=== PATIENT | female | born 1950 | race Caucasian/White ===

== ENCOUNTER 2016-06-08 16:13 | Emergency (ER) | payer MEDICARE, OTHER ==
[~2016-06-08] VITALS: Ht 157.5 cm; Wt 63.0 kg
[2016-06-08 16:39] VITALS: Ht 157.5 cm; Wt 63.0 kg
[2016-06-08] MEDS ORDERED: morphine 4 MG/ML VIAL IV STA (17:19)
[2016-06-08] MEDS ORDERED: ONDANSETRON 4 MG INJ IV STA (17:19)
[2016-06-08] MEDS ORDERED: SOD CHLORIDE 0.9% 1,000 ML IV STA (17:19)
[2016-06-08] MEDS ORDERED: FAMOTIDINE 20 MG INJ IV STA (17:19)
--- NOTE | 2016-06-08 17:58 | RADRPT ---
PROCEDURE: CT Abdomen and Pelvis without contrast. CLINICAL INDICATION: Abdominal and pelvic pain. Right flank pain. TECHNIQUE: CT scan of the abdomen and pelvis without contrast was performed. Coronal and sagittal reformatted images were obtained from the axial source images. Images were reviewed on a high-resolu [employer] PACS workstation. Total exam DLP is 571.88 mGy-cm. CTDIvol is 10.97 mGy. One or more of the f ollowing dose reduction techniques were used: Automated exposure control, adjustment of the mA and/o r kV according to patient size, use of iterative reconstruction technique. COMPARISON: None. FINDINGS: There is a benign calcified granuloma in the right middle lobe inferiorly. The lung bases are other lewis normal. There is no pleural effusion or pericardial effusion. The liver is enlarged and has a nodular surface consistent with cirrhosis. The gallbladder is contracted but otherwise unremarkable. The bile ducts are normal. The spleen is enlarged. Multiple dilated veins are present in the upper abdomen consistent with por rafita hypertension. Both adrenals are normal with no enlargement or mass. The pancreas is unremarkable with no mass or evidence of pancreatitis. There is no renal mass or hydronephrosis. There is no renal calculus or ureteral calculus. The abdominal aorta is not dilated. There is calcification in the aorta consistent with atheroscler osis. There is no retroperitoneal lymphadenopathy or mass. There is no pelvic lymphadenopathy or mass. The bladder and distal ureters are normal. There is a large region of marked thickening of the wall of the cecum and ascending colon consistent with neoplasm measuring approximately 7.5 x 7.8 x 12.4 cm in AP, transverse, and cranial caudal dim ensions. There is surrounding mesenteric infiltration or edema. There is no evidence of bowel obst ruction. There is diverticulosis of the sigmoid colon without evidence of diverticulitis. The kan l and mesentery are otherwise normal. There is no free fluid or free gas. The osseous structures are unremarkable with no fracture or lytic lesion. IMPRESSION: 1. Benign calcified granuloma in the right middle lobe inferiorly. 2. Enlarged liver with nodular surface consistent with cirrhosis. 3. Contracted gallbladder. 4. Splenomegaly and portal hypertension. 5. Atherosclerosis. 6. Large mass with marked thickening of the wall of the cecum and ascending colon consistent with n eoplasm measuring 7.5 x 7.8 x 12.4 cm. Surrounding mesenteric infiltration or edema. 7. Diverticulosis of the sigmoid colon without evidence of diverticulitis. 8. Otherwise unremarkable study. Call report: A call report of the findings was made to Dr. Em on 06/08/2016 at 1758 hours. RPTAT: QQ .Billy Young MD, MD Date Time Electronically viewed and signed by .Billy Young MD, MD on 06/08/2016 17:58 .R/
[2016-06-08 18:44] LABS: ADD SCAN DIFF NO
[2016-06-08 18:55] LABS: ADD UMIC YES; URINE BILIRUBIN (Dip) NEGATIVE (NEGATIVE); URINE BLOOD (Dip) 1+ (NEGATIVE); URINE COLOR YELLOW (YELLOW); URINE GLUCOSE (Dip) NEGATIVE (NEGATIVE); URINE KETONES (Dip) NEGATIVE (NEGATIVE); URINE LEUKOCYTE ESTERASE (Dip) NEGATIVE (NEGATIVE); URINE NITRITE (Dip) NEGATIVE (NEGATIVE); URINE TOTAL PROTEIN (Dip) TRACE (NEGATIVE); URINE UROBILINOGEN (Dip) 0.2 E.U./dL (0.1-1.0)
[2016-06-08 18:58] LABS: BASOPHILS % 0.1 % (0.0-2.0); EOSINOPHILS # 0.1 10^3/ul (0.0-0.5); EOSINOPHILS % 0.7 % (0.0-7.0); HEMATOCRIT 26.6 % (37.0-47.0); HEMOGLOBIN 8.2 g/dl (12.0-16.0); LYMPHOCYTES # 1.1 10^3/ul (0.8-2.9); LYMPHOCYTES % 15.6 % (15.0-51.0); MEAN CORPUSCULAR HEMOGLOBIN 24.3 pg (29.0-33.0); MEAN CORPUSCULAR HGB CONC 30.8 g/dl (32.0-37.0); MEAN CORPUSCULAR VOLUME 78.7 fl (82.0-101.0); MEAN PLATELET VOLUME 11.6 fl (7.4-10.4); MONOCYTE # 0.9 10^3/ul (0.3-0.9); MONOCYTES % 12.5 % (0.0-11.0); NEUTROPHIL # 4.9 10^3/ul (1.6-7.5); NEUTROPHILS % 70.8 % (39.0-77.0); PLATELET COUNT 135 10^3/UL (140-415); RED BLOOD COUNT 3.38 10^6/ul (4.20-5.40)
[2016-06-08 19:03] LABS: BACTERIA,URINE FEW; SQUAMOUS EPITHELIAL CELL,UR MODERATE
[2016-06-08 19:13] LABS: ALBUMIN 2.7 g/dl (3.3-4.9); POTASSIUM 3.6 mmol/L (3.5-5.1)
[2016-06-08 19:15] LABS: BILIRUBIN,INDIRECT 0.3 mg/dl (0-1.1); BILIRUBIN,TOTAL 0.3 mg/dl (0.2-1.3); CREATININE 0.63 mg/dl (0.44-1.00)
[2016-06-08 19:16] LABS: ALBUMIN/GLOBULIN RATIO 0.75; CALCIUM 7.8 mg/dl (8.4-10.2); TOTAL PROTEIN 6.3 g/dl (6.1-8.1)
[2016-06-08 19:55] VITALS: TEMP 99.5
--- NOTE | 2016-06-08 19:56 | ERA ---
ER Documentation Chief Complaint Date/Time DATE: 06/08/16 TIME: 19:51 Chief Complaint R flank pain x 8 days HPI This is a 65-year-old female presents to the emergency room for evaluation of right-sided flank pain for the past 10 days. The patient states that it is an achy pain worse with movement and somewhat relieved when she lays still. The patient denies any nausea, vomiting or diarrhea associated with this and came to the ER today for evaluation. She denies any bleeding from the rectum. ROS All systems reviewed and are negative except as per history of present illness. Medications Home Meds No Active Prescriptions or Reported Meds Allergies Allergies: Coded Allergies: tetracycline (Unverified Allergy, Unknown, 06/08/16) PMhx/Soc Medical and Surgical Hx: pt denies Medical Hx, pt denies Surgical Hx Hx Alcohol Use: No Hx Substance Use: No Hx Tobacco Use: No Smoking Status: Never smoker Physical Exam Vitals Vital Signs Date Time Temp Pulse Resp B/P Pulse Ox O2 Delivery O2 Flow Rate FiO2 06/08/16 18:26 99.5 88 22 135/69 100 Room Air 06/08/16 16:39 101.3 94 20 184/74 100 Physical Exam INITIAL VITAL SIGNS: Reviewed by me GENERAL: The patient is well developed and appropriate for usual state of health in no apparent distress HEENT: Pupils equal, round, and reactive to light. EOMI. There is no scleral icterus. NECK: C-spine is soft and supple, there is no meningismus. There is no cervical lymphadenopathy. LUNGS: Clear to auscultation bilaterally. There are no rales, wheezes or rhonchi. HEART: Regular rate and rhythm, no murmurs, clicks, rubs or gallops. ABDOMEN: Right-sided CVAT, soft, non-tender, non-distended. There are bowel sounds in all four quadrants. No rebound or guarding. EXTREMITIES: There is no peripheral cyanosis or edema. No focal swelling or erythema. NEUROLOGICAL: The patient moves all four extremities with 5/5 strength. Cranial nerves II - XII are intact. Normal gait. Alert and oriented SKIN: There is no apparent rash or petechiae. HEME/LYMPHATIC: There is no evidence of excessive bruising or lymphedema. PSYCHIATRIC: The patient does not appear anxious or depressed. Result Diagram: 06/08/16 1800 06/08/16 1800 Results 24 hrs Laboratory Tests Test 06/08/16 18:00 Alanine Aminotransferase (ALT/SGPT) 31IU/L Albumin 2.7g/dl Albumin/Globulin Ratio 0.75 Alkaline Phosphatase 103IU/L Anion Gap 15 Aspartate Amino Transf (AST/SGOT) 33IU/L Basophils # 0.010^3/ul Basophils % 0.1% Blood Urea Nitrogen 15mg/dl Calcium Level 7.8mg/dl Carbon Dioxide Level 21mmol/L Chloride Level 101mmol/L Creatinine 0.63mg/dl Direct Bilirubin 0.00mg/dl Eosinophils # 0.110^3/ul Eosinophils % 0.7% Globulin 3.60g/dl Glucose Level 103mg/dl Hematocrit 26.6% Hemoglobin 8.2g/dl Indirect Bilirubin 0.3mg/dl Lipase 193U/L Lymphocytes # 1.110^3/ul Lymphocytes % 15.6% Mean Corpuscular Hemoglobin 24.3pg Mean Corpuscular Hemoglobin Concent 30.8g/dl Mean Corpuscular Volume 78.7fl Mean Platelet Volume 11.6fl Monocytes # 0.910^3/ul Monocytes % 12.5% Neutrophils # 4.910^3/ul Neutrophils % 70.8% Nucleated Red Blood Cells # 0.010^3/ul Nucleated Red Blood Cells % 0.0/100WBC Platelet Count 83429^3/UL Potassium Level 3.6mmol/L Red Blood Count 3.3810^6/ul Red Cell Distribution Width 16.0% Sodium Level 133mmol/L Total Bilirubin 0.3mg/dl Total Protein 6.3g/dl Urine Bacteria FEW Urine Bilirubin NEGATIVE Urine Clarity CLEAR Urine Color YELLOW Urine Glucose NEGATIVE% Urine Hemoglobin 1+ Urine Ketones NEGATIVE Urine Leukocyte Esterase NEGATIVE Urine Microscopic RBC 2-5/HPF Urine Microscopic WBC 0-2/HPF Urine Nitrite NEGATIVE Urine Specific [place] 1.020 Urine Squamous Epithelial Cells MODERATE Urine Total Protein TRACE Urine Urobilinogen 0.2 E.U./dL Urine pH 6.0 White Blood Count 7.010^3/ul Current Medications Medications (Trade) Dose Ordered Sig/Angelika Route PRN Reason Start Time Stop Time Status Last Admin Dose Admin Sodium Chloride (NS) 1,000 ml @ 1,000 mls/hr Q1H STAT IV 06/08/16 17:19 3/9/17 18:18 DC 06/08/16 18:16 Morphine Sulfate (morphine) 4 mg ONCE STAT IV 06/08/16 17:19 06/08/16 17:20 DC 06/08/16 18:17 Ondansetron HCl (Zofran Inj) 4 mg ONCE STAT IV 06/08/16 17:19 06/08/16 17:20 DC 06/08/16 18:16 Famotidine (Pepcid Iv) 20 mg ONCE STAT IV 06/08/16 17:19 06/08/16 17:20 DC 06/08/16 18:16 Procedures/MDM CT abdomen pelvis without: 1. Benign calcified granuloma in the right middle lobe inferiorly. 2. Enlarged liver with nodular surface consistent with cirrhosis. 3. Contracted gallbladder. 4. Splenomegaly and portal hypertension. 5. Atherosclerosis. 6. Large mass with marked thickening of the wall of the cecum and ascending colon consistent with neoplasm measuring 7.5 x 7.8 x 12.4 cm. Surrounding mesenteric infiltration or edema. 7. Diverticulosis of the sigmoid colon without evidence of diverticulitis. 8. Otherwise unremarkable study. This 65-year-old female presents to the ER for evaluation of right-sided flank pain. When I evaluated this patient she did have right-sided CVAT. Lab work and a urinalysis was obtained. I also obtain a CAT scan which does show a large mass with thickened cecum and ascending colon consistent with neoplasm. This patient states that she has no history of cancer. I advised her that she does have a new mass and I recommended admission to the hospital for oncology workup. The patient adamantly refused to be admitted to the hospital. 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 The patient was made aware that she would have to be leaving AGAINST MEDICAL ADVICE. I advised her against risk of leaving including risk of . The patient verbalized understanding. The patient has capacity to make medical decisions. This patient will be discharged home with a prescription for [place], Zofran for any nausea, and referral for outpatient oncology. I advised her she can return to the ER anytime for further evaluation and she verbalized understanding. Against Medical Advice Note The patient verbalized understanding of risks of signing out against medical advice including and disability. The patient explained to me the reason for wanting to sign out against medical advice, [default value]. The patient is alert and oriented x 3 with decisional capacity and competence to sign out. They were welcomed to come back to ER and will be going home with discharge paperwork. Departure Diagnosis: Primary Impression: Cecum mass Additional Impressions: Colon malignancy Cancer Microcytic anemia Thrombocytopenia Hyponatremia Condition: AGUSTINA Monsivais DO Jun 08, 2016 19:55
[2016-06-08] MEDS ORDERED: HYDR-906 PO (19:57)
[2016-06-08] MEDS ORDERED: DOCU-144 PO (19:57)
[2016-06-08] MEDS ORDERED: ONDA4TAB8 PO (19:57)
[2016-06-08 20:58] VITALS: BP 108/61; PULSE 79; RESP 21
== END 2016-06-08 20:58 | disposition home or self-care (01) ==
LOC: E/R 16:13
DX: K63.89 Other specified diseases of intestine (principal); C18.0 Malignant neoplasm of cecum; D50.9 Iron deficiency anemia, unspecified; D69.6 Thrombocytopenia, unspecified; E87.1 Hypo-osmolality and hyponatremia
CPT/HCPCS: 74176; 80053; 81001; 83690; 85025; 96361; 96374; 96375; 99285; J2270; J2405; J7030; 81003

== ENCOUNTER 2016-06-26 07:37 | Inpatient (IN) | payer MEDICARE, OTHER ==
[2016-06-26] VITALS (27 sets, daily range): BP systolic 111–159; BP diastolic 50–76; PULSE 68–99; RESP 16–35; Ht 152.4 cm; Wt 62.5 kg
[~2016-06-26] VITALS: Ht 152.4 cm; Wt 62.5 kg
[~2016-06-26 07:37] MED LIST: AMPICILLIN/SULB 3 GM/NS (PMX) 100 ML IVPB ONE; DOCU-144 PO; HYDR-906 PO; ONDA4TAB8 PO; SOD CHLORIDE 0.9% 1,000 ML IV ONE
[2016-06-26] MEDS ORDERED: AMLO1CAP8 PO (08:06)
--- NOTE | 2016-06-26 09:01 | RADRPT ---
PROCEDURE: Chest Radiograph. CLINICAL INDICATION: Preop for hemicolectomy. TECHNIQUE: Single frontal chest radiograph. COMPARISON: CT abdomen pelvis 06/08/2016 FINDINGS: Heart size is within normal limits. Atherosclerotic calcifications are present. A calcified granul lindsay is seen in the right mid lung base. The lungs are otherwise clear. No infiltrate or effusion is seen. The bones are intact. IMPRESSION: 1. No evidence of acute cardiopulmonary disease. RPTAT: KK .Karel Silvestre MD, Date Time Electronically viewed and signed by .Karel Silvestre MD, MD on 06/26/2016 09:01 .B/
[2016-06-26] MEDS ORDERED: FENTAnyl 50 MCG/ML VIAL ONE (09:37)
[2016-06-26] MEDS ORDERED: ROCURONIUM 50 MG INJ ONE (09:37)
[2016-06-26] MEDS ORDERED: ONDANSETRON 4 MG INJ ONE (09:37)
[2016-06-26] MEDS ORDERED: SUCCINYLCHOLINE CHLORIDE 100 MG/5 ML SYG IV ONE (09:37)
[2016-06-26] MEDS ORDERED: PROPOFOL 20 ML ONE (09:37)
[2016-06-26] MEDS ORDERED: METOCLOPRAMIDE 10 MG INJ ONE (09:38)
[2016-06-26] MEDS ORDERED: HYDROmorphONE 0.2 MG/ML PCA IV SCH (10:30)
[2016-06-26] MEDS ORDERED: HYDROmorphONE (0.2 MG/ML) 10ML SYG IV PRN ×2 (10:30)
[2016-06-26] MEDS ORDERED: ONDANSETRON 4 MG INJ IV PRN ×2 (10:30)
[2016-06-26] MEDS ORDERED: FENTAnyl 50 MCG/ML VIAL IV PRN (10:30)
[2016-06-26] MEDS ORDERED: LABETALOL HCL 20MG INJ IV PRN (10:30)
[2016-06-26] MEDS ORDERED: NALOXONE (0.4 MG/ML) INJ IV PRN (10:30)
[2016-06-26] MEDS ORDERED: hydrALAzine 20 MG INJ IV PRN ×2 (10:30→13:00)
[2016-06-26] MEDS ORDERED: MEPERIDINE 25 MG INJ IV PRN (10:30)
[2016-06-26] MEDS ORDERED: ATROPINE 1 MG/10 ML SYRINGE ONE (11:20)
[2016-06-26] MEDS ORDERED: NEOSTIGMINE 3 MG/3 ML SYRINGE ONE (11:21)
[2016-06-26] MEDS: HYDROmorphONE (0.2 MG/ML) 10ML SYG IV PRN ×5 (11:55→12:19)
[2016-06-26] MEDS: D5W-0.45 NACL + KCL 20 MEQ 1,000 ML IV SCH ×2 (12:04→21:05)
[2016-06-26] MEDS: FENTAnyl 50 MCG/ML VIAL IV PRN ×4 (12:20→12:57)
[2016-06-26] MEDS ORDERED: ACETAMINOPHEN 1000MG/100ML IV 100 ML IVPB PRN (12:30)
[2016-06-26] MEDS ORDERED: morphine 1 MG/ML 30 ML (PCA) IV SCH (12:30)
--- NOTE | 2016-06-26 12:30 | OPR ---
DATE OF OPERATION: PREOPERATIVE DIAGNOSIS: Large cecal mass. POSTOPERATIVE DIAGNOSIS: Large cecal mass. Probable malignancy. OPERATION PERFORMED: Extended right hemicolectomy. ANESTHESIA: General. ANESTHESIOLOGIST: Stanton Beltre MD SURGEON: Xander Rios MD RESEARCH MECHANIC: Toribio Cox MD INDICATIONS FOR PROCEDURE: The patient is a 65-year-old female who was evaluated for abdominal pain and anemia. A CAT scan had been performed. She was found to have an extremely large cecal mass wi th evidence of obstruction and she was sent for surgical consultation. She was counseled as to the need for exploratory laparotomy and probable right hemicolectomy. She consented and was scheduled f or surgery. DESCRIPTION OF PROCEDURE: The patient on the night before surgery was given a bowel prep. On the m orning of surgery, she was placed under general endotracheal tube anesthesia. The abdomen was prepp ed and draped in usual sterile fashion. A generous midline incision was made from a point approxima tely 6 cm above the umbilicus to a point approximately 5 cm below the umbilicus. Subcutaneous tissu e was dissected with cautery down to the anterior rectus sheath. The linea alba was incised and the abdomen was entered without difficulty. Upon entering the abdomen, there was a moderate amount of ascites and a large fluctuant mass occupying the entire right lower quadrant of the abdomen. The Mitch okwalter retractor was placed and excellent exposure was obtained. It was also noted that patient h ad a cirrhotic liver. There is no evidence of peritoneal carcinomatosis; however, the process did a ppear to be secondary to a malignancy with the tumor invading into the right abdominal wall and the retroperitoneal region. With meticulous dissection, the cecum was mobilized. The white line of Toldt was somewhat obliterat ed by tumor. Therefore, portions of the abdominal wall were dissected in order to facilitate mobili zation of the cecum. Mobilization of the right colon continued up around the hepatic flexure. The tumor process did appear to also involve the superior portion of the ascending colon. Dissection co ntinued until a point beyond the mid transverse colon. At this point, the mid transverse colon was cleared of its mesentery and then subsequently transected with JESUS stapler. Subsequently, a suitabl e point on the terminal ileum was identified, cleared of its mesentery and transected with the JESUS s tapler. A very edematous mesentery was then sequentially transected using LigaSure device or suture ligation. In this fashion, the entire specimen was removed and sent for permanent pathologic alexander sis. The abdomen was irrigated with warm water. Minimal bleeding was controlled with cautery. Preparation for reanastomosis was then made. The terminal ileum was brought in close approximation with the transected region of the transverse colon and held in place with 3-0 silk pop off sutures, dual enterotomies were made and anastomosis was created with the JESUS stapler. The staple line was i nspected. There was no evidence of bleeding. The anastomosis was then completed with a TA stapler in the standard fashion. At this point, Dr. Rios inspected the defect in the mesentery. It was ex tremely large and it was thus not indicated to attempt to repair the defect. The portions of the om entum were laid over the anastomosis and sutured down with 3-0 silk pop off sutures and the final ir rigation and inspection took place. Lap, sponge, and instrument counts were correct. The Bookwalte r retractor was removed and the abdomen was closed with #1 looped PDS sutures in running fashion and the skin was reapproximated with skin debbie. Patient tolerated procedure well. ESTIMATED BLOOD LOSS: 400 mL. COMPLICATIONS: There were no complications. DISPOSITION: The patient was transported in stable condition to the recovery room. Dictated By: XANDER YATES/JAMIE Conf#: [id number] DID#: [id number]
[2016-06-26] MEDS: DIPHENHYDRAMINE 50 MG INJ IV PRN (12:57)
--- NOTE | 2016-06-26 14:37 | HP ---
DATE OF ADMISSION: 06/26/2016 HISTORY OF PRESENT ILLNESS: The patient is a 65-year-old female with history of hypertension, arthr itis, and depression. The patient presented to the emergency room at the beginning of this month wi th complaints of abdominal pain. The patient underwent a CT scan which revealed 7 x 12 mm cecal mas s consistent with probable malignancy. The patient also with evidence for obstruction, not suitable to be removed during colonoscopy. The patient was evaluated by Dr. Rios in surgical consultation and patient was brought to the hospital and underwent extended right hemicolectomy for a large cecal mass. Postoperatively, the patient experienced significant postoperative pain and patient will be admitted for further evaluation and management. PAST MEDICAL HISTORY: Positive for hypertension, depression, arthritis. PAST SURGICAL HISTORY: The patient is status post x1 many years ago. SOCIAL HISTORY: The patient lives with her family. The patient denies any tobacco use, denies any illicit drug use, denies any alcohol use. FAMILY HISTORY: Noncontributory. ALLERGIES: THE PATIENT IS ALLERGIC TO TETRACYCLINE. HOME MEDICATIONS: Includes: 1. Amlodipine. 2. Benazepril. 3. Colace. 4. Zofran. 5. [place]. REVIEW OF SYSTEMS: A 12-point review of systems is negative unless what is mentioned in the HPI. PHYSICAL ASSESSMENT: GENERAL: Well-developed, well-nourished female, currently is awake, alert, moaning. VITAL SIGNS: Temperature is 98.0, pulse is 70, blood pressure 131/67, respiratory rate 18, oxygen s aturation is 100% on 8 liters face mask. HEENT: Head is atraumatic, normocephalic. Pupils equal, round, reactive to light and accommodation . Oral mucosa is pink and moist. NECK: Supple, no cervical lymphadenopathy, no thyromegaly. LUNGS: Clear bilaterally. There is no rhonchi, wheezes, rales noted. CARDIOVASCULAR: Normal S1, S2. No murmurs, gallops, clicks, rubs noted. ABDOMEN: Round, soft, status post surgery with a dry, clean, and intact dressing. GENITOURINARY: The patient has a Santos catheter with yellow urine. EXTREMITIES: There is no edema, clubbing, cyanosis. Pulses equal bilaterally 2+. SKIN: There is no rash, petechiae noted. NEUROLOGIC: The patient is awake, alert, and oriented x3. No focal deficits noted. Motor strength is 5/5 in all extremities. LABORATORY DATA PRIOR TO ADMISSION: CBC: White blood cells 9.1, hemoglobin 9.0, hematocrit 29.8, p latelets 217. BMP: Sodium is 131, potassium 3.7, chloride 101, carbon dioxide 20, glucose 187, cre atinine 0.57. BUN is 12. PT is 14.7, INR 1.29, PTT is 28.9. IMAGING: Chest x-ray with no evidence of acute cardiopulmonary disease. ASSESSMENT AND PLAN: 1. Large cecal mass, status post extended right hemicolectomy. I will continue patient on Dilaudid FLIGHT DISPATCHER for pain and Tylenol. Continue Zofran p.r.n. for nausea. The patient currently has NG tube to low wall suctioning. Continue IV fluids. Monitor electrolytes. Incentive spirometer q.1 hour. T he patient is awake. Continue to follow up surgical recommendation. 2. Hypertension. I will continue patient on hydralazine p.r.n. for systolic blood pressure above 1 70. 3. We will continue sequential compression device for deep venous thrombosis prophylaxis. Further recommendations based on clinical course. Plan of care was discussed with Dr. Ferreira. Dictated By: YOON TAVERAS PEDIATRIC PHYSICAL THERAPY ASSISTANT for ADELAIDE FERREIRA MD SR/NTS Conf#: [id number] DID#: [id number]
[2016-06-27] MEDS: HYDROmorphONE 0.2 MG/ML PCA IV SCH ×2 (01:14→21:20)
[2016-06-27] MEDS: D5W-0.45 NACL + KCL 20 MEQ 1,000 ML IV SCH ×3 (04:04→18:28)
[2016-06-27 08:07] VITALS: BP 146/66; RESP 18
--- NOTE | 2016-06-27 12:26 | PN ---
Date/Time of Note Date/Time of Note DATE: 06/27/16 TIME: 12:24 Assessment/Plan VTE Prophylaxis VTE Prophylaxis Intervention: SCD's Lines/Catheters IV Catheter Type (from Nrsg): Peripheral IV Urinary Cath still in place: Yes Reason Cath still needed: urinary retention Assessment/Plan Chief Complaint/Hosp Course ASSESSMENT AND PLAN: 1. Large cecal mass, status post extended right hemicolectomy. Continue patient on Dilaudid DIGITAL SALES MANAGER for pain and Tylenol. Continue Zofran p.r.n. for nausea. The patient currently has NG tube to low wall suctioning. Continue IV fluids. Monitor electrolytes. Incentive spirometer q.1 hour. The patient is awake. Continue to follow up surgical recommendation. 2. Hypertension. Continue patient on hydralazine p.r.n. for systolic blood pressure above 170. Continue sequential compression device for deep venous thrombosis prophylaxis. Further recommendations based on clinical course. Plan of care was discussed with Dr. Figueroa. Problems: Subjective 24 Hr Interval Summary Free Text/Dictation Pain is well controlled with DIGITAL SALES MANAGER, BS are hypoactive, no flatus. Exam/Review of Systems Vital Signs Vitals Vital Signs Date Time Temp Pulse Resp B/P Pulse Ox O2 Delivery O2 Flow Rate FiO2 06/27/16 08:07 98.0 89 18 146/66 91 06/26/16 16:30 Room Air 06/26/16 12:16 8.0 Intake and Output 06/26/16 06/26/16 06/27/16 15:00 23:00 07:00 Intake Total 1800 ml 790 ml 30 ml Output Total 400 ml 400 ml 600 ml Balance 1400 ml 390 ml -570 ml Exam PHYSICAL ASSESSMENT: GENERAL: Well-developed, well-nourished female, currently is awake, alert, moaning. HEENT: Head is atraumatic, normocephalic. Pupils equal, round, reactive to light and accommodation. NGT to LWS. NECK: Supple, no cervical lymphadenopathy, no thyromegaly. LUNGS: Clear bilaterally. There is no rhonchi, wheezes, rales noted. CARDIOVASCULAR: Normal S1, S2. No murmurs, gallops, clicks, rubs noted. ABDOMEN: Round, soft, status post surgery with a dry and intact dressing. GENITOURINARY: The patient has a Santos catheter with yellow urine. EXTREMITIES: There is no edema, clubbing, cyanosis. Pulses equal bilaterally 2 +. SKIN: There is no rash, petechiae noted. NEUROLOGIC: The patient is awake, alert, and oriented x3. Medications Medications Current Medications Naloxone HCl (Narcan) 0.2 mg PRN PRN IV DECREASED REPIRATORY RATE; Start at 10:30 Acetaminophen/ Hydrocodone Bitart ([place] (5/325)) 1 tab Q4H PRN PO PAIN LEVEL 1 -5; Start 06/26/16 at 10:30; Status Future Hold Acetaminophen/ Hydrocodone Bitart ([place] (5/325)) 2 tab Q4H PRN PO PAIN LEVEL 6 -10; Start 06/26/16 at 10:30; Status Future Hold Diphenhydramine HCl (Benadryl) 25 mg Q6H PRN IV ITCHING Last administered on 12:57; Admin Dose 25 MG; Start 06/26/16 at 10:30 Miscellaneous Information 1. Discontinue DIGITAL SALES MANAGER... DIGITAL SALES MANAGER IV ; Start 06/26/16 at 10:30 Ondansetron HCl (Zofran Inj) 4 mg Q6H PRN IV NAUSEA AND/OR VOMITING; Start at 12:30 Morphine Sulfate 2 MG/HR CONTINUOUS RATE 2... Q4PCA IV ; Start 06/26/16 at 12: 30 Potassium Chloride/Dextrose/ Sod Cl 1,000 ml @ 125 mls/hr Q8H IV Last administered on 06/26/16 21:05; Admin Dose 125 MLS/HR; Start 06/26/16 at 12:04 Acetaminophen (Ofirmev 1000mg/ 100ml Iv) 100 ml @ 400 mls/hr Q6H PRN IVPB PAIN ; Start 06/26/16 at 12:30 Hydralazine HCl (Apresoline) 10 mg Q6H PRN IV SBP>170; Start 06/26/16 at 13:00 Hydromorphone HCl (Dilaudid DIGITAL SALES MANAGER) MG/HR CONTINUOUS RATE ... Q4PCA IV Last administered on 06/27/16 01:14; Admin Dose 6 MG; Start 06/27/16 at 00:59 Influenza Virus Vaccine (Fluzone) 0.5 ml ONCE ONCE IM* ; Start 3/29/17 at 10:00 ; Stop 06/28/16 at 10:01 YOON TAVERAS Jun 27, 2016 12:26
[2016-06-27 19:20] VITALS: BP 133/64; RESP 19
--- NOTE | 2016-06-27 21:19 | PN ---
DATE: 06/27/2016 Postop day #1 followup progress note. SUBJECTIVE: No complaint. Has been out of bed to some extent. No bowel movement, no passing gas. NG tube is in place. OBJECTIVE: VITAL SIGNS: Temperature 98, heart rate 89, respirations 18, blood pressure 146/66, saturation 91% on room air. LABORATORY DATA: No labs available today. GENERAL: Awake, alert and oriented x3. NG tube has drained 200 mL of clear liquids the past 24 yoshi rs. HEART: Regular. ABDOMEN: Dressing is intact. Bowel sounds hypoactive. EXTREMITIES: Legs no calf tenderness. ASSESSMENT: Status post right hemicolectomy for large cecal mass. The patient is doing fine and is stable, no temperature. No bowel movement, no passing flatus. Dressing is intact. PLAN: Continue current care. Continue NG tube to low intermittent suction. Dictated By: GLO OSBORN MD PS/NTS Conf#: [id number] DID#: [id number]
[2016-06-28] MEDS: D5W-0.45 NACL + KCL 20 MEQ 1,000 ML IV SCH ×4 (01:49→21:40)
[2016-06-28 08:26] VITALS: BP 138/71
[2016-06-28] MEDS ORDERED: INFLUENZA VIRUS VACCINE 0.5 ML SYG IM* ONE (10:00)
[2016-06-28 10:25] LABS: ADD SCAN DIFF NO
[2016-06-28 10:30] LABS: BASOPHILS % 0.2 % (0.0-2.0); EOSINOPHILS # 0.1 10^3/ul (0.0-0.5); EOSINOPHILS % 0.8 % (0.0-7.0); HEMATOCRIT 31.5 % (37.0-47.0); LYMPHOCYTES # 1.2 10^3/ul (0.8-2.9); LYMPHOCYTES % 7.4 % (15.0-51.0); MEAN CORPUSCULAR HEMOGLOBIN 25.1 pg (29.0-33.0); MEAN CORPUSCULAR HGB CONC 31.7 g/dl (32.0-37.0); MEAN CORPUSCULAR VOLUME 78.9 fl (82.0-101.0); MEAN PLATELET VOLUME 10.8 fl (7.4-10.4); MONOCYTE # 0.7 10^3/ul (0.3-0.9); MONOCYTES % 4.7 % (0.0-11.0); NEUTROPHIL # 13.7 10^3/ul (1.6-7.5); NEUTROPHILS % 86.3 % (39.0-77.0); PLATELET COUNT 212 10^3/UL (140-415); RED BLOOD COUNT 3.99 10^6/ul (4.20-5.40); RED CELL DISTRIBUTION WIDTH 17.9 % (11.5-14.5); WHITE BLOOD COUNT 15.9 10^3/ul (4.8-10.8)
[2016-06-28 10:38] LABS: POTASSIUM 4.1 mmol/L (3.5-5.1)
[2016-06-28 10:41] LABS: CREATININE 0.51 mg/dl (0.44-1.00)
[2016-06-28 10:42] LABS: CALCIUM 7.7 mg/dl (8.4-10.2); MAGNESIUM 1.7 mg/dl (1.7-2.5)
[2016-06-28 10:43] LABS: INR 1.48; PT RATIO 1.4
[2016-06-28 10:44] LABS: PARTIAL THROMBOPLASTIN TIME 32.8 Sec (25.0-35.0)
[2016-06-28] MEDS: ONDANSETRON 4 MG INJ IV PRN (11:08)
[2016-06-28] MEDS: DIPHENHYDRAMINE 50 MG INJ IV PRN (14:45)
--- NOTE | 2016-06-28 14:55 | PN ---
DATE: Postop day #2. SUBJECTIVE: She does not like the NG tube. She wants it out. Otherwise, no complaint. She has be en out of bed in the chair. OBJECTIVE: VITAL SIGNS: Temperature is 98.9, pule 89, 138/71, respirations 19, saturation 92% on room air. HEENT: WBC 15,900 with 86% segmented. Hemoglobin 10, hematocrit 31.5. Chemistry: Sodium 125, pot assium 4.1. BUN 7, creatinine 0.11. PT is 18. INR is 1.48. INTAKE AND OUTPUT: Intake 2740, output 2450. NG tube 200 mL. NG tube drainage clear liquid. The patient is on ice chips. EXTREMITIES: Legs have no calf tenderness. ABDOMEN: Soft, not distended, and relatively flat. Bowel sounds hypoactive. ASSESSMENT: Postop day #2. The patient is stable. Only PT is elevated abnormal. We will try to g magdalene vitamin K. The patient was encouraged to use incentive spirometry, but she is not using that. PLAN: Continue followup. Dictated By: GLO OSBORN MD PS/NTS Conf#: [id number] DID#: [id number]
[2016-06-28] MEDS ORDERED: PHYTONADIONE 10 MG in DEXTROSE 5% 50 ML IVPB ONE (15:00)
--- NOTE | 2016-06-28 18:31 | PN ---
Date/Time of Note Date/Time of Note DATE: 06/28/16 TIME: 18:29 Assessment/Plan VTE Prophylaxis VTE Prophylaxis Intervention: SCD's Lines/Catheters IV Catheter Type (from Nrsg): Peripheral IV Urinary Cath still in place: Yes Reason Cath still needed: urinary retention Assessment/Plan Chief Complaint/Hosp Course ASSESSMENT AND PLAN: 1. Large cecal mass, status post extended right hemicolectomy. Continue patient on Dilaudid SENIOR TECHNICAL PROJECT MANAGER for pain and Tylenol. Continue Zofran p.r.n. for nausea. The patient currently has NG tube to low wall suctioning. Continue IV fluids. Monitor electrolytes. Incentive spirometer q.1 hour. The patient is awake. Continue to follow up surgical recommendation. 2. Hypertension. Continue patient on hydralazine p.r.n. for systolic blood pressure above 170. Continue sequential compression device for deep venous thrombosis prophylaxis. Further recommendations based on clinical course. Plan of care was discussed with Dr. Figueroa. Problems: Subjective 24 Hr Interval Summary Free Text/Dictation Patient's complains of NG tube discomfort, reason for NG tube explained, pain is well controlled, bowel sounds are hypoactive, negative flatus. Exam/Review of Systems Vital Signs Vitals Vital Signs Date Time Temp Pulse Resp B/P Pulse Ox O2 Delivery O2 Flow Rate FiO2 06/28/16 08:26 98.9 89 138/71 92 06/27/16 19:20 19 06/26/16 16:30 Room Air 06/26/16 12:16 8.0 Intake and Output 06/27/16 06/27/16 06/28/16 15:00 23:00 07:00 Intake Total 1300 ml 1440 ml Output Total 1500 ml 950 ml Balance -200 ml 490 ml Exam PHYSICAL ASSESSMENT: GENERAL: Well-developed, well-nourished female, currently is awake, alert, moaning. HEENT: Head is atraumatic, normocephalic. PERRLA. NGT to LWS. NECK: Supple, no cervical lymphadenopathy, no thyromegaly. LUNGS: Clear bilaterally. There is no rhonchi, wheezes, rales noted. CARDIOVASCULAR: Normal S1, S2. No murmurs, gallops, clicks, rubs noted. ABDOMEN: Round, soft, status post surgery with a dry and intact dressing. GENITOURINARY: The patient has a Santos catheter with yellow urine. EXTREMITIES: There is no edema, clubbing, cyanosis. Pulses equal bilaterally 2 +. SKIN: There is no rash, petechiae noted. NEUROLOGIC: The patient is awake, alert, and oriented x3. Results Result Diagram: 06/28/16 1004 06/28/16 1004 Results 24 hrs Laboratory Tests Test 06/28/16 10:04 White Blood Count 15.9 #H Red Blood Count 3.99 L Hemoglobin 10.0 #L Hematocrit 31.5 L Mean Corpuscular Volume 78.9 L Mean Corpuscular Hemoglobin 25.1 L Mean Corpuscular Hemoglobin Concent 31.7 L Red Cell Distribution Width 17.9 H Platelet Count 212 # Mean Platelet Volume 10.8 H Neutrophils % 86.3 H Lymphocytes % 7.4 L Monocytes % 4.7 Eosinophils % 0.8 Basophils % 0.2 Nucleated Red Blood Cells % 0.0 Neutrophils # 13.7 H Lymphocytes # 1.2 Monocytes # 0.7 Eosinophils # 0.1 Basophils # 0.0 Nucleated Red Blood Cells # 0.0 Prothrombin Time 18.0 H Prothrombin Time Ratio 1.4 INR International Normalized Ratio 1.48 Activated Partial Thromboplast Time 32.8 Sodium Level 125 L Potassium Level 4.1 Chloride Level 99 Carbon Dioxide Level 21 Anion Gap 9 Blood Urea Nitrogen 7 Creatinine 0.51 Glucose Level 149 Calcium Level 7.7 L Phosphorus Level 3.0 Magnesium Level 1.7 Medications Medications Current Medications Naloxone HCl (Narcan) 0.2 mg PRN PRN IV DECREASED REPIRATORY RATE; Start at 10:30 Acetaminophen/ Hydrocodone Bitart ([place] (5/325)) 1 tab Q4H PRN PO PAIN LEVEL 1 -5; Start 06/26/16 at 10:30; Status Future Hold Acetaminophen/ Hydrocodone Bitart ([place] (5/325)) 2 tab Q4H PRN PO PAIN LEVEL 6 -10; Start 06/26/16 at 10:30; Status Future Hold Diphenhydramine HCl (Benadryl) 25 mg Q6H PRN IV ITCHING Last administered on t 14:45; Admin Dose 25 MG; Start 06/26/16 at 10:30 Miscellaneous Information 1. Discontinue SENIOR TECHNICAL PROJECT MANAGER... SENIOR TECHNICAL PROJECT MANAGER IV ; Start 06/26/16 at 10:30 Ondansetron HCl (Zofran Inj) 4 mg Q6H PRN IV NAUSEA AND/OR VOMITING Last administered on 06/28/16 11:08; Admin Dose 4 MG; Start 06/26/16 at 12:30 Morphine Sulfate 2 MG/HR CONTINUOUS RATE 2... Q4PCA IV ; Start 06/26/16 at 12: 30 Potassium Chloride/Dextrose/ Sod Cl 1,000 ml @ 125 mls/hr Q8H IV Last administered on 06/28/16 11:08; Admin Dose 125 MLS/HR; Start 06/26/16 at 12:04 Acetaminophen (Ofirmev 1000mg/ 100ml Iv) 100 ml @ 400 mls/hr Q6H PRN IVPB PAIN ; Start 06/26/16 at 12:30 Hydralazine HCl (Apresoline) 10 mg Q6H PRN IV SBP>170; Start 06/26/16 at 13:00 Hydromorphone HCl (Dilaudid SENIOR TECHNICAL PROJECT MANAGER) MG/HR CONTINUOUS RATE ... Q4PCA IV Last administered on 06/27/16 21:20; Admin Dose 6 MG; Start 06/27/16 at 00:59 YOON TAVERAS Jun 28, 2016 18:31
[2016-06-28 19:43] VITALS: BP_SYST 162; BP_SYST 171; BP_DIAS 81; BP_DIAS 94; RESP 20
[2016-06-29] MEDS: HYDROmorphONE 0.2 MG/ML PCA IV SCH ×2 (01:38→23:06)
[2016-06-29] MEDS: D5W-0.45 NACL + KCL 20 MEQ 1,000 ML IV SCH ×4 (06:18→22:47)
[2016-06-29 08:38] VITALS: BP 154/80; RESP 18
[2016-06-29 10:27] LABS: ADD SCAN DIFF NO
[2016-06-29 10:35] LABS: BASOPHILS % 0.1 % (0.0-2.0); EOSINOPHILS # 0.1 10^3/ul (0.0-0.5); EOSINOPHILS % 0.7 % (0.0-7.0); LYMPHOCYTES # 0.9 10^3/ul (0.8-2.9); LYMPHOCYTES % 6.5 % (15.0-51.0); MEAN CORPUSCULAR HEMOGLOBIN 25.1 pg (29.0-33.0); MEAN CORPUSCULAR HGB CONC 32.3 g/dl (32.0-37.0); MEAN CORPUSCULAR VOLUME 77.9 fl (82.0-101.0); MEAN PLATELET VOLUME 9.3 fl (7.4-10.4); MONOCYTE # 0.8 10^3/ul (0.3-0.9); MONOCYTES % 6.2 % (0.0-11.0); NEUTROPHIL # 11.5 10^3/ul (1.6-7.5); NEUTROPHILS % 85.7 % (39.0-77.0); PLATELET COUNT 204 10^3/UL (140-415); RED BLOOD COUNT 3.98 10^6/ul (4.20-5.40); RED CELL DISTRIBUTION WIDTH 18.1 % (11.5-14.5); WHITE BLOOD COUNT 13.5 10^3/ul (4.8-10.8)
[2016-06-29 10:45] LABS: INR 1.47; PROTIME 17.9 Sec (12.2-14.2); PT RATIO 1.4
[2016-06-29 10:47] LABS: POTASSIUM 4.3 mmol/L (3.5-5.1)
[2016-06-29 10:50] LABS: CREATININE 0.54 mg/dl (0.44-1.00)
[2016-06-29 10:51] LABS: CALCIUM 7.5 mg/dl (8.4-10.2); MAGNESIUM 1.6 mg/dl (1.7-2.5); PHOSPHORUS 3.6 mg/dl (2.5-4.9)
--- NOTE | 2016-06-29 13:24 | PN ---
DATE: Postop day #3, status post right extended hemicolectomy. SUBJECTIVE: Complains of NG tube. She states she has passed some gas. OBJECTIVE: VITAL SIGNS: Temperature 97.9, heart rate 85, respirations 18, blood pressure 154/80, saturations 9 5% on room air. LABORATORY: WBC slightly dropped to 15,500, with 85% segmented. Hemoglobin stable at 10, hematocri t 31. Chemistry: Sodium and potassium normal. BUN and creatinine normal. Coagulation 17.9. PT an d INR 1.47. Abdomen slightly distended. Bowel sounds 3+/4+ . Soft. Wound dressing intact. ASSESSMENT AND PLAN: Postop day #3. Patient has passed flatus. The NG tube drainage is clear colo red, from ice chips. Status post extended right hemicolectomy, postoperative day #3. The patient is stable. PLAN: Since the patient is too much upset about the NG and now just started passing gas, we are goi ng to remove the NG tube ( ). Will get the patient out of bed and walk around, get a urine cultu re and then discontinue the Santos ice chips, 1 cup every 8 hours. Dictated By: GLO OSBORN MD PS/NTS Conf#: [id number] DID#: [id number]
[2016-06-29] MEDS ORDERED: MAGNESIUM SULFATE 1 GM/D5W 100 ML IVPB ONE (17:00)
--- NOTE | 2016-06-29 17:27 | CONS ---
DATE OF ADMISSION: 06/26/2016 DATE OF CONSULTATION: 06/29/2016 REFERRING PHYSICIAN: Adelaide Figueroa MD TYPE OF CONSULTATION: Nephrology. REASON FOR CONSULTATION: Hyponatremia. HISTORY OF PRESENT ILLNESS: This is a 65-year-old female, who has a past medical history of hyperte nsion, who presented with a large cecal mass. The patient underwent an extended right hemicolectomy. Has been followed up by general surgery. The patient currently has an NG tube to low wall suction . She is currently on Dilaudid for pain control and the patient is noted to have a sodium of 125 ye sterday, which did not improve with IV fluid hydration to 126. Her magnesium has been low to 1.6. Nephrology was consulted because of hyponatremia and hypomagnesemia. At the time of my evaluation, the patient is in extreme pain for 6 to 8 out 10, noting chest pain, palpitation, headache, dizzines s, blurry vision, constipation, diarrhea, dysuria, increased urinary frequency. REVIEW OF SYSTEMS: Positive for abdominal pain. Other review of systems has been obtained and is n egative except what is mentioned in the history of present illness. PAST MEDICAL HISTORY: History of hypertension. PAST SURGICAL HISTORY: History of a . SOCIAL HISTORY: No smoking, alcohol or recreational drug use. FAMILY HISTORY: As per the patient, no history of chronic kidney disease or coronary artery disease in the family. ALLERGIES: TETRACYCLINE. HOME MEDICATIONS Include: 1. Amlodipine. 2. Benazepril. 3. Colace. 4. Zofran. 5. [place]. PHYSICAL EXAMINATION VITAL SIGNS: Temperature 97.9, heart rate 85, respiration 18, blood pressure 154/80, saturation is 95% room air. GENERAL: Awake, alert, in moderate distress due to the pain. HEENT: Normal. Oropharynx clear. NECK: Supple. No JVD, no lymphadenopathy. LUNGS: Clear to auscultation. No crackles, no wheezes. HEART: S1, S2, with regular rhythm. No murmur. ABDOMEN: Soft. Tender to palpation diffusely. No rebound, no guarding. Bowel sounds are present. EXTREMITIES: No clubbing, cyanosis, or edema. NEUROLOGICAL: Nonfocal, intact. PSYCHIATRIC: Appropriate affect and mood. LABORATORY DATA AND DIAGNOSTIC IMAGING 1. Sodium 125, potassium 4.1, chloride 99, bicarbonate 21, BUN 7, creatinine 0.5, glucose 149, calc ium 7.5, magnesium 1.6. 2. PT 17.9, PTT 31, INR 1.47. 3. WBC 13.5, hemoglobin 10, platelet count 204. 4. A chest x-ray that shows no evidence of acute cardiopulmonary disease. IMPRESSION This is a 65-year-old female with: 1. Acute hyponatremia with sodium 125. 2. Rule out syndrome of inappropriate antidiuretic hormone secretion due to the postoperative pain. 3. A history of hypertension. 4. A large cecal mass, is status post right extended hemicolectomy, currently NG tube on low, inter mittent suction. PLAN: 1. Thank you, Dr. Figueroa, for this consultation. The patient likely has a combination of hyponat remia secondary to hypovolemic hyponatremia, along with that the pain is causing a syndrome, SIADH. 2. I will order the urine studies, including a urine sodium, urine osmolality, a serum sodium, a se rum osmolality, TSH, free T4, cortisol and a uric acid with a.m. labs. 3. Continue the current IV fluids with D5 half NS with KCl at 125 mL/hr. I will decrease the IV fl uid rate to 100 mL/hr. 4. Pain control. As per general surgery. 5. The patient currently seen in the med/surg floor and she will be followed up along with her cour se in the hospital. 6. The patient has no history of chronic kidney disease, so we will not order any renal ultrasound at this point. We will continue to monitor this patient along with the primary care service and gen eral surgery service. Thank you for this consultation. I will continue to follow this patient. Total time spent in this patient's evaluation making assessment and plan and communicating with the patient's family at bedside and communicating with nursing staff took more than 90 minutes. Dictated By: KATIA JAUREGUI MD, KP/JAMIE Conf#: [id number] DID#: [id number] CC: ADELAIDE FIGUEROA MD;*EndCC*
[2016-06-29 20:09] VITALS: BP 163/84; RESP 18
[2016-06-29] MEDS: ONDANSETRON 4 MG INJ IV PRN (22:52)
[2016-06-30] VITALS: BP 157/72; RESP 18
[2016-06-30 05:38] LABS: ADD SCAN DIFF NO
[2016-06-30 05:44] LABS: BASOPHILS % 0.3 % (0.0-2.0); EOSINOPHILS # 0.2 10^3/ul (0.0-0.5); EOSINOPHILS % 1.4 % (0.0-7.0); HEMATOCRIT 30.3 % (37.0-47.0); HEMOGLOBIN 9.8 g/dl (12.0-16.0); LYMPHOCYTES % 8.7 % (15.0-51.0); MEAN CORPUSCULAR HGB CONC 32.3 g/dl (32.0-37.0); MEAN CORPUSCULAR VOLUME 77.3 fl (82.0-101.0); MONOCYTES % 9.1 % (0.0-11.0); NEUTROPHIL # 8.7 10^3/ul (1.6-7.5); PLATELET COUNT 196 10^3/UL (140-415); RED BLOOD COUNT 3.92 10^6/ul (4.20-5.40); RED CELL DISTRIBUTION WIDTH 18.5 % (11.5-14.5); WHITE BLOOD COUNT 10.9 10^3/ul (4.8-10.8)
[2016-06-30] MEDS: ONDANSETRON 4 MG INJ IV PRN ×2 (05:56→22:16)
[2016-06-30 05:58] LABS: URIC ACID 2.7 mg/dl (3.1-7.9)
[2016-06-30 05:59] LABS: POTASSIUM 4.4 mmol/L (3.5-5.1)
[2016-06-30 06:01] LABS: CREATININE 0.58 mg/dl (0.44-1.00)
[2016-06-30 06:04] LABS: CALCIUM 7.4 mg/dl (8.4-10.2)
[2016-06-30 06:27] LABS: THYROID STIMULATING HORMONE 2.25 MIU/L (0.465-4.680)
[2016-06-30] MEDS: D5W-0.45 NACL + KCL 20 MEQ 1,000 ML IV SCH ×2 (06:57→09:55)
[2016-06-30 08:00] VITALS: BP 160/77; RESP 20
--- NOTE | 2016-06-30 11:02 | PN ---
DATE: 06/30/2016 SUBJECTIVE: Complaining of sore throat and is upset that when she removed the NG tube herself it wa s hurting her. Patient according to the nurses has not been walking that much out of bed. No bowel movement. Santos has been removed. Patient has urinated, but the nurses state that she is incontin ent. We are not sure that she has been incontinent at home also before or not. OBJECTIVE VITAL SIGNS: Temperature 98, heart rate 87, respirations 20, blood pressure 160/77, saturation 95% on O2 nasal cannula. LABORATORY DATA: Today, uric acid is 2.7, which is low actually. T4 is normal. Sodium is low at 1 24, potassium is 4.4, carbon dioxide 20, low, BUN 14, creatinine 0.58. Glucose 136. WBC 10,900 wit h 80% segmented. Hemoglobin is 9.8, hematocrit 30.3, which is stable. No images. PHYSICAL EXAMINATION: ABDOMEN: Upper part of the epigastric area and the course of the transverse colon is very distended. It is somewhat painful on touch pressure. Bowel sounds are hypoactive 1+ to 2+/4+. ( The patient has claimed that she is passing gas). EXTREMITIES: Legs there is trace pitting edema bilaterally, a lot of varicose veins. It appe ars that patient is nauseous. Patient has been using a lot of ice chips. 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 An ileocolic anastomosis. Patient has been relativel y stable except that she is not walking and the NG tube was removed yesterday because the patient wa s too much complaining and now today she is more distended, especially in the epigastric area, I am not sure if this is the stomach or this is transverse colon, bowel sounds is hypoactive. PLAN: 1. Keep n.p.o. absolutely no ice chips. 2. Encourage the patient to get out of bed and walk as much as she can. I emphasized to the patien t that if she does not walk and she vomits we have to put back the NG tube, that she does not like i t at all. Continue current care on IV with potassium supplements. I am going to get a KUB right no w to see what is the status of the gas pattern in the belly. Note, this patient is very difficult t o handle, she does not cooperate. She does not want to get out of bed and walk, she does not liste n actually to instructions. Dictated By: GLO OSBORN MD PS/NTS Conf#: [id number] DID#: [id number]
--- NOTE | 2016-06-30 11:15 | RADRPT ---
PROCEDURE: XR Abdomen CLINICAL INDICATION: Postop abdominal pain TECHNIQUE: An AP supine radiograph of the abdomen was submitted. COMPARISON: Previous CT done 06/08/2016. The previous CT demonstrated an enlarged cirrhotic appearing liver with splenomegaly, a mass involvi ng the cecum and ascending colon and diverticulosis of the sigmoid colon. FINDINGS: Vertically oriented debbie are now seen across the central abdomen. The bowel gas pattern reflects a moderately severe ileus with elongated air distended segments of sm all bowel evident. No organomegaly or discrete mass is identified. No pathological calcification is identified. The osseous elements appear unremarkable. IMPRESSION: 1. Interval abdominal surgery. 2. The bowel gas pattern reflects a moderately severe ileus. Physician Fernando Date Time Electronically viewed and signed by Physician Fernando on 06/30/2016 11:15 /
--- NOTE | 2016-06-30 11:20 | CONS ---
Date/Time of Note Date/Time of Note DATE: 06/30/16 TIME: 11:15 Assessment/Plan Assessment/Plan Additional Assessment/Plan 1. Acute hyponatremia , Today Na went down from 125 to 124 2. possible syndrome of inappropriate antidiuretic hormone secretion due to the postoperative pain. 3. A history of hypertension. 4. A large cecal mass, is status post right extended hemicolectomy, currently NG tube on low, intermittent suction. PLAN: pt Na dorps down to 124, Serum osmolarity low, TSH, Free T4, cortisol normal pt is still NPO, Bowel sounds hypoactive, plan for KUB today will stop D51/2 NS change IVF To NS with 20mEQ KCL to run at 100cc/hr Increase hydralazine to 10mg IV Q 4hr prn SBP>160 mmHg will continue to follow up Urine studies are not sent yet, Nurse instructed to send urine studies as soon as possible Consultation Date/Type/Reason Admit Date/Time Jun 26, 2016 at 07:37 Initial Consult Date 06/29/2016 Type of Consultation: NEPHROLOGY Reason for Consultation Hyponatremia, worsening Referring Provider: ADELAIDE FERREIRA MD 24 HR Interval Summary Free Text/Dictation pt Na has been dropping down, BP runs lightly high, pt is NPO,pt claims that she has been passing gas, Exam/Review of Systems Vital Signs Vitals Vital Signs Date Time Temp Pulse Resp B/P Pulse Ox O2 Delivery O2 Flow Rate FiO2 06/30/16 09:00 20 06/30/16 08:00 98.0 87 160/77 95 06/26/16 16:30 Room Air 06/26/16 12:16 8.0 Intake and Output 06/29/16 06/29/16 06/30/16 15:00 23:00 07:00 Intake Total 850 ml 550 ml 1250 ml Output Total 100 ml 450 ml 650 ml Balance 750 ml 100 ml 600 ml Exam GENERAL: Awake, alert, in moderate distress due to the pain. HEENT: Normal. Oropharynx clear. NECK: Supple. No JVD, no lymphadenopathy. LUNGS: Clear to auscultation. No crackles, no wheezes. HEART: S1, S2, with regular rhythm. No murmur. ABDOMEN: Soft. Tender to palpation diffusely. No rebound, no guarding. Bowel sounds hypoactive EXTREMITIES: No clubbing, cyanosis, or edema. NEUROLOGICAL: Nonfocal, intact. Results Result Diagram: 06/30/16 0442 06/30/16 0442 Results 24 hrs Laboratory Tests Test 06/30/16 04:42 White Blood Count 10.9 H Red Blood Count 3.92 L Hemoglobin 9.8 L Hematocrit 30.3 L Mean Corpuscular Volume 77.3 L Mean Corpuscular Hemoglobin 25.0 L Mean Corpuscular Hemoglobin Concent 32.3 Red Cell Distribution Width 18.5 H Platelet Count 196 Mean Platelet Volume 10.0 Neutrophils % 80.0 H Lymphocytes % 8.7 L Monocytes % 9.1 Eosinophils % 1.4 Basophils % 0.3 Nucleated Red Blood Cells % 0.0 Neutrophils # 8.7 H Lymphocytes # 1.0 Monocytes # 1.0 H Eosinophils # 0.2 Basophils # 0.0 Nucleated Red Blood Cells # 0.0 Sodium Level 124 L Potassium Level 4.4 Chloride Level 99 Carbon Dioxide Level 20 L Anion Gap 9 Blood Urea Nitrogen 14 Creatinine 0.58 Glucose Level 136 Osmolality 264 L Uric Acid 2.7 L Calcium Level 7.4 L Magnesium Level 1.7 Thyroid Stimulating Hormone (TSH) 2.250 Free Thyroxine 2.01 Random Cortisol 23.7 Medications Medications Current Medications Naloxone HCl (Narcan) 0.2 mg PRN PRN IV DECREASED REPIRATORY RATE; Start at 10:30 Acetaminophen/ Hydrocodone Bitart ([place] (5/325)) 1 tab Q4H PRN PO PAIN LEVEL 1 -5; Start 06/26/16 at 10:30; Status Future Hold Acetaminophen/ Hydrocodone Bitart ([place] (5/325)) 2 tab Q4H PRN PO PAIN LEVEL 6 -10; Start 06/26/16 at 10:30; Status Future Hold Diphenhydramine HCl (Benadryl) 25 mg Q6H PRN IV ITCHING Last administered on 14:45; Admin Dose 25 MG; Start 06/26/16 at 10:30 Miscellaneous Information 1. Discontinue DRAWING TENDER... DRAWING TENDER IV ; Start 06/26/16 at 10:30 Ondansetron HCl (Zofran Inj) 4 mg Q6H PRN IV NAUSEA AND/OR VOMITING Last administered on 06/30/16 05:56; Admin Dose 4 MG; Start 06/26/16 at 12:30 Morphine Sulfate 2 MG/HR CONTINUOUS RATE 2... Q4PCA IV ; Start 06/26/16 at 12: 30 Potassium Chloride/Dextrose/ Sod Cl 1,000 ml @ 100 mls/hr Q10H IV Last administered on 06/30/16 09:55; Admin Dose 100 MLS/HR; Start 06/26/16 at 12:04 Acetaminophen (Ofirmev 1000mg/ 100ml Iv) 100 ml @ 400 mls/hr Q6H PRN IVPB PAIN ; Start 06/26/16 at 12:30 Hydralazine HCl (Apresoline) 10 mg Q6H PRN IV SBP>170; Start 06/26/16 at 13:00 Hydromorphone HCl (Dilaudid DRAWING TENDER) MG/HR CONTINUOUS RATE ... Q4PCA IV Last administered on 06/29/16 23:06; Admin Dose 6 MG; Start 06/27/16 at 00:59 KATIA JAUREGUI MD Jun 30, 2016 11:20
[2016-06-30] MEDS: NS + KCL 20 MEQ 1,000 ML IV SCH ×2 (12:21→22:04)
[2016-06-30] MEDS: CEPASTAT LOZENGE MT PRN (12:43)
[2016-06-30] MEDS ORDERED: hydrALAzine 20 MG INJ IV PRN (15:00)
[2016-06-30 16:07] VITALS: BP 149/68; PULSE 79; RESP 20
--- NOTE | 2016-06-30 17:09 | PN ---
Date/Time of Note Date/Time of Note DATE: 06/30/16 TIME: 17:07 Assessment/Plan VTE Prophylaxis VTE Prophylaxis Intervention: SCD's Lines/Catheters IV Catheter Type (from [facility]): Peripheral IV Urinary Cath still in place: No Assessment/Plan Chief Complaint/Hosp Course ASSESSMENT AND PLAN: 1. Large cecal mass, status post extended right hemicolectomy. Continue patient on Dilaudid RODENT EXTERMINATOR for pain and Tylenol. Continue Zofran p.r.n. for nausea. Continue IV fluids. Monitor electrolytes. Incentive spirometer q.1 hour. The patient is awake. Continue to follow up surgical recommendation. 2. Hypertension. Continue patient on hydralazine p.r.n. for systolic blood pressure above 170. 3. Hyponatremia, Dr. Murguia is following a nephrology consultation, continue current IV fluids monitor electrolytes. Continue sequential compression device for deep venous thrombosis prophylaxis. Further recommendations based on clinical course. Plan of care was discussed with Dr. Figueroa. Problems: Subjective 24 Hr Interval Summary Free Text/Dictation Patient self discontinued NG tube yesterday, denies any nausea vomiting, currently is n.p.o., bowel sounds are hypoactive, negative flatus. Pain is well controlled. Exam/Review of Systems Vital Signs Vitals Vital Signs Date Time Temp Pulse Resp B/P Pulse Ox O2 Delivery O2 Flow Rate FiO2 06/30/16 16:07 79 20 149/68 99 Room Air 06/30/16 08:00 98.0 06/26/16 12:16 8.0 Intake and Output 06/29/16 06/29/16 06/30/16 15:00 23:00 07:00 Intake Total 850 ml 550 ml 1250 ml Output Total 100 ml 450 ml 650 ml Balance 750 ml 100 ml 600 ml Exam PHYSICAL ASSESSMENT: GENERAL: Well-developed, well-nourished female, currently is awake, alert, moaning. HEENT: Head is atraumatic, normocephalic. PERRLA. NECK: Supple, no cervical lymphadenopathy, no thyromegaly. LUNGS: Clear bilaterally. There is no rhonchi, wheezes, rales noted. CARDIOVASCULAR: Normal S1, S2. No murmurs, gallops, clicks, rubs noted. ABDOMEN: Round, soft, status post surgery with a dry and intact dressing. GENITOURINARY: The patient has a Santos catheter with yellow urine. EXTREMITIES: There is no edema, clubbing, cyanosis. Pulses equal bilaterally 2 +. SKIN: There is no rash, petechiae noted. NEUROLOGIC: The patient is awake, alert, and oriented x3. Results Result Diagram: 06/30/16 0442 06/30/16 0442 Results 24 hrs Laboratory Tests Test 06/30/16 04:42 06/30/16 12:50 White Blood Count 10.9 H Red Blood Count 3.92 L Hemoglobin 9.8 L Hematocrit 30.3 L Mean Corpuscular Volume 77.3 L Mean Corpuscular Hemoglobin 25.0 L Mean Corpuscular Hemoglobin Concent 32.3 Red Cell Distribution Width 18.5 H Platelet Count 196 Mean Platelet Volume 10.0 Neutrophils % 80.0 H Lymphocytes % 8.7 L Monocytes % 9.1 Eosinophils % 1.4 Basophils % 0.3 Nucleated Red Blood Cells % 0.0 Neutrophils # 8.7 H Lymphocytes # 1.0 Monocytes # 1.0 H Eosinophils # 0.2 Basophils # 0.0 Nucleated Red Blood Cells # 0.0 Sodium Level 124 L Potassium Level 4.4 Chloride Level 99 Carbon Dioxide Level 20 L Anion Gap 9 Blood Urea Nitrogen 14 Creatinine 0.58 Glucose Level 136 Osmolality 264 L Uric Acid 2.7 L Calcium Level 7.4 L Magnesium Level 1.7 Thyroid Stimulating Hormone (TSH) 2.250 Free Thyroxine 2.01 Random Cortisol 23.7 Urine Osmolality 759 Urine Random Sodium < 13 L Medications Medications Current Medications Naloxone HCl (Narcan) 0.2 mg PRN PRN IV DECREASED REPIRATORY RATE; Start at 10:30 Acetaminophen/ Hydrocodone Bitart ([place] (5/325)) 1 tab Q4H PRN PO PAIN LEVEL 1 -5; Start 06/26/16 at 10:30; Status Future Hold Acetaminophen/ Hydrocodone Bitart ([place] (5/325)) 2 tab Q4H PRN PO PAIN LEVEL 6 -10; Start 06/26/16 at 10:30; Status Future Hold Diphenhydramine HCl (Benadryl) 25 mg Q6H PRN IV ITCHING Last administered on t 14:45; Admin Dose 25 MG; Start 06/26/16 at 10:30 Miscellaneous Information 1. Discontinue RODENT EXTERMINATOR... RODENT EXTERMINATOR IV ; Start 06/26/16 at 10:30 Ondansetron HCl (Zofran Inj) 4 mg Q6H PRN IV NAUSEA AND/OR VOMITING Last administered on 06/30/16 05:56; Admin Dose 4 MG; Start 06/26/16 at 12:30 Morphine Sulfate 2 MG/HR CONTINUOUS RATE 2... Q4PCA IV ; Start 06/26/16 at 12: 30 Acetaminophen (Ofirmev 1000mg/ 100ml Iv) 100 ml @ 400 mls/hr Q6H PRN IVPB PAIN ; Start 06/26/16 at 12:30 Hydromorphone HCl MG/HR CONTINUOUS RATE ... Q4PCA IV Last administered on 23:06; Admin Dose 6 MG; Start 06/27/16 at 00:59 Potassium Chloride/Sodium Chloride (NS-KCl 20 Meq) 1,000 ml @ 100 mls/hr Q10H IV Last administered on 06/30/16 12:21; Admin Dose 100 MLS/HR; Start 06/30/16 at 11:30 Hydralazine HCl (Apresoline) 10 mg Q4H PRN IV SBP>160; Start 06/30/16 at 15:00 Phenol (Cepastat Lozenge) 1 lozenge Q1H PRN MT SORE THROAT Last administered on 06/30/16 12:43; Admin Dose 1 LOZENGE; Start 06/30/16 at 11:30 YOON TAVERAS Jun 30, 2016 17:09
[2016-06-30 19:00] VITALS: BP 147/72; RESP 18
[2016-06-30] MEDS: HYDROmorphONE 0.2 MG/ML PCA IV SCH (22:15)
[2016-07-01 05:11] LABS: ADD SCAN DIFF NO
[2016-07-01 05:27] LABS: BASOPHILS % 0.4 % (0.0-2.0); EOSINOPHILS # 0.1 10^3/ul (0.0-0.5); EOSINOPHILS % 1.7 % (0.0-7.0); HEMATOCRIT 29.4 % (37.0-47.0); HEMOGLOBIN 9.6 g/dl (12.0-16.0); LYMPHOCYTES # 1.2 10^3/ul (0.8-2.9); LYMPHOCYTES % 13.9 % (15.0-51.0); MEAN CORPUSCULAR HEMOGLOBIN 25.1 pg (29.0-33.0); MEAN CORPUSCULAR HGB CONC 32.7 g/dl (32.0-37.0); MEAN PLATELET VOLUME 10.2 fl (7.4-10.4); MONOCYTE # 0.7 10^3/ul (0.3-0.9); MONOCYTES % 8.7 % (0.0-11.0); NEUTROPHIL # 6.3 10^3/ul (1.6-7.5); NEUTROPHILS % 74.9 % (39.0-77.0); PLATELET COUNT 209 10^3/UL (140-415); RED BLOOD COUNT 3.82 10^6/ul (4.20-5.40); RED CELL DISTRIBUTION WIDTH 18.8 % (11.5-14.5); WHITE BLOOD COUNT 8.4 10^3/ul (4.8-10.8)
[2016-07-01 05:39] LABS: POTASSIUM 4.3 mmol/L (3.5-5.1)
[2016-07-01 05:42] LABS: CREATININE 0.57 mg/dl (0.44-1.00)
[2016-07-01 05:43] LABS: CALCIUM 7.4 mg/dl (8.4-10.2)
[2016-07-01] MEDS: NS + KCL 20 MEQ 1,000 ML IV SCH ×3 (07:30→20:25)
[2016-07-01 07:55] VITALS: BP 154/74; RESP 15
--- NOTE | 2016-07-01 12:39 | PN ---
Date/Time of Note Date/Time of Note DATE: 07/01/16 TIME: 12:38 Assessment/Plan VTE Prophylaxis VTE Prophylaxis Intervention: other Lines/Catheters IV Catheter Type (from Nrs): Peripheral IV Urinary Cath still in place: No Assessment/Plan Chief Complaint/Hosp Course 1. Large cecal mass, status post extended right hemicolectomy. Continue patient on Dilaudid OUTREACH SPECIALIST for pain and Tylenol. Continue Zofran p.r.n. for nausea. Continue IV fluids. Monitor electrolytes. Incentive spirometer q.1 hour. The patient is awake. Continue to follow up surgical recommendation. 2. Hypertension. Continue patient on hydralazine p.r.n. for systolic blood pressure above 170. 3. Hyponatremia, Dr. Murguia is following a nephrology consultation, continue current IV fluids monitor electrolytes. Continue sequential compression device for deep venous thrombosis prophylaxis. Problems: Subjective 24 Hr Interval Summary Free Text/Dictation Patient complain of postoperative pain Exam/Review of Systems Vital Signs Vitals Vital Signs Date Time Temp Pulse Resp B/P Pulse Ox O2 Delivery O2 Flow Rate FiO2 07/01/16 07:55 97.6 83 15 154/74 96 06/30/16 16:07 Room Air Intake and Output 06/30/16 06/30/16 07/01/16 15:00 23:00 07:00 Intake Total 1000 ml 1550 ml Output Total 500 ml 550 ml Balance 500 ml 1000 ml Exam Constitutional: frail Head: atraumatic, normocephalic Neck: supple Respiratory: diminished breath sounds Cardiovascular: regular rate and rhythm Gastrointestinal: non-tender, soft Extremities: normal pulses Results Result Diagram: 07/01/16 0440 07/01/16 0440 Results 24 hrs Laboratory Tests Test 06/30/16 12:50 07/01/16 04:40 Urine Osmolality 759 Urine Random Sodium < 13 L White Blood Count 8.4 # Red Blood Count 3.82 L Hemoglobin 9.6 L Hematocrit 29.4 L Mean Corpuscular Volume 77.0 L Mean Corpuscular Hemoglobin 25.1 L Mean Corpuscular Hemoglobin Concent 32.7 Red Cell Distribution Width 18.8 H Platelet Count 209 Mean Platelet Volume 10.2 Neutrophils % 74.9 Lymphocytes % 13.9 L Monocytes % 8.7 Eosinophils % 1.7 Basophils % 0.4 Nucleated Red Blood Cells % 0.0 Neutrophils # 6.3 Lymphocytes # 1.2 Monocytes # 0.7 Eosinophils # 0.1 Basophils # 0.0 Nucleated Red Blood Cells # 0.0 Sodium Level 128 L Potassium Level 4.3 Chloride Level 102 Carbon Dioxide Level 20 L Anion Gap 10 Blood Urea Nitrogen 19 Creatinine 0.57 Glucose Level 93 # Calcium Level 7.4 L Medications Medications Current Medications Naloxone HCl (Narcan) 0.2 mg PRN PRN IV DECREASED REPIRATORY RATE; Start at 10:30 Acetaminophen/ Hydrocodone Bitart ([place] (5/325)) 1 tab Q4H PRN PO PAIN LEVEL 1 -5; Start 06/26/16 at 10:30; Status Future Hold Acetaminophen/ Hydrocodone Bitart ([place] (5/325)) 2 tab Q4H PRN PO PAIN LEVEL 6 -10; Start 06/26/16 at 10:30; Status Future Hold Diphenhydramine HCl (Benadryl) 25 mg Q6H PRN IV ITCHING Last administered on 14:45; Admin Dose 25 MG; Start 06/26/16 at 10:30 Miscellaneous Information 1. Discontinue OUTREACH SPECIALIST... OUTREACH SPECIALIST IV ; Start 06/26/16 at 10:30 Ondansetron HCl (Zofran Inj) 4 mg Q6H PRN IV NAUSEA AND/OR VOMITING Last administered on 06/30/16 22:16; Admin Dose 4 MG; Start 06/26/16 at 12:30 Morphine Sulfate 2 MG/HR CONTINUOUS RATE 2... Q4PCA IV ; Start 06/26/16 at 12: 30 Acetaminophen (Ofirmev 1000mg/ 100ml Iv) 100 ml @ 400 mls/hr Q6H PRN IVPB PAIN ; Start 06/26/16 at 12:30 Hydromorphone HCl MG/HR CONTINUOUS RATE ... Q4PCA IV Last administered on 22:15; Admin Dose 6 MG; Start 06/27/16 at 00:59 Potassium Chloride/Sodium Chloride (NS-KCl 20 Meq) 1,000 ml @ 100 mls/hr Q10H IV Last administered on 06/30/16 22:04; Admin Dose 100 MLS/HR; Start 06/30/16 at 11:30 Hydralazine HCl (Apresoline) 10 mg Q4H PRN IV SBP>160; Start 06/30/16 at 15:00 Phenol (Cepastat Lozenge) 1 lozenge Q1H PRN MT SORE THROAT Last administered on 06/30/16t 12:43; Admin Dose 1 LOZENGE; Start 06/30/16 at 11:30 MARIAN WALKER Jul 01, 2016 12:39
--- NOTE | 2016-07-01 17:21 | PN ---
DATE: 07/01/2016 Postop day #5 status post extended right hemicolectomy. SUBJECTIVE: Feels better. No more pain. Has had several bowel movements liquid today. OBJECTIVE: VITAL SIGNS: Stable, temperature 97.6, heart rate 83, respiratory rate 15, blood pressure 154/74, s aturation 96% on room air. GENERAL: The patient is sitting in the chair. ABDOMEN: Soft. Bowel sounds present. ASSESSMENT: Postop day #5 right extended hemicolectomy. The patient had ileus yesterday. Today is much better. No more nausea, has passed gases and also bowel movement. PLAN: Start patient on ice chips. If tolerates, tomorrow morning start on clear liquids and on Sun day start advancing the diet. Dictated By: GLO WHITNEY/JAMIE Conf#: [id number] DID#: [id number]
[2016-07-01 19:00] VITALS: BP 141/64; RESP 19
--- NOTE | 2016-07-01 21:41 | CONS ---
Date/Time of Note Date/Time of Note DATE: 07/01/16 TIME: 21:39 Assessment/Plan Assessment/Plan Additional Assessment/Plan 1. Acute hyponatremia - post operative 2. possible syndrome of inappropriate antidiuretic hormone secretion due to the postoperative pain. 3. A history of hypertension. 4. A large cecal mass, is status post right extended hemicolectomy, currently NG tube on low, intermittent suction. PLAN: Serum osmolarity low, TSH, Free T4, cortisol normal- IVF changed to NS with KCL yesterday, now Na 128 hydralazine to 10mg IV Q 4hr prn SBP>160 mmHg will continue to follow up Consultation Date/Type/Reason Admit Date/Time Jun 26, 2016 at 07:37 Initial Consult Date 06/29/2016 Type of Consultation: NEPHROLOGY Reason for Consultation Hyponatremia, severe Referring Provider: ADELAIDE FERREIRA MD 24 HR Interval Summary Free Text/Dictation pain controlled, IVF changed to NS with KCl yesterday, Na improved to 128 Exam/Review of Systems Vital Signs Vitals Vital Signs Date Time Temp Pulse Resp B/P Pulse Ox O2 Delivery O2 Flow Rate FiO2 07/01/16 19:00 97.9 84 19 141/64 100 06/30/16 16:07 Room Air Intake and Output 06/30/16 06/30/16 07/01/16 15:00 23:00 07:00 Intake Total 1000 ml 1550 ml Output Total 500 ml 550 ml Balance 500 ml 1000 ml Exam GENERAL: Awake, alert, in moderate distress due to the pain. HEENT: Normal. Oropharynx clear. NECK: Supple. No JVD, no lymphadenopathy. LUNGS: Clear to auscultation. No crackles, no wheezes. HEART: S1, S2, with regular rhythm. No murmur. ABDOMEN: Soft. Tender to palpation diffusely. No rebound, no guarding. Bowel sounds hypoactive EXTREMITIES: No clubbing, cyanosis, or edema. NEUROLOGICAL: Nonfocal, intact. Results Result Diagram: 07/01/1643907/01/16439 Results 24 hrs Laboratory Tests Test 07/01/16 04:40 White Blood Count 8.4 # Red Blood Count 3.82 L Hemoglobin 9.6 L Hematocrit 29.4 L Mean Corpuscular Volume 77.0 L Mean Corpuscular Hemoglobin 25.1 L Mean Corpuscular Hemoglobin Concent 32.7 Red Cell Distribution Width 18.8 H Platelet Count 209 Mean Platelet Volume 10.2 Neutrophils % 74.9 Lymphocytes % 13.9 L Monocytes % 8.7 Eosinophils % 1.7 Basophils % 0.4 Nucleated Red Blood Cells % 0.0 Neutrophils # 6.3 Lymphocytes # 1.2 Monocytes # 0.7 Eosinophils # 0.1 Basophils # 0.0 Nucleated Red Blood Cells # 0.0 Sodium Level 128 L Potassium Level 4.3 Chloride Level 102 Carbon Dioxide Level 20 L Anion Gap 10 Blood Urea Nitrogen 19 Creatinine 0.57 Glucose Level 93 # Calcium Level 7.4 L Medications Medications Current Medications Naloxone HCl (Narcan) 0.2 mg PRN PRN IV DECREASED REPIRATORY RATE; Start at 10:30 Acetaminophen/ Hydrocodone Bitart ([place] (5/325)) 1 tab Q4H PRN PO PAIN LEVEL 1 -5; Start 06/26/16 at 10:30; Status Future Hold Acetaminophen/ Hydrocodone Bitart ([place] (5/325)) 2 tab Q4H PRN PO PAIN LEVEL 6 -10; Start 06/26/16 at 10:30; Status Future Hold Diphenhydramine HCl (Benadryl) 25 mg Q6H PRN IV ITCHING Last administered on 14:45; Admin Dose 25 MG; Start 06/26/16 at 10:30 Miscellaneous Information 1. Discontinue INVESTIGATOR CASH SHORTAGE... INVESTIGATOR CASH SHORTAGE IV ; Start 06/26/16 at 10:30 Ondansetron HCl (Zofran Inj) 4 mg Q6H PRN IV NAUSEA AND/OR VOMITING Last administered on 06/30/16 22:16; Admin Dose 4 MG; Start 06/26/16 at 12:30 Morphine Sulfate 2 MG/HR CONTINUOUS RATE 2... Q4PCA IV ; Start 06/26/16 at 12: 30 Acetaminophen (Ofirmev 1000mg/ 100ml Iv) 100 ml @ 400 mls/hr Q6H PRN IVPB PAIN ; Start 06/26/16 at 12:30 Hydromorphone HCl MG/HR CONTINUOUS RATE ... Q4PCA IV Last administered on 22:15; Admin Dose 6 MG; Start 06/27/16 at 00:59 Potassium Chloride/Sodium Chloride (NS-KCl 20 Meq) 1,000 ml @ 100 mls/hr Q10H IV Last administered on 07/01/16 20:25; Admin Dose 100 MLS/HR; Start 06/30/16 at 11:30 Hydralazine HCl (Apresoline) 10 mg Q4H PRN IV SBP>160; Start 06/30/16 at 15:00 Phenol (Cepastat Lozenge) 1 lozenge Q1H PRN MT SORE THROAT Last administered on 06/30/16 12:43; Admin Dose 1 LOZENGE; Start 06/30/16 at 11:30 KATIA JAUREGUI MD Jul 01, 2016 21:41
[2016-07-02] MEDS: HYDROmorphONE 0.2 MG/ML PCA IV SCH (05:22)
[2016-07-02 07:51] VITALS: BP 132/64; RESP 14
--- NOTE | 2016-07-02 10:25 | PN ---
Date/Time of Note Date/Time of Note DATE: 07/02/16 TIME: 10:23 Assessment/Plan VTE Prophylaxis VTE Prophylaxis Intervention: SCD's Lines/Catheters IV Catheter Type (from Nrs): Peripheral IV Urinary Cath still in place: No Assessment/Plan Assessment/Plan 1. Acute hyponatremia - post operative 2. possible syndrome of inappropriate antidiuretic hormone secretion due to the postoperative pain. 3. A history of hypertension. 4. A large cecal mass, is status post right extended hemicolectomy, currently NG tube on low, intermittent suction. PLAN: Serum osmolarity low, TSH, Free T4, cortisol normal- cont IVF NS with KCL, Na 127 hydralazine to 10mg IV Q 4hr prn SBP>160 mmHg will follow up. Total time spent 30 minutes on this patient's follow up progress note, communicating with Nursing Staff, and discussing with MD. Further clinical recommendations depend upon patient's clinical course. Dw Dr Susan Murguia. Subjective 24 Hr Interval Summary Free Text/Dictation nad, sittong up in bed, dnies any chest pain. no new issues reported by staff Eyes: no complaints ENT: no complaints Respiratory: no complaints Cardiovascular: no complaints Gastrointestinal: no complaints, other Genitourinary: no complaints Musculoskeletal: no complaints Skin: no complaints Neurologic: no complaints Endocrine: no complaints Lymphatic: no complaints Psychological: no complaints Immunologic: no complaints Exam/Review of Systems Vital Signs Vitals Vital Signs Date Time Temp Pulse Resp B/P Pulse Ox O2 Delivery O2 Flow Rate FiO2 07/02/16 07:51 98.0 77 14 132/64 98 06/30/16 16:07 Room Air Intake and Output 07/01/16 07/01/16 07/02/16 15:00 23:00 07:00 Intake Total 1100 ml 1850 ml Output Total 600 ml 950 ml Balance 500 ml 900 ml Exam Constitutional: alert, oriented, well developed Psych: nl mood/affect Head: atraumatic Eyes: EOMI, PERRL, nl sclera ENMT: nl external ears & nose Neck: non-tender Respiratory: clear to auscultation Cardiovascular: nl pulses Gastrointestinal: non-tender, other (status post right extended hemicolectomy) , soft Musculoskeletal: nl extremities to inspection Extremities: normal pulses Neurological: nl mental status, nl speech Skin: other Lymph: nontender Results Result Diagram: 07/01/16 0440 07/01/16 0440 Medications Medications Current Medications Naloxone HCl (Narcan) 0.2 mg PRN PRN IV DECREASED REPIRATORY RATE; Start at 10:30 Acetaminophen/ Hydrocodone Bitart ([place] (5/325)) 1 tab Q4H PRN PO PAIN LEVEL 1 -5; Start 06/26/16 at 10:30; Status Future Hold Acetaminophen/ Hydrocodone Bitart ([place] (5/325)) 2 tab Q4H PRN PO PAIN LEVEL 6 -10; Start 06/26/16 at 10:30; Status Future Hold Diphenhydramine HCl (Benadryl) 25 mg Q6H PRN IV ITCHING Last administered on 14:45; Admin Dose 25 MG; Start 06/26/16 at 10:30 Miscellaneous Information 1. Discontinue HOSPITALIST PROGRAM DIRECTOR... HOSPITALIST PROGRAM DIRECTOR IV ; Start 06/26/16 at 10:30 Ondansetron HCl (Zofran Inj) 4 mg Q6H PRN IV NAUSEA AND/OR VOMITING Last administered on 06/30/16 22:16; Admin Dose 4 MG; Start 06/26/16 at 12:30 Morphine Sulfate 2 MG/HR CONTINUOUS RATE 2... Q4PCA IV ; Start 06/26/16 at 12: 30 Acetaminophen (Ofirmev 1000mg/ 100ml Iv) 100 ml @ 400 mls/hr Q6H PRN IVPB PAIN ; Start 06/26/16 at 12:30 Hydromorphone HCl MG/HR CONTINUOUS RATE ... Q4PCA IV Last administered on 05:22; Admin Dose 6 MG; Start 06/27/16 at 00:59 Potassium Chloride/Sodium Chloride (NS-KCl 20 Meq) 1,000 ml @ 100 mls/hr Q10H IV Last administered on 07/01/16 20:25; Admin Dose 100 MLS/HR; Start 06/30/16 at 11:30 Hydralazine HCl (Apresoline) 10 mg Q4H PRN IV SBP>160; Start 06/30/16 at 15:00 Phenol (Cepastat Lozenge) 1 lozenge Q1H PRN MT SORE THROAT Last administered on 06/30/16 12:43; Admin Dose 1 LOZENGE; Start 06/30/16 at 11:30 FERNANDA JARRETT Jul 02, 2016 10:25
--- NOTE | 2016-07-02 11:50 | PN ---
Date/Time of Note Date/Time of Note DATE: 07/02/16 TIME: 11:50 Assessment/Plan VTE Prophylaxis VTE Prophylaxis Intervention: other Lines/Catheters IV Catheter Type (from Nrsg): Peripheral IV Urinary Cath still in place: No Assessment/Plan Chief Complaint/Hosp Course 1. Large cecal mass, status post extended right hemicolectomy. Continue patient on Dilaudid CASTING CHIPPER for pain and Tylenol. Continue Zofran p.r.n. for nausea. Continue IV fluids. Monitor electrolytes. Incentive spirometer q.1 hour. The patient is awake. Continue to follow up surgical recommendation. 2. Hypertension. Continue patient on hydralazine p.r.n. for systolic blood pressure above 170. 3. Hyponatremia, Dr. Murguia is following a nephrology consultation, continue current IV fluids monitor electrolytes. Continue sequential compression device for deep venous thrombosis prophylaxis. Problems: Subjective 24 Hr Interval Summary Free Text/Dictation Patient has pain but is controlled Exam/Review of Systems Vital Signs Vitals Vital Signs Date Time Temp Pulse Resp B/P Pulse Ox O2 Delivery O2 Flow Rate FiO2 07/02/16 07:51 98.0 77 14 132/64 98 06/30/16 16:07 Room Air Intake and Output 07/01/16 07/01/16 07/02/16 15:00 23:00 07:00 Intake Total 1100 ml 1850 ml Output Total 600 ml 950 ml Balance 500 ml 900 ml Exam Constitutional: well developed Head: atraumatic, normocephalic Neck: supple Respiratory: clear to auscultation Cardiovascular: regular rate and rhythm Gastrointestinal: non-tender, soft Extremities: normal pulses Results Result Diagram: 07/01/16 0440 07/01/16 0440 Medications Medications Current Medications Naloxone HCl (Narcan) 0.2 mg PRN PRN IV DECREASED REPIRATORY RATE; Start at 10:30 Acetaminophen/ Hydrocodone Bitart ([place] (5/325)) 1 tab Q4H PRN PO PAIN LEVEL 1 -5; Start 06/26/16 at 10:30; Status Future Hold Acetaminophen/ Hydrocodone Bitart ([place] (5/325)) 2 tab Q4H PRN PO PAIN LEVEL 6 -10; Start 06/26/16 at 10:30; Status Future Hold Diphenhydramine HCl (Benadryl) 25 mg Q6H PRN IV ITCHING Last administered on 14:45; Admin Dose 25 MG; Start 06/26/16 at 10:30 Miscellaneous Information 1. Discontinue CASTING CHIPPER... CASTING CHIPPER IV ; Start 06/26/16 at 10:30 Ondansetron HCl (Zofran Inj) 4 mg Q6H PRN IV NAUSEA AND/OR VOMITING Last administered on 06/30/16 22:16; Admin Dose 4 MG; Start 06/26/16 at 12:30 Morphine Sulfate 2 MG/HR CONTINUOUS RATE 2... Q4PCA IV ; Start 06/26/16 at 12: 30 Acetaminophen (Ofirmev 1000mg/ 100ml Iv) 100 ml @ 400 mls/hr Q6H PRN IVPB PAIN ; Start 06/26/16 at 12:30 Hydromorphone HCl MG/HR CONTINUOUS RATE ... Q4PCA IV Last administered on 05:22; Admin Dose 6 MG; Start 06/27/16 at 00:59 Potassium Chloride/Sodium Chloride (NS-KCl 20 Meq) 1,000 ml @ 100 mls/hr Q10H IV Last administered on 07/01/16 20:25; Admin Dose 100 MLS/HR; Start 06/30/16 at 11:30 Hydralazine HCl (Apresoline) 10 mg Q4H PRN IV SBP>160; Start 06/30/16 at 15:00 Phenol (Cepastat Lozenge) 1 lozenge Q1H PRN MT SORE THROAT Last administered on 06/30/16 12:43; Admin Dose 1 LOZENGE; Start 06/30/16 at 11:30 MARIAN WALKER Jul 02, 2016 11:50
[2016-07-02] MEDS: NS + KCL 20 MEQ 1,000 ML IV SCH ×2 (13:47→19:56)
[2016-07-02] MEDS: PIPER-TAZO 3.375 GM IV (PMX) 100 ML IVPB SCH ×3 (16:09→23:42)
[2016-07-02 19:23] VITALS: BP 144/69; RESP 18
[2016-07-03] MEDS: PIPER-TAZO 3.375 GM IV (PMX) 100 ML IVPB SCH ×4 (05:19→23:24)
[2016-07-03] MEDS: HYDROmorphONE 1 MG/ML SYG IV PRN ×2 (05:22→14:14)
[2016-07-03 05:25] LABS: ADD SCAN DIFF NO
[2016-07-03 05:30] LABS: BASOPHILS % 0.2 % (0.0-2.0); EOSINOPHILS # 0.1 10^3/ul (0.0-0.5); EOSINOPHILS % 1.6 % (0.0-7.0); HEMATOCRIT 26.7 % (37.0-47.0); HEMOGLOBIN 8.4 g/dl (12.0-16.0); LYMPHOCYTES % 18.1 % (15.0-51.0); MEAN CORPUSCULAR HEMOGLOBIN 24.8 pg (29.0-33.0); MEAN CORPUSCULAR HGB CONC 31.5 g/dl (32.0-37.0); MEAN CORPUSCULAR VOLUME 78.8 fl (82.0-101.0); MEAN PLATELET VOLUME 10.2 fl (7.4-10.4); MONOCYTE # 0.5 10^3/ul (0.3-0.9); NEUTROPHIL # 4.1 10^3/ul (1.6-7.5); NEUTROPHILS % 71.6 % (39.0-77.0); PLATELET COUNT 150 10^3/UL (140-415); RED BLOOD COUNT 3.39 10^6/ul (4.20-5.40); RED CELL DISTRIBUTION WIDTH 19.9 % (11.5-14.5); WHITE BLOOD COUNT 5.7 10^3/ul (4.8-10.8)
[2016-07-03 05:37] LABS: INR 1.58; PT RATIO 1.5
[2016-07-03 05:38] LABS: PARTIAL THROMBOPLASTIN TIME 31.5 Sec (25.0-35.0)
[2016-07-03 05:44] LABS: POTASSIUM 3.2 mmol/L (3.5-5.1)
[2016-07-03 05:47] LABS: CREATININE 0.43 mg/dl (0.44-1.00)
[2016-07-03 08:57] VITALS: BP 137/66; RESP 18
--- NOTE | 2016-07-03 09:16 | PN ---
DATE: 07/02/2016 Postop day #6 status post extended right hemicolectomy. SUBJECTIVE: No new complaint. No nausea, no vomiting. Has had 3 loose bowel movements. OBJECTIVE: GENERAL: Awake, alert, oriented, lying down in the bed. VITAL SIGNS: Temperature 98, heart rate 77, respiration 14, blood pressure 132/ 64, saturation 98% on room air. ABDOMEN: Slightly distended. Dressing appeared soaked, a little bit dressing was removed. There has been a little bit of drainage from the incision line. I cannot say where is exactly the site of drainage. There is some erythema along the incision line almost all over, the wound is not tender. LABORATORY DATA: Apparently, the patient has refused to let them draw blood for labs, so we do not have any labs available up to this point in the afternoon. 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 The patient started having bowel movement as of yesterday morning. She was started on clear liquid diet last night and today we are advancing to full liquid. A couple of problems , the patient started having low sodium from post-operation time and this has been handled by nephrology department. The last sodium after patient was started on IV normal saline is 128. We do not have anything for today. Potassium was yesterday 4.3, normal, we do not know about it today. The patient noted to have leukocytosis, no fever, so I am not sure if this redness in the line of incision is a reaction to the metallic debbie versus indication of wound infection. In any case, I am going to empirically start the patient on Zosyn 3.375 gram IV q.6 hours. We will wait, change the dressing daily and see if with the antibiotic it improves, that means we are in correct line of treatment. Otherwise, we are going to open some debbie and see what is going to be under this wound. If the patient tolerates full liquid diet today, we are going to advance the diet to a soft diet tomorrow. Management of the hyponatremia per nephrology service. Dictated By: GLO OSBORN MD PS/NTS Conf#: [id number] DID#: [id number] CC: LISA GAYTAN MD;*EndCC* MTDD
[2016-07-03] MEDS ORDERED: POTASSIUM CHLORIDE (SR) 20 MEQ TAB PO STA (10:34)
[2016-07-03] MEDS: NS + KCL 20 MEQ 1,000 ML IV SCH ×3 (10:35→23:24)
[2016-07-03] MEDS: HYDROCODONE/APAP (5/325) TAB PO PRN ×2 (10:36→18:55)
--- NOTE | 2016-07-03 10:36 | CONS ---
Date/Time of Note Date/Time of Note DATE: 07/03/16 TIME: 10:35 Assessment/Plan Assessment/Plan Additional Assessment/Plan 1. Acute hyponatremia - post operative 2. possible syndrome of inappropriate antidiuretic hormone secretion due to the postoperative pain. 3. A history of hypertension. 4. A large cecal mass, is status post right extended hemicolectomy, currently NG tube on low, intermittent suction. PLAN: Serum osmolarity low, TSH, Free T4, cortisol normal- continue current IVF NS with KCL, will give extra dose of KCL 40mEQ PO X 1 dose in addition to IVF KCL hydralazine to 10mg IV Q 4hr prn SBP>160 mmHg will continue to follow up Consultation Date/Type/Reason Admit Date/Time Jun 26, 2016 at 07:37 Initial Consult Date 06/29/2016 Type of Consultation: NEPHROLOGY Reason for Consultation Hyponatremia severe Referring Provider: ADELAIDE FERREIRA MD 24 HR Interval Summary Free Text/Dictation Pain controlled, Na improving, K low Exam/Review of Systems Vital Signs Vitals Vital Signs Date Time Temp Pulse Resp B/P Pulse Ox O2 Delivery O2 Flow Rate FiO2 07/03/16 08:57 98.0 71 18 137/66 95 06/30/16 16:07 Room Air Intake and Output 07/02/16 07/02/16 07/03/16 15:00 23:00 07:00 Intake Total 900 ml 1800 ml 1680 ml Output Total 500 ml 1200 ml Balance 900 ml 1300 ml 480 ml Exam GENERAL: Awake, alert, in moderate distress due to the pain. HEENT: Normal. Oropharynx clear. NECK: Supple. No JVD, no lymphadenopathy. LUNGS: Clear to auscultation. No crackles, no wheezes. HEART: S1, S2, with regular rhythm. No murmur. ABDOMEN: Soft. Tender to palpation diffusely. No rebound, no guarding. Bowel sounds hypoactive EXTREMITIES: No clubbing, cyanosis, or edema. NEUROLOGICAL: Nonfocal, intact. Results Result Diagram: 07/03/16 0435 07/03/16 0435 Results 24 hrs Laboratory Tests Test 07/02/16 13:50 07/03/16 04:35 Magnesium Level 1.7 White Blood Count 5.7 # Red Blood Count 3.39 L Hemoglobin 8.4 L Hematocrit 26.7 L Mean Corpuscular Volume 78.8 L Mean Corpuscular Hemoglobin 24.8 L Mean Corpuscular Hemoglobin Concent 31.5 L Red Cell Distribution Width 19.9 H Platelet Count 150 # Mean Platelet Volume 10.2 Neutrophils % 71.6 Lymphocytes % 18.1 Monocytes % 8.0 Eosinophils % 1.6 Basophils % 0.2 Nucleated Red Blood Cells % 0.0 Neutrophils # 4.1 Lymphocytes # 1.0 Monocytes # 0.5 Eosinophils # 0.1 Basophils # 0.0 Nucleated Red Blood Cells # 0.0 Prothrombin Time 19.0 H Prothrombin Time Ratio 1.5 INR International Normalized Ratio 1.58 Activated Partial Thromboplast Time 31.5 Sodium Level 131 L Potassium Level 3.2 L Chloride Level 104 Carbon Dioxide Level 19 L Anion Gap 11 Blood Urea Nitrogen 14 Creatinine 0.43 L Glucose Level 94 Calcium Level 7.0 L Medications Medications Current Medications Naloxone HCl (Narcan) 0.2 mg PRN PRN IV DECREASED REPIRATORY RATE; Start at 10:30 Acetaminophen/ Hydrocodone Bitart ([place] (5/325)) 1 tab Q4H PRN PO PAIN LEVEL 1 -5; Start 06/26/16 at 10:30; Status Future hold Acetaminophen/ Hydrocodone Bitart ([place] (5/325)) 2 tab Q4H PRN PO PAIN LEVEL 6 -10; Start 06/26/16 at 10:30; Status Future hold Diphenhydramine HCl (Benadryl) 25 mg Q6H PRN IV ITCHING Last administered on 14:45; Admin Dose 25 MG; Start 06/26/16 at 10:30 Miscellaneous Information 1. Discontinue CAN SORTER... CAN SORTER IV ; Start 06/26/16 at 10:30 Ondansetron HCl 4 mg 4 mg Q6H PRN IV NAUSEA AND/OR VOMITING Last administered on 06/30/16 22:16; Admin Dose 4 MG; Start 06/26/16 at 12:30 Acetaminophen 100 ml @ 400 mls/hr Q6H PRN IVPB PAIN; Start 06/26/16 at 12:30 Potassium Chloride/Sodium Chloride (NS-KCl 20 Meq) 1,000 ml @ 100 mls/hr Q10H IV Last administered on 07/02/16 19:56; Admin Dose 100 MLS/HR; Start 06/30/16 at 11:30 Hydralazine HCl (Apresoline) 10 mg Q4H PRN IV SBP>160; Start 06/30/16 at 15:00 Phenol (Cepastat Lozenge) 1 lozenge Q1H PRN MT SORE THROAT Last administered on 06/30/16 12:43; Admin Dose 1 LOZENGE; Start 06/30/16 at 11:30 Hydromorphone HCl 0.5 mg 0.5 mg Q2H PRN IV PAIN Last administered on 07/03/16 05:22; Admin Dose 0.5 MG; Start 07/02/16 at 14:30 Piperacillin Sod/ Tazobactam Sod (Zosyn 3.375gm/ 100 ml (Pmx)) 100 ml @ 200 mls /hr Q6 IVPB Last administered on 07/03/16 05:19; Admin Dose 200 MLS/HR; Start 07/02/16 at 14:30 KATIA JAUREGUI MD Jul 03, 2016 10:36
--- NOTE | 2016-07-03 13:52 | PN ---
DATE: 07/03/2016 Postop day #7 SUBJECTIVE: Patient complaining of some pain in the lower part of the incision. Has had 4 bowel movements, which still is liquidish. No nausea, no vomiting. Tolerated full liquid diet. No fever, no chills. OBJECTIVE: VITAL SIGNS: Temperature 98, heart rate 71, respiration 18, blood pressure on the 137/66, saturation 95% on room air. ABDOMEN: Slightly distended. Bowel sounds are present. Dressing was changed and the nurse reported that there was a discharge from the lower part of the incision. Actually, the redness is almost the same as yesterday. I squeezed gently over the incision and there is some brownish fluid coming out of the very lower end of the incision. I recommended and I asked the patient to lay down on the bed so that I can remove a couple of debbie. and started her back in a couple of the ankles, but patient absolutely refuses NG the touch. LABORATORIES: Today sodium 131, she still has low potassium at 3.2, BUN and creatinine 0.43, glucose is 94. Calcium is 7. WBC is 5700 with 71% neutrophils. Hemoglobin 8.4, hematocrit 26.7. . 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 Postop, the patient was almost uneventful and eventually had a B.M. except that there is some erythema along the incision line and some drainage from the inferior border of the wound. PLAN: 1. To continue current care 2. Advance diet to soft diet today. 3. Remove a couple of the debbie and let the drainage get drained and send the culture, but the patient refuses and does not let me remove her debbie. Dictated By: GLO WHITNEY/JAMIE Conf#: [id number] DID#: [id number] MTDD
--- NOTE | 2016-07-03 17:56 | PN ---
Date/Time of Note Date/Time of Note DATE: 07/03/16 TIME: 17:53 Assessment/Plan VTE Prophylaxis VTE Prophylaxis Intervention: SCD's Lines/Catheters IV [facility] Peripheral IV Urinary Cath still in place: No Assessment/Plan Chief Complaint/Hosp Course ASSESSMENT AND PLAN: 1. Large cecal mass, status post extended right hemicolectomy. Advance diet per surgery continue to follow up surgical recommendation. 2. Hypertension. Continue patient on hydralazine p.r.n. for systolic blood pressure above 170. 3. Hyponatremia, Dr. Murguia is following a nephrology consultation, continue current IV fluids monitor electrolytes. 4. Hypokalemia, potassium replaced. Continue sequential compression device for deep venous thrombosis prophylaxis. Further recommendations based on clinical course. Plan of care was discussed with Dr. Figueroa. Problems: Subjective 24 Hr Interval Summary Free Text/Dictation Patient tolerates full liquid diet well, diet advanced to mechanical soft, patient had some small amount of drainage from the incision site, fluid sent for culture, no fever nausea vomiting per nurse. Exam/Review of Systems Vital Signs Vitals Vital Signs Date Time Temp Pulse Resp B/P Pulse Ox O2 Delivery O2 Flow Rate FiO2 07/03/16 08:57 98.0 71 18 137/66 95 06/30/16 16:07 Room Air Intake and Output 07/02/16 07/02/16 07/03/16 14:59 22:59 06:59 Intake Total 900 ml 1800 ml 1680 ml Output Total 500 ml 1200 ml Balance 900 ml 1300 ml 480 ml Exam PHYSICAL ASSESSMENT: GENERAL: Well-developed, well-nourished female, currently is awake, alert, moaning. HEENT: Head is atraumatic, normocephalic. PERRLA. NECK: Supple, no cervical lymphadenopathy, no thyromegaly. LUNGS: Clear bilaterally. There is no rhonchi, wheezes, rales noted. CARDIOVASCULAR: Normal S1, S2. No murmurs, gallops, clicks, rubs noted. ABDOMEN: Round, soft, status post surgery with a dry and intact dressing. GENITOURINARY: The patient has a Santos catheter with yellow urine. EXTREMITIES: There is no edema, clubbing, cyanosis. Pulses equal bilaterally 2 +. SKIN: There is no rash, petechiae noted. NEUROLOGIC: The patient is awake, alert, and oriented x3. Results Result Diagram: 07/03/16 0435 07/03/16 0435 Results 24 hrs Laboratory Tests Test 07/03/16 04:35 White Blood Count 5.7 # Red Blood Count 3.39 L Hemoglobin 8.4 L Hematocrit 26.7 L Mean Corpuscular Volume 78.8 L Mean Corpuscular Hemoglobin 24.8 L Mean Corpuscular Hemoglobin Concent 31.5 L Red Cell Distribution Width 19.9 H Platelet Count 150 # Mean Platelet Volume 10.2 Neutrophils % 71.6 Lymphocytes % 18.1 Monocytes % 8.0 Eosinophils % 1.6 Basophils % 0.2 Nucleated Red Blood Cells % 0.0 Neutrophils # 4.1 Lymphocytes # 1.0 Monocytes # 0.5 Eosinophils # 0.1 Basophils # 0.0 Nucleated Red Blood Cells # 0.0 Prothrombin Time 19.0 H Prothrombin Time Ratio 1.5 INR International Normalized Ratio 1.58 Activated Partial Thromboplast Time 31.5 Sodium Level 131 L Potassium Level 3.2 L Chloride Level 104 Carbon Dioxide Level 19 L Anion Gap 11 Blood Urea Nitrogen 14 Creatinine 0.43 L Glucose Level 94 Calcium Level 7.0 L Medications Medications Current Medications Naloxone HCl (Narcan) 0.2 mg PRN PRN IV DECREASED REPIRATORY RATE; Start at 10:30 Acetaminophen/ Hydrocodone Bitart ([place] (5/325)) 1 tab Q4H PRN PO PAIN LEVEL 1 -5 Last administered on 07/03/16 10:36; Admin Dose 1 TAB; Start 06/26/16 at 10: 30; Status Future hold Acetaminophen/ Hydrocodone Bitart ([place] (5/325)) 2 tab Q4H PRN PO PAIN LEVEL 6 -10; Start 06/26/16 at 10:30; Status Future hold Diphenhydramine HCl (Benadryl) 25 mg Q6H PRN IV ITCHING Last administered on 14:45; Admin Dose 25 MG; Start 06/26/16 at 10:30 Miscellaneous Information 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 ; Start 06/26/16 at 10:30 Ondansetron HCl 4 mg 4 mg Q6H PRN IV NAUSEA AND/OR VOMITING Last administered on 06/30/16 22:16; Admin Dose 4 MG; Start 06/26/16 at 12:30 Acetaminophen 100 ml @ 400 mls/hr Q6H PRN IVPB PAIN; Start 06/26/16 at 12:30 Potassium Chloride/Sodium Chloride (NS-KCl 20 Meq) 1,000 ml @ 100 mls/hr Q10H IV Last administered on 07/03/16 10:35; Admin Dose 100 MLS/HR; Start 06/30/16 at 11:30 Hydralazine HCl (Apresoline) 10 mg Q4H PRN IV SBP>160; Start 06/30/16 at 15:00 Phenol (Cepastat Lozenge) 1 lozenge Q1H PRN MT SORE THROAT Last administered on 06/30/16 12:43; Admin Dose 1 LOZENGE; Start 06/30/16 at 11:30 Hydromorphone HCl 0.5 mg 0.5 mg Q2H PRN IV PAIN Last administered on 07/03/16 14:14; Admin Dose 0.5 MG; Start 07/02/16 at 14:30 Piperacillin Sod/ Tazobactam Sod (Zosyn 3.375gm/ 100 ml (Pmx)) 100 ml @ 200 mls /hr Q6 IVPB Last administered on 07/03/16 12:54; Admin Dose 200 MLS/HR; Start 07/02/16 at 14:30 YOON TAVERAS Jul 03, 2016 17:56
[2016-07-03 19:57] VITALS: BP 139/69; RESP 18
--- NOTE | 2016-07-03 23:25 | PN ---
DATE: 07/03/2016 SECOND PROGRESS NOTE TIME: 7:52 p.m. SUBJECTIVE AND ASSESSMENT: I saw the patient along with Dr. Rios. Eventually we convinced her to a ccept that we remove some debbie and get a culture from underneath the incisional area and treat th e incision infection. So the patient was laid down on the bed, 0.5 mg Dilaudid was given IV and then from the superior part of the incision debbie was removed, semi purulent fluid we pulled out was a bout 5 mL. Culture was taken, it was sent for Gram stain and culture, aerobic and anaerobic and als o below the umbilicus also a 3 to 4 mL was removed and there was 1.5 to 2 mL of semi-purulent looki ng fluid was drained and the wound was packed with a sponge and Betadine and covered with dry dressi ng to be changed p.r.n. and daily by nurses, awaiting the culture result. Dictated By: GLO OSBORN MD PS/NTS Conf#: [id number] DID#: [id number]
[2016-07-04 05:20] LABS: ADD SCAN DIFF NO
[2016-07-04 05:36] LABS: BASOPHILS % 0.4 % (0.0-2.0); EOSINOPHILS # 0.1 10^3/ul (0.0-0.5); EOSINOPHILS % 2.7 % (0.0-7.0); HEMATOCRIT 28.6 % (37.0-47.0); HEMOGLOBIN 9.1 g/dl (12.0-16.0); LYMPHOCYTES # 1.1 10^3/ul (0.8-2.9); LYMPHOCYTES % 22.5 % (15.0-51.0); MEAN CORPUSCULAR HEMOGLOBIN 25.2 pg (29.0-33.0); MEAN CORPUSCULAR HGB CONC 31.8 g/dl (32.0-37.0); MEAN CORPUSCULAR VOLUME 79.2 fl (82.0-101.0); MEAN PLATELET VOLUME 10.1 fl (7.4-10.4); MONOCYTE # 0.4 10^3/ul (0.3-0.9); MONOCYTES % 7.8 % (0.0-11.0); NEUTROPHIL # 3.2 10^3/ul (1.6-7.5); PLATELET COUNT 177 10^3/UL (140-415); RED BLOOD COUNT 3.61 10^6/ul (4.20-5.40); RED CELL DISTRIBUTION WIDTH 19.8 % (11.5-14.5); WHITE BLOOD COUNT 4.9 10^3/ul (4.8-10.8)
[2016-07-04] MEDS: PIPER-TAZO 3.375 GM IV (PMX) 100 ML IVPB SCH ×3 (05:46→18:20)
[2016-07-04] MEDS: NS + KCL 20 MEQ 1,000 ML IV SCH (05:50)
[2016-07-04 05:54] LABS: POTASSIUM 3.4 mmol/L (3.5-5.1)
[2016-07-04 05:57] LABS: CALCIUM 7.3 mg/dl (8.4-10.2); CREATININE 0.45 mg/dl (0.44-1.00)
[2016-07-04 08:02] VITALS: BP 168/75; RESP 18
--- NOTE | 2016-07-04 15:58 | PN ---
Date/Time of Note Date/Time of Note DATE: 07/04/16 TIME: 15:56 Assessment/Plan VTE Prophylaxis VTE Prophylaxis Intervention: SCD's Lines/Catheters IV Catheter Type (from [facility]): Peripheral IV Urinary Cath still in place: No Assessment/Plan Chief Complaint/Hosp Course ASSESSMENT AND PLAN: 1. Large cecal mass, status post extended right hemicolectomy. Advance diet per surgery continue to follow up surgical recommendation. 2. Hypertension. Continue patient on hydralazine p.r.n. for systolic blood pressure above 170. 3. Hyponatremia, Dr. Murguia is following a nephrology consultation, continue current IV fluids monitor electrolytes. 4. Hypokalemia, potassium replaced. 5. Gram-negative rods wound infection, continue Zosyn, follow up on final cultures. Continue sequential compression device for deep venous thrombosis prophylaxis. Further recommendations based on clinical course. Plan of care was discussed with Dr. Figueroa. Problems: Subjective 24 Hr Interval Summary Free Text/Dictation Patient tolerates current diet well, patient's continues to have small amount of drainage from incision sites currently packed with dressing, remained afebrile. Exam/Review of Systems Vital Signs Vitals Vital Signs Date Time Temp Pulse Resp B/P Pulse Ox O2 Delivery O2 Flow Rate FiO2 07/04/16 08:02 97.9 68 18 168/75 98 06/30/16 16:07 Room Air Intake and Output 07/03/16 07/03/16 07/04/16 15:00 23:00 07:00 Intake Total 100 ml 1400 ml 1280 ml Output Total 700 ml 1500 ml Balance 100 ml 700 ml -220 ml Exam PHYSICAL ASSESSMENT: GENERAL: Well-developed, well-nourished female, currently is awake, alert, moaning. HEENT: Head is atraumatic, normocephalic. PERRLA. NECK: Supple, no cervical lymphadenopathy, no thyromegaly. LUNGS: Clear bilaterally. There is no rhonchi, wheezes, rales noted. CARDIOVASCULAR: Normal S1, S2. No murmurs, gallops, clicks, rubs noted. ABDOMEN: Round, soft, status post surgery with a dry and intact dressing. GENITOURINARY: The patient has a Santos catheter with yellow urine. EXTREMITIES: There is no edema, clubbing, cyanosis. Pulses equal bilaterally 2 +. SKIN: There is no rash, petechiae noted. NEUROLOGIC: The patient is awake, alert, and oriented x3. Results Result Diagram: 07/04/16 0457 07/04/16 0457 Results 24 hrs Laboratory Tests Test 07/04/16 04:57 White Blood Count 4.9 Red Blood Count 3.61 L Hemoglobin 9.1 L Hematocrit 28.6 L Mean Corpuscular Volume 79.2 L Mean Corpuscular Hemoglobin 25.2 L Mean Corpuscular Hemoglobin Concent 31.8 L Red Cell Distribution Width 19.8 H Platelet Count 177 Mean Platelet Volume 10.1 Neutrophils % 66.0 Lymphocytes % 22.5 Monocytes % 7.8 Eosinophils % 2.7 Basophils % 0.4 Nucleated Red Blood Cells % 0.0 Neutrophils # 3.2 Lymphocytes # 1.1 Monocytes # 0.4 Eosinophils # 0.1 Basophils # 0.0 Nucleated Red Blood Cells # 0.0 Sodium Level 133 L Potassium Level 3.4 L Chloride Level 107 Carbon Dioxide Level 20 L Anion Gap 9 Blood Urea Nitrogen 10 Creatinine 0.45 Glucose Level 112 Calcium Level 7.3 L Medications Medications Current Medications Naloxone HCl (Narcan) 0.2 mg PRN PRN IV DECREASED REPIRATORY RATE; Start at 10:30 Acetaminophen/ Hydrocodone Bitart ([place] (5/325)) 1 tab Q4H PRN PO PAIN LEVEL 1 -5 Last administered on 07/03/16 18:55; Admin Dose 1 TAB; Start 06/26/16 at 10: 30; Status Future hold Acetaminophen/ Hydrocodone Bitart ([place] (5/325)) 2 tab Q4H PRN PO PAIN LEVEL 6 -10; Start 06/26/16 at 10:30; Status Future hold Diphenhydramine HCl (Benadryl) 25 mg Q6H PRN IV ITCHING Last administered on 14:45; Admin Dose 25 MG; Start 06/26/16 at 10:30 Miscellaneous Information 1. Discontinue 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... 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 IV ; Start 06/26/16 at 10:30 Ondansetron HCl 4 mg 4 mg Q6H PRN IV NAUSEA AND/OR VOMITING Last administered on 06/30/16 22:16; Admin Dose 4 MG; Start 06/26/16 at 12:30 Acetaminophen 100 ml @ 400 mls/hr Q6H PRN IVPB PAIN; Start 06/26/16 at 12:30 Potassium Chloride/Sodium Chloride (NS-KCl 20 Meq) 1,000 ml @ 100 mls/hr Q10H IV Last administered on 07/04/16 05:50; Admin Dose 100 MLS/HR; Start 06/30/16 at 11:30 Hydralazine HCl (Apresoline) 10 mg Q4H PRN IV SBP>160; Start 06/30/16 at 15:00 Phenol (Cepastat Lozenge) 1 lozenge Q1H PRN MT SORE THROAT Last administered on 06/30/16 12:43; Admin Dose 1 LOZENGE; Start 06/30/16 at 11:30 Hydromorphone HCl 0.5 mg 0.5 mg Q2H PRN IV PAIN Last administered on 07/03/16 14:14; Admin Dose 0.5 MG; Start 07/02/16 at 14:30 Piperacillin Sod/ Tazobactam Sod (Zosyn 3.375gm/ 100 ml (Pmx)) 100 ml @ 200 mls /hr Q6 IVPB Last administered on 07/04/16 05:46; Admin Dose 200 MLS/HR; Start 07/02/16 at 14:30 YOON TAVERAS Jul 04, 2016 15:58
--- NOTE | 2016-07-04 17:12 | CONS ---
Date/Time of Note Date/Time of Note DATE: 07/04/16 TIME: 17:10 Assessment/Plan Assessment/Plan Additional Assessment/Plan 1. Acute hyponatremia - post operative 2. possible syndrome of inappropriate antidiuretic hormone secretion due to the postoperative pain. 3. A history of hypertension. 4. A large cecal mass, is status post right extended hemicolectomy, currently NG tube on low, intermittent suction. PLAN: Serum osmolarity low, TSH, Free T4, cortisol normal- continue current IVF NS with KCL, Na slowly improving will give extra dose of KCL 20mEQ PO X 1 dose in addition to IVF KCL hydralazine to 10mg IV Q 4hr prn SBP>160 mmHg will continue to follow up Consultation Date/Type/Reason Admit Date/Time Jun 26, 2016 at 07:37 Initial Consult Date 06/29/2016 Type of Consultation: NEPHROLOGY Reason for Consultation Hyponatremia Referring Provider: ADELAIDE FERREIRA MD 24 HR Interval Summary Free Text/Dictation pt stable, pain controlled,Na improving Exam/Review of Systems Vital Signs Vitals Vital Signs Date Time Temp Pulse Resp B/P Pulse Ox O2 Delivery O2 Flow Rate FiO2 07/04/16 08:02 97.9 68 18 168/75 98 06/30/16 16:07 Room Air Intake and Output 07/03/16 07/03/16 07/04/16 15:00 23:00 07:00 Intake Total 100 ml 1400 ml 1280 ml Output Total 700 ml 1500 ml Balance 100 ml 700 ml -220 ml Exam GENERAL: Awake, alert, in moderate distress due to the pain. HEENT: Normal. Oropharynx clear. NECK: Supple. No JVD, no lymphadenopathy. LUNGS: Clear to auscultation. No crackles, no wheezes. HEART: S1, S2, with regular rhythm. No murmur. ABDOMEN: Soft. Tender to palpation diffusely. No rebound, no guarding. Bowel sounds hypoactive EXTREMITIES: No clubbing, cyanosis, or edema. NEUROLOGICAL: Nonfocal, intact. Results Result Diagram: 07/04/16 0457 07/04/16 0457 Results 24 hrs Laboratory Tests Test 07/04/16 04:57 White Blood Count 4.9 Red Blood Count 3.61 L Hemoglobin 9.1 L Hematocrit 28.6 L Mean Corpuscular Volume 79.2 L Mean Corpuscular Hemoglobin 25.2 L Mean Corpuscular Hemoglobin Concent 31.8 L Red Cell Distribution Width 19.8 H Platelet Count 177 Mean Platelet Volume 10.1 Neutrophils % 66.0 Lymphocytes % 22.5 Monocytes % 7.8 Eosinophils % 2.7 Basophils % 0.4 Nucleated Red Blood Cells % 0.0 Neutrophils # 3.2 Lymphocytes # 1.1 Monocytes # 0.4 Eosinophils # 0.1 Basophils # 0.0 Nucleated Red Blood Cells # 0.0 Sodium Level 133 L Potassium Level 3.4 L Chloride Level 107 Carbon Dioxide Level 20 L Anion Gap 9 Blood Urea Nitrogen 10 Creatinine 0.45 Glucose Level 112 Calcium Level 7.3 L Medications Medications Current Medications Naloxone HCl (Narcan) 0.2 mg PRN PRN IV DECREASED REPIRATORY RATE; Start at 10:30 Acetaminophen/ Hydrocodone Bitart ([place] (5/325)) 1 tab Q4H PRN PO PAIN LEVEL 1 -5 Last administered on 07/03/16 18:55; Admin Dose 1 TAB; Start 06/26/16 at 10: 30; Status Future hold Acetaminophen/ Hydrocodone Bitart ([place] (5/325)) 2 tab Q4H PRN PO PAIN LEVEL 6 -10; Start 06/26/16 at 10:30; Status Future hold Diphenhydramine HCl (Benadryl) 25 mg Q6H PRN IV ITCHING Last administered on 14:45; Admin Dose 25 MG; Start 06/26/16 at 10:30 Miscellaneous Information 1. 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 IV ; Start 06/26/16 at 10:30 Ondansetron HCl 4 mg 4 mg Q6H PRN IV NAUSEA AND/OR VOMITING Last administered on 06/30/16 22:16; Admin Dose 4 MG; Start 06/26/16 at 12:30 Acetaminophen 100 ml @ 400 mls/hr Q6H PRN IVPB PAIN; Start 06/26/16 at 12:30 Potassium Chloride/Sodium Chloride (NS-KCl 20 Meq) 1,000 ml @ 100 mls/hr Q10H IV Last administered on 07/04/16 05:50; Admin Dose 100 MLS/HR; Start 06/30/16 at 11:30 Hydralazine HCl (Apresoline) 10 mg Q4H PRN IV SBP>160; Start 06/30/16 at 15:00 Phenol (Cepastat Lozenge) 1 lozenge Q1H PRN MT SORE THROAT Last administered on 06/30/16 12:43; Admin Dose 1 LOZENGE; Start 06/30/16 at 11:30 Hydromorphone HCl 0.5 mg 0.5 mg Q2H PRN IV PAIN Last administered on 07/03/16 14:14; Admin Dose 0.5 MG; Start 07/02/16 at 14:30 Piperacillin Sod/ Tazobactam Sod (Zosyn 3.375gm/ 100 ml (Pmx)) 100 ml @ 200 mls /hr Q6 IVPB Last administered on 07/04/16 12:10; Admin Dose 200 MLS/HR; Start 07/02/16 at 14:30 KATIA JAUREGUI MD Jul 04, 2016 17:12
[2016-07-04] MEDS ORDERED: POTASSIUM CHLORIDE 20 MEQ in SOD CHLORIDE 0.9% 100 ML IVPB ONE (17:30)
[2016-07-04] MEDS: HYDROCODONE/APAP (5/325) TAB PO PRN ×2 (18:20→22:58)
--- NOTE | 2016-07-04 19:17 | PN ---
DATE: 07/04/2016 Postop day #8. SUBJECTIVE: No new complaints. 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 The patient has incisional wound infection. Yesterday, the debbie were removed, and culture was sent. Report of the culture so far is gram-negative rods. No microbial identification yet. OBJECTIVE: VITAL SIGNS: 97.9, 68, 18, 168/75, saturation 98% on room air. LABORATORY: WBC 4900 with 66% segmented, hemoglobin 9.1, hematocrit 28.6. Chemistry: Sodium 133, potassium 3.4, BUN 10, creatinine 0.45, glucose 112. ABDOMEN: Soft. Dressing changed. The upper part of the incision looks roll cleaner , and minimal drainage was there. Of course, the sponges were soaked below the umbilicus. More sponges were soaked, dirty-looking drainage. There is some necrosis of the fascial elements, and the wound was thoroughly irrigated with normal saline solution and then with Betadine, packed with a sponge. As of tomorrow, we are going to change the dressing with Silvadene cream. She may require to remove more of the debbie from the infraumbilical port area. PLAN: Continue current care, including antibiotic Zosyn the patient was empirically started on . As soon as the culture and sensitivities are back, we are going to adjust antibiotic. Dictated By: GLO WHITNEY/JAMIE Conf#: [id number] DID#: [id number] MTDD
[2016-07-04 20:45] VITALS: BP 156/68; RESP 18
[2016-07-04] MEDS: SILVER SULFADIAZINE 1% 25 GM CR TOP SCH (21:00)
[2016-07-05] MEDS: NS + KCL 20 MEQ 1,000 ML IV SCH ×3 (01:04→18:00)
[2016-07-05] MEDS: PIPER-TAZO 3.375 GM IV (PMX) 100 ML IVPB SCH ×3 (01:36→12:34)
[2016-07-05] MEDS: HYDROCODONE/APAP (5/325) TAB PO PRN ×3 (03:16→18:17)
[2016-07-05 08:13] VITALS: BP 165/78; RESP 18
[2016-07-05 08:28] LABS: ADD SCAN DIFF NO
[2016-07-05 08:41] LABS: BASOPHILS % 0.4 % (0.0-2.0); EOSINOPHILS # 0.1 10^3/ul (0.0-0.5); EOSINOPHILS % 1.6 % (0.0-7.0); HEMATOCRIT 31.2 % (37.0-47.0); HEMOGLOBIN 9.4 g/dl (12.0-16.0); LYMPHOCYTES % 20.2 % (15.0-51.0); MEAN CORPUSCULAR HEMOGLOBIN 24.4 pg (29.0-33.0); MEAN CORPUSCULAR HGB CONC 30.1 g/dl (32.0-37.0); MEAN CORPUSCULAR VOLUME 80.8 fl (82.0-101.0); MEAN PLATELET VOLUME 9.8 fl (7.4-10.4); MONOCYTE # 0.3 10^3/ul (0.3-0.9); MONOCYTES % 6.7 % (0.0-11.0); NEUTROPHIL # 3.6 10^3/ul (1.6-7.5); NEUTROPHILS % 70.5 % (39.0-77.0); PLATELET COUNT 179 10^3/UL (140-415); RED BLOOD COUNT 3.86 10^6/ul (4.20-5.40); RED CELL DISTRIBUTION WIDTH 20.5 % (11.5-14.5); WHITE BLOOD COUNT 5.1 10^3/ul (4.8-10.8)
[2016-07-05 08:44] LABS: POTASSIUM 3.7 mmol/L (3.5-5.1)
[2016-07-05 08:46] LABS: CREATININE 0.46 mg/dl (0.44-1.00)
[2016-07-05 08:48] LABS: CALCIUM 7.4 mg/dl (8.4-10.2)
[2016-07-05] MEDS: SILVER SULFADIAZINE 1% 25 GM CR TOP SCH ×2 (09:03→21:26)
[2016-07-05 09:17] VITALS: BP 150/70; PULSE 72
--- NOTE | 2016-07-05 10:46 | CONS ---
Date/Time of Note Date/Time of Note DATE: 07/05/16 TIME: 10:44 Assessment/Plan Assessment/Plan Additional Assessment/Plan 1. Acute hyponatremia - post operative 2. possible syndrome of inappropriate antidiuretic hormone secretion due to the postoperative pain. 3. A history of hypertension. 4. A large cecal mass, is status post right extended hemicolectomy, currently NG tube on low, intermittent suction. PLAN: Serum osmolarity low, TSH, Free T4, cortisol normal- continue current IVF NS with KCL, Na slowly improving K stable, continue curretn IVF with KCL- pt is on soft diet, will decrease IVF rate to 50 cc./hr hydralazine to 10mg IV Q 4hr prn SBP>160 mmHg will continue to follow up Consultation Date/Type/Reason Admit Date/Time Jun 26, 2016 at 07:37 Initial Consult Date 06/29/2016 Type of Consultation: NEPHROLOGY Referring Provider: ADELAIDE FERREIRA MD 24 HR Interval Summary Free Text/Dictation Na improving, pain controlled, on soft diet Exam/Review of Systems Vital Signs Vitals Vital Signs Date Time Temp Pulse Resp B/P Pulse Ox O2 Delivery O2 Flow Rate FiO2 07/05/16 09:17 72 150/70 07/05/16 08:13 97.5 18 98 Intake and Output 07/04/16 07/04/16 07/05/16 15:00 23:00 07:00 Intake Total 100 ml 1620 ml 910 ml Output Total 720 ml Balance 100 ml 900 ml 910 ml Exam GENERAL: Awake, alert, in moderate distress due to the pain. HEENT: Normal. Oropharynx clear. NECK: Supple. No JVD, no lymphadenopathy. LUNGS: Clear to auscultation. No crackles, no wheezes. HEART: S1, S2, with regular rhythm. No murmur. ABDOMEN: Soft. Tender to palpation diffusely. No rebound, no guarding. Bowel sounds hypoactive EXTREMITIES: No clubbing, cyanosis, or edema. NEUROLOGICAL: Nonfocal, intact. Results Result Diagram: 07/05/16 0752 07/05/16 0752 Results 24 hrs Laboratory Tests Test 07/05/16 07:52 White Blood Count 5.1 Red Blood Count 3.86 L Hemoglobin 9.4 L Hematocrit 31.2 L Mean Corpuscular Volume 80.8 L Mean Corpuscular Hemoglobin 24.4 L Mean Corpuscular Hemoglobin Concent 30.1 L Red Cell Distribution Width 20.5 H Platelet Count 179 Mean Platelet Volume 9.8 Neutrophils % 70.5 Lymphocytes % 20.2 Monocytes % 6.7 Eosinophils % 1.6 Basophils % 0.4 Nucleated Red Blood Cells % 0.0 Neutrophils # 3.6 Lymphocytes # 1.0 Monocytes # 0.3 Eosinophils # 0.1 Basophils # 0.0 Nucleated Red Blood Cells # 0.0 Sodium Level 134 L Potassium Level 3.7 Chloride Level 110 Carbon Dioxide Level 21 Anion Gap 7 L Blood Urea Nitrogen 6 L Creatinine 0.46 Glucose Level 110 Calcium Level 7.4 L Medications Medications Current Medications Naloxone HCl (Narcan) 0.2 mg PRN PRN IV DECREASED REPIRATORY RATE; Start at 10:30 Acetaminophen/ Hydrocodone Bitart ([place] (5/325)) 1 tab Q4H PRN PO PAIN LEVEL 1 -5 Last administered on 07/03/16 18:55; Admin Dose 1 TAB; Start 06/26/16 at 10: 30; Status Future hold Acetaminophen/ Hydrocodone Bitart ([place] (5/325)) 2 tab Q4H PRN PO PAIN LEVEL 6 -10 Last administered on 07/05/16 03:16; Admin Dose 2 TAB; Start 06/26/16 at 10: 30; Status Future hold Diphenhydramine HCl (Benadryl) 25 mg Q6H PRN IV ITCHING Last administered on 14:45; Admin Dose 25 MG; Start 06/26/16 at 10:30 Miscellaneous Information 1. Discontinue [employer]... [employer] IV ; Start 06/26/16 at 10:30 Ondansetron HCl 4 mg 4 mg Q6H PRN IV NAUSEA AND/OR VOMITING Last administered on 06/30/16 22:16; Admin Dose 4 MG; Start 06/26/16 at 12:30 Acetaminophen 100 ml @ 400 mls/hr Q6H PRN IVPB PAIN; Start 06/26/16 at 12:30 Potassium Chloride/Sodium Chloride (NS-KCl 20 Meq) 1,000 ml @ 100 mls/hr Q10H IV Last administered on 07/04/16 05:50; Admin Dose 100 MLS/HR; Start 06/30/16 at 11:30 Hydralazine HCl (Apresoline) 10 mg Q4H PRN IV SBP>160; Start 06/30/16 at 15:00 Phenol (Cepastat Lozenge) 1 lozenge Q1H PRN MT SORE THROAT Last administered on 06/30/16 12:43; Admin Dose 1 LOZENGE; Start 06/30/16 at 11:30 Hydromorphone HCl 0.5 mg 0.5 mg Q2H PRN IV PAIN Last administered on 07/03/16 14:14; Admin Dose 0.5 MG; Start 07/02/16 at 14:30 Piperacillin Sod/ Tazobactam Sod (Zosyn 3.375gm/ 100 ml (Pmx)) 100 ml @ 200 mls /hr Q6 IVPB Last administered on 07/05/16 06:16; Admin Dose 200 MLS/HR; Start 07/02/16 at 14:30 Silver Sulfadiazine (Thermazene 1% 25 Gm) 1 applic BID TOP Last administered on 07/05/16 09:03; Admin Dose 1 APPLIC; Start 07/04/16 at 21:00 KATIA JAUREGUI MD Jul 05, 2016 10:46
--- NOTE | 2016-07-05 14:39 | PN ---
Date/Time of Note Date/Time of Note DATE: 07/05/16 TIME: 14:35 Assessment/Plan VTE Prophylaxis VTE Prophylaxis Intervention: SCD's Lines/Catheters IV Catheter Type (from [facility]): Peripheral IV Urinary Cath still in place: No Assessment/Plan Chief Complaint/Hosp Course ASSESSMENT AND PLAN: 1. Large cecal mass, status post extended right hemicolectomy. Advance diet per surgery continue to follow up surgical recommendation. 2. Hypertension. Continue patient on hydralazine p.r.n. for systolic blood pressure above 170. 3. Hyponatremia, Dr. Murguia is following a nephrology consultation, continue current IV fluids monitor electrolytes. 4. Hypokalemia, potassium replaced. 5. E-coli wound infection, continue Zosyn. Continue sequential compression device for deep venous thrombosis prophylaxis. Further recommendations based on clinical course. Plan of care was discussed with Dr. Figueroa. Problems: Subjective 24 Hr Interval Summary Free Text/Dictation Patient continues to be afebrile, denies any nausea vomiting tolerates diet well. Exam/Review of Systems Vital Signs Vitals Vital Signs Date Time Temp Pulse Resp B/P Pulse Ox O2 Delivery O2 Flow Rate FiO2 07/05/16 09:17 72 150/70 07/05/16 08:13 97.5 18 98 Intake and Output 07/04/16 07/04/16 07/05/16 15:00 23:00 07:00 Intake Total 100 ml 1620 ml 910 ml Output Total 720 ml Balance 100 ml 900 ml 910 ml Exam PHYSICAL ASSESSMENT: GENERAL: Well-developed, well-nourished female, currently is awake, alert. HEENT: Head is atraumatic, normocephalic. PERRLA. NECK: Supple, no cervical lymphadenopathy, no thyromegaly. LUNGS: Clear bilaterally. There is no rhonchi, wheezes, rales noted. CARDIOVASCULAR: Normal S1, S2. No murmurs, gallops, clicks, rubs noted. ABDOMEN: Round, soft, status post surgery with a dry and intact dressing. GENITOURINARY: The patient has a Santos catheter with yellow urine. EXTREMITIES: There is no edema, clubbing, cyanosis. Pulses equal bilaterally 2 +. SKIN: There is no rash, petechiae noted. NEUROLOGIC: The patient is awake, alert, and oriented x3. Results Result Diagram: 07/05/16 0752 07/05/16 0752 Results 24 hrs Laboratory Tests Test 07/05/16 07:52 White Blood Count 5.1 Red Blood Count 3.86 L Hemoglobin 9.4 L Hematocrit 31.2 L Mean Corpuscular Volume 80.8 L Mean Corpuscular Hemoglobin 24.4 L Mean Corpuscular Hemoglobin Concent 30.1 L Red Cell Distribution Width 20.5 H Platelet Count 179 Mean Platelet Volume 9.8 Neutrophils % 70.5 Lymphocytes % 20.2 Monocytes % 6.7 Eosinophils % 1.6 Basophils % 0.4 Nucleated Red Blood Cells % 0.0 Neutrophils # 3.6 Lymphocytes # 1.0 Monocytes # 0.3 Eosinophils # 0.1 Basophils # 0.0 Nucleated Red Blood Cells # 0.0 Sodium Level 134 L Potassium Level 3.7 Chloride Level 110 Carbon Dioxide Level 21 Anion Gap 7 L Blood Urea Nitrogen 6 L Creatinine 0.46 Glucose Level 110 Calcium Level 7.4 L Medications Medications Current Medications Naloxone HCl (Narcan) 0.2 mg PRN PRN IV DECREASED REPIRATORY RATE; Start at 10:30 Acetaminophen/ Hydrocodone Bitart ([place] (5/325)) 1 tab Q4H PRN PO PAIN LEVEL 1 -5 Last administered on 07/03/16 18:55; Admin Dose 1 TAB; Start 06/26/16 at 10: 30; Status Future hold Acetaminophen/ Hydrocodone Bitart ([place] (5/325)) 2 tab Q4H PRN PO PAIN LEVEL 6 -10 Last administered on 07/05/16 12:44; Admin Dose 2 TAB; Start 06/26/16 at 10: 30; Status Future hold Diphenhydramine HCl (Benadryl) 25 mg Q6H PRN IV ITCHING Last administered on 14:45; Admin Dose 25 MG; Start 06/26/16 at 10:30 Miscellaneous Information 1. Discontinue CARD CUTTER HELPER... CARD CUTTER HELPER IV ; Start 06/26/16 at 10:30 Ondansetron HCl 4 mg 4 mg Q6H PRN IV NAUSEA AND/OR VOMITING Last administered on 06/30/16 22:16; Admin Dose 4 MG; Start 06/26/16 at 12:30 Acetaminophen 100 ml @ 400 mls/hr Q6H PRN IVPB PAIN; Start 06/26/16 at 12:30 Potassium Chloride/Sodium Chloride (NS-KCl 20 Meq) 1,000 ml @ 50 mls/hr Q20H IV Last administered on 07/04/16 05:50; Admin Dose 100 MLS/HR; Start 06/30/16 at 11:30 Hydralazine HCl (Apresoline) 10 mg Q4H PRN IV SBP>160; Start 06/30/16 at 15:00 Phenol (Cepastat Lozenge) 1 lozenge Q1H PRN MT SORE THROAT Last administered on 06/30/16 12:43; Admin Dose 1 LOZENGE; Start 06/30/16 at 11:30 Hydromorphone HCl 0.5 mg 0.5 mg Q2H PRN IV PAIN Last administered on 07/03/16 14:14; Admin Dose 0.5 MG; Start 07/02/16 at 14:30 Piperacillin Sod/ Tazobactam Sod (Zosyn 3.375gm/ 100 ml (Pmx)) 100 ml @ 200 mls /hr Q6 IVPB Last administered on 07/05/16 12:34; Admin Dose 200 MLS/HR; Start 07/02/16 at 14:30 Silver Sulfadiazine (Thermazene 1% 25 Gm) 1 applic BID TOP Last administered on 07/05/16 09:03; Admin Dose 1 APPLIC; Start 07/04/16 at 21:00 YOON TAVERAS Jul 05, 2016 14:39
--- NOTE | 2016-07-05 14:55 | PN ---
DATE: 07/05/2016 SUBJECTIVE: Postop day #9. Postoperative status post right hemicolectomy. Patient is status post i ncisional wound infection. The culture grew E. coli ____. OBJECTIVE: The patient does not have any complaint. Tolerating diet. Had bowel movement. OBJECTIVE: VITAL SIGNS: As follows: Temperature 97.5, heart rate 72 and regular, respirations 18, blood pressu re 150/70, saturation 98% on room air. LABORATORY: WBC 5100, neutrophils 70.5. Hemoglobin 9.4, hematocrit 31.2. Chemistry: Sodium is 13 4, potassium 3.7. BUN 6, creatinine 0.46. Microbiology as mentioned. Final wound culture is Esche richia coli 2+, resistant to ampicillin and Bactrim. Sensitive to levofloxacin, gentamicin, ciprofl oxacin, cefotaxime and cefazolin. ABDOMEN: Abdomen soft. Wound dressing changed. Seven more debbie were removed. The wound: There i s not much of discharge anymore but the superficial layers of the fascia are necrotic, some debridem ent on the bedside was performed. PLAN: Change dressing b.i.d. with application of silver sulfadiazine cream 1%. We will get a consu ltation from infectious disease as well. Dictated By: GLO WHITNEY/JAMIE Conf#: [id number] DID#: [id number]
--- NOTE | 2016-07-05 19:01 | CONS ---
DATE OF ADMISSION: 06/26/2016 DATE OF CONSULTATION: 07/05/2016 TYPE OF CONSULTATION: Infectious Disease. REASON FOR CONSULTATION: Antibiotic management. HISTORY OF PRESENT ILLNESS: Fatuma Saldana is a pleasant 65-year-old female who underwent surgery for a large cecal mass, probable malignancy. She had an extended right hemicolectomy don e by Dr. Rios and Dr. Cox. PAST PROBLEMS INCLUDE: 1. Hypertension. 2. Arthritis. 3. Depression. She presented at the beginning of the month with abdominal pain beginning in May. A CT scan showe d a cecal mass and so she underwent surgery as noted. She had a many years ago. FAMILY HISTORY: Noncontributory. SOCIAL HISTORY: She does not smoke, drink or abuse drugs. ALLERGIES: TETRACYCLINE. MEDICATIONS: Per chart. REVIEW OF SYSTEMS: Noncontributory. HOSPITAL COURSE: Patient has had a stormy hospital course, postop day # 9 now, status post incision al wound infection. Her white count today is 5100 with 70% neutrophils. The E. coli is sensitive t o tobramycin and sensitive to Levaquin and sensitive to cefazolin. We probably should switch her ov er to ceftriaxone. She is sensitive to cefazolin. PHYSICAL EXAMINATION: GENERAL: The patient is a well-developed, well-nourished female who speaks mostly Italian. She is in no acute distress. VITAL SIGNS: Stable. She is afebrile. SKIN: Without generalized rash. HEENT: Within normal limits. NECK: Supple. LYMPH NODES: None palpable. CHEST: Decreased breath sounds at the bases. HEART: Without murmur or gallop. ABDOMEN: Soft, nontender. Abdomen is distended. Her wound is packed at this point on multiple le vels. EXTREMITIES: No cyanosis, clubbing, or edema. RECTAL AND GENITAL: Deferred. NEUROLOGIC: No focal neurological abnormalities. IMPRESSION AND PLAN: The patient had a right hemicolectomy. She has mucinous adenocarcinoma, moder ately well-differentiated, involving the cecum, ileocecal valve and adjacent descending colon. She is growing E. coli from the wound, sensitive to cefazolin. She is currently on Zosyn. We are going to stop the Zosyn and place her on ceftriaxone. I will dictate my findings to Dr. Rios and Dr. Sa lynn and to nurse practitioner Nava. Dictated By: DOROTA HAYES MD, JD/JAMIE Conf#: [id number] DID#: [id number]
[2016-07-05 20:04] VITALS: BP 142/60; RESP 20
[2016-07-05] MEDS: CEFTRIAXONE 1 GM/50 ML (PMX) 50 ML IVPB SCH (21:23)
[2016-07-06 04:57] LABS: ADD SCAN DIFF NO
[2016-07-06 05:16] LABS: POTASSIUM 3.6 mmol/L (3.5-5.1)
[2016-07-06 05:18] LABS: CREATININE 0.45 mg/dl (0.44-1.00)
[2016-07-06 05:19] LABS: CALCIUM 7.5 mg/dl (8.4-10.2)
[2016-07-06 05:30] LABS: BASOPHILS % 0.5 % (0.0-2.0); EOSINOPHILS # 0.1 10^3/ul (0.0-0.5); EOSINOPHILS % 2.3 % (0.0-7.0); HEMATOCRIT 29.5 % (37.0-47.0); HEMOGLOBIN 9.1 g/dl (12.0-16.0); LYMPHOCYTES # 1.4 10^3/ul (0.8-2.9); LYMPHOCYTES % 23.9 % (15.0-51.0); MEAN CORPUSCULAR HEMOGLOBIN 24.9 pg (29.0-33.0); MEAN CORPUSCULAR HGB CONC 30.8 g/dl (32.0-37.0); MEAN CORPUSCULAR VOLUME 80.8 fl (82.0-101.0); MEAN PLATELET VOLUME 10.1 fl (7.4-10.4); MONOCYTE # 0.5 10^3/ul (0.3-0.9); MONOCYTES % 8.5 % (0.0-11.0); NEUTROPHIL # 3.6 10^3/ul (1.6-7.5); NEUTROPHILS % 64.3 % (39.0-77.0); PLATELET COUNT 174 10^3/UL (140-415); RED BLOOD COUNT 3.65 10^6/ul (4.20-5.40); RED CELL DISTRIBUTION WIDTH 20.4 % (11.5-14.5); WHITE BLOOD COUNT 5.6 10^3/ul (4.8-10.8)
[2016-07-06] MEDS: HYDROCODONE/APAP (5/325) TAB PO PRN ×3 (08:21→18:47)
[2016-07-06 08:29] VITALS: BP 152/80; RESP 18
--- NOTE | 2016-07-06 11:01 | CONS ---
Date/Time of Note Date/Time of Note DATE: 07/06/16 TIME: 11:00 Assessment/Plan Assessment/Plan Additional Assessment/Plan 1. Acute hyponatremia - post operative 2. possible syndrome of inappropriate antidiuretic hormone secretion due to the postoperative pain. 3. A history of hypertension. 4. A large cecal mass, is status post right extended hemicolectomy, currently NG tube on low, intermittent suction. PLAN: Serum osmolarity low, TSH, Free T4, cortisol normal-Na improved back to normal K stable, continue curretn IVF with KCL- pt is on soft diet, will d/c IVF today hydralazine to 10mg IV Q 4hr prn SBP>160 mmHg will continue to follow up Consultation Date/Type/Reason Admit Date/Time Jun 26, 2016 at 07:37 Initial Consult Date 06/29/2016 Type of Consultation: NEPHROLOGY Referring Provider: ADELAIDE FERREIRA MD 24 HR Interval Summary Free Text/Dictation doing better, afebrile, Electrolytes and Cr normal Exam/Review of Systems Vital Signs Vitals Vital Signs Date Time Temp Pulse Resp B/P Pulse Ox O2 Delivery O2 Flow Rate FiO2 07/06/16 08:29 98.0 70 18 152/80 97 Intake and Output 07/05/16 07/05/16 07/06/16 15:00 23:00 07:00 Intake Total 200 ml 1440 ml 595 ml Output Total 700 ml 250 ml Balance 200 ml 740 ml 345 ml Exam GENERAL: Awake, alert, in moderate distress due to the pain. HEENT: Normal. Oropharynx clear. NECK: Supple. No JVD, no lymphadenopathy. LUNGS: Clear to auscultation. No crackles, no wheezes. HEART: S1, S2, with regular rhythm. No murmur. ABDOMEN: Soft. Tender to palpation diffusely. No rebound, no guarding. Bowel sounds hypoactive EXTREMITIES: No clubbing, cyanosis, or edema. NEUROLOGICAL: Nonfocal, intact. Results Result Diagram: 07/06/1643907/06/16439 Results 24 hrs Laboratory Tests Test 07/06/16 04:40 White Blood Count 5.6 Red Blood Count 3.65 L Hemoglobin 9.1 L Hematocrit 29.5 L Mean Corpuscular Volume 80.8 L Mean Corpuscular Hemoglobin 24.9 L Mean Corpuscular Hemoglobin Concent 30.8 L Red Cell Distribution Width 20.4 H Platelet Count 174 Mean Platelet Volume 10.1 Neutrophils % 64.3 Lymphocytes % 23.9 Monocytes % 8.5 Eosinophils % 2.3 Basophils % 0.5 Nucleated Red Blood Cells % 0.0 Neutrophils # 3.6 Lymphocytes # 1.4 Monocytes # 0.5 Eosinophils # 0.1 Basophils # 0.0 Nucleated Red Blood Cells # 0.0 Sodium Level 135 Potassium Level 3.6 Chloride Level 108 Carbon Dioxide Level 21 Anion Gap 10 Blood Urea Nitrogen 5 L Creatinine 0.45 Glucose Level 89 Calcium Level 7.5 L Medications Medications Current Medications Naloxone HCl (Narcan) 0.2 mg PRN PRN IV DECREASED REPIRATORY RATE; Start at 10:30 Acetaminophen/ Hydrocodone Bitart ([place] (5/325)) 1 tab Q4H PRN PO PAIN LEVEL 1 -5 Last administered on 07/03/16 18:55; Admin Dose 1 TAB; Start 06/26/16 at 10: 30; Status Future hold Acetaminophen/ Hydrocodone Bitart ([place] (5/325)) 2 tab Q4H PRN PO PAIN LEVEL 6 -10 Last administered on 07/06/16 08:21; Admin Dose 2 TAB; Start 06/26/16 at 10: 30; Status Future hold Diphenhydramine HCl (Benadryl) 25 mg Q6H PRN IV ITCHING Last administered on 14:45; Admin Dose 25 MG; Start 06/26/16 at 10:30 Miscellaneous Information 1. Discontinue RESIDENTIAL CAREGIVER... RESIDENTIAL CAREGIVER IV ; Start 06/26/16 at 10:30 Ondansetron HCl 4 mg 4 mg Q6H PRN IV NAUSEA AND/OR VOMITING Last administered on 06/30/16 22:16; Admin Dose 4 MG; Start 06/26/16 at 12:30 Acetaminophen 100 ml @ 400 mls/hr Q6H PRN IVPB PAIN; Start 06/26/16 at 12:30 Potassium Chloride/Sodium Chloride (NS-KCl 20 Meq) 1,000 ml @ 50 mls/hr Q20H IV Last administered on 07/05/16 18:00; Admin Dose 50 MLS/HR; Start 06/30/16 at 11:30 Hydralazine HCl (Apresoline) 10 mg Q4H PRN IV SBP>160; Start 06/30/16 at 15:00 Phenol (Cepastat Lozenge) 1 lozenge Q1H PRN MT SORE THROAT Last administered on 06/30/16 12:43; Admin Dose 1 LOZENGE; Start 06/30/16 at 11:30 Hydromorphone HCl (Dilaudid) 0.5 mg Q2H PRN IV PAIN Last administered on 14:14; Admin Dose 0.5 MG; Start 07/02/16 at 14:30 Silver Sulfadiazine 1 applic 1 applic BID TOP Last administered on 07/05/16 21: 26; Admin Dose 1 APPLIC; Start 07/04/16 at 21:00 Ceftriaxone Sodium (Rocephin) 50 ml @ 100 mls/hr Q24H IVPB Last administered on 07/05/16 21:23; Admin Dose 100 MLS/HR; Start 07/05/16 at 18:00 KATIA JAUREGUI MD Jul 06, 2016 11:01
[2016-07-06 13:02] VITALS: BP 152/74; PULSE 74; RESP 18
[2016-07-06] MEDS: SILVER SULFADIAZINE 1% 25 GM CR TOP SCH ×2 (13:53→21:26)
--- NOTE | 2016-07-06 14:46 | PN ---
DATE: 07/06/2016 Today is postop day #10, status post resection of the right colon extended because of the cancer of the right cecum. Postop, the patient had been fine, but the wound got infected, so they opened up a nd the culture was sent and grew E. coli. Infectious disease consultation was obtained. Dr. Irving cheatham saw the patient. He changed the antibiotic from Zosyn to ceftriaxone. OBJECTIVE: GENERAL: The patient is awake, alert, oriented x3. She is eating regular foods and has had a bowel movement today and yesterday too. VITAL SIGNS: Temperature 98, heart rate 74 regular, respirations 18, blood pressure 162/74, saturat ion 97% on room air. LABORATORY DATA: Today, WBC 5600 with 64% segmented, normal. Hemoglobin 9.1, hematocrit 29.43. Ch emistry: Sodium and potassium normal. BUN and creatinine normal The abdominal wound dressing was changed. The remaining debbie were removed. The wound is complet alejandro open almost. Some debridement of the necrotic fascia and fatty tissue was performed on the beds kelli. No bleeding. The dressing will be changed daily twice with Silvadene cream. The patient will receive IV ceftriaxone parenterally for infection as well. PLAN: Continue local wound care and continue antibiotic IV. Dictated By: GLO WHITNEY/JAMIE Conf#: [id number] DID#: [id number]
--- NOTE | 2016-07-06 14:55 | PN ---
DATE: 07/06/2016 SUBJECTIVE: The patient is alert, lying comfortably in bed. No fevers. LABORATORY DATA: WBC 5.6, no shift, no bands. BUN 5, creatinine 0.45. MICROBIOLOGY: Wound culture grew E. coli resistant to Bactrim and ampicillin. Anaerobic cultures n egative. ANTIMICROBIALS: The patient is on: 1. Ceftriaxone. 2. Status post Zosyn. PHYSICAL EXAMINATION: GENERAL: This is a well-developed, elderly woman who is alert, in no distress. HEENT: Head atraumatic, normocephalic. Sclerae anicteric. Buccal mucosa pink. NECK: Supple. CHEST: Rise symmetrical. Breath sounds clear. HEART: S1, S2. ABDOMEN: Soft. Bowel sounds present. Mid abdominal dressing covered the whole abdomen, clean, dry and intact. . EXTREMITIES: With bilateral lower extremity trace edema. ASSESSMENT: 1. Postoperative superficial infection of the abdominal wound. 2. 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 3. Hypertension. 4. Obesity. PLAN: The patient remains stable on appropriate antimicrobials. Surgery on case. Continue present care, antibiotics. Dictated By: CATHI FRENCH VACUUM CLOSING MACHINE OPERATOR for DOROTA QUEEN/JAMIE Conf#: [id number] DID#: [id number]
--- NOTE | 2016-07-06 15:39 | RADRPT ---
PROCEDURE: XR Abdomen. CLINICAL INDICATION: Abdomen pain. TECHNIQUE: AP supine abdomen x-ray. COMPARISON: 06/30/2016. FINDINGS: Only 2 midline skin debbie are remaining. Previously noted small bowel ileus is markedly improved. There is no evidence of obstruction. There are no abnormal calcifications overlying the urinary tracts. The osseus structures are unremarkable. IMPRESSION: 1. Two midline skin debbie remaining. 2. Improved small bowel ileus. 3. Otherwise unremarkable study. RPTAT: QQ .Billy Young MD, MD Date Time Electronically viewed and signed by .Billy Young MD, MD on 07/06/2016 15:38 .R/
--- NOTE | 2016-07-06 16:29 | PN ---
Date/Time of Note Date/Time of Note DATE: 07/06/16 TIME: 16:27 Assessment/Plan VTE Prophylaxis VTE Prophylaxis Intervention: other Lines/Catheters [facility] Peripheral IV Urinary Cath still in place: No Assessment/Plan Assessment/Plan 1. Large cecal mass, status post extended right hemicolectomy. Advance diet per surgery continue to follow up surgical recommendation. 2. Hypertension. Continue patient on hydralazine p.r.n. for systolic blood pressure above 170. 3. Hyponatremia, Dr. Murguia is following a nephrology consultation, continue current IV fluids monitor electrolytes. 4. Hypokalemia, potassium replaced. 5. E-coli wound infection, continue Zosyn. Continue sequential compression device for deep venous thrombosis prophylaxis. Further recommendations based on clinical course. Plan of care was discussed with Dr. Figueroa. Subjective 24 Hr Interval Summary Eyes: no complaints ENT: no complaints Respiratory: no complaints Cardiovascular: no complaints Gastrointestinal: nausea Genitourinary: no complaints Musculoskeletal: no complaints Skin: other Exam/Review of Systems Vital Signs Vitals Vital Signs Date Time Temp Pulse Resp B/P Pulse Ox O2 Delivery O2 Flow Rate FiO2 07/06/16 13:02 74 18 152/74 07/06/16 08:29 98.0 97 Intake and Output 07/05/16 07/05/16 07/06/16 15:00 23:00 07:00 Intake Total 200 ml 1440 ml 595 ml Output Total 700 ml 250 ml Balance 200 ml 740 ml 345 ml Exam Constitutional: alert, oriented, well developed Psych: nl mood/affect Head: atraumatic Eyes: nl conjunctiva ENMT: nl external ears & nose Neck: non-tender Respiratory: clear to auscultation Cardiovascular: nl pulses Gastrointestinal: non-tender, other, soft Musculoskeletal: nl extremities to inspection Skin: other Results Result Diagram: 07/06/16 0440 07/06/16 0440 Results 24 hrs Laboratory Tests Test 07/06/16 04:40 White Blood Count 5.6 Red Blood Count 3.65 L Hemoglobin 9.1 L Hematocrit 29.5 L Mean Corpuscular Volume 80.8 L Mean Corpuscular Hemoglobin 24.9 L Mean Corpuscular Hemoglobin Concent 30.8 L Red Cell Distribution Width 20.4 H Platelet Count 174 Mean Platelet Volume 10.1 Neutrophils % 64.3 Lymphocytes % 23.9 Monocytes % 8.5 Eosinophils % 2.3 Basophils % 0.5 Nucleated Red Blood Cells % 0.0 Neutrophils # 3.6 Lymphocytes # 1.4 Monocytes # 0.5 Eosinophils # 0.1 Basophils # 0.0 Nucleated Red Blood Cells # 0.0 Sodium Level 135 Potassium Level 3.6 Chloride Level 108 Carbon Dioxide Level 21 Anion Gap 10 Blood Urea Nitrogen 5 L Creatinine 0.45 Glucose Level 89 Calcium Level 7.5 L Medications Medications Current Medications Naloxone HCl (Narcan) 0.2 mg PRN PRN IV DECREASED REPIRATORY RATE; Start at 10:30 Acetaminophen/ Hydrocodone Bitart ([place] (5/325)) 1 tab Q4H PRN PO PAIN LEVEL 1 -5 Last administered on 07/03/16 18:55; Admin Dose 1 TAB; Start 06/26/16 at 10: 30; Status Future hold Acetaminophen/ Hydrocodone Bitart ([place] (5/325)) 2 tab Q4H PRN PO PAIN LEVEL 6 -10 Last administered on 07/06/16 13:35; Admin Dose 2 TAB; Start 06/26/16 at 10: 30; Status Future hold Diphenhydramine HCl (Benadryl) 25 mg Q6H PRN IV ITCHING Last administered on 14:45; Admin Dose 25 MG; Start 06/26/16 at 10:30 Miscellaneous Information 1. Discontinue HAND SLITTER... HAND SLITTER IV ; Start 06/26/16 at 10:30 Ondansetron HCl 4 mg 4 mg Q6H PRN IV NAUSEA AND/OR VOMITING Last administered on 06/30/16 22:16; Admin Dose 4 MG; Start 06/26/16 at 12:30 Acetaminophen (Ofirmev 1000mg/ 100ml Iv) 100 ml @ 400 mls/hr Q6H PRN IVPB PAIN ; Start 06/26/16 at 12:30 Hydralazine HCl (Apresoline) 10 mg Q4H PRN IV SBP>160; Start 06/30/16 at 15:00 Phenol (Cepastat Lozenge) 1 lozenge Q1H PRN MT SORE THROAT Last administered on 06/30/16 12:43; Admin Dose 1 LOZENGE; Start 06/30/16 at 11:30 Hydromorphone HCl (Dilaudid) 0.5 mg Q2H PRN IV PAIN Last administered on 14:14; Admin Dose 0.5 MG; Start 07/02/16 at 14:30 Silver Sulfadiazine 1 applic 1 applic BID TOP Last administered on 07/06/16 13: 53; Admin Dose 1 APPLIC; Start 07/04/16 at 21:00 Ceftriaxone Sodium (Rocephin) 50 ml @ 100 mls/hr Q24H IVPB Last administered on 07/05/16 21:23; Admin Dose 100 MLS/HR; Start 07/05/16 at 18:00 FERNANDA JARRETT Jul 06, 2016 16:29
[2016-07-06] MEDS: CEFTRIAXONE 1 GM/50 ML (PMX) 50 ML IVPB SCH (17:05)
[2016-07-06 20:37] VITALS: BP 161/74; RESP 20
[2016-07-07] MEDS: HYDROCODONE/APAP (5/325) TAB PO PRN ×5 (04:48→20:03)
[2016-07-07 07:26] LABS: ADD SCAN DIFF NO
[2016-07-07 07:35] LABS: BASOPHILS % 0.4 % (0.0-2.0); EOSINOPHILS # 0.1 10^3/ul (0.0-0.5); EOSINOPHILS % 1.7 % (0.0-7.0); HEMATOCRIT 29.3 % (37.0-47.0); HEMOGLOBIN 9.1 g/dl (12.0-16.0); LYMPHOCYTES # 1.1 10^3/ul (0.8-2.9); LYMPHOCYTES % 20.8 % (15.0-51.0); MEAN CORPUSCULAR HEMOGLOBIN 25.1 pg (29.0-33.0); MEAN CORPUSCULAR HGB CONC 31.1 g/dl (32.0-37.0); MEAN CORPUSCULAR VOLUME 80.9 fl (82.0-101.0); MEAN PLATELET VOLUME 9.6 fl (7.4-10.4); MONOCYTE # 0.4 10^3/ul (0.3-0.9); MONOCYTES % 7.7 % (0.0-11.0); NEUTROPHIL # 3.6 10^3/ul (1.6-7.5); PLATELET COUNT 166 10^3/UL (140-415); RED BLOOD COUNT 3.62 10^6/ul (4.20-5.40); RED CELL DISTRIBUTION WIDTH 20.4 % (11.5-14.5); WHITE BLOOD COUNT 5.2 10^3/ul (4.8-10.8)
[2016-07-07 07:52] LABS: CALCIUM 7.5 mg/dl (8.4-10.2); CREATININE 0.46 mg/dl (0.44-1.00); POTASSIUM 3.8 mmol/L (3.5-5.1)
[2016-07-07 08:40] VITALS: BP 151/80; RESP 18
--- NOTE | 2016-07-07 12:57 | CONS ---
Date/Time of Note Date/Time of Note DATE: 07/07/16 TIME: 12:56 Assessment/Plan Assessment/Plan Additional Assessment/Plan 1. Acute hyponatremia - post operative 2. possible syndrome of inappropriate antidiuretic hormone secretion due to the postoperative pain. 3. A history of hypertension. 4. A large cecal mass, is status post right extended hemicolectomy, currently NG tube on low, intermittent suction. PLAN: Serum osmolarity low, TSH, Free T4, cortisol normal-Na 133 today K stable, continue curretn IVF with KCL- pt is on soft diet, IVF discontinued yesterday, will monitor Na hydralazine to 10mg IV Q 4hr prn SBP>160 mmHg will continue to follow up Consultation Date/Type/Reason Admit Date/Time Jun 26, 2016 at 07:37 Initial Consult Date 06/29/2016 Type of Consultation: NEPHROLOGY Referring Provider: ADELAIDE FERREIRA MD 24 HR Interval Summary Free Text/Dictation Na 133, doing ok, IVF has been stopped Exam/Review of Systems Vital Signs Vitals Vital Signs Date Time Temp Pulse Resp B/P Pulse Ox O2 Delivery O2 Flow Rate FiO2 07/07/16 08:40 97.8 74 18 151/80 97 Intake and Output 07/06/16 07/06/16 07/07/16 15:00 23:00 07:00 Intake Total 800 ml 900 ml Output Total 950 ml 850 ml Balance -150 ml 50 ml Exam GENERAL: Awake, alert, in moderate distress due to the pain. HEENT: Normal. Oropharynx clear. NECK: Supple. No JVD, no lymphadenopathy. LUNGS: Clear to auscultation. No crackles, no wheezes. HEART: S1, S2, with regular rhythm. No murmur. ABDOMEN: Soft. Tender to palpation diffusely. No rebound, no guarding. Bowel sounds hypoactive EXTREMITIES: No clubbing, cyanosis, or edema. NEUROLOGICAL: Nonfocal, intact. Results Result Diagram: 07/07/16 0708 07/07/16 0708 Results 24 hrs Laboratory Tests Test 07/07/16 07:08 White Blood Count 5.2 Red Blood Count 3.62 L Hemoglobin 9.1 L Hematocrit 29.3 L Mean Corpuscular Volume 80.9 L Mean Corpuscular Hemoglobin 25.1 L Mean Corpuscular Hemoglobin Concent 31.1 L Red Cell Distribution Width 20.4 H Platelet Count 166 Mean Platelet Volume 9.6 Neutrophils % 69.0 Lymphocytes % 20.8 Monocytes % 7.7 Eosinophils % 1.7 Basophils % 0.4 Nucleated Red Blood Cells % 0.0 Neutrophils # 3.6 Lymphocytes # 1.1 Monocytes # 0.4 Eosinophils # 0.1 Basophils # 0.0 Nucleated Red Blood Cells # 0.0 Sodium Level 133 L Potassium Level 3.8 Chloride Level 109 Carbon Dioxide Level 23 Anion Gap 5 L Blood Urea Nitrogen 5 L Creatinine 0.46 Glucose Level 100 Calcium Level 7.5 L Medications Medications Current Medications Naloxone HCl (Narcan) 0.2 mg PRN PRN IV DECREASED REPIRATORY RATE; Start at 10:30 Acetaminophen/ Hydrocodone Bitart ([place] (5/325)) 1 tab Q4H PRN PO PAIN LEVEL 1 -5 Last administered on 07/03/16 18:55; Admin Dose 1 TAB; Start 06/26/16 at 10: 30; Status Future hold Acetaminophen/ Hydrocodone Bitart ([place] (5/325)) 2 tab Q4H PRN PO PAIN LEVEL 6 -10 Last administered on 07/07/16 12:10; Admin Dose 2 TAB; Start 06/26/16 at 10: 30; Status Future hold Diphenhydramine HCl (Benadryl) 25 mg Q6H PRN IV ITCHING Last administered on 14:45; Admin Dose 25 MG; Start 06/26/16 at 10:30 Miscellaneous Information 1. Discontinue REIMBURSEMENT ANALYST... REIMBURSEMENT ANALYST IV ; Start 06/26/16 at 10:30 Ondansetron HCl 4 mg 4 mg Q6H PRN IV NAUSEA AND/OR VOMITING Last administered on 06/30/16 22:16; Admin Dose 4 MG; Start 06/26/16 at 12:30 Acetaminophen (Ofirmev 1000mg/ 100ml Iv) 100 ml @ 400 mls/hr Q6H PRN IVPB PAIN ; Start 06/26/16 at 12:30 Hydralazine HCl (Apresoline) 10 mg Q4H PRN IV SBP>160; Start 06/30/16 at 15:00 Phenol (Cepastat Lozenge) 1 lozenge Q1H PRN MT SORE THROAT Last administered on 3/31/17at 12:43; Admin Dose 1 LOZENGE; Start 06/30/16 at 11:30 Hydromorphone HCl (Dilaudid) 0.5 mg Q2H PRN IV PAIN Last administered on 14:14; Admin Dose 0.5 MG; Start 07/02/16 at 14:30 Silver Sulfadiazine 1 applic 1 applic BID TOP Last administered on 07/06/16 21: 26; Admin Dose 1 APPLIC; Start 07/04/16 at 21:00 Ceftriaxone Sodium (Rocephin) 50 ml @ 100 mls/hr Q24H IVPB Last administered on 07/06/16 17:05; Admin Dose 100 MLS/HR; Start 07/05/16 at 18:00 KATIA JAUREGUI MD Jul 07, 2016 12:57
--- NOTE | 2016-07-07 14:37 | PN ---
Date/Time of Note Date/Time of Note DATE: 07/07/16 TIME: 14:35 Assessment/Plan VTE Prophylaxis VTE Prophylaxis Intervention: SCD's Lines/Catheters IV C[facility]ter Type (from [facility] Peripheral IV Urinary Cath still in place: No Assessment/Plan Chief Complaint/Hosp Course ASSESSMENT AND PLAN: 1. Large cecal mass, status post extended right hemicolectomy. Advance diet per surgery continue to follow up surgical recommendation. 2. Hypertension. Continue patient on hydralazine p.r.n. for systolic blood pressure above 170. 3. Hyponatremia, Dr. Murguia is following a nephrology consultation, continue current IV fluids monitor electrolytes. 4. Hypokalemia, potassium replaced. 5. E-coli wound infection, continue Ceftriaxone. Dr Pabon is following in ID. Continue sequential compression device for deep venous thrombosis prophylaxis. Further recommendations based on clinical course. Plan of care was discussed with Dr. Figueroa. Problems: Subjective 24 Hr Interval Summary Free Text/Dictation Remained afebrile, complains of pain, PICC line is ordered. Exam/Review of Systems Vital Signs Vitals Vital Signs Date Time Temp Pulse Resp B/P Pulse Ox O2 Delivery O2 Flow Rate FiO2 07/07/16 08:40 97.8 74 18 151/80 97 Intake and Output 07/06/16 07/06/16 07/07/16 15:00 23:00 07:00 Intake Total 800 ml 900 ml Output Total 950 ml 850 ml Balance -150 ml 50 ml Exam PHYSICAL ASSESSMENT: GENERAL: Well-developed, well-nourished female, currently is awake, alert. HEENT: Head is atraumatic, normocephalic. PERRLA. NECK: Supple, no cervical lymphadenopathy, no thyromegaly. LUNGS: Clear bilaterally. There is no rhonchi, wheezes, rales noted. CARDIOVASCULAR: Normal S1, S2. No murmurs, gallops, clicks, rubs noted. ABDOMEN: Round, soft, status post surgery with a dry and intact dressing. GENITOURINARY: The patient has a Santos catheter with yellow urine. EXTREMITIES: There is no edema, clubbing, cyanosis. Pulses equal bilaterally 2 +. SKIN: There is no rash, petechiae noted. NEUROLOGIC: The patient is awake, alert, and oriented x3. Results Result Diagram: 07/07/16 0708 07/07/16 0708 Results 24 hrs Laboratory Tests Test 07/07/16 07:08 White Blood Count 5.2 Red Blood Count 3.62 L Hemoglobin 9.1 L Hematocrit 29.3 L Mean Corpuscular Volume 80.9 L Mean Corpuscular Hemoglobin 25.1 L Mean Corpuscular Hemoglobin Concent 31.1 L Red Cell Distribution Width 20.4 H Platelet Count 166 Mean Platelet Volume 9.6 Neutrophils % 69.0 Lymphocytes % 20.8 Monocytes % 7.7 Eosinophils % 1.7 Basophils % 0.4 Nucleated Red Blood Cells % 0.0 Neutrophils # 3.6 Lymphocytes # 1.1 Monocytes # 0.4 Eosinophils # 0.1 Basophils # 0.0 Nucleated Red Blood Cells # 0.0 Sodium Level 133 L Potassium Level 3.8 Chloride Level 109 Carbon Dioxide Level 23 Anion Gap 5 L Blood Urea Nitrogen 5 L Creatinine 0.46 Glucose Level 100 Calcium Level 7.5 L Medications Medications Current Medications Naloxone HCl (Narcan) 0.2 mg PRN PRN IV DECREASED REPIRATORY RATE; Start at 10:30 Acetaminophen/ Hydrocodone Bitart ([place] (5/325)) 1 tab Q4H PRN PO PAIN LEVEL 1 -5 Last administered on 07/03/16 18:55; Admin Dose 1 TAB; Start 06/26/16 at 10: 30; Status Future hold Acetaminophen/ Hydrocodone Bitart ([place] (5/325)) 2 tab Q4H PRN PO PAIN LEVEL 6 -10 Last administered on 07/07/16 12:10; Admin Dose 2 TAB; Start 06/26/16 at 10: 30; Status Future hold Diphenhydramine HCl (Benadryl) 25 mg Q6H PRN IV ITCHING Last administered on 14:45; Admin Dose 25 MG; Start 06/26/16 at 10:30 Miscellaneous Information 1. Discontinue C.O.D. AUDIT CLERK... C.O.D. AUDIT CLERK IV ; Start 06/26/16 at 10:30 Ondansetron HCl 4 mg 4 mg Q6H PRN IV NAUSEA AND/OR VOMITING Last administered on 06/30/16 22:16; Admin Dose 4 MG; Start 06/26/16 at 12:30 Acetaminophen (Ofirmev 1000mg/ 100ml Iv) 100 ml @ 400 mls/hr Q6H PRN IVPB PAIN ; Start 06/26/16 at 12:30 Hydralazine HCl (Apresoline) 10 mg Q4H PRN IV SBP>160; Start 06/30/16 at 15:00 Phenol (Cepastat Lozenge) 1 lozenge Q1H PRN MT SORE THROAT Last administered on 06/30/16 12:43; Admin Dose 1 LOZENGE; Start 06/30/16 at 11:30 Hydromorphone HCl (Dilaudid) 0.5 mg Q2H PRN IV PAIN Last administered on 14:14; Admin Dose 0.5 MG; Start 07/02/16 at 14:30 Silver Sulfadiazine 1 applic 1 applic BID TOP Last administered on 07/06/16 21: 26; Admin Dose 1 APPLIC; Start 07/04/16 at 21:00 Ceftriaxone Sodium (Rocephin) 50 ml @ 100 mls/hr Q24H IVPB Last administered on 07/06/16 17:05; Admin Dose 100 MLS/HR; Start 07/05/16 at 18:00 YOON TAVERAS Jul 07, 2016 14:37
--- NOTE | 2016-07-07 14:56 | CONS ---
Date/Time of Note Date/Time of Note DATE: 07/07/16 TIME: 14:54 Assessment/Plan Assessment/Plan Chief Complaint/Hosp Course SUBJECTIVE: The patient is alert, lying comfortably in bed. No fevers. MICROBIOLOGY: Wound culture grew E. coli resistant to Bactrim and ampicillin. Anaerobic cultures negative. ANTIMICROBIALS: The patient is on Ceftriaxone. PHYSICAL EXAMINATION: GENERAL: This is a well-developed, elderly woman who is alert, in no distress. HEENT: Head atraumatic, normocephalic. Sclerae anicteric. Buccal mucosa pink. NECK: Supple. CHEST: Rise symmetrical. Breath sounds clear. HEART: S1, S2. ABDOMEN: Soft. Bowel sounds present. Mid abdominal dressing covered the whole abdomen, clean, dry and intact. . EXTREMITIES: With bilateral lower extremity trace edema. ASSESSMENT: 1. Postoperative superficial infection of the abdominal wound. 2. 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 3. Hypertension. 4. Obesity. PLAN: The patient remains stable, surgery on case. Continue present care, antibiotics. DW pt/staff Problems: Consultation Date/Type/Reason Admit Date/Time Jun 26, 2016 at 07:37 Initial Consult Date Type of Consultation: id Referring Provider: ADELAIDE FERREIRA MD Exam/Review of Systems Vital Signs Vitals Vital Signs Date Time Temp Pulse Resp B/P Pulse Ox O2 Delivery O2 Flow Rate FiO2 07/07/16 08:40 97.8 74 18 151/80 97 Intake and Output 07/06/16 07/06/16 07/07/16 15:00 23:00 07:00 Intake Total 800 ml 900 ml Output Total 950 ml 850 ml Balance -150 ml 50 ml Results Result Diagram: 07/07/16 0708 07/07/16 0708 Results 24 hrs Laboratory Tests Test 07/07/16 07:08 White Blood Count 5.2 Red Blood Count 3.62 L Hemoglobin 9.1 L Hematocrit 29.3 L Mean Corpuscular Volume 80.9 L Mean Corpuscular Hemoglobin 25.1 L Mean Corpuscular Hemoglobin Concent 31.1 L Red Cell Distribution Width 20.4 H Platelet Count 166 Mean Platelet Volume 9.6 Neutrophils % 69.0 Lymphocytes % 20.8 Monocytes % 7.7 Eosinophils % 1.7 Basophils % 0.4 Nucleated Red Blood Cells % 0.0 Neutrophils # 3.6 Lymphocytes # 1.1 Monocytes # 0.4 Eosinophils # 0.1 Basophils # 0.0 Nucleated Red Blood Cells # 0.0 Sodium Level 133 L Potassium Level 3.8 Chloride Level 109 Carbon Dioxide Level 23 Anion Gap 5 L Blood Urea Nitrogen 5 L Creatinine 0.46 Glucose Level 100 Calcium Level 7.5 L Medications Medications Current Medications Naloxone HCl (Narcan) 0.2 mg PRN PRN IV DECREASED REPIRATORY RATE; Start at 10:30 Acetaminophen/ Hydrocodone Bitart ([place] (5/325)) 1 tab Q4H PRN PO PAIN LEVEL 1 -5 Last administered on 07/03/16 18:55; Admin Dose 1 TAB; Start 06/26/16 at 10: 30; Status Future hold Acetaminophen/ Hydrocodone Bitart ([place] (5/325)) 2 tab Q4H PRN PO PAIN LEVEL 6 -10 Last administered on 07/07/16 12:10; Admin Dose 2 TAB; Start 06/26/16 at 10: 30; Status Future hold Diphenhydramine HCl (Benadryl) 25 mg Q6H PRN IV ITCHING Last administered on 14:45; Admin Dose 25 MG; Start 06/26/16 at 10:30 Miscellaneous Information 1. Discontinue HYDROPULPER... HYDROPULPER IV ; Start 06/26/16 at 10:30 Ondansetron HCl 4 mg 4 mg Q6H PRN IV NAUSEA AND/OR VOMITING Last administered on 06/30/16 22:16; Admin Dose 4 MG; Start 06/26/16 at 12:30 Acetaminophen (Ofirmev 1000mg/ 100ml Iv) 100 ml @ 400 mls/hr Q6H PRN IVPB PAIN ; Start 06/26/16 at 12:30 Hydralazine HCl (Apresoline) 10 mg Q4H PRN IV SBP>160; Start 06/30/16 at 15:00 Phenol (Cepastat Lozenge) 1 lozenge Q1H PRN MT SORE THROAT Last administered on 06/30/16 12:43; Admin Dose 1 LOZENGE; Start 06/30/16 at 11:30 Hydromorphone HCl (Dilaudid) 0.5 mg Q2H PRN IV PAIN Last administered on 14:14; Admin Dose 0.5 MG; Start 07/02/16 at 14:30 Silver Sulfadiazine 1 applic 1 applic BID TOP Last administered on 07/06/16 21: 26; Admin Dose 1 APPLIC; Start 07/04/16 at 21:00 Ceftriaxone Sodium (Rocephin) 50 ml @ 100 mls/hr Q24H IVPB Last administered on 07/06/16 17:05; Admin Dose 100 MLS/HR; Start 07/05/16 at 18:00 CATHI FRENCH NP Jul 07, 2016 14:56
--- NOTE | 2016-07-07 15:21 | PN ---
DATE: 07/07/2016 Postop day #11 SUBJECTIVE: Complains of pain in the lower abdomen when she gets out of bed to go to the bathroom. No nausea, no vomiting. No bowel movement today. Not passing gas. Appetite is okay. OBJECTIVE: VITAL SIGNS: Temperature 97.8, is pulse 74, respirations 18, blood pressure 151/80, saturation 97% on room air. LABORATORY DATA: WBC is 96 5200 with 69% segmented normal, Hemoglobin 9.1, hematocrit 29.3, platele ts 166. Chemistry: Sodium 133, potassium 3.8, BUN 5, creatinine 0.49. Abdominal dressing changed. Abdomen is soft and not distended. The wound is completely open. It is relatively clean now, but t he bottom of the wound, over the fascia of the anterior midline, slight necrotic tissue is present t o some extent. As much as possible at the bedside was debrided with sharp scissors. ASSESSMENT AND PLAN: A 65-year-old female with very big cecal cancer who underwent a right extended hemicolectomy. The patient postoperatively developed an incisional wound infection. The wound ope matias up with a large wound, and the cultures grew E. coli. The patient is on antibiotic. She does n ot have any peripheral line. We may have to put a PICC line. Infectious disease is on the case. PLAN: I have suggested to put a wound VAC to this wound. My plan is to start putting it on tomorro w, which is Sunday. Dictated By: GLO WHITNEY/JAMIE Conf#: [id number] DID#: [id number]
[2016-07-07] MEDS ORDERED: LIDOCAINE 1% (MDV) 20 ML INJ SC ONE (15:30)
[2016-07-07] MEDS: SILVER SULFADIAZINE 1% 25 GM CR TOP SCH ×2 (16:00→21:00)
--- NOTE | 2016-07-07 18:22 | RADRPT ---
PROCEDURE: XR Chest. CLINICAL INDICATION: PICC line catheter placement check. TECHNIQUE: PA and Lateral views of the chest were obtained. COMPARISON: Chest x-ray 06/26/2016. FINDINGS: There is a left lower lobe infiltrate silhouetting the left diaphragm. There is atelectasis and/or infiltrate adjacent to the left heart border. A PICC line catheter enters the left arm with its tip in the superior vena cava. The heart is mildly enlarged. The pulmonary vasculature is equilibrate d. The right costophrenic angle is normal. The bony elements are normal. IMPRESSION: 1. Suboptimal inspiration with a left lower lobe infiltrate and/or atelectasis. A small left pleur al effusion is suspected. 2. The PICC line catheter rests with its tip at the right atrial superior vena cava junction. No p neumothorax is identified. 3. Mild cardiomegaly with equilibration of the pulmonary vasculature. RPTAT:AAJJ Physician Fuad Date Time Electronically viewed and signed by Ruperto Pandey Physician on 07/07/2016 18:22 ESTER/
--- NOTE | 2016-07-07 18:27 | RADRPT ---
PROCEDURE: Ultrasound guidance for placement of needle in left upper extremity vein. CLINICAL INDICATION: PICC placement. TECHNIQUE: Limited sonography of the left upper extremity was performed. Ultrasound images were recorded and st ored in the patient's medical record. COMPARISON: Chest radiograph of the same day. FINDINGS: The ultrasound images demonstrate a patent left upper extremity vein. The PICC line was inserted by the PICC line nurse. IMPRESSION: 1. Ultrasound guidance for a needle placement in a left upper extremity vein. 2. The visualized left upper extremity vein is patent. RPTAT: HH .Radha Mendes MD, Date Time Electronically viewed and signed by .Radha Mendes MD, on 07/07/2016 18:27 .N/
[2016-07-07] MEDS: CEFTRIAXONE 1 GM/50 ML (PMX) 50 ML IVPB SCH (18:36)
[2016-07-07 19:00] VITALS: BP 156/83; RESP 19
[2016-07-07] MEDS: CEPASTAT LOZENGE MT PRN (20:03)
[2016-07-08] MEDS: HYDROCODONE/APAP (5/325) TAB PO PRN ×4 (01:54→19:15)
[2016-07-08 05:34] LABS: BASOPHILS % 0.4 % (0.0-2.0); EOSINOPHILS # 0.1 10^3/ul (0.0-0.5); HEMATOCRIT 28.7 % (37.0-47.0); HEMOGLOBIN 8.7 g/dl (12.0-16.0); LYMPHOCYTES # 1.3 10^3/ul (0.8-2.9); LYMPHOCYTES % 22.7 % (15.0-51.0); MEAN CORPUSCULAR HEMOGLOBIN 24.5 pg (29.0-33.0); MEAN CORPUSCULAR HGB CONC 30.3 g/dl (32.0-37.0); MEAN CORPUSCULAR VOLUME 80.8 fl (82.0-101.0); MEAN PLATELET VOLUME 10.5 fl (7.4-10.4); MONOCYTE # 0.5 10^3/ul (0.3-0.9); MONOCYTES % 8.6 % (0.0-11.0); NEUTROPHIL # 3.7 10^3/ul (1.6-7.5); NEUTROPHILS % 65.8 % (39.0-77.0); PLATELET COUNT 164 10^3/UL (140-415); RED BLOOD COUNT 3.55 10^6/ul (4.20-5.40); RED CELL DISTRIBUTION WIDTH 20.8 % (11.5-14.5); WHITE BLOOD COUNT 5.6 10^3/ul (4.8-10.8)
[2016-07-08 05:35] LABS: ADD SCAN DIFF NO
[2016-07-08 05:58] LABS: CALCIUM 7.3 mg/dl (8.4-10.2); CREATININE 0.49 mg/dl (0.44-1.00); POTASSIUM 3.6 mmol/L (3.5-5.1)
[2016-07-08 07:43] VITALS: BP 153/75; RESP 14
[2016-07-08] MEDS: SILVER SULFADIAZINE 1% 25 GM CR TOP SCH ×2 (09:00→20:47)
--- NOTE | 2016-07-08 13:54 | PN ---
Date/Time of Note Date/Time of Note DATE: 07/08/16 TIME: 13:53 Assessment/Plan VTE Prophylaxis VTE Prophylaxis Intervention: other Lines/Catheters [facility] PICC Line Urinary Cath still in place: No Assessment/Plan Assessment/Plan 1. Large cecal mass, status post extended right hemicolectomy. Advance diet per surgery continue to follow up surgical recommendation. 2. Hypertension. Continue patient on hydralazine p.r.n. for systolic blood pressure above 170. 3. Hyponatremia, Dr. Murguia is following a nephrology consultation, continue current IV fluids monitor electrolytes. 4. Hypokalemia, potassium replaced. 5. E-coli wound infection, continue Ceftriaxone. Dr Pabon is following in ID. Continue sequential compression device for deep venous thrombosis prophylaxis. Further recommendations based on clinical course. Plan of care was discussed with Dr. Figueroa. Subjective 24 Hr Interval Summary Free Text/Dictation sp wound vac palcement. c/o pain at surgery site- dw staff Eyes: no complaints ENT: no complaints Respiratory: no complaints Cardiovascular: no complaints Gastrointestinal: pain Genitourinary: no complaints Musculoskeletal: no complaints Skin: no complaints Neurologic: no complaints Exam/Review of Systems Vital Signs Vitals Vital Signs Date Time Temp Pulse Resp B/P Pulse Ox O2 Delivery O2 Flow Rate FiO2 07/08/16 07:43 98.2 73 14 153/75 98 Intake and Output 07/07/16 07/07/16 07/08/16 15:00 23:00 07:00 Intake Total 50 ml 720 ml Output Total 700 ml Balance 50 ml 20 ml Exam Constitutional: alert, well developed Psych: nl mood/affect Head: atraumatic Eyes: EOMI ENMT: nl external ears & nose Neck: non-tender Respiratory: clear to auscultation Cardiovascular: nl pulses Gastrointestinal: other Musculoskeletal: muscle weakness Extremities: normal pulses Neurological: nl speech Lymph: nontender Results Result Diagram: 07/08/16 0432 07/08/16 0432 Results 24 hrs Laboratory Tests Test 07/08/16 04:32 White Blood Count 5.6 Red Blood Count 3.55 L Hemoglobin 8.7 L Hematocrit 28.7 L Mean Corpuscular Volume 80.8 L Mean Corpuscular Hemoglobin 24.5 L Mean Corpuscular Hemoglobin Concent 30.3 L Red Cell Distribution Width 20.8 H Platelet Count 164 Mean Platelet Volume 10.5 H Neutrophils % 65.8 Lymphocytes % 22.7 Monocytes % 8.6 Eosinophils % 2.0 Basophils % 0.4 Nucleated Red Blood Cells % 0.0 Neutrophils # 3.7 Lymphocytes # 1.3 Monocytes # 0.5 Eosinophils # 0.1 Basophils # 0.0 Nucleated Red Blood Cells # 0.0 Sodium Level 132 L Potassium Level 3.6 Chloride Level 108 Carbon Dioxide Level 23 Anion Gap 5 L Blood Urea Nitrogen 6 L Creatinine 0.49 Glucose Level 103 Calcium Level 7.3 L Medications Medications Current Medications Naloxone HCl (Narcan) 0.2 mg PRN PRN IV DECREASED REPIRATORY RATE; Start at 10:30 Acetaminophen/ Hydrocodone Bitart ([place] (5/325)) 1 tab Q4H PRN PO PAIN LEVEL 1 -5 Last administered on 07/03/16 18:55; Admin Dose 1 TAB; Start 06/26/16 at 10: 30; Status Future hold Acetaminophen/ Hydrocodone Bitart ([place] (5/325)) 2 tab Q4H PRN PO PAIN LEVEL 6 -10 Last administered on 07/08/16 10:00; Admin Dose 2 TAB; Start 06/26/16 at 10: 30; Status Future hold Diphenhydramine HCl (Benadryl) 25 mg Q6H PRN IV ITCHING Last administered on 14:45; Admin Dose 25 MG; Start 06/26/16 at 10:30 Miscellaneous Information 1. Discontinue GOLF CADDY... GOLF CADDY IV ; Start 06/26/16 at 10:30 Ondansetron HCl 4 mg 4 mg Q6H PRN IV NAUSEA AND/OR VOMITING Last administered on 06/30/16 22:16; Admin Dose 4 MG; Start 06/26/16 at 12:30 Acetaminophen (Ofirmev 1000mg/ 100ml Iv) 100 ml @ 400 mls/hr Q6H PRN IVPB PAIN ; Start 06/26/16 at 12:30 Hydralazine HCl (Apresoline) 10 mg Q4H PRN IV SBP>160; Start 06/30/16 at 15:00 Phenol (Cepastat Lozenge) 1 lozenge Q1H PRN MT SORE THROAT Last administered on 07/07/16 20:03; Admin Dose 1 LOZENGE; Start 06/30/16 at 11:30 Hydromorphone HCl (Dilaudid) 0.5 mg Q2H PRN IV PAIN Last administered on 14:14; Admin Dose 0.5 MG; Start 07/02/16 at 14:30 Silver Sulfadiazine 1 applic 1 applic BID TOP Last administered on 07/07/16 16: 00; Admin Dose 1 APPLIC; Start 07/04/16 at 21:00 Ceftriaxone Sodium (Rocephin) 50 ml @ 100 mls/hr Q24H IVPB Last administered on 07/07/16 18:36; Admin Dose 100 MLS/HR; Start 07/05/16 at 18:00 IV Flush (NS 10 ml) 10 ml PRN PRN IV FLUSH LINE Last administered on 07/08/16 04:28; Admin Dose 10 ML; Start 07/07/16 at 18:30 FERNANDA JARRETT Jul 08, 2016 13:54
--- NOTE | 2016-07-08 13:54 | PN ---
DATE: 07/08/2016 PROGRESS NOTE FOLLOWUP Postop day #12. SUBJECTIVE: No new complaints. OBJECTIVE: VITAL SIGNS: 98.2, 73, 153/75, saturations 98% on room air. LABORATORY: WBC 5600, hemoglobin 8.7, hematocrit 28.7, neutrophils 65%. Chemistry: Sodium and pota ssium are almost normal. BUN 6, creatinine 0.49. Abdomen not distended. Bowel sounds present. Wound inspected. Wound VAC was applied, continuous s uction 125. Lower extremity, no calf tenderness. ASSESSMENT: A 65-year-old female with right cecal cancer resection, with extended right hemicolecto my. Postop, the patient developed an incisional wound infection with E. coli. The patient was star lizz on antibiotics, adjusted by the infectious disease. The wound is open. It appears that the woun d will be better managed by application of a wound VAC, so today we applied a wound VAC on the wound . PLAN: Continue the current care and further decisions will be made according to the hospital course . Dictated By: GLO WHITNEY/JAMIE Conf#: [id number] DID#: [id number]
--- NOTE | 2016-07-08 16:08 | CONS ---
Date/Time of Note Date/Time of Note DATE: 07/08/16 TIME: 16:03 Assessment/Plan Assessment/Plan Chief Complaint/Hosp Course ID PROGRESS NOTE CURRENT ABX DAY #7=> Ceftriaxone 24H INTERVAL SUMMARY * Resting comfortably in bed, Portuguese speaking able to communicate basic needs, mild ABC pain, no distress * Wound vac placed today per Dr. Cox PHYSICAL EXAMINATION: GENERAL: VSS, NAD, Afebrile HEENT: Unremarkable NECK: Supple, trachea midline. CHEST: Rise symmetrical, without dyspnea on observation HEART: Pulse RRR ABDOMEN: Soft EXTREMITIES: Warm ID ASSESSMENT 65 yo F admit with: 1. Postoperative superficial infection of the abdominal wound. * Wound culture grew E. coli resistant to Bactrim and ampicillin. Anaerobic cultures negative. 2. 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 3. Hypertension. INVASIVES: PIV ABX ALLERGY: TETRACYCLINE CURRENT ABX:ABX DAY #7=> Ceftriaxone ID RECOMMENDATIONS 1. Continue current ABX 2. Observe over the weekend on ABX -> Reassess by ID team next week 3. Wound Vac placed - follow Dr. Cox's recs . Problems: Consultation Date/Type/Reason Admit Date/Time Jun 26, 2016 at 07:37 Initial Consult Date Type of Consultation: id Referring Provider: ADELAIDE FERREIRA MD Exam/Review of Systems Vital Signs Vitals Vital Signs Date Time Temp Pulse Resp B/P Pulse Ox O2 Delivery O2 Flow Rate FiO2 07/08/16 07:43 98.2 73 14 153/75 98 Intake and Output 07/07/16 07/07/16 07/08/16 15:00 23:00 07:00 Intake Total 50 ml 720 ml Output Total 700 ml Balance 50 ml 20 ml Results Result Diagram: 07/08/16 0432 07/08/16 0432 Results 24 hrs Laboratory Tests Test 07/08/16 04:32 White Blood Count 5.6 Red Blood Count 3.55 L Hemoglobin 8.7 L Hematocrit 28.7 L Mean Corpuscular Volume 80.8 L Mean Corpuscular Hemoglobin 24.5 L Mean Corpuscular Hemoglobin Concent 30.3 L Red Cell Distribution Width 20.8 H Platelet Count 164 Mean Platelet Volume 10.5 H Neutrophils % 65.8 Lymphocytes % 22.7 Monocytes % 8.6 Eosinophils % 2.0 Basophils % 0.4 Nucleated Red Blood Cells % 0.0 Neutrophils # 3.7 Lymphocytes # 1.3 Monocytes # 0.5 Eosinophils # 0.1 Basophils # 0.0 Nucleated Red Blood Cells # 0.0 Sodium Level 132 L Potassium Level 3.6 Chloride Level 108 Carbon Dioxide Level 23 Anion Gap 5 L Blood Urea Nitrogen 6 L Creatinine 0.49 Glucose Level 103 Calcium Level 7.3 L Medications Medications Current Medications Naloxone HCl (Narcan) 0.2 mg PRN PRN IV DECREASED REPIRATORY RATE; Start at 10:30 Acetaminophen/ Hydrocodone Bitart ([place] (5/325)) 1 tab Q4H PRN PO PAIN LEVEL 1 -5 Last administered on 07/03/16 18:55; Admin Dose 1 TAB; Start 06/26/16 at 10: 30; Status Future hold Acetaminophen/ Hydrocodone Bitart ([place] (5/325)) 2 tab Q4H PRN PO PAIN LEVEL 6 -10 Last administered on 07/08/16 14:28; Admin Dose 2 TAB; Start 06/26/16 at 10: 30; Status Future hold Diphenhydramine HCl (Benadryl) 25 mg Q6H PRN IV ITCHING Last administered on 14:45; Admin Dose 25 MG; Start 06/26/16 at 10:30 Miscellaneous Information 1. Discontinue SCREENING TECHNICIAN... SCREENING TECHNICIAN IV ; Start 06/26/16 at 10:30 Ondansetron HCl 4 mg 4 mg Q6H PRN IV NAUSEA AND/OR VOMITING Last administered on 06/30/16 22:16; Admin Dose 4 MG; Start 06/26/16 at 12:30 Acetaminophen (Ofirmev 1000mg/ 100ml Iv) 100 ml @ 400 mls/hr Q6H PRN IVPB PAIN ; Start 06/26/16 at 12:30 Hydralazine HCl (Apresoline) 10 mg Q4H PRN IV SBP>160; Start 06/30/16 at 15:00 Phenol (Cepastat Lozenge) 1 lozenge Q1H PRN MT SORE THROAT Last administered on 07/07/16 20:03; Admin Dose 1 LOZENGE; Start 06/30/16 at 11:30 Hydromorphone HCl (Dilaudid) 0.5 mg Q2H PRN IV PAIN Last administered on 14:14; Admin Dose 0.5 MG; Start 07/02/16 at 14:30 Silver Sulfadiazine 1 applic 1 applic BID TOP Last administered on 07/07/16 16: 00; Admin Dose 1 APPLIC; Start 07/04/16 at 21:00 Ceftriaxone Sodium (Rocephin) 50 ml @ 100 mls/hr Q24H IVPB Last administered on 07/07/16 18:36; Admin Dose 100 MLS/HR; Start 07/05/16 at 18:00 IV Flush (NS 10 ml) 10 ml PRN PRN IV FLUSH LINE Last administered on 07/08/16 04:28; Admin Dose 10 ML; Start 07/07/16 at 18:30 CINDY MAE DIESEL INSPECTOR Jul 08, 2016 16:08
[2016-07-08] MEDS: CEFTRIAXONE 1 GM/50 ML (PMX) 50 ML IVPB SCH (18:25)
[2016-07-08 20:26] VITALS: BP 149/70; RESP 20
--- NOTE | 2016-07-08 21:49 | CONS ---
Date/Time of Note Date/Time of Note DATE: 07/08/16 TIME: 21:47 Assessment/Plan Assessment/Plan Additional Assessment/Plan 1. Acute hyponatremia - post operative 2. 1. Postoperative superficial infection of the abdominal wound. * Wound culture grew E. coli resistant to Bactrim and ampicillin. Anaerobic cultures negative. 2. 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 3. Hypertension. PLAN: Serum osmolarity low, TSH, Free T4, cortisol normal-Na 132 today monitor Na and other electrolytes IV hydralazine prn will continue to follow up Consultation Date/Type/Reason Admit Date/Time Jun 26, 2016 at 07:37 Initial Consult Date 06/29/2016 Type of Consultation: NEPHROLOGY Referring Provider: ADELAIDE FERREIRA MD 24 HR Interval Summary Free Text/Dictation Wound vac placed by ,No acute events, Exam/Review of Systems Vital Signs Vitals Vital Signs Date Time Temp Pulse Resp B/P Pulse Ox O2 Delivery O2 Flow Rate FiO2 07/08/16 20:26 98.1 71 20 149/70 98 Intake and Output 07/07/16 07/07/16 07/08/16 15:00 23:00 07:00 Intake Total 50 ml 720 ml Output Total 700 ml Balance 50 ml 20 ml Exam GENERAL: VSS, NAD, Afebrile HEENT: Unremarkable NECK: Supple, trachea midline. CHEST: Rise symmetrical, without dyspnea on observation HEART: Pulse RRR ABDOMEN: Soft EXTREMITIES: Warm Results Result Diagram: 07/08/16 0432 07/08/16 0432 Results 24 hrs Laboratory Tests Test 07/08/16 04:32 White Blood Count 5.6 Red Blood Count 3.55 L Hemoglobin 8.7 L Hematocrit 28.7 L Mean Corpuscular Volume 80.8 L Mean Corpuscular Hemoglobin 24.5 L Mean Corpuscular Hemoglobin Concent 30.3 L Red Cell Distribution Width 20.8 H Platelet Count 164 Mean Platelet Volume 10.5 H Neutrophils % 65.8 Lymphocytes % 22.7 Monocytes % 8.6 Eosinophils % 2.0 Basophils % 0.4 Nucleated Red Blood Cells % 0.0 Neutrophils # 3.7 Lymphocytes # 1.3 Monocytes # 0.5 Eosinophils # 0.1 Basophils # 0.0 Nucleated Red Blood Cells # 0.0 Sodium Level 132 L Potassium Level 3.6 Chloride Level 108 Carbon Dioxide Level 23 Anion Gap 5 L Blood Urea Nitrogen 6 L Creatinine 0.49 Glucose Level 103 Calcium Level 7.3 L Medications Medications Current Medications Naloxone HCl (Narcan) 0.2 mg PRN PRN IV DECREASED REPIRATORY RATE; Start at 10:30 Acetaminophen/ Hydrocodone Bitart ([place] (5/325)) 1 tab Q4H PRN PO PAIN LEVEL 1 -5 Last administered on 07/03/16 18:55; Admin Dose 1 TAB; Start 06/26/16 at 10: 30; Status Future hold Acetaminophen/ Hydrocodone Bitart ([place] (5/325)) 2 tab Q4H PRN PO PAIN LEVEL 6 -10 Last administered on 07/08/16 19:15; Admin Dose 2 TAB; Start 06/26/16 at 10: 30; Status Future hold Diphenhydramine HCl (Benadryl) 25 mg Q6H PRN IV ITCHING Last administered on 14:45; Admin Dose 25 MG; Start 06/26/16 at 10:30 Miscellaneous Information 1. Discontinue SOLE LEVELER... SOLE LEVELER IV ; Start 06/26/16 at 10:30 Ondansetron HCl 4 mg 4 mg Q6H PRN IV NAUSEA AND/OR VOMITING Last administered on 06/30/16 22:16; Admin Dose 4 MG; Start 06/26/16 at 12:30 Acetaminophen (Ofirmev 1000mg/ 100ml Iv) 100 ml @ 400 mls/hr Q6H PRN IVPB PAIN ; Start 06/26/16 at 12:30 Hydralazine HCl (Apresoline) 10 mg Q4H PRN IV SBP>160; Start 06/30/16 at 15:00 Phenol (Cepastat Lozenge) 1 lozenge Q1H PRN MT SORE THROAT Last administered on 07/07/16 20:03; Admin Dose 1 LOZENGE; Start 06/30/16 at 11:30 Hydromorphone HCl (Dilaudid) 0.5 mg Q2H PRN IV PAIN Last administered on 14:14; Admin Dose 0.5 MG; Start 07/02/16 at 14:30 Silver Sulfadiazine 1 applic 1 applic BID TOP Last administered on 07/07/16 16: 00; Admin Dose 1 APPLIC; Start 07/04/16 at 21:00 Ceftriaxone Sodium (Rocephin) 50 ml @ 100 mls/hr Q24H IVPB Last administered on 07/08/16 18:25; Admin Dose 100 MLS/HR; Start 07/05/16 at 18:00 IV Flush (NS 10 ml) 10 ml PRN PRN IV FLUSH LINE Last administered on 07/08/16 04:28; Admin Dose 10 ML; Start 07/07/16 at 18:30 KATIA JAUREGUI MD Jul 08, 2016 21:49
[2016-07-09 05:23] LABS: ADD SCAN DIFF NO
[2016-07-09 05:28] LABS: BASOPHILS % 0.2 % (0.0-2.0); EOSINOPHILS # 0.1 10^3/ul (0.0-0.5); EOSINOPHILS % 3.1 % (0.0-7.0); HEMOGLOBIN 8.6 g/dl (12.0-16.0); LYMPHOCYTES # 1.2 10^3/ul (0.8-2.9); LYMPHOCYTES % 27.6 % (15.0-51.0); MEAN CORPUSCULAR HEMOGLOBIN 24.8 pg (29.0-33.0); MEAN CORPUSCULAR HGB CONC 30.7 g/dl (32.0-37.0); MEAN CORPUSCULAR VOLUME 80.7 fl (82.0-101.0); MEAN PLATELET VOLUME 10.2 fl (7.4-10.4); MONOCYTE # 0.4 10^3/ul (0.3-0.9); MONOCYTES % 9.1 % (0.0-11.0); NEUTROPHIL # 2.5 10^3/ul (1.6-7.5); NEUTROPHILS % 59.5 % (39.0-77.0); PLATELET COUNT 168 10^3/UL (140-415); RED BLOOD COUNT 3.47 10^6/ul (4.20-5.40); RED CELL DISTRIBUTION WIDTH 20.8 % (11.5-14.5); WHITE BLOOD COUNT 4.2 10^3/ul (4.8-10.8)
[2016-07-09 06:11] LABS: POTASSIUM 3.5 mmol/L (3.5-5.1)
[2016-07-09 06:13] LABS: CREATININE 0.47 mg/dl (0.44-1.00)
[2016-07-09 06:14] LABS: CALCIUM 7.5 mg/dl (8.4-10.2)
[2016-07-09 08:10] VITALS: BP 150/82; RESP 18
[2016-07-09] MEDS: HYDROCODONE/APAP (5/325) TAB PO PRN ×3 (08:34→19:07)
[2016-07-09] MEDS: SILVER SULFADIAZINE 1% 25 GM CR TOP SCH ×2 (08:40→20:09)
--- NOTE | 2016-07-09 13:37 | PN ---
Date/Time of Note Date/Time of Note DATE: 07/09/16 TIME: 13:31 Assessment/Plan Lines/Catheters [facility] PICC Line Urinary Cath still in place: No Assessment/Plan Assessment/Plan 1. Large cecal mass, status post extended right hemicolectomy. Advance diet per surgery continue to follow up surgical recommendation. 2. Hypertension. Continue patient on hydralazine p.r.n. for systolic blood pressure above 170. 3. Hyponatremia, Dr. Murguia is following a nephrology consultation, continue current IV fluids monitor electrolytes. 4. Hypokalemia, potassium replaced. 5. E-coli wound infection, continue Ceftriaxone. Dr Pabon is following in ID. Continue sequential compression device for deep venous thrombosis prophylaxis. Further recommendations based on clinical course. Plan of care was discussed with Dr. Figueroa. Subjective 24 Hr Interval Summary Free Text/Dictation sitting up in chair, tolerate well. Constitutional: improved Eyes: no complaints ENT: no complaints Respiratory: no complaints Cardiovascular: no complaints Gastrointestinal: pain Genitourinary: no complaints Skin: no complaints Neurologic: no complaints Exam/Review of Systems Vital Signs Vitals Vital Signs Date Time Temp Pulse Resp B/P Pulse Ox O2 Delivery O2 Flow Rate FiO2 07/09/16 08:10 97.7 77 18 150/82 97 Intake and Output 07/08/16 07/08/16 07/09/16 15:00 23:00 07:00 Intake Total 650 ml 720 ml Output Total 925 ml 625 ml Balance -275 ml 95 ml Exam Constitutional: alert, oriented, well developed Psych: nl mood/affect Head: atraumatic Eyes: EOMI, PERRL, nl sclera ENMT: nl external ears & nose Neck: non-tender Respiratory: clear to auscultation Cardiovascular: nl pulses Gastrointestinal: other (inscional site), soft, tender Musculoskeletal: nl extremities to inspection Extremities: normal pulses Neurological: nl mental status, nl speech Skin: other ( status post extended right hemicolectomy.DDI) Lymph: nontender Results Result Diagram: 07/09/16 0458 07/09/16 0458 Results 24 hrs Laboratory Tests Test 07/09/16 04:58 White Blood Count 4.2 #L Red Blood Count 3.47 L Hemoglobin 8.6 L Hematocrit 28.0 L Mean Corpuscular Volume 80.7 L Mean Corpuscular Hemoglobin 24.8 L Mean Corpuscular Hemoglobin Concent 30.7 L Red Cell Distribution Width 20.8 H Platelet Count 168 Mean Platelet Volume 10.2 Neutrophils % 59.5 Lymphocytes % 27.6 Monocytes % 9.1 Eosinophils % 3.1 Basophils % 0.2 Nucleated Red Blood Cells % 0.0 Neutrophils # 2.5 Lymphocytes # 1.2 Monocytes # 0.4 Eosinophils # 0.1 Basophils # 0.0 Nucleated Red Blood Cells # 0.0 Sodium Level 135 Potassium Level 3.5 Chloride Level 105 Carbon Dioxide Level 23 Anion Gap 11 Blood Urea Nitrogen 8 Creatinine 0.47 Glucose Level 86 Calcium Level 7.5 L Medications Medications Current Medications Naloxone HCl (Narcan) 0.2 mg PRN PRN IV DECREASED REPIRATORY RATE; Start at 10:30 Acetaminophen/ Hydrocodone Bitart ([place] (5/325)) 1 tab Q4H PRN PO PAIN LEVEL 1 -5 Last administered on 07/03/16 18:55; Admin Dose 1 TAB; Start 06/26/16 at 10: 30; Status Future hold Acetaminophen/ Hydrocodone Bitart ([place] (5/325)) 2 tab Q4H PRN PO PAIN LEVEL 6 -10 Last administered on 07/09/16 08:34; Admin Dose 2 TAB; Start 06/26/16 at 10: 30; Status Future hold Diphenhydramine HCl (Benadryl) 25 mg Q6H PRN IV ITCHING Last administered on 14:45; Admin Dose 25 MG; Start 06/26/16 at 10:30 Miscellaneous Information 1. Discontinue ROOMS DIRECTOR... ROOMS DIRECTOR IV ; Start 06/26/16 at 10:30 Ondansetron HCl 4 mg 4 mg Q6H PRN IV NAUSEA AND/OR VOMITING Last administered on 06/30/16 22:16; Admin Dose 4 MG; Start 06/26/16 at 12:30 Acetaminophen (Ofirmev 1000mg/ 100ml Iv) 100 ml @ 400 mls/hr Q6H PRN IVPB PAIN ; Start 06/26/16 at 12:30 Hydralazine HCl (Apresoline) 10 mg Q4H PRN IV SBP>160; Start 06/30/16 at 15:00 Phenol (Cepastat Lozenge) 1 lozenge Q1H PRN MT SORE THROAT Last administered on 07/07/16 20:03; Admin Dose 1 LOZENGE; Start 06/30/16 at 11:30 Hydromorphone HCl (Dilaudid) 0.5 mg Q2H PRN IV PAIN Last administered on 14:14; Admin Dose 0.5 MG; Start 07/02/16 at 14:30 Silver Sulfadiazine 1 applic 1 applic BID TOP Last administered on 07/07/16 16: 00; Admin Dose 1 APPLIC; Start 07/04/16 at 21:00 Ceftriaxone Sodium (Rocephin) 50 ml @ 100 mls/hr Q24H IVPB Last administered on 07/08/16 18:25; Admin Dose 100 MLS/HR; Start 07/05/16 at 18:00 IV Flush (NS 10 ml) 10 ml PRN PRN IV FLUSH LINE Last administered on 07/08/16 04:28; Admin Dose 10 ML; Start 07/07/16 at 18:30 FERNANDA JARRETT Jul 09, 2016 13:37
--- NOTE | 2016-07-09 15:45 | PN ---
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 SUBJECTIVE: No complaint, has had bowel movement, no nausea, no vomiting. Tolerating diet. OBJECTIVE: GENERAL: The patient is alert and oriented x3. VITAL SIGNS: Temperature 97.7, heart rate 77, respirations 18, blood pressure 150/82, saturation 97 % on room air. LABORATORY DATA: WBC 4200, hemoglobin 8.6, hematocrit 28. Platelet count 168. Chemistry: Sodium 135, improving, potassium 3.5, BUN , creatinine 0.47. The patient had bowel movement today and yesterday. The wound VAC has drained 50 mL in past 24 hour s. 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 Patient developed postoperative incisional wound infection. Culture grew E. coli, start ed on antibiotics per infectious disease. Two days ago we applied the wound VAC on the wound becaus e it is a very deep wound and a big one. The patient is tolerating wound VAC. No complaint. PLAN: Continue current care for the time being. Dictated By: GLO OSBORN MD PS/NTS Conf#: [id number] DID#: [id number]
--- NOTE | 2016-07-09 17:15 | CONS ---
Date/Time of Note Date/Time of Note DATE: 07/09/16 TIME: 17:13 Assessment/Plan Assessment/Plan Additional Assessment/Plan 1. Acute hyponatremia - post operative 2. 1. Postoperative superficial infection of the abdominal wound. * Wound culture grew E. coli resistant to Bactrim and ampicillin. Anaerobic cultures negative. 2. 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 3. Hypertension. PLAN: Serum osmolarity low, TSH, Free T4, cortisol normal-Na normal today monitor Na and other electrolytes IV hydralazine prn will continue to follow up Consultation Date/Type/Reason Admit Date/Time Jun 26, 2016 at 07:37 Initial Consult Date 06/29/2016 Type of Consultation: NEPHROLOGY Referring Provider: ADELAIDE FERREIRA MD 24 HR Interval Summary Free Text/Dictation no acute events, BP stable Exam/Review of Systems Vital Signs Vitals Vital Signs Date Time Temp Pulse Resp B/P Pulse Ox O2 Delivery O2 Flow Rate FiO2 07/09/16 08:10 97.7 77 18 150/82 97 Intake and Output 07/08/16 07/08/16 07/09/16 15:00 23:00 07:00 Intake Total 650 ml 720 ml Output Total 925 ml 625 ml Balance -275 ml 95 ml Exam GENERAL: VSS, NAD, Afebrile HEENT: Unremarkable NECK: Supple, trachea midline. CHEST: Rise symmetrical, without dyspnea on observation HEART: Pulse RRR ABDOMEN: Soft EXTREMITIES: Warm Results Result Diagram: 07/09/16 0458 07/09/16 0458 Results 24 hrs Laboratory Tests Test 07/09/16 04:58 White Blood Count 4.2 #L Red Blood Count 3.47 L Hemoglobin 8.6 L Hematocrit 28.0 L Mean Corpuscular Volume 80.7 L Mean Corpuscular Hemoglobin 24.8 L Mean Corpuscular Hemoglobin Concent 30.7 L Red Cell Distribution Width 20.8 H Platelet Count 168 Mean Platelet Volume 10.2 Neutrophils % 59.5 Lymphocytes % 27.6 Monocytes % 9.1 Eosinophils % 3.1 Basophils % 0.2 Nucleated Red Blood Cells % 0.0 Neutrophils # 2.5 Lymphocytes # 1.2 Monocytes # 0.4 Eosinophils # 0.1 Basophils # 0.0 Nucleated Red Blood Cells # 0.0 Sodium Level 135 Potassium Level 3.5 Chloride Level 105 Carbon Dioxide Level 23 Anion Gap 11 Blood Urea Nitrogen 8 Creatinine 0.47 Glucose Level 86 Calcium Level 7.5 L Medications Medications Current Medications Naloxone HCl (Narcan) 0.2 mg PRN PRN IV DECREASED REPIRATORY RATE; Start at 10:30 Acetaminophen/ Hydrocodone Bitart ([place] (5/325)) 1 tab Q4H PRN PO PAIN LEVEL 1 -5 Last administered on 07/03/16 18:55; Admin Dose 1 TAB; Start 06/26/16 at 10: 30; Status Future hold Acetaminophen/ Hydrocodone Bitart ([place] (5/325)) 2 tab Q4H PRN PO PAIN LEVEL 6 -10 Last administered on 07/09/16 14:58; Admin Dose 2 TAB; Start 06/26/16 at 10: 30; Status Future hold Diphenhydramine HCl (Benadryl) 25 mg Q6H PRN IV ITCHING Last administered on 14:45; Admin Dose 25 MG; Start 06/26/16 at 10:30 Miscellaneous Information 1. Discontinue AUTO CLOCKS REPAIRER... AUTO CLOCKS REPAIRER IV ; Start 06/26/16 at 10:30 Ondansetron HCl 4 mg 4 mg Q6H PRN IV NAUSEA AND/OR VOMITING Last administered on 06/30/16 22:16; Admin Dose 4 MG; Start 06/26/16 at 12:30 Acetaminophen (Ofirmev 1000mg/ 100ml Iv) 100 ml @ 400 mls/hr Q6H PRN IVPB PAIN ; Start 06/26/16 at 12:30 Hydralazine HCl (Apresoline) 10 mg Q4H PRN IV SBP>160; Start 06/30/16 at 15:00 Phenol (Cepastat Lozenge) 1 lozenge Q1H PRN MT SORE THROAT Last administered on 07/07/16 20:03; Admin Dose 1 LOZENGE; Start 06/30/16 at 11:30 Hydromorphone HCl (Dilaudid) 0.5 mg Q2H PRN IV PAIN Last administered on 14:14; Admin Dose 0.5 MG; Start 07/02/16 at 14:30 Silver Sulfadiazine 1 applic 1 applic BID TOP Last administered on 07/07/16 16: 00; Admin Dose 1 APPLIC; Start 07/04/16 at 21:00 Ceftriaxone Sodium (Rocephin) 50 ml @ 100 mls/hr Q24H IVPB Last administered on 07/08/16 18:25; Admin Dose 100 MLS/HR; Start 07/05/16 at 18:00 IV Flush (NS 10 ml) 10 ml PRN PRN IV FLUSH LINE Last administered on 07/08/16 04:28; Admin Dose 10 ML; Start 07/07/16 at 18:30 KATIA JAUREGUI MD Jul 09, 2016 17:15
[2016-07-09] MEDS: CEFTRIAXONE 1 GM/50 ML (PMX) 50 ML IVPB SCH (18:34)
[2016-07-09 19:30] VITALS: BP 176/77; RESP 19
--- NOTE | 2016-07-09 19:41 | CONS ---
Date/Time of Note Date/Time of Note DATE: 07/09/16 TIME: 19:39 Assessment/Plan Assessment/Plan Chief Complaint/Hosp Course ID PROGRESS NOTE CURRENT ABX DAY #8=> Ceftriaxone 24H INTERVAL SUMMARY * Clinically stable -- seen by renal today -- "Mejor" = "better" * Wound vac placed per Dr. Cox yesterday PHYSICAL EXAMINATION: GENERAL: VSS, NAD, Afebrile HEENT: Unremarkable NECK: Supple, trachea midline. CHEST: Rise symmetrical, without dyspnea on observation HEART: Pulse RRR ABDOMEN: Soft EXTREMITIES: Warm ID ASSESSMENT 65 yo F admit with: 1. Postoperative superficial infection of the abdominal wound. * Wound culture grew E. coli resistant to Bactrim and ampicillin. Anaerobic cultures negative. 2. 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 3. Hypertension. INVASIVES: PIV ABX ALLERGY: TETRACYCLINE CURRENT ABX:ABX DAY #8=> Ceftriaxone ID RECOMMENDATIONS 1. Continue current ABX -> Avoid nephrotoxic ABX 2. Observe over the weekend on ABX -> Reassess by ID team next week 3. Wound Vac placed - follow Dr. Cox's recs . Problems: Consultation Date/Type/Reason Admit Date/Time Jun 26, 2016 at 07:37 Type of Consultation: ID Referring Provider: ADELAIDE FERREIRA MD Exam/Review of Systems Vital Signs Vitals Vital Signs Date Time Temp Pulse Resp B/P Pulse Ox O2 Delivery O2 Flow Rate FiO2 07/09/16 08:10 97.7 77 18 150/82 97 Intake and Output 07/08/16 07/08/16 07/09/16 15:00 23:00 07:00 Intake Total 650 ml 720 ml Output Total 925 ml 625 ml Balance -275 ml 95 ml Results Result Diagram: 07/09/16 0458 07/09/16 0458 Results 24 hrs Laboratory Tests Test 07/09/16 04:58 White Blood Count 4.2 #L Red Blood Count 3.47 L Hemoglobin 8.6 L Hematocrit 28.0 L Mean Corpuscular Volume 80.7 L Mean Corpuscular Hemoglobin 24.8 L Mean Corpuscular Hemoglobin Concent 30.7 L Red Cell Distribution Width 20.8 H Platelet Count 168 Mean Platelet Volume 10.2 Neutrophils % 59.5 Lymphocytes % 27.6 Monocytes % 9.1 Eosinophils % 3.1 Basophils % 0.2 Nucleated Red Blood Cells % 0.0 Neutrophils # 2.5 Lymphocytes # 1.2 Monocytes # 0.4 Eosinophils # 0.1 Basophils # 0.0 Nucleated Red Blood Cells # 0.0 Sodium Level 135 Potassium Level 3.5 Chloride Level 105 Carbon Dioxide Level 23 Anion Gap 11 Blood Urea Nitrogen 8 Creatinine 0.47 Glucose Level 86 Calcium Level 7.5 L Medications Medications Current Medications Naloxone HCl (Narcan) 0.2 mg PRN PRN IV DECREASED REPIRATORY RATE; Start at 10:30 Acetaminophen/ Hydrocodone Bitart ([place] (5/325)) 1 tab Q4H PRN PO PAIN LEVEL 1 -5 Last administered on 07/03/16 18:55; Admin Dose 1 TAB; Start 06/26/16 at 10: 30; Status Future hold Acetaminophen/ Hydrocodone Bitart ([place] (5/325)) 2 tab Q4H PRN PO PAIN LEVEL 6 -10 Last administered on 07/09/16 19:07; Admin Dose 2 TAB; Start 06/26/16 at 10: 30; Status Future hold Diphenhydramine HCl (Benadryl) 25 mg Q6H PRN IV ITCHING Last administered on 14:45; Admin Dose 25 MG; Start 06/26/16 at 10:30 Miscellaneous Information 1. Discontinue TITLE CLERK AUTOMOBILE... TITLE CLERK AUTOMOBILE IV ; Start 06/26/16 at 10:30 Ondansetron HCl 4 mg 4 mg Q6H PRN IV NAUSEA AND/OR VOMITING Last administered on 06/30/16 22:16; Admin Dose 4 MG; Start 06/26/16 at 12:30 Acetaminophen (Ofirmev 1000mg/ 100ml Iv) 100 ml @ 400 mls/hr Q6H PRN IVPB PAIN ; Start 06/26/16 at 12:30 Hydralazine HCl (Apresoline) 10 mg Q4H PRN IV SBP>160; Start 06/30/16 at 15:00 Phenol (Cepastat Lozenge) 1 lozenge Q1H PRN MT SORE THROAT Last administered on 07/07/16 20:03; Admin Dose 1 LOZENGE; Start 06/30/16 at 11:30 Hydromorphone HCl (Dilaudid) 0.5 mg Q2H PRN IV PAIN Last administered on 14:14; Admin Dose 0.5 MG; Start 07/02/16 at 14:30 Silver Sulfadiazine 1 applic 1 applic BID TOP Last administered on 07/07/16 16: 00; Admin Dose 1 APPLIC; Start 07/04/16 at 21:00 Ceftriaxone Sodium (Rocephin) 50 ml @ 100 mls/hr Q24H IVPB Last administered on 07/09/16 18:34; Admin Dose 100 MLS/HR; Start 07/05/16 at 18:00 IV Flush (NS 10 ml) 10 ml PRN PRN IV FLUSH LINE Last administered on 07/08/16 04:28; Admin Dose 10 ML; Start 07/07/16 at 18:30 CINDY MAE DIRECTOR OF RETAIL MARKETING Jul 09, 2016 19:41
[2016-07-10] MEDS: HYDROCODONE/APAP (5/325) TAB PO PRN ×4 (04:51→21:30)
[2016-07-10 05:24] LABS: ADD SCAN DIFF NO
[2016-07-10 05:27] LABS: BASOPHILS % 0.3 % (0.0-2.0); EOSINOPHILS # 0.1 10^3/ul (0.0-0.5); EOSINOPHILS % 3.7 % (0.0-7.0); HEMATOCRIT 27.4 % (37.0-47.0); HEMOGLOBIN 8.4 g/dl (12.0-16.0); LYMPHOCYTES # 1.1 10^3/ul (0.8-2.9); LYMPHOCYTES % 31.8 % (15.0-51.0); MEAN CORPUSCULAR HEMOGLOBIN 24.9 pg (29.0-33.0); MEAN CORPUSCULAR HGB CONC 30.7 g/dl (32.0-37.0); MEAN CORPUSCULAR VOLUME 81.1 fl (82.0-101.0); MEAN PLATELET VOLUME 9.9 fl (7.4-10.4); MONOCYTE # 0.3 10^3/ul (0.3-0.9); MONOCYTES % 9.5 % (0.0-11.0); NEUTROPHIL # 1.9 10^3/ul (1.6-7.5); NEUTROPHILS % 54.4 % (39.0-77.0); PLATELET COUNT 148 10^3/UL (140-415); RED BLOOD COUNT 3.38 10^6/ul (4.20-5.40); RED CELL DISTRIBUTION WIDTH 20.7 % (11.5-14.5); WHITE BLOOD COUNT 3.5 10^3/ul (4.8-10.8)
[2016-07-10 05:40] LABS: CALCIUM 7.3 mg/dl (8.4-10.2); CREATININE 0.44 mg/dl (0.44-1.00); POTASSIUM 3.7 mmol/L (3.5-5.1)
[2016-07-10 08:21] VITALS: BP 147/69; RESP 18
[2016-07-10] MEDS: SILVER SULFADIAZINE 1% 25 GM CR TOP SCH ×2 (09:40→20:26)
--- NOTE | 2016-07-10 13:25 | PN ---
DATE: 07/10/2016 INFECTIOUS DISEASE PROGRESS NOTE SUBJECTIVE: The patient is alert, feels good, looks comfortable. She is in no distress. No fevers . She is on Rocephin. PHYSICAL EXAMINATION: GENERAL: Well-developed, obese, elderly woman who is alert, in no distress. HEENT: Head atraumatic, normocephalic. Sclerae anicteric. Buccal mucosa pink. NECK: Supple, trachea midline. CHEST: Rise symmetrical. Breath sounds clear. HEART: S1, S2. ABDOMEN: Soft. Bowel sounds present. EXTREMITIES: Without cyanosis. ASSESSMENT: 1. Postoperative superficial infection of the wound status post wound VAC application. 2. 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 PLAN: The patient remains stable, surgery follows her closely. We can change antibiotics to oral C ipro. Consider oncology evaluation if it has not been done yet. Dictated By: CATHI FRENCH OIL BURNER JOURNEYMAN for DOROTA QUEEN/JAMIE Conf#: [id number] DID#: [id number]
--- NOTE | 2016-07-10 17:25 | PN ---
Date/Time of Note Date/Time of Note DATE: 07/10/16 TIME: 17:22 Assessment/Plan VTE Prophylaxis VTE Prophylaxis Intervention: SCD's Lines/Catheters IV [facility] Type ([facility] PICC Line Urinary Cath still in place: No Assessment/Plan Assessment/Plan 1. Large cecal mass, status post extended right hemicolectomy. Advance diet per surgery continue to follow up surgical recommendation. 2. Hypertension. Continue patient on hydralazine p.r.n. for systolic blood pressure above 170. 3. Hyponatremia, Dr. Murguia is following a nephrology consultation, continue current IV fluids monitor electrolytes. 4. Hypokalemia, potassium replaced. 5. E-coli wound infection, continue Ceftriaxone. Dr Pabon is following in ID. Continue sequential compression device for deep venous thrombosis prophylaxis. Further recommendations based on clinical course. Plan of care was discussed with Dr. Figueroa. Subjective 24 Hr Interval Summary Constitutional: improved Eyes: no complaints Respiratory: no complaints Cardiovascular: no complaints Gastrointestinal: pain (much better than before) Genitourinary: no complaints Musculoskeletal: no complaints Skin: no complaints Neurologic: no complaints Endocrine: no complaints Exam/Review of Systems Vital Signs Vitals Vital Signs Date Time Temp Pulse Resp B/P Pulse Ox O2 Delivery O2 Flow Rate FiO2 07/10/16 08:21 98.2 80 18 147/69 92 Intake and Output 07/09/16 07/09/16 07/10/16 15:00 23:00 07:00 Intake Total 50 ml 400 ml Output Total 75 ml 675 ml Balance -25 ml -275 ml Exam Constitutional: alert, oriented, well developed Psych: nl mood/affect Head: atraumatic ENMT: nl external ears & nose Neck: non-tender Respiratory: normal air movement Cardiovascular: nl pulses Gastrointestinal: non-tender, other ( status post extended right hemicolectomy - DDI, Wound vac noted, draining bloody fluid. ), soft Musculoskeletal: nl extremities to inspection Extremities: normal pulses Neurological: nl mental status, nl speech Skin: other Lymph: nontender Results Result Diagram: 07/10/16 0445 07/10/16 0445 Results 24 hrs Laboratory Tests Test 07/10/16 04:45 White Blood Count 3.5 L Red Blood Count 3.38 L Hemoglobin 8.4 L Hematocrit 27.4 L Mean Corpuscular Volume 81.1 L Mean Corpuscular Hemoglobin 24.9 L Mean Corpuscular Hemoglobin Concent 30.7 L Red Cell Distribution Width 20.7 H Platelet Count 148 Mean Platelet Volume 9.9 Neutrophils % 54.4 Lymphocytes % 31.8 Monocytes % 9.5 Eosinophils % 3.7 Basophils % 0.3 Nucleated Red Blood Cells % 0.0 Neutrophils # 1.9 Lymphocytes # 1.1 Monocytes # 0.3 Eosinophils # 0.1 Basophils # 0.0 Nucleated Red Blood Cells # 0.0 Sodium Level 134 L Potassium Level 3.7 Chloride Level 108 Carbon Dioxide Level 24 Anion Gap 6 L Blood Urea Nitrogen 7 Creatinine 0.44 Glucose Level 85 Calcium Level 7.3 L Medications Medications Current Medications Naloxone HCl (Narcan) 0.2 mg PRN PRN IV DECREASED REPIRATORY RATE; Start at 10:30 Acetaminophen/ Hydrocodone Bitart ([place] (5/325)) 1 tab Q4H PRN PO PAIN LEVEL 1 -5 Last administered on 07/03/16 18:55; Admin Dose 1 TAB; Start 06/26/16 at 10: 30; Status Future hold Acetaminophen/ Hydrocodone Bitart ([place] (5/325)) 2 tab Q4H PRN PO PAIN LEVEL 6 -10 Last administered on 07/10/16 15:56; Admin Dose 2 TAB; Start 06/26/16 at 10 :30; Status Future hold Diphenhydramine HCl (Benadryl) 25 mg Q6H PRN IV ITCHING Last administered on 14:45; Admin Dose 25 MG; Start 06/26/16 at 10:30 Miscellaneous Information 1. Discontinue FINANCIAL REPORTING ANALYST... FINANCIAL REPORTING ANALYST IV ; Start 06/26/16 at 10:30 Ondansetron HCl 4 mg 4 mg Q6H PRN IV NAUSEA AND/OR VOMITING Last administered on 06/30/16 22:16; Admin Dose 4 MG; Start 06/26/16 at 12:30 Acetaminophen (Ofirmev 1000mg/ 100ml Iv) 100 ml @ 400 mls/hr Q6H PRN IVPB PAIN ; Start 06/26/16 at 12:30 Hydralazine HCl (Apresoline) 10 mg Q4H PRN IV SBP>160; Start 06/30/16 at 15:00 Phenol (Cepastat Lozenge) 1 lozenge Q1H PRN MT SORE THROAT Last administered on 07/07/16 20:03; Admin Dose 1 LOZENGE; Start 06/30/16 at 11:30 Hydromorphone HCl (Dilaudid) 0.5 mg Q2H PRN IV PAIN Last administered on 14:14; Admin Dose 0.5 MG; Start 07/02/16 at 14:30 Silver Sulfadiazine 1 applic 1 applic BID TOP Last administered on 07/10/16 09 :40; Admin Dose 1 APPLIC; Start 07/04/16 at 21:00 Ceftriaxone Sodium (Rocephin) 50 ml @ 100 mls/hr Q24H IVPB Last administered on 07/09/16 18:34; Admin Dose 100 MLS/HR; Start 07/05/16 at 18:00 IV Flush (NS 10 ml) 10 ml PRN PRN IV FLUSH LINE Last administered on 07/08/16 04:28; Admin Dose 10 ML; Start 07/07/16 at 18:30 FERNANDA JARRETT Jul 10, 2016 17:25
[2016-07-10] MEDS: CEFTRIAXONE 1 GM/50 ML (PMX) 50 ML IVPB SCH (18:23)
[2016-07-10 19:33] VITALS: BP 145/71; RESP 16
--- NOTE | 2016-07-10 23:13 | CONS ---
Date/Time of Note Date/Time of Note DATE: 07/10/16 TIME: 23:12 Assessment/Plan Assessment/Plan Additional Assessment/Plan 1. Acute hyponatremia - post operative 2. 1. Postoperative superficial infection of the abdominal wound. * Wound culture grew E. coli resistant to Bactrim and ampicillin. Anaerobic cultures negative. 2. 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 3. Hypertension. PLAN: Serum osmolarity low, TSH, Free T4, cortisol normal-Na improved to 134 today monitor Na and other electrolytes IV hydralazine prn will continue to follow up Consultation Date/Type/Reason Admit Date/Time Jun 26, 2016 at 07:37 Initial Consult Date 06/29/2016 Type of Consultation: ID Referring Provider: ADELAIDE FERREIRA MD Exam/Review of Systems Vital Signs Vitals Vital Signs Date Time Temp Pulse Resp B/P Pulse Ox O2 Delivery O2 Flow Rate FiO2 07/10/16 19:33 97.9 75 16 145/71 95 Intake and Output 07/09/16 07/09/16 07/10/16 15:00 23:00 07:00 Intake Total 50 ml 400 ml Output Total 75 ml 675 ml Balance -25 ml -275 ml Exam GENERAL: VSS, NAD, Afebrile HEENT: Unremarkable NECK: Supple, trachea midline. CHEST: Rise symmetrical, without dyspnea on observation HEART: Pulse RRR ABDOMEN: Soft EXTREMITIES: Warm Results Result Diagram: 07/10/16 0445 07/10/16 0445 Results 24 hrs Laboratory Tests Test 07/10/16 04:45 White Blood Count 3.5 L Red Blood Count 3.38 L Hemoglobin 8.4 L Hematocrit 27.4 L Mean Corpuscular Volume 81.1 L Mean Corpuscular Hemoglobin 24.9 L Mean Corpuscular Hemoglobin Concent 30.7 L Red Cell Distribution Width 20.7 H Platelet Count 148 Mean Platelet Volume 9.9 Neutrophils % 54.4 Lymphocytes % 31.8 Monocytes % 9.5 Eosinophils % 3.7 Basophils % 0.3 Nucleated Red Blood Cells % 0.0 Neutrophils # 1.9 Lymphocytes # 1.1 Monocytes # 0.3 Eosinophils # 0.1 Basophils # 0.0 Nucleated Red Blood Cells # 0.0 Sodium Level 134 L Potassium Level 3.7 Chloride Level 108 Carbon Dioxide Level 24 Anion Gap 6 L Blood Urea Nitrogen 7 Creatinine 0.44 Glucose Level 85 Calcium Level 7.3 L Medications Medications Current Medications Naloxone HCl (Narcan) 0.2 mg PRN PRN IV DECREASED REPIRATORY RATE; Start at 10:30 Acetaminophen/ Hydrocodone Bitart ([place] (5/325)) 1 tab Q4H PRN PO PAIN LEVEL 1 -5 Last administered on 07/03/16 18:55; Admin Dose 1 TAB; Start 06/26/16 at 10: 30; Status Future hold Acetaminophen/ Hydrocodone Bitart ([place] (5/325)) 2 tab Q4H PRN PO PAIN LEVEL 6 -10 Last administered on 07/10/16 21:30; Admin Dose 2 TAB; Start 06/26/16 at 10 :30; Status Future hold Diphenhydramine HCl (Benadryl) 25 mg Q6H PRN IV ITCHING Last administered on 14:45; Admin Dose 25 MG; Start 06/26/16 at 10:30 Miscellaneous Information 1. Discontinue ENVIRONMENTAL TECHNOLOGY PROFESSOR... ENVIRONMENTAL TECHNOLOGY PROFESSOR IV ; Start 06/26/16 at 10:30 Ondansetron HCl 4 mg 4 mg Q6H PRN IV NAUSEA AND/OR VOMITING Last administered on 06/30/16 22:16; Admin Dose 4 MG; Start 06/26/16 at 12:30 Acetaminophen (Ofirmev 1000mg/ 100ml Iv) 100 ml @ 400 mls/hr Q6H PRN IVPB PAIN ; Start 06/26/16 at 12:30 Hydralazine HCl (Apresoline) 10 mg Q4H PRN IV SBP>160; Start 06/30/16 at 15:00 Phenol (Cepastat Lozenge) 1 lozenge Q1H PRN MT SORE THROAT Last administered on 07/07/16 20:03; Admin Dose 1 LOZENGE; Start 06/30/16 at 11:30 Hydromorphone HCl (Dilaudid) 0.5 mg Q2H PRN IV PAIN Last administered on 14:14; Admin Dose 0.5 MG; Start 07/02/16 at 14:30 Silver Sulfadiazine 1 applic 1 applic BID TOP Last administered on 07/10/16 09 :40; Admin Dose 1 APPLIC; Start 07/04/16 at 21:00 Ceftriaxone Sodium (Rocephin) 50 ml @ 100 mls/hr Q24H IVPB Last administered on 07/10/16 18:23; Admin Dose 100 MLS/HR; Start 07/05/16 at 18:00 IV Flush (NS 10 ml) 10 ml PRN PRN IV FLUSH LINE Last administered on 07/08/16 04:28; Admin Dose 10 ML; Start 07/07/16 at 18:30 KATIA JAUREGUI MD Jul 10, 2016 23:13
[2016-07-11 05:05] LABS: ADD SCAN DIFF NO
[2016-07-11 05:11] LABS: BASOPHILS % 0.5 % (0.0-2.0); EOSINOPHILS # 0.1 10^3/ul (0.0-0.5); EOSINOPHILS % 3.2 % (0.0-7.0); HEMATOCRIT 27.2 % (37.0-47.0); HEMOGLOBIN 8.5 g/dl (12.0-16.0); LYMPHOCYTES % 24.9 % (15.0-51.0); MEAN CORPUSCULAR HEMOGLOBIN 24.9 pg (29.0-33.0); MEAN CORPUSCULAR HGB CONC 31.3 g/dl (32.0-37.0); MEAN CORPUSCULAR VOLUME 79.8 fl (82.0-101.0); MEAN PLATELET VOLUME 10.2 fl (7.4-10.4); MONOCYTE # 0.3 10^3/ul (0.3-0.9); MONOCYTES % 7.3 % (0.0-11.0); NEUTROPHIL # 2.6 10^3/ul (1.6-7.5); NEUTROPHILS % 63.9 % (39.0-77.0); PLATELET COUNT 165 10^3/UL (140-415); RED BLOOD COUNT 3.41 10^6/ul (4.20-5.40); RED CELL DISTRIBUTION WIDTH 20.8 % (11.5-14.5); WHITE BLOOD COUNT 4.1 10^3/ul (4.8-10.8)
[2016-07-11 05:52] LABS: POTASSIUM 3.7 mmol/L (3.5-5.1)
[2016-07-11 05:54] LABS: CREATININE 0.44 mg/dl (0.44-1.00)
[2016-07-11 05:55] LABS: CALCIUM 7.6 mg/dl (8.4-10.2)
[2016-07-11] MEDS: HYDROCODONE/APAP (5/325) TAB PO PRN ×3 (08:30→21:35)
[2016-07-11] MEDS: SILVER SULFADIAZINE 1% 25 GM CR TOP SCH ×3 (08:30→21:30)
[2016-07-11 08:39] VITALS: BP 149/74; RESP 18
--- NOTE | 2016-07-11 10:17 | CONS ---
Date/Time of Note Date/Time of Note DATE: 07/11/16 TIME: 10:16 Assessment/Plan Assessment/Plan Additional Assessment/Plan 1. Acute hyponatremia - post operative 2. Postoperative superficial infection of the abdominal wound. * Wound culture grew E. coli resistant to Bactrim and ampicillin. Anaerobic cultures negative. 2. 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 3. Hypertension. 4. anemia of chronic disease PLAN: Serum osmolarity low, TSH, Free T4, cortisol normal-Na improved to 135, Electrolytes and Cr stable today will monitor Cr and electrolytes IV hydralazine prn will continue to follow up Consultation Date/Type/Reason Admit Date/Time Jun 26, 2016 at 07:37 Initial Consult Date 06/29/2016 Type of Consultation: NEPHROLOGY Referring Provider: ADELAIDE FERREIRA MD Exam/Review of Systems Vital Signs Vitals Vital Signs Date Time Temp Pulse Resp B/P Pulse Ox O2 Delivery O2 Flow Rate FiO2 07/11/16 08:39 98.2 18 18 149/74 97 Intake and Output 07/10/16 07/10/16 07/11/16 15:00 23:00 07:00 Intake Total 980 ml 600 ml Output Total 1050 ml 50 ml Balance -70 ml 550 ml Exam GENERAL: VSS, NAD, Afebrile HEENT: Unremarkable NECK: Supple, trachea midline. CHEST: Rise symmetrical, without dyspnea on observation HEART: Pulse RRR ABDOMEN: Soft EXTREMITIES: Warm Results Result Diagram: 07/11/16 0435 07/11/16 0435 Results 24 hrs Laboratory Tests Test 07/11/16 04:35 White Blood Count 4.1 L Red Blood Count 3.41 L Hemoglobin 8.5 L Hematocrit 27.2 L Mean Corpuscular Volume 79.8 L Mean Corpuscular Hemoglobin 24.9 L Mean Corpuscular Hemoglobin Concent 31.3 L Red Cell Distribution Width 20.8 H Platelet Count 165 Mean Platelet Volume 10.2 Neutrophils % 63.9 Lymphocytes % 24.9 Monocytes % 7.3 Eosinophils % 3.2 Basophils % 0.5 Nucleated Red Blood Cells % 0.0 Neutrophils # 2.6 Lymphocytes # 1.0 Monocytes # 0.3 Eosinophils # 0.1 Basophils # 0.0 Nucleated Red Blood Cells # 0.0 Sodium Level 135 Potassium Level 3.7 Chloride Level 105 Carbon Dioxide Level 25 Anion Gap 9 Blood Urea Nitrogen 7 Creatinine 0.44 Glucose Level 91 Calcium Level 7.6 L Medications Medications Current Medications Naloxone HCl (Narcan) 0.2 mg PRN PRN IV DECREASED REPIRATORY RATE; Start at 10:30 Acetaminophen/ Hydrocodone Bitart ([place] (5/325)) 1 tab Q4H PRN PO PAIN LEVEL 1 -5 Last administered on 07/03/16 18:55; Admin Dose 1 TAB; Start 06/26/16 at 10: 30; Status Future hold Acetaminophen/ Hydrocodone Bitart ([place] (5/325)) 2 tab Q4H PRN PO PAIN LEVEL 6 -10 Last administered on 07/11/16 08:30; Admin Dose 2 TAB; Start 06/26/16 at 10 :30; Status Future hold Diphenhydramine HCl (Benadryl) 25 mg Q6H PRN IV ITCHING Last administered on 14:45; Admin Dose 25 MG; Start 06/26/16 at 10:30 Miscellaneous Information 1. Discontinue EMERGENCY DISPATCHER... EMERGENCY DISPATCHER IV ; Start 06/26/16 at 10:30 Ondansetron HCl 4 mg 4 mg Q6H PRN IV NAUSEA AND/OR VOMITING Last administered on 06/30/16 22:16; Admin Dose 4 MG; Start 06/26/16 at 12:30 Acetaminophen (Ofirmev 1000mg/ 100ml Iv) 100 ml @ 400 mls/hr Q6H PRN IVPB PAIN ; Start 06/26/16 at 12:30 Hydralazine HCl (Apresoline) 10 mg Q4H PRN IV SBP>160; Start 06/30/16 at 15:00 Phenol (Cepastat Lozenge) 1 lozenge Q1H PRN MT SORE THROAT Last administered on 07/07/16 20:03; Admin Dose 1 LOZENGE; Start 06/30/16 at 11:30 Hydromorphone HCl (Dilaudid) 0.5 mg Q2H PRN IV PAIN Last administered on 14:14; Admin Dose 0.5 MG; Start 07/02/16 at 14:30 Silver Sulfadiazine 1 applic 1 applic BID TOP Last administered on 07/11/16 08 :30; Admin Dose 1 APPLIC; Start 07/04/16 at 21:00 Ceftriaxone Sodium (Rocephin) 50 ml @ 100 mls/hr Q24H IVPB Last administered on 07/10/16 18:23; Admin Dose 100 MLS/HR; Start 07/05/16 at 18:00 IV Flush (NS 10 ml) 10 ml PRN PRN IV FLUSH LINE Last administered on 07/08/16 04:28; Admin Dose 10 ML; Start 07/07/16 at 18:30 KATIA JAUREGUI MD Jul 11, 2016 10:17
--- NOTE | 2016-07-11 13:48 | PN ---
DATE: 07/11/2016 INFECTIOUS DISEASE PROGRESS NOTE SUBJECTIVE: No events overnight. No fevers. The patient is alert, looks comfortable. WBC 4.1, no shift, no bands. BUN 7, creatinine 0.44. ANTIMICROBIALS: She remains on Rocephin day #7, status post Zosyn, total antibiotics day 10. PHYSICAL EXAMINATION: GENERAL: Well-developed, elderly woman who is alert, in no distress. HEENT: Head atraumatic, normocephalic. Sclerae anicteric. Buccal mucosa pink, dry. NECK: Supple. CHEST: Rise symmetrical. Breath sounds clear. HEART: S1, S2. ABDOMEN: Obese, soft, bowel sounds present. The patient had wound VAC to abdominal wound. EXTREMITIES: Without cyanosis. ASSESSMENT: 1. Adenocarcinoma of the colon, status post right hemicolectomy. 2. Postoperative wound infection, status post wound VAC placement. PLAN: The patient remains stable, completing antibiotics. Surgery on case. Continue present care. Dictated By: CATHI FRENCH ELECTRONIC WARFARE LINGUIST for DOROTA QUEEN/JAMIE Conf#: [id number] DID#: [id number]
[2016-07-11] MEDS: CEFTRIAXONE 1 GM/50 ML (PMX) 50 ML IVPB SCH (18:06)
--- NOTE | 2016-07-11 18:48 | PN ---
DATE: SUBJECTIVE: 1. Status post extended right hemicolectomy. 2. Status post incisional wound infection and abscess. 3. Status post drainage of the incision of wound infection and abscess and debridement at the [facility] and application of the wound VAC. No complaint. OBJECTIVE: VITAL SIGNS: Temperature 98.2, heart rate 72, respirations 18, blood pressure 149/74, saturation 97 % room air. LABORATORY DATA: WBC 4100 with 63% neutrophils, hemoglobin 8.5, hematocrit 27.2. Chemistry: [place]od[place] m 135, potassium 3.7, BUN, creatinine normal. ABDOMEN: Soft (The patient has had bowel movement today). Wound VAC is on 125 mm per continuous. Today, the wound VAC was changed and the dressing changed. Wound VAC removed and the wound VAC was applied. The wound looks granulating around the sides. The bottom of the wound, some of the necrot ic tissue has dislodged and was removed and debrided meticulously by myself. Still, there is some n ecrotic tissue over the fascia of the midline, mainly in the right side of the wound. After doing c omplete debridement, then the wound VAC was applied again and activated. PLAN: Continue current care. Continue antibiotics. Continue wound VAC and plan for discharging th e patient maybe by the beginning of the next week. Dictated By: GLO OSBORN MD PS/NTS Conf#: [id number] DID#: [id number] CC: LISA GAYTAN MD;*EndCC*
--- NOTE | 2016-07-11 20:17 | PN ---
Date/Time of Note Date/Time of Note DATE: 07/11/16 TIME: 20:15 Assessment/Plan VTE Prophylaxis VTE Prophylaxis Intervention: other Lines/Catheters IV C[facility]ter Type (from [facility] PICC Line Urinary Cath still in place: No Assessment/Plan Assessment/Plan 1. Large cecal mass, status post extended right hemicolectomy. Advance diet per surgery continue to follow up surgical recommendation. 2. Hypertension. Continue patient on hydralazine p.r.n. for systolic blood pressure above 170. 3. Hyponatremia, Dr. Murguia is following a nephrology consultation, continue current IV fluids monitor electrolytes. 4. Hypokalemia, potassium replaced. 5. E-coli wound infection, continue Ceftriaxone. Dr Pabon is following in ID. 6. Status post incisional wound infection and abscess. 7. Status post drainage of the incision of wound infection and abscess and debridement and application of the wound VAC. Continue sequential compression device for deep venous thrombosis prophylaxis. Further recommendations based on clinical course. Plan of care was discussed with Dr. Figueroa. Exam/Review of Systems Vital Signs Vitals Vital Signs Date Time Temp Pulse Resp B/P Pulse Ox O2 Delivery O2 Flow Rate FiO2 07/11/16 08:39 98.2 18 18 149/74 97 Intake and Output 07/10/16 07/10/16 07/11/16 15:00 23:00 07:00 Intake Total 980 ml 600 ml Output Total 1050 ml 50 ml Balance -70 ml 550 ml Exam Constitutional: alert, oriented, well developed Psych: nl mood/affect Head: atraumatic Eyes: EOMI ENMT: nl external ears & nose Neck: non-tender Respiratory: clear to auscultation Cardiovascular: nl pulses Gastrointestinal: non-tender, other (3. Status post drainage of the incision of wound infection and abscess -debridement application of the wound VAC.), soft Musculoskeletal: nl extremities to inspection Extremities: normal pulses Neurological: nl mental status, nl speech Skin: other Lymph: nontender Results Result Diagram: 07/11/16 0435 07/11/16 0435 Results 24 hrs Laboratory Tests Test 07/11/16 04:35 White Blood Count 4.1 L Red Blood Count 3.41 L Hemoglobin 8.5 L Hematocrit 27.2 L Mean Corpuscular Volume 79.8 L Mean Corpuscular Hemoglobin 24.9 L Mean Corpuscular Hemoglobin Concent 31.3 L Red Cell Distribution Width 20.8 H Platelet Count 165 Mean Platelet Volume 10.2 Neutrophils % 63.9 Lymphocytes % 24.9 Monocytes % 7.3 Eosinophils % 3.2 Basophils % 0.5 Nucleated Red Blood Cells % 0.0 Neutrophils # 2.6 Lymphocytes # 1.0 Monocytes # 0.3 Eosinophils # 0.1 Basophils # 0.0 Nucleated Red Blood Cells # 0.0 Sodium Level 135 Potassium Level 3.7 Chloride Level 105 Carbon Dioxide Level 25 Anion Gap 9 Blood Urea Nitrogen 7 Creatinine 0.44 Glucose Level 91 Calcium Level 7.6 L Medications Medications Current Medications Naloxone HCl (Narcan) 0.2 mg PRN PRN IV DECREASED REPIRATORY RATE; Start at 10:30 Acetaminophen/ Hydrocodone Bitart ([place] (5/325)) 1 tab Q4H PRN PO PAIN LEVEL 1 -5 Last administered on 07/03/16 18:55; Admin Dose 1 TAB; Start 06/26/16 at 10: 30; Status Future hold Acetaminophen/ Hydrocodone Bitart ([place] (5/325)) 2 tab Q4H PRN PO PAIN LEVEL 6 -10 Last administered on 07/11/16 15:44; Admin Dose 2 TAB; Start 06/26/16 at 10 :30; Status Future hold Diphenhydramine HCl (Benadryl) 25 mg Q6H PRN IV ITCHING Last administered on 14:45; Admin Dose 25 MG; Start 06/26/16 at 10:30 Ondansetron HCl 4 mg 4 mg Q6H PRN IV NAUSEA AND/OR VOMITING Last administered on 06/30/16 22:16; Admin Dose 4 MG; Start 06/26/16 at 12:30 Acetaminophen (Ofirmev 1000mg/ 100ml Iv) 100 ml @ 400 mls/hr Q6H PRN IVPB PAIN ; Start 06/26/16 at 12:30 Hydralazine HCl (Apresoline) 10 mg Q4H PRN IV SBP>160; Start 06/30/16 at 15:00 Phenol (Cepastat Lozenge) 1 lozenge Q1H PRN MT SORE THROAT Last administered on 07/07/16 20:03; Admin Dose 1 LOZENGE; Start 06/30/16 at 11:30 Hydromorphone HCl (Dilaudid) 0.5 mg Q2H PRN IV PAIN Last administered on 14:14; Admin Dose 0.5 MG; Start 07/02/16 at 14:30 Silver Sulfadiazine 1 applic 1 applic BID TOP Last administered on 07/11/16 08 :30; Admin Dose 1 APPLIC; Start 07/04/16 at 21:00 Ceftriaxone Sodium (Rocephin) 50 ml @ 100 mls/hr Q24H IVPB Last administered on 07/11/16 18:06; Admin Dose 100 MLS/HR; Start 07/05/16 at 18:00 IV Flush (NS 10 ml) 10 ml PRN PRN IV FLUSH LINE Last administered on 07/08/16 04:28; Admin Dose 10 ML; Start 07/07/16 at 18:30 FERNANDA JARRETT Jul 11, 2016 20:17
[2016-07-11 20:18] VITALS: BP 136/83; RESP 20
[2016-07-12 04:58] LABS: ADD SCAN DIFF NO
[2016-07-12 05:02] LABS: BASOPHILS % 0.4 % (0.0-2.0); EOSINOPHILS # 0.2 10^3/ul (0.0-0.5); EOSINOPHILS % 3.6 % (0.0-7.0); HEMATOCRIT 27.4 % (37.0-47.0); HEMOGLOBIN 8.4 g/dl (12.0-16.0); LYMPHOCYTES # 1.4 10^3/ul (0.8-2.9); LYMPHOCYTES % 30.4 % (15.0-51.0); MEAN CORPUSCULAR HEMOGLOBIN 24.9 pg (29.0-33.0); MEAN CORPUSCULAR HGB CONC 30.7 g/dl (32.0-37.0); MEAN CORPUSCULAR VOLUME 81.1 fl (82.0-101.0); MONOCYTE # 0.4 10^3/ul (0.3-0.9); MONOCYTES % 8.9 % (0.0-11.0); NEUTROPHIL # 2.5 10^3/ul (1.6-7.5); NEUTROPHILS % 56.5 % (39.0-77.0); PLATELET COUNT 140 10^3/UL (140-415); RED BLOOD COUNT 3.38 10^6/ul (4.20-5.40); RED CELL DISTRIBUTION WIDTH 21.4 % (11.5-14.5); WHITE BLOOD COUNT 4.5 10^3/ul (4.8-10.8)
[2016-07-12 05:20] LABS: POTASSIUM 3.8 mmol/L (3.5-5.1)
[2016-07-12 05:22] LABS: CREATININE 0.44 mg/dl (0.44-1.00)
[2016-07-12 05:23] LABS: CALCIUM 7.7 mg/dl (8.4-10.2)
[2016-07-12 07:58] VITALS: BP 138/72; RESP 14
[2016-07-12] MEDS: SILVER SULFADIAZINE 1% 25 GM CR TOP SCH ×2 (08:46→21:00)
[2016-07-12] MEDS: HYDROCODONE/APAP (5/325) TAB PO PRN ×3 (09:45→22:30)
--- NOTE | 2016-07-12 12:14 | CONS ---
Date/Time of Note Date/Time of Note DATE: 07/12/16 TIME: 12:13 Assessment/Plan Assessment/Plan Additional Assessment/Plan 1. Acute hyponatremia - post operative 2. Postoperative superficial infection of the abdominal wound. wound vac in place * Wound culture grew E. coli resistant to Bactrim and ampicillin. Anaerobic cultures negative. 2. 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 3. Hypertension. 4. anemia of chronic disease PLAN: wound vac in place, Electrolytes and Cr stable today will monitor Cr and electrolytes IV hydralazine prn will continue to follow up G surg following patient Consultation Date/Type/Reason Admit Date/Time Jun 26, 2016 at 07:37 Initial Consult Date 06/29/2016 Type of Consultation: NEPHROLOGY Referring Provider: ADELAIDE FERREIRA MD 24 HR Interval Summary Free Text/Dictation no events, c/o abdominal pain Exam/Review of Systems Vital Signs Vitals Vital Signs Date Time Temp Pulse Resp B/P Pulse Ox O2 Delivery O2 Flow Rate FiO2 07/12/16 07:58 98.8 72 14 138/72 96 Intake and Output 07/11/16 07/11/16 07/12/16 15:00 23:00 07:00 Intake Total 1320 ml 400 ml Output Total 50 ml 50 ml Balance 1270 ml 350 ml Exam GENERAL: VSS, NAD, Afebrile HEENT: Unremarkable NECK: Supple, trachea midline. CHEST: Rise symmetrical, without dyspnea on observation HEART: Pulse RRR ABDOMEN: Soft, woun vac in place with at wound EXTREMITIES: Warm Results Result Diagram: 07/12/16 0440 07/12/16 0440 Results 24 hrs Laboratory Tests Test 07/12/16 04:40 White Blood Count 4.5 L Red Blood Count 3.38 L Hemoglobin 8.4 L Hematocrit 27.4 L Mean Corpuscular Volume 81.1 L Mean Corpuscular Hemoglobin 24.9 L Mean Corpuscular Hemoglobin Concent 30.7 L Red Cell Distribution Width 21.4 H Platelet Count 140 Mean Platelet Volume 10.0 Neutrophils % 56.5 Lymphocytes % 30.4 Monocytes % 8.9 Eosinophils % 3.6 Basophils % 0.4 Nucleated Red Blood Cells % 0.0 Neutrophils # 2.5 Lymphocytes # 1.4 Monocytes # 0.4 Eosinophils # 0.2 Basophils # 0.0 Nucleated Red Blood Cells # 0.0 Sodium Level 135 Potassium Level 3.8 Chloride Level 104 Carbon Dioxide Level 26 Anion Gap 9 Blood Urea Nitrogen 7 Creatinine 0.44 Glucose Level 91 Calcium Level 7.7 L Medications Medications Current Medications Naloxone HCl (Narcan) 0.2 mg PRN PRN IV DECREASED REPIRATORY RATE; Start at 10:30 Acetaminophen/ Hydrocodone Bitart ([place] (5/325)) 1 tab Q4H PRN PO PAIN LEVEL 1 -5 Last administered on 07/03/16 18:55; Admin Dose 1 TAB; Start 06/26/16 at 10: 30; Status Future hold Acetaminophen/ Hydrocodone Bitart ([place] (5/325)) 2 tab Q4H PRN PO PAIN LEVEL 6 -10 Last administered on 07/12/16 09:45; Admin Dose 2 TAB; Start 06/26/16 at 10 :30; Status Future hold Diphenhydramine HCl (Benadryl) 25 mg Q6H PRN IV ITCHING Last administered on 14:45; Admin Dose 25 MG; Start 06/26/16 at 10:30 Ondansetron HCl 4 mg 4 mg Q6H PRN IV NAUSEA AND/OR VOMITING Last administered on 06/30/16 22:16; Admin Dose 4 MG; Start 06/26/16 at 12:30 Acetaminophen (Ofirmev 1000mg/ 100ml Iv) 100 ml @ 400 mls/hr Q6H PRN IVPB PAIN ; Start 06/26/16 at 12:30 Hydralazine HCl (Apresoline) 10 mg Q4H PRN IV SBP>160; Start 06/30/16 at 15:00 Phenol (Cepastat Lozenge) 1 lozenge Q1H PRN MT SORE THROAT Last administered on 07/07/16 20:03; Admin Dose 1 LOZENGE; Start 06/30/16 at 11:30 Hydromorphone HCl (Dilaudid) 0.5 mg Q2H PRN IV PAIN Last administered on 14:14; Admin Dose 0.5 MG; Start 07/02/16 at 14:30 Silver Sulfadiazine 1 applic 1 applic BID TOP Last administered on 07/11/16 08 :30; Admin Dose 1 APPLIC; Start 4/4/17 at 21:00 Ceftriaxone Sodium (Rocephin) 50 ml @ 100 mls/hr Q24H IVPB Last administered on 07/11/16 18:06; Admin Dose 100 MLS/HR; Start 07/05/16 at 18:00 IV Flush (NS 10 ml) 10 ml PRN PRN IV FLUSH LINE Last administered on 07/08/16 04:28; Admin Dose 10 ML; Start 07/07/16 at 18:30 KATIA JAUREGUI MD Jul 12, 2016 12:14
--- NOTE | 2016-07-12 13:58 | PN ---
DATE: SUBJECTIVE: status post OBJECTIVE: The patient very good. She is tolerating diet. . VITAL SIGNS: Temperature 98.2, , 18, saturation on room air. Wound VAC in place. drain 200 mL ABDOMEN: Soft. Bowel sounds . Wound VAC in continuous suction. LABORATORY DATA: WBC 3500, hematocrit . Chemistry: , sodium BUN , crea tinine . Anaerobic culture . ASSESSMENT: The patient is status post infection . positive . PLAN: Continue current care with wound VAC being changed 3 times a week. will give the patie nt a few more days discharge the patient either at home to be followed up with . Dictated By: GLO WHITNEY/JAMIE Conf#: [id number] DID#: [id number]
--- NOTE | 2016-07-12 14:44 | CONS ---
Date/Time of Note Date/Time of Note DATE: 07/12/16 TIME: 14:42 Assessment/Plan Assessment/Plan Chief Complaint/Hosp Course SUBJECTIVE: The patient is alert, lying comfortably in bed. No fevers. MICROBIOLOGY: Wound culture grew E. coli resistant to Bactrim and ampicillin. Anaerobic cultures negative. ANTIMICROBIALS: The patient is on Ceftriaxone. PHYSICAL EXAMINATION: GENERAL: This is a well-developed, elderly woman who is alert, in no distress. HEENT: Head atraumatic, normocephalic. Sclerae anicteric. Buccal mucosa pink. NECK: Supple. CHEST: Rise symmetrical. Breath sounds clear. HEART: S1, S2. ABDOMEN: Soft. Bowel sounds present. Mid abdominal dressing covered the whole abdomen, clean, dry and intact. . EXTREMITIES: With bilateral lower extremity trace edema. ASSESSMENT: 1. Postoperative superficial infection of the abdominal wound==> s/p wound vac. 2. 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 3. Hypertension. 4. Obesity. PLAN: Remains stable, per dw Dr Cox will change to PO Cipro for another 7 days DW staff Problems: Consultation Date/Type/Reason Admit Date/Time Jun 26, 2016 at 07:37 Type of Consultation: id Referring Provider: ADELAIDE FERREIRA MD Exam/Review of Systems Vital Signs Vitals Vital Signs Date Time Temp Pulse Resp B/P Pulse Ox O2 Delivery O2 Flow Rate FiO2 07/12/16 07:58 98.8 72 14 138/72 96 Intake and Output 07/11/16 07/11/16 07/12/16 15:00 23:00 07:00 Intake Total 1320 ml 400 ml Output Total 50 ml 50 ml Balance 1270 ml 350 ml Results Result Diagram: 07/12/16 0440 07/12/16 0440 Results 24 hrs Laboratory Tests Test 07/12/16 04:40 White Blood Count 4.5 L Red Blood Count 3.38 L Hemoglobin 8.4 L Hematocrit 27.4 L Mean Corpuscular Volume 81.1 L Mean Corpuscular Hemoglobin 24.9 L Mean Corpuscular Hemoglobin Concent 30.7 L Red Cell Distribution Width 21.4 H Platelet Count 140 Mean Platelet Volume 10.0 Neutrophils % 56.5 Lymphocytes % 30.4 Monocytes % 8.9 Eosinophils % 3.6 Basophils % 0.4 Nucleated Red Blood Cells % 0.0 Neutrophils # 2.5 Lymphocytes # 1.4 Monocytes # 0.4 Eosinophils # 0.2 Basophils # 0.0 Nucleated Red Blood Cells # 0.0 Sodium Level 135 Potassium Level 3.8 Chloride Level 104 Carbon Dioxide Level 26 Anion Gap 9 Blood Urea Nitrogen 7 Creatinine 0.44 Glucose Level 91 Calcium Level 7.7 L Medications Medications Current Medications Naloxone HCl (Narcan) 0.2 mg PRN PRN IV DECREASED REPIRATORY RATE; Start at 10:30 Acetaminophen/ Hydrocodone Bitart ([place] (5/325)) 1 tab Q4H PRN PO PAIN LEVEL 1 -5 Last administered on 07/03/16 18:55; Admin Dose 1 TAB; Start 06/26/16 at 10: 30; Status Future hold Acetaminophen/ Hydrocodone Bitart ([place] (5/325)) 2 tab Q4H PRN PO PAIN LEVEL 6 -10 Last administered on 07/12/16 09:45; Admin Dose 2 TAB; Start 06/26/16 at 10 :30; Status Future hold Diphenhydramine HCl (Benadryl) 25 mg Q6H PRN IV ITCHING Last administered on 14:45; Admin Dose 25 MG; Start 06/26/16 at 10:30 Ondansetron HCl 4 mg 4 mg Q6H PRN IV NAUSEA AND/OR VOMITING Last administered on 06/30/16 22:16; Admin Dose 4 MG; Start 06/26/16 at 12:30 Acetaminophen (Ofirmev 1000mg/ 100ml Iv) 100 ml @ 400 mls/hr Q6H PRN IVPB PAIN ; Start 06/26/16 at 12:30 Hydralazine HCl (Apresoline) 10 mg Q4H PRN IV SBP>160; Start 06/30/16 at 15:00 Phenol (Cepastat Lozenge) 1 lozenge Q1H PRN MT SORE THROAT Last administered on 07/07/16 20:03; Admin Dose 1 LOZENGE; Start 06/30/16 at 11:30 Hydromorphone HCl (Dilaudid) 0.5 mg Q2H PRN IV PAIN Last administered on 14:14; Admin Dose 0.5 MG; Start 07/02/16 at 14:30 Silver Sulfadiazine 1 applic 1 applic BID TOP Last administered on 07/11/16 08 :30; Admin Dose 1 APPLIC; Start 07/04/16 at 21:00 Ceftriaxone Sodium (Rocephin) 50 ml @ 100 mls/hr Q24H IVPB Last administered on 07/11/16 18:06; Admin Dose 100 MLS/HR; Start 07/05/16 at 18:00 IV Flush (NS 10 ml) 10 ml PRN PRN IV FLUSH LINE Last administered on 07/08/16 04:28; Admin Dose 10 ML; Start 07/07/16 at 18:30 CATHI FRENCH NP Jul 12, 2016 14:44
--- NOTE | 2016-07-12 18:15 | PN ---
DATE: 07/12/2016 SUBJECTIVE: Follow up on incisional wound infection and abscess, status post extended right hemicolectomy, status post drainage of the incisional wound and subsequent wound VAC application. The pain is better. No reported vomiting. The patient did not have any fever or chills. The patient denied any chest pain or shortness of breath. PHYSICAL EXAMINATION: GENERAL: The patient is conscious, awake, alert. VITAL SIGNS: Temperature 98.8, pulse 72, respirations 14, blood pressure 138/72 , O2 saturation 96% on room air. HEENT: Atraumatic, normocephalic. Conjunctivae and lids normal. Oropharynx clear. NECK: Supple. No mass, no thyromegaly. LUNGS: Clear to auscultation. CARDIOVASCULAR: S1, S2 normal. No murmur. ABDOMEN: Wound VAC in place. Bowel sounds plus. EXTREMITIES: No leg edema. Pedal pulses palpable. SKIN: Without acute rash or ulcer. NEUROLOGIC: The patient is awake, alert, fairly oriented with no gross focal deficit. LABORATORY DATA: WBC 4.5, hemoglobin 8.4, platelets 140. Chemistry: Sodium 135, potassium 3.8, BUN 7, creatinine 0.4, calcium 7.7. IMPRESSION: 1. Right colon mucinous adenocarcinoma, moderate well-differentiated. Follow up with oncologist as an outpatient. 2. Incisional wound abscess, status post incision and drainage and wound VAC application. Continue antibiotics as per Dr. Pabon. The patient has been switched to Cipro. 3. Postoperative anemia plus anemia of malignancy. We will add iron sulfate. We will also add vitamin C and zinc sulfate to promote healing. 4. Disposition. The patient has been advised to go to SNF by her surgeon. In case she decides to go home, home health will be arranged for wound care and home PT. 5. The patient does have history of hypertension and used to be on Lotrel 5/10 once a day. Since she did have intermittent antihypertensive readings, we will start her on Norvasc for now and will add Lotensin in case blood pressure not controlled with Norvasc. Dictated By: ADELAIDE VALLES/JAMIE Conf#: [id number] DID#: [id number] [facility] HOSPITALCaroline
[2016-07-12] MEDS: CIPROFLOXACIN 500 MG TAB GTB SCH (18:18)
[2016-07-12 19:37] VITALS: BP 144/77; RESP 17
[2016-07-12] MEDS: POLYSACCHARIDE IRON COMPLEX CAP PO SCH (20:10)
[2016-07-13] MEDS: CIPROFLOXACIN 500 MG TAB GTB SCH ×2 (04:20→18:11)
[2016-07-13] MEDS: HYDROCODONE/APAP (5/325) TAB PO PRN ×4 (04:21→21:01)
[2016-07-13 08:00] VITALS: BP 120/73; RESP 18
[2016-07-13] MEDS: SILVER SULFADIAZINE 1% 25 GM CR TOP SCH ×2 (08:04→20:56)
--- NOTE | 2016-07-13 08:51 | CONS ---
Date/Time of Note Date/Time of Note DATE: 07/13/16 TIME: 08:49 Assessment/Plan Assessment/Plan Additional Assessment/Plan 1. Acute hyponatremia - post operative 2. Postoperative superficial infection of the abdominal wound. wound vac in place * Wound culture grew E. coli resistant to Bactrim and ampicillin. Anaerobic cultures negative. 2. 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 3. Hypertension. 4. anemia of chronic disease 5. Accelerated HTN PLAN: No labs today to review yet will monitor Cr and electrolytes Pt switched to PO Cipro Norvasc for HTN Control will continue to follow up G surg following patient Consultation Date/Type/Reason Admit Date/Time Jun 26, 2016 at 07:37 Initial Consult Date 06/29/2016 Type of Consultation: NEPHROLOGY Reason for Consultation Hyponatremia Referring Provider: ADELAIDE FERREIRA MD 24 HR Interval Summary Free Text/Dictation NO labs today to review, C/o abd pain but better than yesterday, BP stable with addition of norvasc yesterday Exam/Review of Systems Vital Signs Vitals Vital Signs Date Time Temp Pulse Resp B/P Pulse Ox O2 Delivery O2 Flow Rate FiO2 07/13/16 08:00 98.0 74 18 120/73 94 Intake and Output 07/12/16 07/12/16 07/13/16 15:00 23:00 07:00 Intake Total 870 ml 1300 ml Output Total 1000 ml 20 ml Balance -130 ml 1280 ml Results Result Diagram: 07/12/16 0440 07/12/16 0440 Medications Medications Current Medications Naloxone HCl (Narcan) 0.2 mg PRN PRN IV DECREASED REPIRATORY RATE; Start at 10:30 Acetaminophen/ Hydrocodone Bitart ([place] (5/325)) 1 tab Q4H PRN PO PAIN LEVEL 1 -5 Last administered on 07/13/16 04:21; Admin Dose 1 TAB; Start 06/26/16 at 10: 30; Status Future hold Acetaminophen/ Hydrocodone Bitart ([place] (5/325)) 2 tab Q4H PRN PO PAIN LEVEL 6 -10 Last administered on 07/12/16 22:30; Admin Dose 2 TAB; Start 06/26/16 at 10 :30; Status Future hold Diphenhydramine HCl (Benadryl) 25 mg Q6H PRN IV ITCHING Last administered on 14:45; Admin Dose 25 MG; Start 06/26/16 at 10:30 Ondansetron HCl 4 mg 4 mg Q6H PRN IV NAUSEA AND/OR VOMITING Last administered on 06/30/16 22:16; Admin Dose 4 MG; Start 06/26/16 at 12:30 Acetaminophen (Ofirmev 1000mg/ 100ml Iv) 100 ml @ 400 mls/hr Q6H PRN IVPB PAIN ; Start 06/26/16 at 12:30 Hydralazine HCl (Apresoline) 10 mg Q4H PRN IV SBP>160; Start 06/30/16 at 15:00 Phenol (Cepastat Lozenge) 1 lozenge Q1H PRN MT SORE THROAT Last administered on 07/07/16 20:03; Admin Dose 1 LOZENGE; Start 06/30/16 at 11:30 Hydromorphone HCl (Dilaudid) 0.5 mg Q2H PRN IV PAIN Last administered on 14:14; Admin Dose 0.5 MG; Start 07/02/16 at 14:30 Silver Sulfadiazine (Thermazene 1% 25 Gm) 1 applic BID TOP Last administered on 07/11/16 08:30; Admin Dose 1 APPLIC; Start 07/04/16 at 21:00 IV Flush (NS 10 ml) 10 ml PRN PRN IV FLUSH LINE Last administered on 07/08/16 04:28; Admin Dose 10 ML; Start 07/07/16 at 18:30 Ciprofloxacin (Cipro) 500 mg BID@06,18 GTB Last administered on 07/13/16 04:20 ; Admin Dose 500 MG; Start 07/12/16 at 18:00 Polysaccharide Iron Complex (Niferex-150) 1 cap BID PO Last administered on 20:10; Admin Dose 1 CAP; Start 07/12/16 at 21:00 Amlodipine Besylate (Norvasc) 10 mg QAM PO ; Start 07/13/16 at 09:00 KATIA JAUREGUI MD Jul 13, 2016 08:51
[2016-07-13] MEDS: AMLODIPINE 10 MG TAB PO SCH (09:01)
[2016-07-13] MEDS: POLYSACCHARIDE IRON COMPLEX CAP PO SCH ×2 (09:01→21:00)
--- NOTE | 2016-07-13 14:20 | PN ---
Date/Time of Note Date/Time of Note DATE: 07/13/16 TIME: 14:16 Assessment/Plan VTE Prophylaxis VTE Prophylaxis Intervention: SCD's Lines/Catheters IV Catheter Type (from Nrsg): PICC Line Urinary Cath still in place: No Assessment/Plan Assessment/Plan 1. Pain -KELLI/PICC Line placement site - stat US KELLI - stat XR LUR 1. Right colon mucinous adenocarcinoma, moderate well-differentiated. -per oncologist as an outpatient. 2. Incisional wound abscess, status post incision and drainage and wound VAC application. - per Dr. Pabon. The patient has been switched to Cipro. 3. Postoperative anemia plus anemia of malignancy. -cont iron sulfate, vitamin C and zinc sulfate to promote healing. 4. Disposition. The patient has been planned to go to SNF. In case she decides to go home, home health will be arranged for wound care and home PT. 5. History of hypertension and used to be on Lotrel 5/10 once a day. Since she did have intermittent antihypertensive readings, we will start her on Norvasc for now and will add Lotensin in case blood pressure not controlled with Norvasc. DW Dr Figueroa Subjective 24 Hr Interval Summary Subjective hx not possible: other (c/o LUE pain at picc line placement site) Eyes: no complaints ENT: no complaints Respiratory: no complaints Cardiovascular: no complaints Gastrointestinal: no complaints Genitourinary: no complaints Musculoskeletal: no complaints Skin: no complaints Neurologic: no complaints Endocrine: no complaints Lymphatic: no complaints Psychological: no complaints Immunologic: no complaints Exam/Review of Systems Vital Signs Vitals Vital Signs Date Time Temp Pulse Resp B/P Pulse Ox O2 Delivery O2 Flow Rate FiO2 07/13/16 08:00 98.0 74 18 120/73 94 Intake and Output 07/12/16 07/12/16 07/13/16 15:00 23:00 07:00 Intake Total 870 ml 1300 ml Output Total 1000 ml 20 ml Balance -130 ml 1280 ml Exam Constitutional: alert, oriented, well developed Psych: nl mood/affect Eyes: EOMI ENMT: nl external ears & nose Neck: non-tender Respiratory: clear to auscultation Cardiovascular: nl pulses Gastrointestinal: non-tender, other (wound vac intact), soft Results Result Diagram: 07/12/1643907/12/16439 Medications Medications Current Medications Naloxone HCl (Narcan) 0.2 mg PRN PRN IV DECREASED REPIRATORY RATE; Start at 10:30 Acetaminophen/ Hydrocodone Bitart ([place] (5/325)) 1 tab Q4H PRN PO PAIN LEVEL 1 -5 Last administered on 07/13/16 04:21; Admin Dose 1 TAB; Start 06/26/16 at 10: 30; Status Future hold Acetaminophen/ Hydrocodone Bitart ([place] (5/325)) 2 tab Q4H PRN PO PAIN LEVEL 6 -10 Last administered on 07/13/16 12:30; Admin Dose 2 TAB; Start 06/26/16 at 10 :30; Status Future hold Diphenhydramine HCl (Benadryl) 25 mg Q6H PRN IV ITCHING Last administered on 14:45; Admin Dose 25 MG; Start 06/26/16 at 10:30 Ondansetron HCl 4 mg 4 mg Q6H PRN IV NAUSEA AND/OR VOMITING Last administered on 06/30/16 22:16; Admin Dose 4 MG; Start 06/26/16 at 12:30 Acetaminophen (Ofirmev 1000mg/ 100ml Iv) 100 ml @ 400 mls/hr Q6H PRN IVPB PAIN ; Start 06/26/16 at 12:30 Hydralazine HCl (Apresoline) 10 mg Q4H PRN IV SBP>160; Start 06/30/16 at 15:00 Phenol (Cepastat Lozenge) 1 lozenge Q1H PRN MT SORE THROAT Last administered on 07/07/16 20:03; Admin Dose 1 LOZENGE; Start 06/30/16 at 11:30 Hydromorphone HCl (Dilaudid) 0.5 mg Q2H PRN IV PAIN Last administered on 14:14; Admin Dose 0.5 MG; Start 07/02/16 at 14:30 Silver Sulfadiazine (Thermazene 1% 25 Gm) 1 applic BID TOP Last administered on 07/11/16 08:30; Admin Dose 1 APPLIC; Start 07/04/16 at 21:00 IV Flush (NS 10 ml) 10 ml PRN PRN IV FLUSH LINE Last administered on 07/08/16 04:28; Admin Dose 10 ML; Start 07/07/16 at 18:30 Ciprofloxacin (Cipro) 500 mg BID@,18 GTB Last administered on 07/13/16 04:20 ; Admin Dose 500 MG; Start 07/12/16 at 18:00 Polysaccharide Iron Complex (Niferex-150) 1 cap BID PO Last administered on 09:01; Admin Dose 1 CAP; Start 07/12/16 at 21:00 Amlodipine Besylate (Norvasc) 10 mg QAM PO Last administered on 07/13/16 09:01 ; Admin Dose 10 MG; Start 07/13/16 at 09:00 FERNANDA JARRETT Jul 13, 2016 14:20
--- NOTE | 2016-07-13 14:22 | PN ---
DATE: 07/13/2016 SUBJECTIVE: No acute changes overnight. The patient is alert, eating lunch, looks comfortable. De nies pain, discomfort. ANTIMICROBIAL: Ciprofloxacin. LABORATORY DATA: WBC 4.5, no shift, no bands. BUN 7, creatinine 0.44. PHYSICAL EXAMINATION: GENERAL: Obese, well-developed, elderly woman who is in no distress. HEENT: Head atraumatic, normocephalic. Sclerae anicteric. Buccal mucosa pink. NECK: Supple, trachea midline. CHEST: Rise symmetrical. Breath sounds clear. HEART: S1, S2. ABDOMEN: Soft, bowel sounds present. EXTREMITIES: Without cyanosis. ASSESSMENT: 1. Status post right hemicolectomy. 2. Infected abdominal wound, status post wound VAC, wound looks clean. 3. Colon mucinous adenocarcinoma. 4. Obesity. PLAN: The patient remains stable. Per discussion with Dr. Cox yesterday, we changed her antibio tics to oral Cipro which we will continue for 6 more days. The patient to follow with oncology outp atient. Continue local wound management as per surgical recommendations. Dictated By: CATHI FRENCH SHIPWRIGHT HELPER for DOROTA HAYES MD NI/NTS Conf#: [id number] DID#: [id number]
[2016-07-13] MEDS: HYDROmorphONE 1 MG/ML SYG IV PRN ×3 (14:41→19:02)
--- NOTE | 2016-07-13 16:33 | RADRPT ---
PROCEDURE: XR Chest. CLINICAL INDICATION: Check PICC line position. TECHNIQUE: Single frontal view. COMPARISON: 07/07/2016. FINDINGS: There is a left arm PICC line with the tip in the lower superior vena cava. There is mild left basi lar atelectasis. The lungs are otherwise clear. The heart is enlarged. There is no pleural effusion. There is no pneumothorax. IMPRESSION: 1. Satisfactory position of left arm PICC line. 2. Mild left basilar atelectasis. 3. Cardiomegaly. RPTAT: QQ .Billy Young MD, MD Date Time Electronically viewed and signed by .Billy Young MD, MD on 07/13/2016 16:33 .R/
--- NOTE | 2016-07-13 17:01 | RADRPT ---
PROCEDURE: US left upper extremity veins. CLINICAL INDICATION: Left arm pain and swelling. TECHNIQUE: Multiple longitudinal and transverse images of the left upper extremity venous tree was obtained with alexandra scale, pulsed Doppler, and color Doppler imaging. COMPARISON: None available FINDINGS: The left internal jugular, subclavian, axillary, basilic, cephalic, radial, and ulnar veins are fitzpatrick nt with normal flow and compressibility. There is a left arm PICC line in the left brachial vein. There is thrombus in the left brachial vein. IMPRESSION: 1. Left arm PICC line in the left brachial vein. 2. Thrombus in the left brachial vein. 3. Otherwise normal venous system of the left upper extremity. RPTAT: QQ .Billy Young MD, MD Date Time Electronically viewed and signed by .Billy Young MD, MD on 07/13/2016 17:01 .R/
[2016-07-13] MEDS: ASPIRIN (EC) 325 MG TAB PO SCH (18:12)
[2016-07-13 20:56] VITALS: BP 122/60; RESP 20
[2016-07-14] MEDS: CIPROFLOXACIN 500 MG TAB GTB SCH ×2 (05:17→17:38)
[2016-07-14 08:23] VITALS: BP 112/61; RESP 18
[2016-07-14] MEDS: SILVER SULFADIAZINE 1% 25 GM CR TOP SCH (09:00)
[2016-07-14] MEDS: ASPIRIN (EC) 325 MG TAB PO SCH (09:03)
[2016-07-14] MEDS: POLYSACCHARIDE IRON COMPLEX CAP PO SCH (09:03)
[2016-07-14] MEDS: AMLODIPINE 10 MG TAB PO SCH (09:04)
--- NOTE | 2016-07-14 09:09 | CONS ---
Date/Time of Note Date/Time of Note DATE: 07/14/16 TIME: 09:07 Assessment/Plan Assessment/Plan Additional Assessment/Plan 1. Acute hyponatremia - post operative 2. Postoperative superficial infection of the abdominal wound. wound vac in place * Wound culture grew E. coli resistant to Bactrim and ampicillin. Anaerobic cultures negative. 2. 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 3. Hypertension. 4. anemia of chronic disease PLAN: Electrolytes and Cr stable on last labs, no labs today to review IV hydralazine prn will continue to follow up G surg following patient Consultation Date/Type/Reason Admit Date/Time Jun 26, 2016 at 07:37 Initial Consult Date 06/29/2016 Type of Consultation: NEPHROLOGY Referring Provider: ADELAIDE FERREIRA MD 24 HR Interval Summary Free Text/Dictation no acute events, BP stbale, no labs today to review Exam/Review of Systems Vital Signs Vitals Vital Signs Date Time Temp Pulse Resp B/P Pulse Ox O2 Delivery O2 Flow Rate FiO2 07/14/16 08:23 97.8 80 18 112/61 93 Intake and Output 07/13/16 07/13/16 07/14/16 15:00 23:00 07:00 Intake Total 800 ml 620 ml Output Total 50 ml Balance 800 ml 570 ml Exam GENERAL: Obese, well-developed, elderly woman who is in no distress. HEENT: Head atraumatic, normocephalic. Sclerae anicteric. Buccal mucosa pink. NECK: Supple, trachea midline. CHEST: Rise symmetrical. Breath sounds clear. HEART: S1, S2. ABDOMEN: Soft, bowel sounds present. EXTREMITIES: Without cyanosis. Results Result Diagram: 07/12/16 0440 07/12/16 0440 Medications Medications Current Medications Naloxone HCl (Narcan) 0.2 mg PRN PRN IV DECREASED REPIRATORY RATE; Start at 10:30 Acetaminophen/ Hydrocodone Bitart ([place] (5/325)) 1 tab Q4H PRN PO PAIN LEVEL 1 -5 Last administered on 07/13/16 04:21; Admin Dose 1 TAB; Start 06/26/16 at 10: 30; Status Future hold Acetaminophen/ Hydrocodone Bitart ([place] (5/325)) 2 tab Q4H PRN PO PAIN LEVEL 6 -10 Last administered on 07/13/16 21:01; Admin Dose 2 TAB; Start 06/26/16 at 10 :30; Status Future hold Diphenhydramine HCl (Benadryl) 25 mg Q6H PRN IV ITCHING Last administered on 14:45; Admin Dose 25 MG; Start 06/26/16 at 10:30 Ondansetron HCl 4 mg 4 mg Q6H PRN IV NAUSEA AND/OR VOMITING Last administered on 06/30/16 22:16; Admin Dose 4 MG; Start 06/26/16 at 12:30 Acetaminophen (Ofirmev 1000mg/ 100ml Iv) 100 ml @ 400 mls/hr Q6H PRN IVPB PAIN ; Start 06/26/16 at 12:30 Hydralazine HCl (Apresoline) 10 mg Q4H PRN IV SBP>160; Start 06/30/16 at 15:00 Phenol (Cepastat Lozenge) 1 lozenge Q1H PRN MT SORE THROAT Last administered on 07/07/16 20:03; Admin Dose 1 LOZENGE; Start 06/30/16 at 11:30 Hydromorphone HCl (Dilaudid) 0.5 mg Q2H PRN IV PAIN Last administered on 19:02; Admin Dose 0.5 MG; Start 07/02/16 at 14:30 Silver Sulfadiazine (Thermazene 1% 25 Gm) 1 applic BID TOP Last administered on 07/11/16 08:30; Admin Dose 1 APPLIC; Start 07/04/16 at 21:00 IV Flush (NS 10 ml) 10 ml PRN PRN IV FLUSH LINE Last administered on 07/08/16 04:28; Admin Dose 10 ML; Start 07/07/16 at 18:30 Ciprofloxacin (Cipro) 500 mg BID@06,18 GTB Last administered on 07/14/16 05:17 ; Admin Dose 500 MG; Start 07/12/16 at 18:00 Polysaccharide Iron Complex (Niferex-150) 1 cap BID PO Last administered on 09:03; Admin Dose 1 CAP; Start 07/12/16 at 21:00 Amlodipine Besylate (Norvasc) 10 mg QAM PO Last administered on 07/14/16 09:04 ; Admin Dose 10 MG; Start 07/13/16 at 09:00 Aspirin (Ecotrin) 325 mg DAILY PO Last administered on 07/14/16 09:03; Admin Dose 325 MG; Start 07/13/16 at 18:00 KATIA JAUREGUI MD Jul 14, 2016 09:09
--- NOTE | 2016-07-14 13:59 | PN ---
DATE: Patient is status post extended right hemicolectomy, status post development of incisional wound abs cess and infection, status post drainage of the wound infection and local care and placement o f a wound VAC. SUBJECTIVE: Feeling good. No problems. Had a bowel movement today, tolerating a diet. OBJECTIVE: VITAL SIGNS: Temperature 97.8, heart rate 80, respirations 18, blood pressure 112/61, saturations 9 3% on room air. WBC 4,500 two days ago. No tests today. Wound VAC is in place. Drainage is about 50 mL per 24 yoshi rs. Serosanguineous fluid. ASSESSMENT AND PLAN: The patient is stable post-operation at this time and the wound is gradually h ealing and the wound VAC has been helping. Last time I did a debridement and the wound looks much b james. PLAN: The patient will go to a alf today and they will continue the wound VAC over there. The instructions have been given. The patient will be followed by Dr. Rios in his office a week f rom now. Dictated By: GLO OSBORN MD PS/NTS Conf#: [id number] DID#: [id number]
--- NOTE | 2016-07-14 14:27 | PN ---
Date/Time of Note Date/Time of Note DATE: 07/14/16 TIME: 14:22 Assessment/Plan VTE Prophylaxis VTE Prophylaxis Intervention: other Lines/Catheters IV Catheter Type (from Nrs): PICC Line Urinary Cath still in place: No Assessment/Plan Assessment/Plan - DVT LUE- Pain -KELLI/PICC Line placement site- better than yesterday - Right colon mucinous adenocarcinoma, moderate well-differentiated. -per oncologist as an outpatient. - Incisional wound abscess, status post incision and drainage and wound VAC application. - per Dr. Pabon. The patient has been switched to Cipro. - Postoperative anemia plus anemia of malignancy. -cont iron sulfate, vitamin C and zinc sulfate to promote healing. - Disposition. The patient has been planned to go to SNF. In case she decides to go home, home health will be arranged for wound care and home PT. 5. History of hypertension - Norvasc, Lotensin ANGIE home health care case manager- facility arranged for the wound vac, patient will be transferred today. dw staff ANGIE Figueroa Subjective 24 Hr Interval Summary Free Text/Dictation nad, feels better, c/o pain at LUE, abdominal dressing is dry/intact, afebrile, dw staff. Eyes: no complaints ENT: no complaints Respiratory: no complaints Cardiovascular: no complaints Gastrointestinal: pain Genitourinary: no complaints Musculoskeletal: other (lue pain) Endocrine: no complaints Lymphatic: no complaints Exam/Review of Systems Vital Signs Vitals Vital Signs Date Time Temp Pulse Resp B/P Pulse Ox O2 Delivery O2 Flow Rate FiO2 07/14/16 08:23 97.8 80 18 112/61 93 Intake and Output 07/13/16 07/13/16 07/14/16 15:00 23:00 07:00 Intake Total 800 ml 620 ml Output Total 50 ml Balance 800 ml 570 ml Exam Constitutional: alert, oriented, well developed Psych: nl mood/affect Head: atraumatic Eyes: EOMI, nl sclera ENMT: nl external ears & nose Respiratory: clear to auscultation Cardiovascular: nl pulses, other (DVT) Gastrointestinal: non-tender, soft Musculoskeletal: nl extremities to inspection Extremities: normal pulses Neurological: nl mental status, nl speech Skin: nl turgor Lymph: nontender Results Result Diagram: 07/12/1643907/12/16439 Medications Medications Current Medications Naloxone HCl (Narcan) 0.2 mg PRN PRN IV DECREASED REPIRATORY RATE; Start at 10:30 Acetaminophen/ Hydrocodone Bitart ([place] (5/325)) 1 tab Q4H PRN PO PAIN LEVEL 1 -5 Last administered on 07/13/16 04:21; Admin Dose 1 TAB; Start 06/26/16 at 10: 30; Status Future hold Acetaminophen/ Hydrocodone Bitart ([place] (5/325)) 2 tab Q4H PRN PO PAIN LEVEL 6 -10 Last administered on 07/13/16 21:01; Admin Dose 2 TAB; Start 06/26/16 at 10 :30; Status Future hold Diphenhydramine HCl (Benadryl) 25 mg Q6H PRN IV ITCHING Last administered on 14:45; Admin Dose 25 MG; Start 06/26/16 at 10:30 Ondansetron HCl 4 mg 4 mg Q6H PRN IV NAUSEA AND/OR VOMITING Last administered on 06/30/16 22:16; Admin Dose 4 MG; Start 06/26/16 at 12:30 Acetaminophen (Ofirmev 1000mg/ 100ml Iv) 100 ml @ 400 mls/hr Q6H PRN IVPB PAIN ; Start 06/26/16 at 12:30 Hydralazine HCl (Apresoline) 10 mg Q4H PRN IV SBP>160; Start 06/30/16 at 15:00 Phenol (Cepastat Lozenge) 1 lozenge Q1H PRN MT SORE THROAT Last administered on 07/07/16 20:03; Admin Dose 1 LOZENGE; Start 06/30/16 at 11:30 Hydromorphone HCl (Dilaudid) 0.5 mg Q2H PRN IV PAIN Last administered on 19:02; Admin Dose 0.5 MG; Start 07/02/16 at 14:30 Silver Sulfadiazine (Thermazene 1% 25 Gm) 1 applic BID TOP Last administered on 07/11/16 08:30; Admin Dose 1 APPLIC; Start 07/04/16 at 21:00 IV Flush (NS 10 ml) 10 ml PRN PRN IV FLUSH LINE Last administered on 07/08/16 04:28; Admin Dose 10 ML; Start 07/07/16 at 18:30 Ciprofloxacin (Cipro) 500 mg BID@,18 GTB Last administered on 07/14/16 05:17 ; Admin Dose 500 MG; Start 07/12/16 at 18:00 Polysaccharide Iron Complex (Niferex-150) 1 cap BID PO Last administered on 09:03; Admin Dose 1 CAP; Start 07/12/16 at 21:00 Amlodipine Besylate (Norvasc) 10 mg QAM PO Last administered on 07/14/16 09:04 ; Admin Dose 10 MG; Start 07/13/16 at 09:00 Aspirin (Ecotrin) 325 mg DAILY PO Last administered on 07/14/16 09:03; Admin Dose 325 MG; Start 07/13/16 at 18:00 FERNANDA JARRETT Jul 14, 2016 14:27
--- NOTE | 2016-07-14 14:40 | CONS ---
Date/Time of Note Date/Time of Note DATE: 07/14/16 TIME: 14:39 Assessment/Plan Assessment/Plan Chief Complaint/Hosp Course SUBJECTIVE: No acute changes overnight. The patient is alert, looks comfortable. Denies pain, discomfort. ANTIMICROBIAL: Ciprofloxacin. PHYSICAL EXAMINATION: GENERAL: Obese, well-developed, elderly woman who is in no distress. HEENT: Head atraumatic, normocephalic. Sclerae anicteric. Buccal mucosa pink. NECK: Supple, trachea midline. CHEST: Rise symmetrical. Breath sounds clear. HEART: S1, S2. ABDOMEN: Soft, bowel sounds present. EXTREMITIES: Without cyanosis. ASSESSMENT: 1. Status post right hemicolectomy. 2. Infected abdominal wound, status post wound VAC, wound looks clean. 3. Colon mucinous adenocarcinoma. 4. Obesity. PLAN: The patient remains stable. Continue antibiotics for 5 more days. The patient to follow with oncology outpatient. Continue local wound management as per surgical recommendations. ANGIE RN Problems: Consultation Date/Type/Reason Admit Date/Time Jun 26, 2016 at 07:37 Type of Consultation: ID Referring Provider: ADELAIDE FERREIRA MD Exam/Review of Systems Vital Signs Vitals Vital Signs Date Time Temp Pulse Resp B/P Pulse Ox O2 Delivery O2 Flow Rate FiO2 07/14/16 08:23 97.8 80 18 112/61 93 Intake and Output 07/13/16 07/13/16 07/14/16 15:00 23:00 07:00 Intake Total 800 ml 620 ml Output Total 50 ml Balance 800 ml 570 ml Results Result Diagram: 07/12/16 0440 07/12/16 0440 Medications Medications Current Medications Naloxone HCl (Narcan) 0.2 mg PRN PRN IV DECREASED REPIRATORY RATE; Start at 10:30 Acetaminophen/ Hydrocodone Bitart ([place] (5/325)) 1 tab Q4H PRN PO PAIN LEVEL 1 -5 Last administered on 07/13/16 04:21; Admin Dose 1 TAB; Start 06/26/16 at 10: 30; Status Future hold Acetaminophen/ Hydrocodone Bitart ([place] (5/325)) 2 tab Q4H PRN PO PAIN LEVEL 6 -10 Last administered on 07/13/16 21:01; Admin Dose 2 TAB; Start 06/26/16 at 10 :30; Status Future hold Diphenhydramine HCl (Benadryl) 25 mg Q6H PRN IV ITCHING Last administered on 14:45; Admin Dose 25 MG; Start 06/26/16 at 10:30 Ondansetron HCl 4 mg 4 mg Q6H PRN IV NAUSEA AND/OR VOMITING Last administered on 06/30/16 22:16; Admin Dose 4 MG; Start 06/26/16 at 12:30 Acetaminophen (Ofirmev 1000mg/ 100ml Iv) 100 ml @ 400 mls/hr Q6H PRN IVPB PAIN ; Start 06/26/16 at 12:30 Hydralazine HCl (Apresoline) 10 mg Q4H PRN IV SBP>160; Start 06/30/16 at 15:00 Phenol (Cepastat Lozenge) 1 lozenge Q1H PRN MT SORE THROAT Last administered on 07/07/16 20:03; Admin Dose 1 LOZENGE; Start 06/30/16 at 11:30 Hydromorphone HCl (Dilaudid) 0.5 mg Q2H PRN IV PAIN Last administered on 19:02; Admin Dose 0.5 MG; Start 07/02/16 at 14:30 Silver Sulfadiazine (Thermazene 1% 25 Gm) 1 applic BID TOP Last administered on 07/11/16 08:30; Admin Dose 1 APPLIC; Start 07/04/16 at 21:00 IV Flush (NS 10 ml) 10 ml PRN PRN IV FLUSH LINE Last administered on 07/08/16 04:28; Admin Dose 10 ML; Start 07/07/16 at 18:30 Ciprofloxacin (Cipro) 500 mg BID@06,18 GTB Last administered on 07/14/16 05:17 ; Admin Dose 500 MG; Start 07/12/16 at 18:00 Polysaccharide Iron Complex (Niferex-150) 1 cap BID PO Last administered on 09:03; Admin Dose 1 CAP; Start 07/12/16 at 21:00 Amlodipine Besylate (Norvasc) 10 mg QAM PO Last administered on 07/14/16 09:04 ; Admin Dose 10 MG; Start 07/13/16 at 09:00 Aspirin (Ecotrin) 325 mg DAILY PO Last administered on 07/14/16 09:03; Admin Dose 325 MG; Start 07/13/16 at 18:00 CATHI FRENCH NP Jul 14, 2016 14:40
--- NOTE | 2016-07-14 14:45 | DS ---
Date/Time of Note Date/Time of Note DATE: 07/14/16 TIME: 14:45 Discharge Summary Admission/Discharge Info Admit Date/Time Jun 26, 2016 at 07:37 Discharge Date/Time Hospital Course SUBJECTIVE: No acute changes overnight. The patient is alert, looks comfortable. Denies pain, discomfort. ANTIMICROBIAL: Ciprofloxacin. PHYSICAL EXAMINATION: GENERAL: Obese, well-developed, elderly woman who is in no distress. HEENT: Head atraumatic, normocephalic. Sclerae anicteric. Buccal mucosa pink. NECK: Supple, trachea midline. CHEST: Rise symmetrical. Breath sounds clear. HEART: S1, S2. ABDOMEN: Soft, bowel sounds present. EXTREMITIES: Without cyanosis. ASSESSMENT: 1. Status post right hemicolectomy. 2. Infected abdominal wound, status post wound VAC, wound looks clean. 3. Colon mucinous adenocarcinoma. 4. Obesity. PLAN: The patient remains stable. Continue antibiotics for 5 more days. The patient to follow with oncology outpatient. Continue local wound management as per surgical recommendations. ANGIE RN Home Meds Active Scripts Ondansetron Hcl* (Zofran*) 4 Mg Tablet, 4 MG PO Q8H Y for NAUSEA AND/OR VOMITING , #15 TAB Prov:AGUSTINA KNOX DO 06/08/16 Docusate Sodium* (Colace*) 100 Mg Capsule, 100 MG PO TID, #30 CAP Prov:AGUSTINA KNOX DO 06/08/16 Hydrocodone/Acetaminophen ([place] 5-325 Tablet) 1 Each Tablet, 1 TAB PO Q6H Y for PAIN, #20 TAB Prov:AGUSTINA KNOX DO 06/08/16 Reported Medications Amlodipine Besylate/Benazepril (Amlodipine-Benazepril 5-10 mg) 1 Each Capsule, 1 EACH PO DAILY, CAP 06/26/16 FERNANDA JARRETT Jul 14, 2016 14:45
[2016-07-14] MEDS ORDERED: ENOXAPARIN 40 MG/0.4 ML SYG SC SCH (15:00)
[2016-07-14] MEDS: HYDROCODONE/APAP (5/325) TAB PO PRN (17:38)
== END 2016-07-14 18:17 | DRG 330 ==
LOC: REC 07:37 → EDBD 09:00 → MERGE 09:00 → EDSTATUS 09:00 → MS1 13:45
PROVIDERS: ADMIT Surgery Surgical Oncology; ATTEND Surgery Surgical Oncology
PROC: 0DTF0ZZ Resection of Right Large Intestine, Open Approach (ICD-10-PCS; 2016-06-26)
PROC: 0DBL0ZZ Excision of Transverse Colon, Open Approach (ICD-10-PCS; 2016-06-26)
PROC: 30233N1 Transfusion of Nonautologous Red Blood Cells into Peripheral Vein, Percutaneous Approach (ICD-10-PCS; 2016-06-26)
PROC: 0DTH0ZZ Resection of Cecum, Open Approach (ICD-10-PCS; principal; 2016-06-26 09:00)
PROC: 02HV33Z Insertion of Infusion Device into Superior Vena Cava, Percutaneous Approach (ICD-10-PCS; 2016-07-07)
PROC: B548ZZA Ultrasonography of Superior Vena Cava, Guidance (ICD-10-PCS; 2016-07-07)
PROC: 0JD80ZZ Extraction of Abdomen Subcutaneous Tissue and Fascia, Open Approach (ICD-10-PCS; 2016-07-11)
DX: C18.0 Malignant neoplasm of cecum (principal); T81.4XXA Infection following a procedure, initial encounter; E83.42 Hypomagnesemia; I10 Essential (primary) hypertension; L02.211 Cutaneous abscess of abdominal wall; T81.30XA Disruption of wound, unspecified, initial encounter; G89.18 Other acute postprocedural pain; F32.9 Major depressive disorder, single episode, unspecified; B96.20 Unspecified Escherichia coli [E. coli] as the cause of diseases classified elsewhere; Y83.9 Surgical procedure, unspecified as the cause of abnormal reaction of the patient, or of later complication, without mention of misadventure at the time of the procedure; E87.6 Hypokalemia; E66.9 Obesity, unspecified; Z68.26 Body mass index [BMI] 26.0-26.9, adult; D63.0 Anemia in neoplastic disease
CPT/HCPCS: 36430; 36569; 71010; 74000; 76937; 80048; 82533; 83735; 83930; 83935; 84100; 84300; 84439; 84443; 84560; 85025; 85610; 85730; 86644; 86850; 86900; 86901; 86920; 87070; 87075; 87086; 88307; 90686; 93971; J0295; J0330; J0360; J0461; J0696; J1170; J1200; J1650; J2405; J2543; J2710; J2765; J3010; J3475; J3480; J7030; P9016

== ENCOUNTER → 2017-07-25 | Outpatient (CLI) | END | disposition home or self-care (01) ==

== ENCOUNTER 2018-05-30 07:24 | Day surgery (SDC) | payer MEDICARE, OTHER ==
[~2018-05-30] VITALS: Ht 152.4 cm; Wt 65.6 kg
--- NOTE | 2018-05-30 08:01 | HPN ---
Date/Time of Note Date/Time of Note DATE: 05/30/18 TIME: 07:59 Interval H&P Admission Note Pt. seen H&P reviewed: No system changes RIMA DEL VALLE MD May 30, 2018 08:01
[2018-05-30] MEDS ORDERED: POLYMYXIN/BACITRACIN 1L IRRIG IRR ONE (08:30)
[2018-05-30] MEDS ORDERED: SOD CHLORIDE 0.9% 1,000 ML IV SCH (08:30)
[2018-05-30] MEDS ORDERED: LIDOCAINE 1%/EPI (1:100,000) (MDV) 20 ML ONE (09:17)
[2018-05-30] MEDS ORDERED: HEPARIN 1000 UNITS/ML 10 ML INJ ONE (09:17)
[2018-05-30 09:38] VITALS: BP 127/69; PULSE 68; RESP 16; Ht 152.4 cm; Wt 65.6 kg
[2018-05-30] MEDS ORDERED: METO10TA92 PO (10:18)
[2018-05-30] MEDS ORDERED: TYL2 PO (10:19)
[2018-05-30] MEDS ORDERED: CAPE500T17 PO ×2 (10:20)
[2018-05-30] MEDS ORDERED: ONDA8TAB9 PO (10:21)
[2018-05-30] MEDS ORDERED: FENTAnyl 50 MCG/ML VIAL ONE (11:47)
[2018-05-30 13:40] VITALS: BP 127/69; PULSE 68; RESP 18
== END 2018-05-30 16:07 | disposition home or self-care (01) ==
LOC: SDS 07:24
PROVIDERS: ATTEND Internal Medicine Hematology & Oncology
DX: C18.9 Malignant neoplasm of colon, unspecified (principal)
CPT/HCPCS: 36561; 76942; J1644; J3010; C1788

== ENCOUNTER 2018-07-05 08:53 | Inpatient (IN) | payer MEDICARE, OTHER ==
[~2018-07-05] VITALS: Ht 165.1 cm; Wt 63.3 kg
[~2018-07-05 08:53] MED LIST changes: -AMPICILLIN/SULB 3 GM/NS (PMX) 100 ML IVPB ONE; +CAPE500T17 PO; -DOCU-144 PO; -HYDR-906 PO; +METO10TA92 PO; -ONDA4TAB8 PO; +ONDA8TAB9 PO; -SOD CHLORIDE 0.9% 1,000 ML IV ONE; +TYL2 PO
[2018-07-05] MEDS ORDERED: SOD CHLORIDE 0.9% 500 ML IV STA (09:18)
[2018-07-05] MEDS ORDERED: CEFTRIAXONE 2 GM/50 ML (PMX) 50 ML IVPB STA (09:18)
[2018-07-05] MEDS ORDERED: ONDANSETRON 4 MG INJ IV STA (09:18)
[2018-07-05] MEDS ORDERED: morphine 4 MG/ML VIAL IV STA (09:18)
[2018-07-05] MEDS ORDERED: metroNIDAZOLE 500 MG/NS (PMX) 100 ML IVPB STA (09:18)
--- NOTE | 2018-07-05 09:45 | ERD ---
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 The patient does not recall the significant majority of her past medical history though she thinks that she may be receiving chemotherapy or has recently. The patient's EMR suggest a history of colon and breast cancer with prior surgical interventions. Patient's main complaint is a wound to the anterior abdominal wall. The patient describes drainage of feculent and purulent material over a 1 week timeframe. Patient denies any nausea or vomiting or diarrhea. She states that she followed up with Dr. Rios approximately 2 weeks ago and this was not present. She does describe some mild pain that is 6 out of 10 throbbing and worse to touch. ROS All systems reviewed and are negative except as per history of present illness. Medications Home Meds Reported Medications Ondansetron Hcl* (Zofran*) 8 Mg Tablet, 8 MG PO Q12 PRN for NAUSEA AND OR VOMITING, TAB 05/30/18 Capecitabine* (Xeloda*) 500 Mg Tablet, 1000 MG PO QPM, TBS 05/30/18 Capecitabine* (Xeloda*) 500 Mg Tablet, 1500 MG PO QAM, TAB 05/30/18 Metoclopramide* (Reglan*) 10 Mg Tablet, 10 MG PO BID WITH MEALS PRN for NAUSEA AND/OR VOMITING, TAB 05/30/18 Discontinued Reported Medications Acetaminophen-Codeine* (Acetaminophen-Cod #2*) 300-15 Mg Tab, 1 TAB PO Q6 PRN for PAIN, #30 TAB 05/30/18 Allergies Allergies: Coded Allergies: Penicillins (Verified Allergy, Unknown, 07/05/18) acetaminophen (Verified Allergy, Unknown, 07/05/18) tetracycline (Unverified Allergy, Unknown, VERTIGO, N&V, 07/05/18) PMhx/Soc History of Surgery: Yes (CS, TUMOR RESECTION) Anesthesia Reaction: No Hx Neurological Disorder: No Hx Respiratory Disorders: No Hx Cardiac Disorders: No Hx Psychiatric Problems: No Hx Miscellaneous Medical Probl: No Hx Alcohol Use: No Hx Substance Use: No Hx Tobacco Use: No Smoking Status: Never smoker FmHx Family History: No diabetes Physical Exam Vitals Vital Signs Date Temp Pulse Resp B/P (MAP) Pulse Ox O2 O2 Flow FiO2 Time Delivery Rate 07/05/18 97.3 64 18 127/66 99 08:59 (86) Physical Exam General: Well developed, well nourished, no acute distress Head: Normocephalic, atraumatic. Eyes: Pupils equally reactive, EOM intact ENT: Moist mucous membranes Neck: Supple, no lymphadenopathy Respiratory: Lungs clear bilaterally, no distress Cardiovascular: RRR, no murmurs, rubs, or gallops Abdominal: Soft, significant prior abdominal midline surgical wound, just inferior to the umbilicus the patient has a 2 cm diameter wound that is draining feculent and purulent material possibly consistent with fistula versus draining abscess : Deferred MSK: No edema, no unilateral swelling, 5/5 strength Neurologic: Alert and oriented, moving all extremities, normal speech, no focal weakness, no cerebellar signs Skin: As described above Psych: Normal mood Result Diagram: 07/05/18 0907/05/18 09 Results 24 hrs Laboratory Tests Test 07/05/18 09:29 White Blood Count 3.9 10^3/ul Red Blood Count 3.86 10^6/ul Hemoglobin 12.3 g/dl Hematocrit 36.6 % Mean Corpuscular Volume 94.8 fl Mean Corpuscular Hemoglobin 31.9 pg Mean Corpuscular Hemoglobin Concent 33.6 g/dl Red Cell Distribution Width 20.3 % Platelet Count 149 10^3/UL Mean Platelet Volume 10.4 fl Immature Granulocytes % 0.300 % Neutrophils % 61.9 % Lymphocytes % 21.0 % Monocytes % 14.2 % Eosinophils % 2.1 % Basophils % 0.5 % Nucleated Red Blood Cells % 0.0 /100WBC Immature Granulocytes # 0.010 10^3/ul Neutrophils # 2.4 10^3/ul Lymphocytes # 0.8 10^3/ul Monocytes # 0.6 10^3/ul Eosinophils # 0.1 10^3/ul Basophils # 0.0 10^3/ul Nucleated Red Blood Cells # 0.0 10^3/ul Prothrombin Time 17.2 Sec Prothrombin Time Ratio 1.3 INR International Normalized Ratio 1.39 Activated Partial Thromboplast Time 31.5 Sec Sodium Level 139 mmol/L Potassium Level 4.2 mmol/L Chloride Level 106 mmol/L Carbon Dioxide Level 22 mmol/L Anion Gap 11 Blood Urea Nitrogen 10 mg/dl Creatinine 0.48 mg/dl Est Glomerular Filtrat Rate mL/min > 60 mL/min Glucose Level 106 mg/dl Calcium Level 8.7 mg/dl Total Bilirubin 0.5 mg/dl Direct Bilirubin 0.00 mg/dl Indirect Bilirubin 0.5 mg/dl Aspartate Amino Transf (AST/SGOT) 54 IU/L Alanine Aminotransferase (ALT/SGPT) 20 IU/L Alkaline Phosphatase 96 IU/L Total Protein 7.3 g/dl Albumin 3.5 g/dl Globulin 3.80 g/dl Albumin/Globulin Ratio 0.92 Lipase 378 U/L Current Medications Medications Dose Sig/Angelika Start Time Status Last (Trade) Ordered Route PRN Stop Time Admin Dose Reason Admin Sodium 500 ml @ Q1H STAT 07/05/18 DC 07/05/18 Chloride 500 mls/hr IV 09:18 07/05/18 09:53 10:17 Morphine 4 mg ONCE STAT 07/05/18 DC 07/05/18 Sulfate IV 09:18 07/05/18 09:55 (morphine) 09:23 Ondansetron 4 mg ONCE STAT 07/05/18 DC 07/05/18 HCl (Zofran IV 09:18 07/05/18 09:53 Inj) 09:23 Ceftriaxone 50 ml @ ONCE STAT 07/05/18 DC 07/05/18 Sodium 100 mls/hr IVPB 09:18 07/05/18 10:09 09:47 100 ml @ ONCE STAT 07/05/18 DC 07/05/18 Metronidazole 100 mls/hr IVPB 09:18 07/05/18 09:18 10:17 50 mg STK-MED 07/05/18 DC Diphenhydrami ONCE .ROUTE 10:00 07/05/18 ne HCl 10:01 (Benadryl) 0.5 mg ONCE STAT 07/05/18 DC 07/05/18 Hydromorphone IV 10:11 07/05/18 10:22 HCl 10:12 (Dilaudid) 25 mg ONCE ONCE 07/05/18 DC 07/05/18 Diphenhydrami IV 10:30 07/05/18 10:22 ne HCl 10:31 (Benadryl) IV Flush 10 ml STK-MED 07/05/18 DC 07/05/18 (NS 10 ml) ONCE .ROUTE 11:07/05/18 11:27 11:23 Sodium 100 ml @ ud STK-MED 07/05/18 DC 07/05/18 Chloride ONCE .ROUTE 11:07/05/18 11:27 11:23 Iohexol 150 ml STK-MED 07/05/18 DC 07/05/18 (Omnipaque ONCE .ROUTE 11:07/05/18 11:27 300mg/ ml) 11:23 Ondansetron 4 mg BRIDGE ORDER 07/05/18 HCl (Zofran PRN IV 12:30 07/06/18 Inj) NAUSEA/VOMITI 12:29 NG Procedures/MDM EKG, MONITORS, & DIAGNOSTIC IMAGING: CT abdomen and pelvis: IMPRESSION: Large abdominal and pelvic midline anterior incisional related hernia is seen. There is a septated appearance the hernia and there is a loop of bowel which extends into the right lower quadrant portion of the hernia that demonstrates focal dilatation with marked wall thickening and edema worrisome for focal strangulation of this loop of small bowel without evidence of obstruction. Multiple other loops of bowel extend into the lower midline pelvic hernia. There are surgical changes of the ileocolonic anastomosis. There is diverticulosis without diverticulitis. Cirrhotic changes of the liver are present with associated moderate to prominent loculated ascites seen along the right abdomen with mild free floating ascites within the remaining peritoneal cavity as well. Prominent splenomegaly is seen with marked upper abdominal varices including varices at the GE junction. Mild adenopathy in the upper abdomen may be reactive in nature. There is no evidence of hepatic mass. There is cholelithiasis without cholecystitis. A call report was made to Matt Bowen at 07/05/2018 12:07:11 PM LAB INTERPRETATION: I reviewed the laboratory testing and it shows no significant leukocytosis MEDICAL DECISION MAKING: The patient presents with what appears to be a draining abscess versus fistulous tract related to prior surgical history. The patient does not know of past medical history though is documented that the patient may have breast and colon cancer. Patient will benefit from surgical consultation. I spoke to Dr. Rios on the phone and he will send Dr. Kincaid to evaluate the patient. He agrees with the plan of care. The patient does not meet criteria for sepsis in the emergency room setting though I do believe empiric antibiotics would be appropriate for possible acute intra-abdominal infection. Blood cultures prior to antibiotics. The patient does have a mild allergy to penicillin, ceftriaxone and Flagyl provided for broad-spectrum coverage. ER COURSE: * CT report as documented above, Dr. Kincaid at the bedside made aware of this process. He thinks that this is unlikely to be related to incarceration or strangulation and more likely related to the patient's chronic changes, fistulous track and possible draining abscess. He agrees with plan of care including fluids and antibiotics. CONSULTATION: Surgical consultation as documented above with Dr. Palma DISPOSITION PLAN: Accepting care team and consultations: I discussed the current laboratory data, diagnostic imaging and emergency care provided. Admitting team: Dr. Figueroa has been requested to admit this patient by the patient's surgical team. Admitting team indication: Insurance directed Departure Diagnosis: Primary Impression: Abdominal wall fistula Additional Impressions: Intra-abdominal abscess Abdominal pain Abdominal location: generalized Qualified Codes: R10.84 - Generalized abdominal pain Condition: Stable MATT BOWEN MD Jul 05, 2018 09:45
[2018-07-05] MEDS ORDERED: DIPHENHYDRAMINE 50 MG INJ ONE (10:00)
[2018-07-05] MEDS ORDERED: HYDROmorphONE 0.5 MG/0.5 ML SYG IV STA (10:11)
[2018-07-05] MEDS ORDERED: DIPHENHYDRAMINE 50 MG INJ IV ONE ×2 (10:30→22:30)
[2018-07-05] MEDS ORDERED: SOD CHLORIDE 0.9% 100 ML ONE (11:22)
[2018-07-05] MEDS ORDERED: IOHEXOL 300MG/ML 150 ML BTL ONE (11:22)
[2018-07-05] MEDS ORDERED: ONDANSETRON 4 MG INJ IV PRN (12:30)
[2018-07-05] MEDS ORDERED: PHYTONADIONE 10 MG/ML INJ SC ONE (16:30)
--- NOTE | 2018-07-05 17:51 | HP ---
Date/Time of Note Date/Time of Note DATE: 07/05/18 TIME: 17:07 Assessment/Plan VTE Prophylaxis SCD contraindicated: other Pharmacological prophylaxis: other Pharm contraindication: other Lines/Catheters IV Catheter Type (from Nrsg): Saline Lock Assessment/Plan Assessment/Plan -Abdominal wall fistula -Intra-abdominal abscess - Surgical consult- Dr Cox on case - ID consult- Dr Silverman notified - NPO - IVF - wound c/s - Vanco per pharmacy -Abdominal pain 2/2 to above - Multi drug Allergy - SP CS, TUMOR RESECTION - Oncology consult appreciated - SCD's for DVT prophylaxis Patient seen in collaboration with Dr Figueroa/staff Result Diagram: 07/05/18 0929 07/05/18 0929 Results 24hrs Laboratory Tests Test 07/05/18 09:29 White Blood Count 3.9 L Red Blood Count 3.86 L Hemoglobin 12.3 Hematocrit 36.6 L Mean Corpuscular Volume 94.8 Mean Corpuscular Hemoglobin 31.9 Mean Corpuscular Hemoglobin Concent 33.6 Red Cell Distribution Width 20.3 #H Platelet Count 149 # Mean Platelet Volume 10.4 Immature Granulocytes % 0.300 Neutrophils % 61.9 Lymphocytes % 21.0 Monocytes % 14.2 H Eosinophils % 2.1 Basophils % 0.5 Nucleated Red Blood Cells % 0.0 Immature Granulocytes # 0.010 Neutrophils # 2.4 Lymphocytes # 0.8 Monocytes # 0.6 Eosinophils # 0.1 Basophils # 0.0 Nucleated Red Blood Cells # 0.0 Prothrombin Time 17.2 H Prothrombin Time Ratio 1.3 INR International Normalized Ratio 1.39 Activated Partial Thromboplast Time 31.5 Sodium Level 139 Potassium Level 4.2 Chloride Level 106 Carbon Dioxide Level 22 Anion Gap 11 Blood Urea Nitrogen 10 Creatinine 0.48 Est Glomerular Filtrat Rate mL/min > 60 Glucose Level 106 Calcium Level 8.7 Total Bilirubin 0.5 Direct Bilirubin 0.00 Indirect Bilirubin 0.5 Aspartate Amino Transf (AST/SGOT) 54 H Alanine Aminotransferase (ALT/SGPT) 20 Alkaline Phosphatase 96 Total Protein 7.3 Albumin 3.5 Globulin 3.80 H Albumin/Globulin Ratio 0.92 Lipase 378 H HPI/ROS Admit Date/Time Admit Date/Time Jul 05, 2018 at 12:27 Hx of Present Illness HPI This is a 67-year-old female patient with past history of colon and breast cancer with prior surgical interventions. Patient's is admitted with complaint anterior abdominal wall wound and throbbing pain . The patient reported purulent drainage x 1 week . Patient denies any nausea or vomiting or diarrhea. She states that she followed up with Dr. Rios approximately 2 weeks ago but no drainage reported at that time. Patient denies any chest pain, headache, palpitations, fever, focal weakness, nausea/vomitting, any calf pain.. Patient is admitted under Dr Padilla for furher treatment/evaluation. Plan of care dw staff ROS All systems reviewed and are negative except as per history of present illness. Medications Home Meds Reported Medications Ondansetron Hcl* (Zofran*) 8 Mg Tablet, 8 MG PO Q12 PRN for NAUSEA AND OR VOMITING, TAB 05/30/18 Capecitabine* (Xeloda*) 500 Mg Tablet, 1000 MG PO QPM, TBS 05/30/18 Capecitabine* (Xeloda*) 500 Mg Tablet, 1500 MG PO QAM, TAB 05/30/18 Metoclopramide* (Reglan*) 10 Mg Tablet, 10 MG PO BID WITH MEALS PRN for NAUSEA AND/OR VOMITING, TAB 05/30/18 Discontinued Reported Medications Acetaminophen-Codeine* (Acetaminophen-Cod #2*) 300-15 Mg Tab, 1 TAB PO Q6 PRN for PAIN, #30 TAB 05/30/18 Allergies Allergies: Coded Allergies: Penicillins (Verified Allergy, Unknown, 07/05/18) acetaminophen (Verified Allergy, Unknown, 07/05/18) tetracycline (Unverified Allergy, Unknown, VERTIGO, N&V, 07/05/18) ROS Eyes: no complaints ENT: no complaints Respiratory: no complaints Cardiovascular: no complaints Gastrointestinal: other (wound ) Genitourinary: no complaints Musculoskeletal: no complaints Skin: no complaints Neurologic: no complaints Endocrine: no complaints PMH/Family/Social Past Medical History PMhx/Soc History of Surgery: Yes (CS, TUMOR RESECTION) Anesthesia Reaction: No Hx Neurological Disorder: No Hx Respiratory Disorders: No Hx Cardiac Disorders: No Hx Psychiatric Problems: No Hx Miscellaneous Medical Probl: No Hx Alcohol Use: No Hx Substance Use: No Hx Tobacco Use: No Smoking Status: Never smoker FmHx Family History: No diabetes Medications Current Medications Ondansetron HCl (Zofran Inj) 4 mg BRIDGE ORDER PRN IV NAUSEA/VOMITING; Start 07/05/18 at 12:30; Stop 07/06/18 at 12:29 Coded Allergies: Penicillins (Verified Allergy, Unknown, 07/05/18) acetaminophen (Verified Allergy, Unknown, 07/05/18) tetracycline (Verified Allergy, Unknown, VERTIGO, N&V, 07/05/18) Social History Alcohol Use: none Smoking Status: Current every day smoker Drug Use: none Exam/Review of Systems Vital Signs Vitals Vital Signs Date Temp Pulse Resp B/P (MAP) Pulse Ox O2 O2 Flow FiO2 Time Delivery Rate 07/05/18 98.0 67 18 132/68 99 Room Air 15:52 (89) Exam Constitutional: alert, well developed Psych: nl mood/affect Head: atraumatic Eyes: nl lids, nl sclera ENMT: nl external ears & nose Neck: non-tender Cardiovascular: nl pulses, other (S1S2) Gastrointestinal: tender, other Musculoskeletal: nl extremities to inspection Extremities: normal pulses Neurological: nl mental status, nl speech Skin: other FERNANDA JARRETT Jul 05, 2018 17:25
[2018-07-05] MEDS ORDERED: VANCOMYCIN IV PER PHARMACY XX SCH (18:00)
[2018-07-05 18:10] VITALS: BP 134/77; PULSE 76; RESP 16
[2018-07-05] MEDS ORDERED: VANCOMYCIN HCL 1.25 GM in SOD CHLORIDE 0.9% 250 ML IVPB ONE (18:30)
[2018-07-05] MEDS: D5-0.2 NACL + KCL 20 MEQ 1,000 ML IV SCH (18:56)
[2018-07-05 20:08] VITALS: BP 155/70; PULSE 68; RESP 19
[2018-07-05 20:22] VITALS: Ht 165.1 cm; Wt 63.3 kg
--- NOTE | 2018-07-05 22:26 | CONS ---
Assessment/Plan Assessment/Plan Hospital Course (Demo Recall) - infection of the abdominal wall and fluid collection - large abdominal and pelvic midline anterior incisional related hernia, a loop of bowel which extends into the right lower quadrant portion of the hernia that demonstrates focal dilatation with marked wall thickening and edema worrisome f or focal strangulation of this loop of small bowel without evidence of obstruction - h/o mucinous adenocarcinoma, moderately-well differentiated, involving the cecum, ileocecal valve and adjacent ascending colon - h/o extended R hemicolectomy on 06/26/2016 - h/o infection of the abdominal wound due to E. coli in 2017 - h/o drainage of abscess and wound VAC placement in 2017 - liver cirrhosis with moderate to prominent loculated ascites - Prominent splenomegaly - marked upper abdominal varices including varices at the GE junction - cholelithiasis - allergy to PCN (throat swelling), and tetracycline recommendations - pending: cultures of blood and abd wall fluid - will request cultures from the external drainage catheter tomorrow - ordered: hepatitis panel - I recommend IV vanc, ceftriaxone and metronidazole (07/05/2018-) management d/w Pt and her RN [place] Consultation Date/Type/Reason Admit Date/Time Jul 05, 2018 at 12:27 Date of Consultation: Jul 05, 2018 Type of Consult ID Reason for Consultation infection of abdominal wound Requesting Provider: FERNANDA JARRETT Date/Time of Note DATE: 07/05/18 TIME: 22:09 Hx of Present Illness This is a 67 yo female who was admitted with an open wound of the abd wall. In 05/2016, Pt presented with abdominal pain and anemia. She was found to have an extremely large cecal mass with evidence of obstruction. She underwent extended R hemicolectomy on 06/26/2016and the path report showed mucinous adenocarcinoma, moderately-well differentiated, involving the cecum, ileocecal valve and adjac ent ascending colon. Subsequently she developed infection of the abdominal wound. Its culture grew E. coli. The abscess was drained, and wound VAC was applied to the wound. Pt was transferred to SNF. The wound eventually healed and she was doing well. However the abd wound started to open, discharging malodorous fluid. Pt was most recently was in her home country of [place]; however, flew back to [facility], arrived at 3:00 AM today to present at [facility]. CT showed large abdominal and pelvic midline anterior incisional related hernia, a loop of bowel which extends into the right lower quadrant portion of the hernia that demonstrates focal dilatation with marked wall thickening and edema worris ome for focal strangulation of this loop of small bowel without evidence of obstruction. Multiple other loops of bowel extend into the lower midline pelvic hernia. There are surgical changes of the ileocolonic anastomosis. CT also showed cirrhotic changes of the liver are present with associated moderate to prominent loculated ascites seen along the right abdomen with mild free floating ascites within the remaining peritoneal cavity as well; Prominent splenomegaly is seen with marked upper abdominal varices including varices at the GE junction. Pt was started on IV vancomycin, ceftriaxone and metronidazole, and was admitted. She c/o pain, mainly due to the irritation of the skin of the ab dominal wall by the draining, biliary fluid. Pt denies F/C, N/V/D. Pt is scheduled to undergo drainage of the abdominal fluid. SUMI Jarrett requested ID consultation on this Pt. Constitutional: no complaints Eyes: no complaints ENT: no complaints Respiratory: no complaints Cardiovascular: no complaints Gastrointestinal: pain, other (pain of the abd wall) Genitourinary: no complaints Musculoskeletal: no complaints Skin: other (irritaion of the skin of abd wall) Neurologic: no complaints Endocrine: no complaints Past Medical History Medical History: gallstones, other (colon CA) Home Meds Reported Medications Ondansetron Hcl* (Zofran*) 8 Mg Tablet, 8 MG PO Q12 PRN for NAUSEA AND OR VOMITING, TAB 05/30/18 Capecitabine* (Xeloda*) 500 Mg Tablet, 1000 MG PO QPM, TBS 05/30/18 Capecitabine* (Xeloda*) 500 Mg Tablet, 1500 MG PO QAM, TAB 05/30/18 Metoclopramide* (Reglan*) 10 Mg Tablet, 10 MG PO BID WITH MEALS PRN for NAUSEA AND/OR VOMITING, TAB 05/30/18 Discontinued Reported Medications Acetaminophen-Codeine* (Acetaminophen-Cod #2*) 300-15 Mg Tab, 1 TAB PO Q6 PRN for PAIN, #30 TAB 05/30/18 Medications Current Medications Ondansetron HCl (Zofran Inj) 4 mg BRIDGE ORDER PRN IV NAUSEA/VOMITING; Start 07/05/18 at 12:30; Stop 07/06/18 at 12:29 Vancomycin HCl (Vanco Iv Per Pharmacy) VANCOMYCIN PER PHARMACY PER PROTOCOL XX ; Start 07/05/18 at 18:00 Potassium Chloride/Dextrose/ Sod Cl 1,000 ml @ 70 mls/hr [id number] IV Last administered on 07/05/18at 18:56; Admin Dose 70 MLS/HR; Start 07/05/18 at 18:00 Vancomycin/Sodium Chloride 250 ml @ 125 mls/hr Q12H IVPB ; Start 07/06/18 at 06:00 Ceftriaxone Sodium 50 ml @ 100 mls/hr Q24H IVPB ; Start 07/05/18 at 22:30; Status UNV Ondansetron HCl (Zofran Inj) 4 mg PRN ONCE IV ; Start 07/05/18 at 22:30; Stop 07/05/18 at 22:31; Status UNV Diphenhydramine HCl (Benadryl) 25 mg PRN ONCE IV ; Start 07/05/18 at 22:30; Stop 07/05/18 at 22:31; Status UNV Metronidazole 100 ml @ 100 mls/hr Q8 IVPB ; Start 07/05/18 at 22:30; Status UNV Allergies: Coded Allergies: Penicillins (Verified Allergy, Unknown, 07/05/18) acetaminophen (Verified Allergy, Unknown, 07/05/18) tetracycline (Verified Allergy, Unknown, VERTIGO, N&V, 07/05/18) Past Surgical History Past Surgical Hx: other (extended R hemicolectomy) Social History Alcohol Use: none Smoking Status: Current every day smoker Drug Use: none Exam/Review of Systems Exam Vitals Vital Signs Date Temp Pulse Resp B/P (MAP) Pulse Ox O2 O2 Flow FiO2 Time Delivery Rate 07/05/18 98.1 68 19 155/70 97 20:08 (98) 07/05/18 Room Air 15:52 Constitutional: alert, oriented, well developed Psych: no complaints, nl mood/affect Head: normocephalic, atraumatic Eyes: nl conjunctiva, nl lids, nl sclera ENMT: nl external ears & nose, nl nasal mucosa & septum, mucosa pink and moist Neck: supple, non-tender Respiratory: clear to auscultation, normal air movement Cardiovascular: regular rate and rhythm, nl pulses Gastrointestinal: soft, distended, other (complex wound with a central opening. The drainge is yellow-green) Musculoskeletal: nl extremities to inspection Extremities: normal pulses Neurological: DIRECTOR OF DIGITAL PLATFORMS II-XII intact, nl mental status, nl speech, nl strength Skin: nl turgor; No rash or lesions Results Result Diagram: 07/05/18 0929 07/05/18 0929 Results 24hrs Laboratory Tests Test 07/05/18 09:29 07/05/18 17:01 07/05/18 21:05 White Blood Count 3.9 L Red Blood Count 3.86 L Hemoglobin 12.3 Hematocrit 36.6 L Mean Corpuscular Volume 94.8 Mean Corpuscular Hemoglobin 31.9 Mean Corpuscular Hemoglobin Concent 33.6 Red Cell Distribution Width 20.3 #H Platelet Count 149 # Mean Platelet Volume 10.4 Immature Granulocytes % 0.300 Neutrophils % 61.9 Lymphocytes % 21.0 Monocytes % 14.2 H Eosinophils % 2.1 Basophils % 0.5 Nucleated Red Blood Cells % 0.0 Immature Granulocytes # 0.010 Neutrophils # 2.4 Lymphocytes # 0.8 Monocytes # 0.6 Eosinophils # 0.1 Basophils # 0.0 Nucleated Red Blood Cells # 0.0 Prothrombin Time 17.2 H Prothrombin Time Ratio 1.3 INR International Normalized Ratio 1.39 Activated Partial Thromboplast Time 31.5 Sodium Level 139 Potassium Level 4.2 Chloride Level 106 Carbon Dioxide Level 22 Anion Gap 11 Blood Urea Nitrogen 10 Creatinine 0.48 Est Glomerular Filtrat Rate mL/min > 60 Glucose Level 106 Calcium Level 8.7 Total Bilirubin 0.5 Direct Bilirubin 0.00 Indirect Bilirubin 0.5 Aspartate Amino Transf (AST/SGOT) 54 H Alanine Aminotransferase (ALT/SGPT) 20 Alkaline Phosphatase 96 Total Protein 7.3 Albumin 3.5 Globulin 3.80 H Albumin/Globulin Ratio 0.92 Lipase 378 H Lactic Acid Level 1.4 1.2 Medications Medication Current Medications Ondansetron HCl (Zofran Inj) 4 mg BRIDGE ORDER PRN IV NAUSEA/VOMITING; Start 07/05/18 at 12:30; Stop 07/06/18 at 12:29 Vancomycin HCl (Vanco Iv Per Pharmacy) VANCOMYCIN PER PHARMACY PER PROTOCOL XX ; Start 07/05/18 at 18:00 Potassium Chloride/Dextrose/ Sod Cl 1,000 ml @ 70 mls/hr [id number] IV Last admi nistered on 4/5/19at 18:56; Admin Dose 70 MLS/HR; Start 07/05/18 at 18:00 Vancomycin/Sodium Chloride 250 ml @ 125 mls/hr Q12H IVPB ; Start 07/06/18 at 06:00 Ceftriaxone Sodium 50 ml @ 100 mls/hr Q24H IVPB ; Start 07/05/18 at 22:30; Status UNV Ondansetron HCl (Zofran Inj) 4 mg PRN ONCE IV ; Start 07/05/18 at 22:30; Stop 07/05/18 at 22:31; Status UNV Diphenhydramine HCl (Benadryl) 25 mg PRN ONCE IV ; Start 07/05/18 at 22:30; Stop 07/05/18 at 22:31; Status UNV Metronidazole 100 ml @ 100 mls/hr Q8 IVPB ; Start 07/05/18 at 22:30; Status UNV PRITI BAUTISTA M.D. Jul 05, 2018 22:22
[2018-07-05] MEDS ORDERED: ONDANSETRON 4 MG INJ IV ONE (22:30)
[2018-07-05] MEDS: metroNIDAZOLE 500 MG/NS (PMX) 100 ML IVPB SCH (23:35)
--- NOTE | 2018-07-06 01:11 | CONS ---
DATE OF ADMISSION: 07/05/2018 DATE OF CONSULTATION: 07/05/2018 TYPE OF CONSULTATION: Surgical. REQUESTING PHYSICIAN Dr. Matt Bowen from emergency room. Actually the consultation originally was requested from Dr. Rios because Dr. Rios has operated on this patient 2 years ago for cancer of cecum and I am seeing the patient for Dr. Rios. REASON FOR CONSULTATION: Evaluation and involvement in the decision making and treatment of this patient. HISTORY OF PRESENT ILLNESS: This is a 67-year-old female who is very difficult historian and upon the patient presented to the emergency room today complaining of presence of wound to the anterior abdominal wall and also swelling of the abdominal cavity and presence of discharge and drainage from the lower part of the abdominal wound for about 2 weeks' duration. As was mentioned it is very difficult to take a good history from this patient, but from reviewing the previous charts and admissions and reviewing the history of emergency room and also myself, talking to the patient with the help from one of the nurses in the emergency room who speaks Tajik, the ultimate impression and history of present illness is that the patient has been doing fine until about 2 weeks ago. While she was [facility], she noticed that her belly is gradually increasing in distention and enlarging and from the lower part of the midline incision, there was a blister that eventually popped out and some foul smelling greenish yellowish fluid started coming out. So, the patient came to the emergency room. PAST MEDICAL HISTORY: This patient, about 2 years ago in 2017 was admitted in this hospital because of the presence of a very large cancer of the cecum and underwent extended right hemicolectomy and postop patient's course was complicated by an incisional wound infection, which required placement of the wound VAC and eventually the patient responded and the patient was transferred to long term for care of the wound VAC and from there on, we do not know exactly what happened, but the patient also has been seeing Dr. Schneider on and apparently [address] Schneider sent the patient to Dr. Young in radiology department to place a Port-A-Cath for the patient and according to the patient, the patient has received or at least she thinks she has received some chemotherapy. We are going to check this with Dr. Schneider. REVIEW OF SYSTEMS: Basically is what is related to the history of present illness and past medical history. ALLERGIES: PENICILLIN, ACETAMINOPHEN and TETRACYCLINE. SOCIAL HISTORY: At this time, the patient is living alone in the vicinity of the hospital and she takes care of all her work including cooking and shopping. She has some family here probably she has a niece that takes care of her sometimes. We are waiting to see her niece and get further information. PHYSICAL EXAMINATION: GENERAL: The patient is well-developed, well-nourished. She is not in acute distress, but she answers questions almost properly, but she talks too much and gets confused and makes us confused too. VITAL SIGNS: Temperature 97.3 in the emergency room, heart rate 64, respirations 18, blood pressure 127/66, saturation 99% on room air. HEENT: Normocephalic. Eyes: Pupils equally round, reactive to light and accommodative. Extraocular muscles with full range of motion. ENT: Moist mucosa membranes. NECK: Supple. No adenopathy. LUNGS: Clear bilaterally. Breasts were not examined because I could not find a female nurse to assistant director of plant operations me. CARDIOVASCULAR: Regular, no murmur. ABDOMEN: Very distended. There is very large long wide scar of the previous operation and below the umbilicus, there is an opening through which some yellowish greenish liquid fluid has been oozing out gradually and this looks like fluid or could be purulent. This sounds like an enterocutaneous fistula. MUSCULOSKELETAL: No edema. EXTREMITIES: Lower extremity dorsalis pedis pulses, 2+. LABORATORY: WBC is 3900 with 62% segmented and hemoglobin is 12.3, hematocrit 36.6. Chemistry: Sodium, potassium normal. BUN and creatinine normal. AST is 54, slightly elevated. ALT is normal. Bilirubin is normal. Alkaline phosphatase is normal. Albumin is 3.5, globulin is 3.8. Lipase is 378, slightly elevated. Coagulation: PT is 17.2, INR is 1.39. PTT is 31.5, which is normal. IMAGING: A CT scan of the abdomen and pelvis with IV contrast has been performed today to the emergency room. This has been read and reported by Dr. Talia Loza on 07/05/2018 at 12:13 p.m. The radiology impression is as follows: Large abdominal and pelvic midline anterior incision related hernia is seen. There is a septated appearance of the hernia, there is a loop of bowel which extends into the right lower quadrant portion of the hernia that demonstrates focal dilatation with marked wall thickening and edema worrisome for focal or strangulation of this loop of small bowel without evidence of obstruction. 1. Multiple other loops of bowel extending into the lower midline pelvic hernia. There are surgical changes of the ileocolic anastomosis. There is diverticulosis without diverticulitis. 2. Cirrhotic changes of the liver are present with associated moderate to prominent loculated ascites seen along the right abdomen with mild free floating ascites within the remaining peritoneal cavity as well. Prominent splenomegaly is seen with marked upper abdominal varices including varices at the GE junction. Mild adenopathy in the upper abdomen may be reactive in nature. There is no evidence of hepatic mass. There is cholelithiasis without cholecystitis. ASSESSMENT AND PLAN: This is a 67-year-old female who apparently had an extended right hemicolectomy for large cancer of the cecum 2 years ago. At that time, the pathology did not show any evidence of involvement of the margins and all the margins were clear, as well as all the lymph nodes were negative for metastases and the patient postop had complication of incisional wound infection, which was treated and eventually a wound VAC was applied, and the patient was discharged to the long term for the care of the wound VAC from that point of view as she was lost to us at least to me for followup. Probably she has been followed by Dr. Rios and Dr. Schneider in the office. Only to show up now that the patient has very distended and large abdomen with a wound, which looks like an enterocutaneous fistula and there is fecal material and liquid oozing out of this fistula. The CT scan as was read above shows evidence of herniation in the abdominal midline incision and possibly strangulation of the loop of bowel in the hernia. This could be actually the reason for the fistula formation and this could be actually a kind of Aparicio hernia that the loop of bowel has been incarcerated and strangulated in the hernia and eventually became ischemic and necrotic and became fistulous and let the content to ooze out to the outside of the abdominal wall and not to pour in the peritoneal cavity, but on the other hand, per radiologists,there is a confined ascites or fluid collection mainly in the right side of the abdominal cavity, which we are not sure what is the nature of that. Therefore, this patient at this time is not septic and we have to get a CT drainage from this ascitic fluid to find out exactly what is the nature of it and also to decrease the pressure from these abdominal cavity and later on we will order a small bowel follow- through to find out the position of the small bowel loops and possibility of the fistula and incarceration and when this is cleared, then the patient may require surgical intervention, though the patient from the beginning of entering the emergency room has been telling the doctors that she does not want any operation. I informed Dr. Rios who did the original surgery on this patient for cancer of cecum about 2 years ago. Today, along with Dr. Rios,. We reviewed the CT scan together and the lab results and these are the decisions that was made between me and Dr. Rois for this patient from surgical point of view at this time. Meanwhile, we have requested Dr. Ferreira medical service to see the patient in consultation and followup and we are going to correct the abnormal PT and INR and then request the radiology department invasive radiologist to place a CT-guided percutaneous drainage of the fluid in the right abdominal cavity (( as was suggested by Dr. Young radiologist)), and further decision will be made following conclusion of all these tests and procedures and also the response of the patient to these procedures. Dictated By: GLO OSBORN MD PS/NTS Conf#: [id number] DID#: [id number] CC: KARON SCHNEIDER; ADELAIDE FERREIRA MD;*EndCC* MTDD
[2018-07-06 01:47] VITALS: BP 138/73; PULSE 66; RESP 18
[2018-07-06] MEDS: metroNIDAZOLE 500 MG/NS (PMX) 100 ML IVPB SCH ×3 (05:43→21:11)
[2018-07-06] MEDS: VANCOMYCIN 750 MG (PMX) 250 ML IVPB SCH ×2 (06:53→18:33)
[2018-07-06 07:48] VITALS: BP 140/71; PULSE 57; RESP 16
[2018-07-06] MEDS: D5-0.2 NACL + KCL 20 MEQ 1,000 ML IV SCH ×2 (08:18→22:36)
[2018-07-06] MEDS: CEFTRIAXONE 1 GM/50 ML (PMX) 50 ML IVPB SCH (10:23)
--- NOTE | 2018-07-06 11:53 | CONS ---
DATE OF ADMISSION: 07/05/2018 DATE OF CONSULTATION: 07/06/2018 REASON FOR EVALUATION: Recurrent colon cancer. HISTORY OF PRESENT ILLNESS: This is a 67-year-old female from [facility] with history of a lcoholic liver disease, cirrhosis, hepatosplenomegaly, in addition to history of hypertension and a in the past, comes to [facility] because of open wound with abdominal wal l fistula. Back in 2016, the patient was diagnosed with right-sided colon cancer, underwent right he micolectomy stage III disease with abdominal abscesses infection. Adjuvant chemotherapy was given fo r a few months. Unfortunately, back in April 2018, the patient developed recurrent abdominal pain, weakness, fatigue, fever and infection. CT scan showed recurrent disease, multiple masses in the ab domen and pelvis, peritoneum with carcinomatous peritoneal seeding. Biopsy showed recurrent colon ca ncer. Since then has been on systemic chemotherapy for a few cycles including Xeloda, oxaliplatin an d Avastin for recurrent colon cancer. Patient went to [facility] for a few weeks and missed a coupl e of treatments. She comes back to the [facility] now with fistula abscess and multiple i nfections in the abdominal wall and intraabdominal. Currently on IV antibiotics, wound care. No act magdalene bleeding at this time. No hematemesis, no melena, no chest pain, no shortness of breath. PAST MEDICAL HISTORY: 1. Positive for chronic alcoholic liver disease, likely cirrhosis with hepatosplenomegaly. 2. Hypertension. 3. . SOCIAL HISTORY: Previous drinker. No smoker, does not drink anymore, has 1 son and 1 daughter. MEDICATIONS: Currently include the followin. Zofran. 2. Xeloda. 3. Reglan. 4. Ondansetron. 5. Vancomycin. 6. Ceftriaxone. 7. Diphenhydramine. 8. Metronidazole. ALLERGIES: 1. PENICILLIN. 2. TETRACYCLINE. PHYSICAL EXAMINATION: VITAL SIGNS: Temperature 97, respiration of 18, pulse of 82, BP 130/75. . LUNGS: Clear. ABDOMEN: Shows a large hole fistula abscess from abdominal wall with dressings intact. EXTREMITIES: No leg edema. Latest labs are as follows: White cell count 11,000, hemoglobin 9, minnie tocrit 27, platelets 185,000. ASSESSMENT AND PLAN: 1. A 67-year-old female with a chronic alcoholic liver disease, cirrhosis, history of hypertension a nd x1. 2. 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 3. Has been on Xeloda, oxaliplatin and base chemotherapy. 4. Now with abdominal wall fistula abscesses. 5. IV antibiotics and surgical care. 6. Wound dressing per protocol. Per surgery, per wound care. 7. No active chemotherapy at this time until the sepsis infection, abscesses all are drained and rudy ared out. 8. Keep hemoglobin above 9, hematocrit above 27. 9. Keep platelets above 20,000. 10. Pain medications, IV hydration, electrolytes. Dictated By: KARON AGUILLON/JAMIE Conf#: [id number] DID#: [id number] CC: ADELAIDE FERREIRA MD;*EndCC*
[2018-07-06] MEDS ORDERED: LIDOCAINE 1% (MPF) 5 ML VIAL ONE ×2 (12:00→13:08)
--- NOTE | 2018-07-06 13:30 | PN ---
Date/Time of Note Date/Time of Note DATE: 07/06/18 TIME: 13:30 Assessment/Plan VTE [place] [facility] [place]: 4 [place] [facility] [place] SCD contraindicated: other Pharmacological prophylaxis: LMWH Lines/Catheters IV Catheter Type (from [facility]): Peripheral IV Urinary Cath still in place: No Assessment/Plan Hospital Course -Abdominal wall fistula -Intra-abdominal abscess - Surgical consult- Dr Cox on case - ID consult- Dr Silverman notified - NPO - IVF - wound c/s - Vanco per pharmacy -Abdominal pain - sp CS, TUMOR RESECTION - Oncology consult appreciated - SCD's Result Diagram: 07/06/18 0543 07/06/18 0543 Results 24hrs Laboratory Tests Test 07/05/18 17:01 07/05/18 21:05 07/06/18 05:43 Lactic Acid Level 1.4 1.2 White Blood Count 2.9 #L Red Blood Count 3.38 L Hemoglobin 10.9 L Hematocrit 32.5 L Mean Corpuscular Volume 96.2 Mean Corpuscular Hemoglobin 32.2 Mean Corpuscular Hemoglobin Concent 33.5 Red Cell Distribution Width 20.5 H Platelet Count 119 #L Mean Platelet Volume 10.3 Immature Granulocytes % 0.300 Neutrophils % 49.7 Lymphocytes % 30.5 Monocytes % 13.0 H Eosinophils % 5.8 Basophils % 0.7 Nucleated Red Blood Cells % 0.0 Immature Granulocytes # 0.010 Neutrophils # 1.5 L Lymphocytes # 0.9 Monocytes # 0.4 Eosinophils # 0.2 Basophils # 0.0 Nucleated Red Blood Cells # 0.0 Prothrombin Time 17.5 H Prothrombin Time Ratio 1.4 INR International Normalized Ratio 1.42 Activated Partial Thromboplast Time 33.2 Sodium Level 142 Potassium Level 3.9 Chloride Level 112 H Carbon Dioxide Level 24 Anion Gap 6 Blood Urea Nitrogen 10 Creatinine 0.57 Est Glomerular Filtrat Rate mL/min > 60 Glucose Level 93 Calcium Level 8.3 L Hepatitis B Surface Antigen NEGATIVE Hepatitis B Core Total Antibody NEGATIVE Hepatitis C Antibody NEGATIVE Subjective 24 Hr Interval Summary Free Text/Dictation Patient away from room so unable to interview Exam/Review of Systems Exam Vitals Vital Signs Date Temp Pulse Resp B/P (MAP) Pulse Ox O2 O2 Flow FiO2 Time Delivery Rate 07/06/18 97.8 57 16 140/71 100 07:48 (94) 07/05/18 Room Air 15:52 Intake and Output 07/05/18 07/05/18 07/06/18 1515:00 23:00 07:00 IntakeIntake Total 870 ml BalanceBalance 870 ml Exam Patient away so unable to examine Results Results 24hrs Laboratory Tests Test 07/05/18 17:01 07/05/18 21:05 07/06/18 05:43 Lactic Acid Level 1.4 1.2 White Blood Count 2.9 #L Red Blood Count 3.38 L Hemoglobin 10.9 L Hematocrit 32.5 L Mean Corpuscular Volume 96.2 Mean Corpuscular Hemoglobin 32.2 Mean Corpuscular Hemoglobin Concent 33.5 Red Cell Distribution Width 20.5 H Platelet Count 119 #L Mean Platelet Volume 10.3 Immature Granulocytes % 0.300 Neutrophils % 49.7 Lymphocytes % 30.5 Monocytes % 13.0 H Eosinophils % 5.8 Basophils % 0.7 Nucleated Red Blood Cells % 0.0 Immature Granulocytes # 0.010 Neutrophils # 1.5 L Lymphocytes # 0.9 Monocytes # 0.4 Eosinophils # 0.2 Basophils # 0.0 Nucleated Red Blood Cells # 0.0 Prothrombin Time 17.5 H Prothrombin Time Ratio 1.4 INR International Normalized Ratio 1.42 Activated Partial Thromboplast Time 33.2 Sodium Level 142 Potassium Level 3.9 Chloride Level 112 H Carbon Dioxide Level 24 Anion Gap 6 Blood Urea Nitrogen 10 Creatinine 0.57 Est Glomerular Filtrat Rate mL/min > 60 Glucose Level 93 Calcium Level 8.3 L Hepatitis B Surface Antigen NEGATIVE Hepatitis B Core Total Antibody NEGATIVE Hepatitis C Antibody NEGATIVE Medications Medication Current Medications Vancomycin HCl (Vanco Iv Per Pharmacy) VANCOMYCIN PER PHARMACY PER PROTOCOL XX ; Start 07/05/18 at 18:00 Potassium Chloride/Dextrose/ Sod Cl 1,000 ml @ 70 mls/hr [id number] IV Last administered on 07/05/18at 18:56; Admin Dose 70 MLS/HR; Start 07/05/18 at 18:00 Vancomycin/Sodium Chloride 250 ml @ 125 mls/hr Q12H IVPB Last administered on 07/06/18at 06:53; Admin Dose 125 MLS/HR; Start 07/06/18 at 06:00 Ceftriaxone Sodium 50 ml @ 100 mls/hr Q24H IVPB Last administered on 07/06/18at 10:23; Admin Dose 100 MLS/HR; Start 07/06/18 at 09:00 Metronidazole 100 ml @ 100 mls/hr Q8 IVPB Last administered on 07/06/18at 05:43; Admin Dose 100 MLS/HR; Start 07/05/18 at 22:30 MARIAN WALKER Jul 06, 2018 13:30
[2018-07-06 13:54] VITALS: BP 163/70; PULSE 65; RESP 18
[2018-07-06] MEDS ORDERED: morphine 2 MG INJ IV PRN (14:00)
[2018-07-06] MEDS ORDERED: DIPHENHYDRAMINE 50 MG INJ IV PRN (14:00)
[2018-07-06 15:53] VITALS: BP 159/72; PULSE 61; RESP 18
[2018-07-06] MEDS ORDERED: PHYTONADIONE 10 MG/ML INJ SC ONE (16:00)
[2018-07-06] MEDS: HYDROmorphONE 1 MG/ML SYG IV PRN (17:08)
--- NOTE | 2018-07-06 19:01 | PN ---
DATE: 07/06/2018 SUBJECTIVE: Complains of abdominal pain following the radiology procedure of percutaneous drainage o f the fluid collection in the peritoneal cavity on the right side under a CT guidance by the invasive radiologist today morning. OBJECTIVE: GENERAL: Awake, alert, oriented. VITAL SIGNS: Temperature maximum so far today is 97.8, heart rate is 57, respirations 16, blood pres sure 140/71, saturation 98% room air. LABORATORY DATA: WBC today is 2900 with 49% neutrophils. Platelet count is 119. Hemoglobin is 10.9 , hematocrit 32.5. Chemistry: Sodium, potassium normal, BUN and creatinine normal. INR after 10 mg of vitamin K still is 1.4 (will give more vitamin K). PHYSICAL EXAMINATION: HEART: Clinically, heart regular. LUNGS: Clear. ABDOMEN: As was mentioned, distended, is a little bit firm. No rigidity. Bowel sounds 3+. Pigtail drain is in the peritoneal cavity coming out from the right lower quadrant. There is not much of dr montaño (as I heard from the nurses and I am going to check with the radiologist. When they tried to drain the collection today in the radiology department, they found that it is very thick material and not easy to came out). IMPRESSION: 1. After reading Dr. 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 2. Apparently after operation, the patient received a few doses of chemotherapy in year 2017 and in 04/2018, they did a PET CT scan, and they found that the patient has recurrent cancer of the colon in volving the peritoneal seeding and pelvis and abdominal cavity and the biopsy, CT-guided was obtained which revealed improved recurrence of the cancer, so Dr. Falcon started the patient on chemother apy for that after getting a Port-A-Cath on the right side which was done in April this year. Also , from the history and from report of the CT scan, which was done yesterday in the emergency room, th e patient has been apparently a chronic alcohol abuser many years ago and she has cirrhosis of the li lucas, probably secondary to alcohol ingestion with consequences of portal hypertension, splenomegaly, and esophageal varices. Also, presentation to the hospital is with appearance of an abdominal wall w ound, midline 0below the umbilicus from which some fluid which is yellowish greenish has been coming out and this was clinically diagnosed as an enterocutaneous fistula which has caused irritation of th e skin around it and inflammation with local cellulitis. I assume due to chemical effect of the cont ent of the small bowel. PLAN: I am going to talk with the radiologist who did the test today and placed the patient's drain and we are going to order also small bowel follow through with Gastrografin tomorrow or on Sunday to have further information about the anatomy of the bowel. 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 These are very difficult conditions to take care of. We will discuss the patient' s condition again among the treating group to find out what is the best approach for treating this un fortunate patient. Dictated By: GLO OSBORN MD PS/NTS Conf#: [id number] DID#: [id number] CC: ADELAIDE FERREIRA MD;*EndCC*
[2018-07-06 20:04] VITALS: BP 127/80; PULSE 63; RESP 18
--- NOTE | 2018-07-06 20:15 | CONS ---
DATE OF ADMISSION: 07/05/2018 DATE OF CONSULTATION: 07/06/2018 DATE OF CONSULTATION: 07/06/2018 REASON FOR CONSULTATION: Preoperative evaluation. REQUESTING PHYSICIAN: Dr. Figueroa. HISTORY OF PRESENT ILLNESS: The patient is a 67-year-old female with history of alcoholic liver dise ase, cirrhosis, hepatosplenomegaly, hypertension who presents with open wound with abdominal wall fis aneudy. The patient had recently been diagnosed with a right-sided colon cancer, 2016 and underwent a right hemicolectomy complicated by abdominal abscess infection. The patient received chemotherapy , but in April 2018 the patient developed recurrent abdominal pain with weakness, fatigue a nd fever. The patient underwent a CT scan which showed recurrent disease. Multiple masses in abdome n, pelvis, peritoneum and carcinomatosis peritoneal seeding. The patient had gotten a biopsy which d id reveal recurrent colon cancer. The patient has been on chemotherapy and recently went back to [facility] where she missed a few treatments. [place] returned [place] the [place] and now has a fistula with absc ess formation. The patient currently has a drain draining this at this time. The patient is being e valuated by surgery for possible need for surgical intervention. Given these findings, cardiac consu lt requested for preoperative evaluation. The patient at this time denies chest pain, shortness of b reath, prior cardiac pathology. PAST MEDICAL HISTORY: As above in HPI. MEDICATIONS CURRENTLY IN HOSPITAL: 1. Dilaudid. 2. Benadryl. 3. Ceftriaxone. 4. Vancomycin. 5. Flagyl. ALLERGIES 1. PENICILLIN. 2. TETRACYCLINE. 3. TYLENOL. SOCIAL HISTORY: No current tobacco, history of ETOH abuse, none currently. No illicit drug use. FAMILY HISTORY: No history of sudden cardiac or early CAD. REVIEW OF SYSTEMS: As above in HPI. CONSTITUTIONAL: No fevers, chills. PULMONARY: No current shortness of breath. CARDIOVASCULAR: No current chest pain. Hypertension. GASTROINTESTINAL: No vomiting. GENITOURINARY: No hematuria. MUSCULOSKELETAL: Degenerative joint disease. PSYCHIATRIC: No documented psych history. NEUROLOGIC: No documented history of CVA. ENDOCRINE: No documented history of diabetes mellitus. HEMATOLOGY/ONCOLOGY: Colon carcinoma with recurrent and carcinomatosis. PHYSICAL EXAMINATION: VITAL SIGNS: Temperature 98.7, blood pressure most recently 159/72, pulse 61, respirations 18, sat 9 6%. GENERAL: The patient is alert, awake, complaining of mild abdominal discomfort. NECK: JVP approximately 8 to 9 cm of water. CHEST: Fair movement throughout with mildly decreased breath sounds at bases bilaterally. HEART: Regular rate and rhythm. Normal S1, S2, I/ systolic murmur, nondisplaced PMI. ABDOMEN: Abdominal fistula with drain in place. EXTREMITIES: No significant pitting edema, 1+ pulses bilateral posterior tibial. LABORATORY DATA: Most recent from today, sodium for 2, potassium 3.9, creatinine 0.5, BUN 10. White blood cell count 2.9, hemoglobin 10.9, platelet count 119. IMAGING STUDIES: As above in HPI, with abdominal pelvic CT from the 5th revealing a large amount of pelvic midline anterior incisional related hernia with a loop of bowel extending into the right lower quadrant portion of the hernia that demonstrates focal dilatation with marked wall thickening, edema , worrisome for focal strangulation of this loop of small bowel, multiple other loops of bowel extend ing to the lower midline pelvic hernia, cirrhotic changes of the liver are present. Moderate amount of loculated ascites, cholelithiasis. ECG: No electrocardiograms for my review at this time. IMPRESSION: 1. Preoperative evaluation prior to possible abdominal surgery for intraabdominal fistula, carcinoma tosis and possible associated abscess formation. 2. Hypertension, mildly elevated. 3. 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 4. Abdominal wall fistula visualization between cavity and wall with drain in place and associated a bscess. 5. Anemia, leukopenia, thrombocytopenia/pancytopenia. RECOMMENDATIONS: 1. At this time, would maintain patient on her baseline antibiotics. 2. Would initiate patient on LIONEL inhibitor to improve overall systolic blood pressure control. 3. Continue pain control. 4. Check a 2D echo for this patient's ejection fraction, wall motion, rule any major abnormalities. 5. Check a baseline EKG now and repeat EKG in the morning and will check troponins every 6 hours x2 to be sure the patient has not had any recent coronary syndromes. All in anticipation of upcoming in ed for surgery. Thank you for allowing me to take part in the care of this patient. I will continue to follow very c losely with you with further recommendations to be made as the patient progresses through her [facility] clinical course. Dictated By: BIJAN CLEMONS/JAMIE Conf#: [id number] [facility]#: [id number] CC: ADELAIDE FIGUEROA MD;*[facility]*
[2018-07-06] MEDS: BENAZEPRIL 10 MG TAB PO SCH (21:05)
--- NOTE | 2018-07-06 22:29 | CONS ---
Assessment/Plan Assessment/Plan Hospital Course (Demo Recall) - infection of the abdominal wall and fluid collection - large abdominal and pelvic midline anterior incisional related hernia, a loop of bowel which extends into the right lower quadrant portion of the hernia that demonstrates focal dilatation with marked wall thickening and edema worrisome f or focal strangulation of this loop of small bowel without evidence of obstruction - h/o mucinous adenocarcinoma, moderately-well differentiated, involving the cecum, ileocecal valve and adjacent ascending colon - h/o extended R hemicolectomy on 06/26/2016 - h/o infection of the abdominal wound due to E. coli in 2017 - h/o drainage of abscess and wound VAC placement in 2017 - liver cirrhosis with moderate to prominent loculated ascites - Prominent splenomegaly - marked upper abdominal varices including varices at the GE junction - cholelithiasis - allergy to PCN (throat swelling), and tetracycline recommendations - pending: cultures of blood and abd wall fluid, hepatitis panel - ordered: aerobic and anaerobic culture and cytology of fluid in the external drainage bag - I recommend IV vanc, ceftriaxone and metronidazole (07/05/2018-) management d/w Pt's CHASITY Bojorquez Consultation Date/Type/Reason Admit Date/Time Jul 05, 2018 at 12:27 Initial Consult Date 07/05/18 Type of Consult ID Requesting Provider: FERNANDA JARRETT Date/Time of Note DATE: 07/06/18 TIME: 22:29 Exam/Review of Systems Exam Vitals Vital Signs Date Temp Pulse Resp B/P (MAP) Pulse Ox O2 O2 Flow FiO2 Time Delivery Rate 07/06/18 98.1 63 18 127/80 98 20:04 (96) 07/06/18 Room Air 13:54 Intake and Output 07/05/18 07/05/18 07/06/18 1515:00 23:00 07:00 IntakeIntake Total 870 ml BalanceBalance 870 ml Results Result Diagram: 07/06/18 0543 07/06/18 0543 Results 24hrs Laboratory Tests Test 07/06/18 05:43 07/06/18 18:50 White Blood Count 2.9 #L Red Blood Count 3.38 L Hemoglobin 10.9 L Hematocrit 32.5 L Mean Corpuscular Volume 96.2 Mean Corpuscular Hemoglobin 32.2 Mean Corpuscular Hemoglobin Concent 33.5 Red Cell Distribution Width 20.5 H Platelet Count 119 #L Mean Platelet Volume 10.3 Immature Granulocytes % 0.300 Neutrophils % 49.7 Lymphocytes % 30.5 Monocytes % 13.0 H Eosinophils % 5.8 Basophils % 0.7 Nucleated Red Blood Cells % 0.0 Immature Granulocytes # 0.010 Neutrophils # 1.5 L Lymphocytes # 0.9 Monocytes # 0.4 Eosinophils # 0.2 Basophils # 0.0 Nucleated Red Blood Cells # 0.0 Prothrombin Time 17.5 H Prothrombin Time Ratio 1.4 INR International Normalized Ratio 1.42 Activated Partial Thromboplast Time 33.2 Sodium Level 142 Potassium Level 3.9 Chloride Level 112 H Carbon Dioxide Level 24 Anion Gap 6 Blood Urea Nitrogen 10 Creatinine 0.57 Est Glomerular Filtrat Rate mL/min > 60 Glucose Level 93 Calcium Level 8.3 L Hepatitis B Surface Antigen NEGATIVE Hepatitis B Core Total Antibody NEGATIVE Hepatitis C Antibody NEGATIVE Troponin I < 0.012 Medications Medication Current Medications Vancomycin HCl (Vanco Iv Per Pharmacy) VANCOMYCIN PER PHARMACY PER PROTOCOL XX ; Start 07/05/18 at 18:00 Potassium Chloride/Dextrose/ Sod Cl 1,000 ml @ 70 mls/hr [id number] IV Last administered on 07/05/18at 18:56; Admin Dose 70 MLS/HR; Start 07/05/18 at 18:00 Vancomycin/Sodium Chloride 250 ml @ 125 mls/hr Q12H IVPB Last administered on 07/06/18at 18:33; Admin Dose 125 MLS/HR; Start 07/06/18 at 06:00 Ceftriaxone Sodium 50 ml @ 100 mls/hr Q24H IVPB Last administered on 07/06/18at 10:23; Admin Dose 100 MLS/HR; Start 07/06/18 at 09:00 Metronidazole 100 ml @ 100 mls/hr Q8 IVPB Last administered on 07/06/18at 21:11; Admin Dose 100 MLS/HR; Start 07/05/18 at 22:30 Diphenhydramine HCl (Benadryl) 25 mg Q6H PRN IV ALLERGIC REACTION; Start 07/06/18 at 14:00 Miscellaneous Information (*Rx Drug Level Order Reminder*) VANCO TR LEVEL PRIOR... 0500 ONCE XX ; Start 07/07/18 at 05:00; Stop 07/07/18 at 05:01 Hydromorphone HCl (Dilaudid) 1 mg Q4H PRN IV SEVERE PAIN LEVEL 7-10 Last administered on 07/06/18at 17:08; Admin Dose 1 MG; Start 07/06/18 at 17:00 Benazepril HCl (Lotensin) 10 mg BID PO Last administered on 07/06/18at 21:05; Admin Dose 10 MG; Start 07/06/18 at 21:00 PRITI BAUTISTA M.D. Jul 06, 2018 22:29
--- NOTE | 2018-07-06 22:50 | CONS ---
Assessment/Plan Assessment/Plan Hospital Course (Demo Recall) - infection of the abdominal wall and fluid collection - large abdominal and pelvic midline anterior incisional related hernia, a loop of bowel which extends into the right lower quadrant portion of the hernia that demonstrates focal dilatation with marked wall thickening and edema worrisome f or focal strangulation of this loop of small bowel without evidence of obstruction - h/o mucinous adenocarcinoma, moderately-well differentiated, involving the cecum, ileocecal valve and adjacent ascending colon - h/o extended R hemicolectomy on 06/26/2016 - h/o infection of the abdominal wound due to E. coli in 2017 - h/o drainage of abscess and wound VAC placement in 2017 - liver cirrhosis with moderate to prominent loculated ascites - Prominent splenomegaly - marked upper abdominal varices including varices at the GE junction - cholelithiasis - allergy to PCN (throat swelling), and tetracycline recommendations - pending: cultures of blood and abd wall fluid, hepatitis panel - ordered: aerobic and anaerobic culture and cytology of fluid in the external drainage bag - I recommend IV vanc, ceftriaxone and metronidazole (07/05/2018-) management d/w Pt's CHASITY Bojorquez Consultation Date/Type/Reason Admit Date/Time Jul 05, 2018 at 12:27 Initial Consult Date 07/05/18 Type of Consult ID Requesting Provider: FERNANDA JARRETT Date/Time of Note DATE: 07/06/18 TIME: 22:48 24 HR Interval Summary Free Text/Dictation Pt was soundly asleep Exam/Review of Systems Exam Vitals Vital Signs Date Temp Pulse Resp B/P (MAP) Pulse Ox O2 O2 Flow FiO2 Time Delivery Rate 07/06/18 98.1 63 18 127/80 98 20:04 (96) 07/06/18 Room Air 13:54 Intake and Output 07/05/18 07/05/18 07/06/18 1515:00 23:00 07:00 IntakeIntake Total 870 ml BalanceBalance 870 ml Constitutional: other (asleep) Psych: other (asleep) Head: normocephalic, atraumatic Eyes: nl lids ENMT: nl external ears & nose, nl nasal mucosa & septum Neck: other (not swollen) Respiratory: normal air movement Cardiovascular: regular rate and rhythm Gastrointestinal: soft, surgical scars, other (wound with yellow green fluid); No distended Musculoskeletal: nl extremities to inspection Extremities: No edema Neurological: other (asleep) Skin: No rash or lesions Results Result Diagram: 07/06/18 0543 07/06/18 0543 Results 24hrs Laboratory Tests Test 07/06/18 05:43 07/06/18 18:50 White Blood Count 2.9 #L Red Blood Count 3.38 L Hemoglobin 10.9 L Hematocrit 32.5 L Mean Corpuscular Volume 96.2 Mean Corpuscular Hemoglobin 32.2 Mean Corpuscular Hemoglobin Concent 33.5 Red Cell Distribution Width 20.5 H Platelet Count 119 #L Mean Platelet Volume 10.3 Immature Granulocytes % 0.300 Neutrophils % 49.7 Lymphocytes % 30.5 Monocytes % 13.0 H Eosinophils % 5.8 Basophils % 0.7 Nucleated Red Blood Cells % 0.0 Immature Granulocytes # 0.010 Neutrophils # 1.5 L Lymphocytes # 0.9 Monocytes # 0.4 Eosinophils # 0.2 Basophils # 0.0 Nucleated Red Blood Cells # 0.0 Prothrombin Time 17.5 H Prothrombin Time Ratio 1.4 INR International Normalized Ratio 1.42 Activated Partial Thromboplast Time 33.2 Sodium Level 142 Potassium Level 3.9 Chloride Level 112 H Carbon Dioxide Level 24 Anion Gap 6 Blood Urea Nitrogen 10 Creatinine 0.57 Est Glomerular Filtrat Rate mL/min > 60 Glucose Level 93 Calcium Level 8.3 L Hepatitis B Surface Antigen NEGATIVE Hepatitis B Core Total Antibody NEGATIVE Hepatitis C Antibody NEGATIVE Troponin I < 0.012 Medications Medication Current Medications Vancomycin HCl (Vanco Iv Per Pharmacy) VANCOMYCIN PER PHARMACY PER PROTOCOL XX ; Start 07/05/18 at 18:00 Potassium Chloride/Dextrose/ Sod Cl 1,000 ml @ 70 mls/hr [id number] IV Last administered on 07/05/18at 18:56; Admin Dose 70 MLS/HR; Start 07/05/18 at 18:00 Vancomycin/Sodium Chloride 250 ml @ 125 mls/hr Q12H IVPB Last administered on 07/06/18at 18:33; Admin Dose 125 MLS/HR; Start 07/06/18 at 06:00 Ceftriaxone Sodium 50 ml @ 100 mls/hr Q24H IVPB Last administered on 07/06/18at 10:23; Admin Dose 100 MLS/HR; Start 07/06/18 at 09:00 Metronidazole 100 ml @ 100 mls/hr Q8 IVPB Last administered on 07/06/18at 21:11; Admin Dose 100 MLS/HR; Start 07/05/18 at 22:30 Diphenhydramine HCl (Benadryl) 25 mg Q6H PRN IV ALLERGIC REACTION; Start 07/06/18 at 14:00 Miscellaneous Information (*Rx Drug Level Order Reminder*) VANCO TR LEVEL ID IOR... 0500 ONCE XX ; Start 07/07/18 at 05:00; Stop 07/07/18 at 05:01 Hydromorphone HCl (Dilaudid) 1 mg Q4H PRN IV SEVERE PAIN LEVEL 7-10 Last administered on 07/06/18at 17:08; Admin Dose 1 MG; Start 07/06/18 at 17:00 Benazepril HCl (Lotensin) 10 mg BID PO Last administered on 07/06/18at 21:05; Admin Dose 10 MG; Start 07/06/18 at 21:00 PRITI BAUTISTA M.D. Jul 06, 2018 22:50
[2018-07-07 01:52] VITALS: BP 125/63; PULSE 64; RESP 16
[2018-07-07] MEDS: D5-0.2 NACL + KCL 20 MEQ 1,000 ML IV SCH (03:10)
[2018-07-07] MEDS: metroNIDAZOLE 500 MG/NS (PMX) 100 ML IVPB SCH ×3 (05:04→21:20)
[2018-07-07] MEDS: VANCOMYCIN 750 MG (PMX) 250 ML IVPB SCH ×2 (07:12→17:58)
[2018-07-07 08:12] VITALS: BP 171/76; PULSE 60; RESP 17
[2018-07-07] MEDS: BENAZEPRIL 10 MG TAB PO SCH ×2 (08:28→21:20)
[2018-07-07] MEDS: CEFTRIAXONE 1 GM/50 ML (PMX) 50 ML IVPB SCH (09:53)
[2018-07-07] MEDS ORDERED: DIATR MEGLU/DIATRIZOATE SODIUM 120 ML BTL ONE (10:05)
[2018-07-07] MEDS: HYDROmorphONE 1 MG/ML SYG IV PRN ×2 (12:01→16:30)
--- NOTE | 2018-07-07 13:16 | PN ---
Date/Time of Note Date/Time of Note DATE: 07/07/18 TIME: 13:15 Assessment/Plan VTE Prophylaxis Risk score (from N[place])>0 risk: 5 [place] [facility] [place] contraindicated: other Pharmacological prophylaxis: LMWH Lines/Catheters IV Catheter Type (from [facility]): Peripheral IV Urinary Cath still in place: No Assessment/Plan Hospital Course -Abdominal wall fistula -Intra-abdominal abscess - Surgical consult- Dr Cox on case - ID consult- Dr Silverman notified - NPO - IVF - wound c/s - Vanco per pharmacy -Abdominal pain - sp CS, TUMOR RESECTION - Oncology consult appreciated - SCD's Result Diagram: 07/06/18 0543 07/06/18 0543 Results 24hrs Laboratory Tests Test 07/06/18 18:50 07/07/18 00:35 07/07/18 05:09 Troponin I < 0.012 < 0.012 < 0.012 Triglycerides Level 63 Cholesterol Level 69 L LDL Cholesterol, Calculated 35 HDL Cholesterol 21 L Cholesterol/HDL Ratio 3.2 Vancomycin Level Trough 11.8 Subjective 24 Hr Interval Summary Free Text/Dictation Patient resting comfortably Exam/Review of Systems Exam Vitals Vital Signs Date Temp Pulse Resp B/P (MAP) Pulse Ox O2 O2 Flow FiO2 Time Delivery Rate 07/07/18 98.0 60 17 171/76 97 08:12 (107) 07/06/18 Room Air 13:54 Intake and Output 07/06/18 07/06/18 07/07/18 1414:59 22:59 06:59 IntakeIntake Total 300 ml 830 ml 440 ml OutputOutput Total 80 ml BalanceBalance 300 ml 830 ml 360 ml Constitutional: well developed Head: normocephalic, atraumatic Neck: supple Respiratory: diminished breath sounds Cardiovascular: regular rate and rhythm Gastrointestinal: soft, non-tender Extremities: normal pulses Results Results 24hrs Laboratory Tests Test 07/06/18 18:50 07/07/18 00:35 07/07/18 05:09 Troponin I < 0.012 < 0.012 < 0.012 Triglycerides Level 63 Cholesterol Level 69 L LDL Cholesterol, Calculated 35 HDL Cholesterol 21 L Cholesterol/HDL Ratio 3.2 Vancomycin Level Trough 11.8 Medications Medication Current Medications Vancomycin HCl (Vanco Iv Per Pharmacy) VANCOMYCIN PER PHARMACY PER PROTOCOL XX ; Start 07/05/18 at 18:00 Potassium Chloride/Dextrose/ Sod Cl 1,000 ml @ 70 mls/hr [id number] IV Last administered on 07/07/18at 03:10; Admin Dose 70 MLS/HR; Start 07/05/18 at 18:00 Vancomycin/Sodium Chloride 250 ml @ 125 mls/hr Q12H IVPB Last administered on 07/07/18at 07:12; Admin Dose 125 MLS/HR; Start 07/06/18 at 06:00 Ceftriaxone Sodium 50 ml @ 100 mls/hr Q24H IVPB Last administered on 07/07/18 09:53; Admin Dose 100 MLS/HR; Start 07/06/18 at 09:00 Metronidazole 100 ml @ 100 mls/hr Q8 IVPB Last administered on 07/07/18at 05:04; Admin Dose 100 MLS/HR; Start 07/05/18 at 22:30 Diphenhydramine HCl (Benadryl) 25 mg Q6H PRN IV ALLERGIC REACTION; Start 07/06/18 at 14:00 Hydromorphone HCl (Dilaudid) 1 mg Q4H PRN IV SEVERE PAIN LEVEL 7-10 Last administered on 07/07/18at 12:01; Admin Dose 1 MG; Start 07/06/18 at 17:00 Benazepril HCl (Lotensin) 10 mg BID PO Last administered on 07/07/18at 08:28; Admin Dose 10 MG; Start 07/06/18 at 21:00 MARIAN WALKER Jul 07, 2018 13:16
--- NOTE | 2018-07-07 14:06 | PN ---
DATE: 07/07/2018 SUBJECTIVE: Patient is complaining of pain at the site of placement of a pigtail catheter into the a bdominal cavity for drainage of the supposedly fluid loculated collection. OBJECTIVE: GENERAL: Awake, alert, no distress. VITAL SIGNS: Temperature maximum today 98.2, heart rate 64, respiration 16, blood pressure 125/63, saturation 98% room air. LABORATORY DATA: Today sed rate 63. Cholesterol total 69, LDL 35, HDL 21. No hematology done today . PHYSICAL EXAMINATION: HEART: Heart regular. LUNGS: Clear. ABDOMEN: Some distention with a large midline scar of the lower part of the incision as before. 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 There is some maceration of the skin around this and this is due to direct contact of the alkaline small bowel content with the skin. I have informed the RN yesterday and today to get a consultation from ostomy nurse, so that we can protect the skin and we can put a colostomy bag around this opening, so that we can collect amount of drainage to prev ent further damage to the skin. Patient is supposed to have small bowel follow through today. Actually the origin preliminary pictur es had been taken but they have to repeat it every 2 to 4 hours till final pictures are taken and the n we will wait for the result of the official reading. We will keep the patient n.p.o. till all the pictures are taken. Dictated By: GLO OSBORN MD PS/NTS Conf#: [id number] DID#: [id number] CC: ADELAIDE FERREIRA MD;*EndCC*
[2018-07-07 14:55] VITALS: BP 152/72; PULSE 58; RESP 20
--- NOTE | 2018-07-07 15:19 | CONS ---
Assessment/Plan Assessment/Plan Hospital Course (Demo Recall) IMPRESSION: 1. Preoperative evaluation prior to possible abdominal surgery for intraabdominal fistula, carcinomatosis and possible associated abscess formation.-neg trop x 3 2. Hypertension-continue to be mildly elevated 3. 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 4. 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 5. Anemia, leukopenia, thrombocytopenia/pancytopenia. 6. Dyslpidemia-low HDL 21 LDL 35 Recc: -On med-surg -increase benazepril further as necessary to improve BP control -will f/u echo -Follow drain outpaut -ongoing surgical and hem-onc eval -Continue abx's and f/u cx data Consultation Date/Type/Reason Admit Date/Time Jul 05, 2018 at 12:27 Initial Consult Date 07/05/18 Type of Consult Cardiology Reason for Consultation HTN Requesting Provider: FERNANDA JARRETT Date/Time of Note DATE: 07/07/18 TIME: 15:15 Exam/Review of Systems Vital Signs Vitals Vital Signs Date Temp Pulse Resp B/P (MAP) Pulse Ox O2 O2 Flow FiO2 Time Delivery Rate 07/07/18 97.8 58 20 152/72 93 14:55 (98) 07/06/18 Room Air 13:54 Intake and Output 07/06/18 07/06/18 07/07/18 1515:00 23:00 07:00 IntakeIntake Total 300 ml 830 ml 440 ml OutputOutput Total 80 ml BalanceBalance 300 ml 830 ml 360 ml Exam Exam Review of Systems: CONSTITUTIONAL: No fevers, chills. PULMONARY: No sob CARDIOVASCULAR: No chest pain/palpitations GASTROINTESTINAL: mild abd pain GENITOURINARY: No hematuria/dysuria. MUSCULOSKELETAL: No myagias/arthalgias. PSYCHIATRIC: The patient denies depression. NEUROLOGIC: No weakness Constitutional: alert Psych: no complaints Head: normocephalic ENMT: mucosa pink and moist Neck: supple, jvd (9 cm water) Respiratory: clear to auscultation Cardiovascular: regular rate and rhythm Gastrointestinal: soft, non-tender, other (drain in oplace) Musculoskeletal: muscle weakness (mild generalized) Extremities: edema (trace/B) Neurological: other (No focal deficits) Labs Result Diagram: 07/06/18 0543 07/06/18 0543 Results 24hrs Laboratory Tests Test 07/06/18 18:50 07/07/18 00:35 07/07/18 05:09 Troponin I < 0.012 < 0.012 < 0.012 Triglycerides Level 63 Cholesterol Level 69 L LDL Cholesterol, Calculated 35 HDL Cholesterol 21 L Cholesterol/HDL Ratio 3.2 Vancomycin Level Trough 11.8 Medications Medications Current Medications Vancomycin HCl (Vanco Iv Per Pharmacy) VANCOMYCIN PER PHARMACY PER PROTOCOL XX ; Start 07/05/18 at 18:00 Potassium Chloride/Dextrose/ Sod Cl 1,000 ml @ 70 mls/hr [id number] IV Last administered on 07/07/18 03:10; Admin Dose 70 MLS/HR; Start 07/05/18 at 18:00 Vancomycin/Sodium Chloride 250 ml @ 125 mls/hr Q12H IVPB Last administered on 07/07/18 07:12; Admin Dose 125 MLS/HR; Start 07/06/18 at 06:00 Ceftriaxone Sodium 50 ml @ 100 mls/hr Q24H IVPB Last administered on 07/07/18 09:53; Admin Dose 100 MLS/HR; Start 07/06/18 at 09:00 Metronidazole 100 ml @ 100 mls/hr Q8 IVPB Last administered on 07/07/18 14:34; Admin Dose 100 MLS/HR; Start 07/05/18 at 22:30 Diphenhydramine HCl (Benadryl) 25 mg Q6H PRN IV ALLERGIC REACTION; Start 07/06/18 at 14:00 Hydromorphone HCl (Dilaudid) 1 mg Q4H PRN IV SEVERE PAIN LEVEL 7-10 Last administered on 07/07/18at 12:01; Admin Dose 1 MG; Start 07/06/18 at 17:00 Benazepril HCl (Lotensin) 10 mg BID PO Last administered on 07/07/18 08:28; Ad min Dose 10 MG; Start 07/06/18 at 21:00 BIJAN DWYER Jul 07, 2018 15:19
--- NOTE | 2018-07-07 16:09 | RADRPT ---
Echocardiogram Report Patient Name: ALEX BURNHAMPatient ID: [id number] : 05-17-1951 (67y 11m)Study Date: 07/07/2018 8:34:56 AM Gender: FAccession #: [id number] Tech: Angelo Toro [facility] Location: [id number]- Ref.Physician: BIJAN GUNN Height(Cm): BSA: Weight(Kg): Quality: AdequateAccount #: Procedures: Echocardiographic Report: Transthoracic echocardiogram with complete 2D, M-Mode, and doppler examination. Indications: Pre-op. Measurements: 2D/M Mode Doppler Measurement Value Normal Range Measurement Value Normal Range LVIDd 2D 4.3 [ 3.8 - 5.2 ] cm AV Peak Chente 1.3 [ 100.0 - 170.0 ] cm/se c LVIDs 2D 2.8 [ 2.2 - 3.5 ] cm AV Peak PG 6.0 [ 2.0 - 9.0 ] mmHg LVPWd 2D 1.1 [ 0.6 - 0.9 ] cm LVOT Peak Chente 1.0 [ 70.0 - 110.0 ] cm/sec IVSd 2D 0.8 [ 0.6 - 0.9 ] cm LVOT Peak PG 4.0 [ 2.0 - 6.0 ] mmHg AoR Diam 2D 2.6 [ 2.3 - 3.1 ] cm MV E Peak Chente 0.7 [ 60.0 - 130.0 ] cm/sec EDV 2D 84.0 [ 46.0 - 106.0 ] ml MV A Peak Chente 0.6 [ 100.0 - 120.0 ] cm/se c ESV 2D 28.5 [ 14.0 - 42.0 ] ml MV E/A 1.3 [ 0.8 - 1.5 ] ratio EF 2D 66.1 [ 54.0 - 74.0 ] percent MV PHT 69.0 [ 20.0 - 100.0 ] msec LA Dimen 2D 3.1 [ 2.7 - 3.8 ] cm MV Decel Time 236 [ 104 - 258 ] msec MV Decel [place] 3 Lat E` Chente 0.1 [ 10.0 - 15.0 ] cm/sec Lateral E/E` 5.2 [ 1.0 - 2.0 ] ratio Med E` Chente 0.1 cm/sec MV E/A 1.3 [ 0.8 - 1.5 ] ratio MVA PHT 3.2 [ 2.0 - 4.0 ] cm2 TR Peak Chente 2.3 [ 100.0 - 280.0 ] cm/se c TR Peak PG 21.0 mmHg Findings: Left Ventricle: Normal left ventricular systolic function. Normal left ventricular cavity size. Normal left ventricular wall thickness. Ejection fraction is visually estimated at 55-60 %. Tissue Doppler/Mitral Doppler indices are within normal limits. Right Ventricle: Normal right ventricular size. Normal right ventricular systolic function. Left Atrium: The left atrium is normal in size. Right Atrium: The right atrium is normal in size. Atrial Septum: Normal atrial septum. Ventricular septum: Normal/intact ventricular septum. Mitral Valve: Mild mitral annular calcification. Trace mitral regurgitation. Aortic Valve: Normal appearance of the aortic valve. No aortic regurgitation. Tricuspid Valve: Normal appearance of the tricuspid valve. Unable to obtain RVSP due to minimal presence of tricuspid regurgitation. There is trace tricuspid regurgitation. Pulmonic Valve: Normal pulmonic valve appearance. There is trace pulmonic regurgitation. Pericardium: Normal pericardium with no significant pericardial effusion. Aorta: Normal aortic root. IVC: The IVC is not well visualized. Conclusions: Normal left ventricular systolic function. Normal left ventricular cavity size. Normal left ventricular wall thickness. Ejection fraction is visually estimated at 55-60 %. Tissue Doppler/Mitral Doppler indices are within normal limits. Mild mitral annular calcification. Trace mitral regurgitation. Normal appearance of the tricuspid valve. Unable to obtain RVSP due to minimal presence of tricuspid regurgitation. There is trace tricuspid regurgitation. Normal pulmonic valve appearance. There is trace pulmonic regurgitation. n. Electronically Signed By: Bijan Gunn 2018-07-07 16:09:21 PDT
--- NOTE | 2018-07-07 19:29 | CONS ---
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 albicans so far - s/p placement of an external drainage catheter in RLQ 07/06/2018 - displacement of small bowel to L side due to fluid collection on R side of the abdomen, without e/o obstruction on SBFT on 07/07/2018 - large abdominal and pelvic midline anterior incisional related hernia, a loop of bowel which extends into the right lower quadrant portion of the hernia demonstrates focal dilatation with marked wall thickening and edema worrisome for focal strangulation of this loop of small bowel without evidence of obstruction on CT on 07/05/2018 - h/o mucinous adenocarcinoma, moderately-well differentiated, involving the cecum, ileocecal valve and adjacent ascending colon - h/o extended R hemicolectomy on 06/26/2016 - h/o infection of the abdominal wound due to E. coli in 2017 - h/o drainage of abscess and wound VAC placement in 2017 - liver cirrhosis with moderate to prominent loculated ascites, hepatitis panel on 07/06/2018 was negative - prominent splenomegaly - marked upper abdominal varices including varices at the GE junction - cholelithiasis # other issues - pancytopenia - macerated skin of the abdomen due to the draining enterocutaneous fistulra - red man syndrome due to vancomycin - allergy to PCN (throat swelling), and tetracycline recommendations - pending: culture of fluid draining from the enterocutaneous fistula (07/05/2018), aerobic and anaerobic cultures and cytology of fluid in the external drainage bag - continue IV vanc, ceftriaxone and metronidazole (07/05/2018-) - for red man syndrome: premedicate each infusion of IV vancomycin with PO benadryl and NS 250 mL bolus - add IV fluconazole (07/07/2018-) - will adjust the antibiotics further based on the final culture results - await wound care consult for application of an ostomy bag over the fistula opening management d/w Pt and her RN Consultation Date/Type/Reason Admit Date/Time Jul 05, 2018 at 12:27 Initial Consult Date 07/05/18 Type of Consult ID Requesting Provider: FERNANDA JARRETT Date/Time of Note DATE: 07/07/18 TIME: 19:13 24 HR Interval Summary Constitutional: no complaints Detailed Summary Eyes: no complaints ENT: no complaints Respiratory: no complaints Cardiovascular: no complaints Gastrointestinal: pain (RLQ); No nausea Genitourinary: no complaints Musculoskeletal: no complaints Skin: erythema, pruritis, skin lesions (irritation of skin surrounding the fistula) Neurologic: no complaints Exam/Review of Systems Exam Vitals Vital Signs Date Temp Pulse Resp B/P (MAP) Pulse Ox O2 O2 Flow FiO2 Time Delivery Rate 07/07/18 97.8 58 20 152/72 93 14:55 (98) 07/06/18 Room Air 13:54 Intake and Output 07/06/18 07/06/18 07/07/18 1515:00 23:00 07:00 IntakeIntake Total 300 ml 830 ml 440 ml OutputOutput Total 80 ml BalanceBalance 300 ml 830 ml 360 ml Constitutional: alert, oriented, well developed Psych: no complaints, nl mood/affect Head: normocephalic, atraumatic Eyes: nl conjunctiva, nl lids, nl sclera ENMT: nl external ears & nose, nl nasal mucosa & septum, mucosa pink and moist Neck: other (not swollen) Respiratory: normal air movement Cardiovascular: regular rate and rhythm, nl pulses; No edema Gastrointestinal: distended, surgical scars, other (entero-cutaneous fistula draining yellow-green liquid, +external drainage catheter in RLQ collecting yellow liquid) Musculoskeletal: nl extremities to inspection Extremities: No edema Neurological: 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 PURIFICATION WORKER II-XII intact, nl mental status, nl speech, nl strength Skin: nl turgor, other (constantly scratching the ) Results Result Diagram: 07/06/18 0543 07/06/18 0543 Results 24hrs Laboratory Tests Test 07/07/18 00:35 07/07/18 05:09 Troponin I < 0.012 < 0.012 Triglycerides Level 63 Cholesterol Level 69 L LDL Cholesterol, Calculated 35 HDL Cholesterol 21 L Cholesterol/HDL Ratio 3.2 Vancomycin Level Trough 11.8 Medications Medication Current Medications Vancomycin HCl (Vanco Iv Per Pharmacy) VANCOMYCIN PER PHARMACY PER PROTOCOL XX ; Start 07/05/18 at 18:00 Potassium Chloride/Dextrose/ Sod Cl 1,000 ml @ 70 mls/hr [id number] IV Last administered on 07/07/18at 03:10; Admin Dose 70 MLS/HR; Start 07/05/18 at 18:00 Vancomycin/Sodium Chloride 250 ml @ 125 mls/hr Q12H IVPB Last administered on 07/07/18 17:58; Admin Dose 125 MLS/HR; Start 07/06/18 at 06:00 Ceftriaxone Sodium 50 ml @ 100 mls/hr Q24H IVPB Last administered on 07/07/18 09:53; Admin Dose 100 MLS/HR; Start 07/06/18 at 09:00 Metronidazole 100 ml @ 100 mls/hr Q8 IVPB Last administered on 07/07/18 14:34; Admin Dose 100 MLS/HR; Start 07/05/18 at 22:30 Diphenhydramine HCl (Benadryl) 25 mg Q6H PRN IV ALLERGIC REACTION; Start 07/06/18 at 14:00 Hydromorphone HCl (Dilaudid) 1 mg Q4H PRN IV SEVERE PAIN LEVEL 7-10 Last administered on 07/07/18 16:30; Admin Dose 1 MG; Start 07/06/18 at 17:00 Benazepril HCl (Lotensin) 10 mg BID PO Last administered on 07/07/18 08:28; Admin Dose 10 MG; Start 07/06/18 at 21:00 PRITI BAUTISTA M.D. Jul 07, 2018 19:23
[2018-07-07 19:37] VITALS: BP 150/72; PULSE 63; RESP 18
[2018-07-08] MEDS: FLUCONAZOLE 200 MG (PMX) 100 ML IVPB SCH (00:33)
[2018-07-08] MEDS: HYDROmorphONE 1 MG/ML SYG IV PRN ×2 (00:41→09:22)
[2018-07-08 01:32] VITALS: BP 124/64; PULSE 59; RESP 18
[2018-07-08] MEDS ORDERED: SOD CHLORIDE 0.9% 500 ML IV* SCH ×3 (05:00→20:30)
[2018-07-08] MEDS ORDERED: SOD CHLORIDE 0.9% 250 ML IV* SCH (05:00)
[2018-07-08] MEDS: metroNIDAZOLE 500 MG/NS (PMX) 100 ML IVPB SCH ×2 (05:07→14:45)
[2018-07-08] MEDS: D5-0.2 NACL + KCL 20 MEQ 1,000 ML IV SCH ×2 (05:07→17:30)
[2018-07-08] MEDS: DIPHENHYDRAMINE 25 MG CAP PO SCH ×2 (06:38→18:10)
[2018-07-08 07:26] VITALS: BP 144/74; PULSE 56; RESP 20
[2018-07-08] MEDS: VANCOMYCIN 750 MG (PMX) 250 ML IVPB SCH ×2 (07:31→20:26)
[2018-07-08] MEDS: CEFTRIAXONE 1 GM/50 ML (PMX) 50 ML IVPB SCH (09:14)
[2018-07-08] MEDS: BENAZEPRIL 10 MG TAB PO SCH ×2 (09:15→20:27)
[2018-07-08 13:35] VITALS: BP 149/72; PULSE 59; RESP 20
--- NOTE | 2018-07-08 16:04 | PN ---
Date/Time of Note Date/Time of Note DATE: 07/08/18 TIME: 15:53 Assessment/Plan VTE Prophylaxis Risk score (from [facility] [place])>0 risk: 5 SCD applied (from [facility] [place]): Yes Pharmacological prophylaxis: NA/contraindicated Pharm contraindication: thrombocytopenia Lines/Catheters IV C[facility]ter Type (from [facility]): Peripheral IV Urinary Cath still in place: No Assessment/Plan Hospital Course Patient is n.p.o., continued on IV fluids and multiple antibiotics for intra- abdominal infection, pain is adequately controlled with IV Dilaudid. Assessment/Plan -Entero-cutaneous fistula -Intra-abdominal fluid collection, s/p placement of an external drainage catheter in RLQ 07/06/2018 -Recurrent colon cancer with pelvic carcinomatosis with ascites. Dr. Castillo is following in oncology consultation -Intra-abdominal infection, continue antibiotics per ID. Dr. Lara is following in infection disease consultation. 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 Rios. -Liver cirrhosis -Pancytopenia Further recommendations based on clinical course. Plan of care discussed with Dr. Figueroa. Result Diagram: 07/08/18 0446 07/08/18 0446 Results 24hrs Laboratory Tests Test 07/08/18 04:46 07/08/18 04:49 White Blood Count 3.6 #L Red Blood Count 3.64 L Hemoglobin 11.8 L Hematocrit 35.3 L Mean Corpuscular Volume 97.0 Mean Corpuscular Hemoglobin 32.4 Mean Corpuscular Hemoglobin Concent 33.4 Red Cell Distribution Width 19.9 H Platelet Count 139 L Mean Platelet Volume 10.0 Immature Granulocytes % 0.300 Neutrophils % 59.3 Lymphocytes % 25.9 Monocytes % 10.0 Eosinophils % 3.9 Basophils % 0.6 Nucleated Red Blood Cells % 0.0 Immature Granulocytes # 0.010 Neutrophils # 2.1 Lymphocytes # 0.9 Monocytes # 0.4 Eosinophils # 0.1 Basophils # 0.0 Nucleated Red Blood Cells # 0.0 Sodium Level 142 Potassium Level 3.8 Chloride Level 111 H Carbon Dioxide Level 22 Anion Gap 9 Blood Urea Nitrogen 12 Creatinine 0.56 Est Glomerular Filtrat Rate mL/min > 60 Glucose Level 105 Calcium Level 8.6 Carcinoembryonic Antigen 18.7 H Prothrombin Time 18.0 H Prothrombin Time Ratio 1.4 INR International Normalized Ratio 1.48 Activated Partial Thromboplast Time 34.0 Exam/Review of Systems Exam Vitals Vital Signs Date Temp Pulse Resp B/P (MAP) Pulse Ox O2 O2 Flow FiO2 Time Delivery Rate 07/08/18 98.9 59 20 149/72 97 13:35 (97) 07/06/18 Room Air 13:54 Intake and Output 07/07/18 07/07/18 07/08/18 1515:00 23:00 07:00 IntakeIntake Total 300 ml 770 ml 740 ml BalanceBalance 300 ml 770 ml 740 ml Constitutional: alert, oriented Respiratory: clear to auscultation Cardiovascular: nl pulses Gastrointestinal: other (Right lower quadrant drain, lower midline abdomen enterocutaneous fistula) Extremities: normal pulses Neurological: nl mental status Results Results 24hrs Laboratory Tests Test 07/08/18 04:46 07/08/18 04:49 White Blood Count 3.6 #L Red Blood Count 3.64 L Hemoglobin 11.8 L Hematocrit 35.3 L Mean Corpuscular Volume 97.0 Mean Corpuscular Hemoglobin 32.4 Mean Corpuscular Hemoglobin Concent 33.4 Red Cell Distribution Width 19.9 H Platelet Count 139 L Mean Platelet Volume 10.0 Immature Granulocytes % 0.300 Neutrophils % 59.3 Lymphocytes % 25.9 Monocytes % 10.0 Eosinophils % 3.9 Basophils % 0.6 Nucleated Red Blood Cells % 0.0 Immature Granulocytes # 0.010 Neutrophils # 2.1 Lymphocytes # 0.9 Monocytes # 0.4 Eosinophils # 0.1 Basophils # 0.0 Nucleated Red Blood Cells # 0.0 Sodium Level 142 Potassium Level 3.8 Chloride Level 111 H Carbon Dioxide Level 22 Anion Gap 9 Blood Urea Nitrogen 12 Creatinine 0.56 Est Glomerular Filtrat Rate mL/min > 60 Glucose Level 105 Calcium Level 8.6 Carcinoembryonic Antigen 18.7 H Prothrombin Time 18.0 H Prothrombin Time Ratio 1.4 INR International Normalized Ratio 1.48 Activated Partial Thromboplast Time 34.0 Medications Medication Current Medications Vancomycin HCl (Vanco Iv Per Pharmacy) VANCOMYCIN PER PHARMACY PER PROTOCOL XX ; Start 07/05/18 at 18:00 Potassium Chloride/Dextrose/ Sod Cl 1,000 ml @ 70 mls/hr [id number] IV Last administered on 07/08/18 05:07; Admin Dose 70 MLS/HR; Start 07/05/18 at 18:00 Vancomycin/Sodium Chloride 250 ml @ 62.5 mls/hr Q12H IVPB Last administered on 07/08/18 07:31; Admin Dose 125 MLS/HR; Start 07/06/18 at 06:00 Ceftriaxone Sodium 50 ml @ 100 mls/hr Q24H IVPB Last administered on 07/08/18 09:14; Admin Dose 100 MLS/HR; Start 07/06/18 at 09:00 Metronidazole 100 ml @ 100 mls/hr Q8 IVPB Last administered on 07/08/18 14:45; Admin Dose 100 MLS/HR; Start 07/05/18 at 22:30 Diphenhydramine HCl (Benadryl) 25 mg Q6H PRN IV ALLERGIC REACTION; Start 07/06/18 at 14:00 Hydromorphone HCl (Dilaudid) 1 mg Q4H PRN IV SEVERE PAIN LEVEL 7-10 Last administered on 07/08/18 09:22; Admin Dose 1 MG; Start 07/06/18 at 17:00 Benazepril HCl (Lotensin) 10 mg BID PO Last administered on 07/08/18 09:15; Admin Dose 10 MG; Start 07/06/18 at 21:00 Fluconazole 100 ml @ 100 mls/hr Q24H IVPB Last administered on 07/08/18 00:33; Admin Dose 100 MLS/HR; Start 07/07/18 at 19:30 Diphenhydramine HCl (Benadryl) 25 mg Q12H PO Last administered on 07/08/18 06:38; Admin Dose 25 MG; Start 07/08/18 at 05:30 Sodium Chloride 500 ml @ 250 mls/hr Q12H IV* Last administered on 07/08/18 06:16; Admin Dose 250 MLS/HR; Start 07/08/18 at 05:00 YOON TAVERAS Jul 08, 2018 16:04
--- NOTE | 2018-07-08 18:04 | CONS ---
Assessment/Plan Assessment/Plan Hospital Course (Demo Recall) IMPRESSION: 1. Preoperative evaluation prior to possible abdominal surgery for intraabdominal fistula, carcinomatosis and possible associated abscess formation.-neg trop x 3. Echo 07/06 with EF 55-60/MR 2. Hypertension-continue to be mildly elevated 3. 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 4. 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 5. Anemia, leukopenia, thrombocytopenia/pancytopenia. 6. Dyslpidemia-low HDL 21 LDL 35 Recc: -On med-surg -Will follow BP clsoely on benazepril with possible need for further uptitration. -Follow drain output -ongoing surgical and hem-onc eval -Continue abx's and f/u cx data Consultation Date/Type/Reason Admit Date/Time Jul 05, 2018 at 12:27 Initial Consult Date 07/05/18 Type of Consult Cardiology Reason for Consultation PREOP/htn Requesting Provider: FERNANDA JARRETT Date/Time of Note DATE: 07/08/18 TIME: 18:00 Exam/Review of Systems Vital Signs Vitals Vital Signs Date Temp Pulse Resp B/P (MAP) Pulse Ox O2 O2 Flow FiO2 Time Delivery Rate 07/08/18 98.9 59 20 149/72 97 13:35 (97) 07/06/18 Room Air 13:54 Intake and Output 07/07/18 07/07/18 07/08/18 1515:00 23:00 07:00 IntakeIntake Total 300 ml 770 ml 740 ml BalanceBalance 300 ml 770 ml 740 ml Exam Exam Review of Systems: CONSTITUTIONAL: No fevers, chills. PULMONARY: No sob CARDIOVASCULAR: No chest pain/palpitations GASTROINTESTINAL: No nausea/vomiting. GENITOURINARY: No hematuria/dysuria. MUSCULOSKELETAL: No myagias/arthalgias. PSYCHIATRIC: The patient denies depression. NEUROLOGIC: No weakness Constitutional: alert Psych: no complaints Head: normocephalic ENMT: mucosa pink and moist Neck: supple, jvd Respiratory: diminished breath sounds Cardiovascular: regular rate and rhythm Gastrointestinal: soft, non-tender, surgical scars, other (Drain in place with ostomy bag and urostomy) Musculoskeletal: muscle tone (normal) Extremities: edema (none) Neurological: other (No focal deficits) Labs Result Diagram: 07/08/18 0446 07/08/18 0446 Results 24hrs Laboratory Tests Test 07/08/18 04:46 07/08/18 04:49 White Blood Count 3.6 #L Red Blood Count 3.64 L Hemoglobin 11.8 L Hematocrit 35.3 L Mean Corpuscular Volume 97.0 Mean Corpuscular Hemoglobin 32.4 Mean Corpuscular Hemoglobin Concent 33.4 Red Cell Distribution Width 19.9 H Platelet Count 139 L Mean Platelet Volume 10.0 Immature Granulocytes % 0.300 Neutrophils % 59.3 Lymphocytes % 25.9 Monocytes % 10.0 Eosinophils % 3.9 Basophils % 0.6 Nucleated Red Blood Cells % 0.0 Immature Granulocytes # 0.010 Neutrophils # 2.1 Lymphocytes # 0.9 Monocytes # 0.4 Eosinophils # 0.1 Basophils # 0.0 Nucleated Red Blood Cells # 0.0 Sodium Level 142 Potassium Level 3.8 Chloride Level 111 H Carbon Dioxide Level 22 Anion Gap 9 Blood Urea Nitrogen 12 Creatinine 0.56 Est Glomerular Filtrat Rate mL/min > 60 Glucose Level 105 Calcium Level 8.6 Carcinoembryonic Antigen 18.7 H Prothrombin Time 18.0 H Prothrombin Time Ratio 1.4 INR International Normalized Ratio 1.48 Activated Partial Thromboplast Time 34.0 Medications Medications Current Medications Vancomycin HCl (Vanco Iv Per Pharmacy) VANCOMYCIN PER PHARMACY PER PROTOCOL XX ; Start 07/05/18 at 18:00 Potassium Chloride/Dextrose/ Sod Cl 1,000 ml @ 70 mls/hr [id number] IV Last administered on 07/08/18at 05:07; Admin Dose 70 MLS/HR; Start 07/05/18 at 18:00 Vancomycin/Sodium Chloride 250 ml @ 62.5 mls/hr Q12H IVPB Last administered on 07/08/18at 07:31; Admin Dose 125 MLS/HR; Start 07/06/18 at 06:00 Ceftriaxone Sodium 50 ml @ 100 mls/hr Q24H IVPB Last administered on 07/08/18at 09:14; Admin Dose 100 MLS/HR; Start 07/06/18 at 09:00 Metronidazole 100 ml @ 100 mls/hr Q8 IVPB Last administered on 07/08/18at 14:45; Admin Dose 100 MLS/HR; Start 07/05/18 at 22:30 Diphenhydramine HCl (Benadryl) 25 mg Q6H PRN IV ALLERGIC REACTION; Start 07/06/18 at 14:00 Hydromorphone HCl (Dilaudid) 1 mg Q4H PRN IV SEVERE PAIN LEVEL 7-10 Last administered on 07/08/18 09:22; Admin Dose 1 MG; Start 07/06/18 at 17:00 Benazepril HCl (Lotensin) 10 mg BID PO Last administered on 07/08/18at 09:15; Admin Dose 10 MG; Start 07/06/18 at 21:00 Fluconazole 100 ml @ 100 mls/hr Q24H IVPB Last administered on 07/08/18 00:33; Admin Dose 100 MLS/HR; Start 07/07/18 at 19:30 Diphenhydramine HCl (Benadryl) 25 mg Q12H PO Last administered on 07/08/18at 06:38; Admin Dose 25 MG; Start 07/08/18 at 05:30 Sodium Chloride 500 ml @ 250 mls/hr Q2H IV* Last administered on 07/08/18at 17:37; Admin Dose 250 MLS/HR; Start 07/08/18 at 17:00 BIJAN DWYER Jul 08, 2018 18:04
[2018-07-08 19:54] VITALS: BP 165/85; PULSE 61; RESP 18
--- NOTE | 2018-07-08 20:07 | PN ---
DATE: 07/08/2018 SUBJECTIVE: 1. Complains of pain on the right side where the pigtail drain has been placed. 2. Hungry and she would like to eat. 3. States that has been having diarrhea and today has had 7 time to use the bathroom and is a watery stool coming out (actually this is a continuation of the clean out, which was given by the [facility] for a small bowel follow- through.) OBJECTIVE: GENERAL: Awake, alert, oriented x3. VITAL SIGNS: Temperature maximum today 98.9, heart rate 59, respirations 20, blood pressure 149/72, saturation 97% room air. LABORATORY DATA: WBC 3600 with 59% segmented, which is normal differential. Hemoglobin 11.8, hematocrit 35.3. Chemistry: Sodium, potassium, BUN, creatinine within normal limits. CEA is increased to 18.7, which is high. Coagulation: INR is 1.48, actually has been increasing, even though the patient has been receiving vitamin K, and PT is 18 seconds, which is high as well. PHYSICAL EXAMINATION: HEART: Clinically, heart is regular. LUNGS: Clear. ABDOMEN: Soft. There is a colostomy bag over the area that has been having drainage, but there is not that much of fluid accumulated since they placed it. The pigtail drain has been irrigated every 6 hours with 30 mL of normal saline, and considering this fact in past 24 hours, there has been 80 mL of drainage in past 24 hours to 6 o'clock today morning, but abdomen is soft. Bowel sounds present. IMAGING: We did a small bowel follow-through yesterday and the report is as follows: 1. Drainage catheter in the right lower quadrant. 2. Displacement of small bowel to the left side of the abdomen due to fluid collection on the right side of the abdomen. 3. No evidence of obstruction. 4. Otherwise unremarkable with a small bowel follow-through. She has been by Dr. Billy Young last night at 1730 p.m. As was mentioned, right now there is not much accumulated fluid in the back, maybe 10 mL and that is yellowish greenish. ASSESSMENT AND PLAN: This is a 67-year-old female, who came to the emergency room because of the abdominal pain in the lower part of the abdomen, and appearance of the wound in the lower part of the abdomen, which has been having some drainage, which was yellowish or greenish color, so the patient was evaluated via CT scan and then was admitted for further evaluation. 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 Then, the patient has been followed by Dr. Schneider and Dr. Rios in their office's this year. Patient was complaining of abdominal pain. Therefore, a PET CT scan was ordered and also a CT scan was performed, which showed some supposedly fluid collection in the peritoneal cavity or a mass. Therefore, a percutaneous CT-guided biopsy on April 30 2018, was performed on this patient and the pathology report is in the computer. 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 Therefore, Dr. Schneider ordered for the patient for placement of a tunneled Port-A-Cath, which was done in this hospital in radiology department. PLAN: To start the patient on chemotherapy, but the patient apparently left for [facility] and just came back recently, and because of the pain and drainage, she came to the emergency room. Now we wanted to find out the position of the bowel and see if there is perforation from the small bowel, or from which part of the small bowel is perforated and is leaking to the outside as enterocutaneous fistula. Therefore, a small bowel series was done yesterday. It did not show any obstruction. It showed displacement of the small bowel loops to the left side of the abdominal cavity. Otherwise, the radiologist did not mention anything about the visualization of the leakage and fistula. Therefore, tomorrow, Sunday, I am going to discuss the case with Dr. Schneider, a chemotherapist, and also Dr. 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 Therefore, if any treatment the patient should have cytoreductive procedures done with extensive removal of the peritoneal seeding especially the parietal peritoneum and also intraoperative hot chemotherapy treatment and followed by later on continuation of chemotherapy. I do not think anybody is doing this procedure in this hospital. Therefore, we may have to decide to refer the patient to a higher level of care center , like [facility], or [facility] where they do have expertise and facility . I will discuss this matter with Dr. Schneider and Dr. Rios and we will see what the conclusion will be. Meanwhile, we are going to start patient back on full liquid diet tonight and will see how the patient is going to be doing by tomorrow. Dictated By: GLO OSBORN MD PS/NTS Conf#: [id number] DID#: [id number] CC: ADELAIDE FERREIRA MD; KARON SCHNEIDER;*EndCC* MTDD
[2018-07-09] MEDS: FLUCONAZOLE 200 MG (PMX) 100 ML IVPB SCH ×2 (00:41→20:24)
[2018-07-09 01:29] VITALS: BP_SYST 151; BP_SYST 164; BP_DIAS 75; BP_DIAS 77; PULSE 56; PULSE 62; RESP 18
[2018-07-09] MEDS: metroNIDAZOLE 500 MG/NS (PMX) 100 ML IVPB SCH ×4 (01:50→22:26)
[2018-07-09] MEDS: HYDROmorphONE 1 MG/ML SYG IV PRN (04:08)
[2018-07-09] MEDS: SOD CHLORIDE 0.9% 250 ML IVPB SCH ×2 (04:57→17:30)
[2018-07-09] MEDS ORDERED: SOD CHLORIDE 0.9% 500 ML IV* SCH (05:00)
[2018-07-09] MEDS: DIPHENHYDRAMINE 25 MG CAP PO SCH ×2 (06:37→18:00)
[2018-07-09] MEDS: VANCOMYCIN 750 MG (PMX) 250 ML IVPB SCH ×2 (07:07→18:37)
[2018-07-09 07:41] VITALS: BP 166/79; PULSE 59; RESP 20
[2018-07-09] MEDS: D5-0.2 NACL + KCL 20 MEQ 1,000 ML IV SCH ×3 (07:48→22:06)
[2018-07-09] MEDS: BENAZEPRIL 10 MG TAB PO SCH ×2 (08:59→20:25)
[2018-07-09] MEDS: CEFTRIAXONE 1 GM/50 ML (PMX) 50 ML IVPB SCH (08:59)
--- NOTE | 2018-07-09 11:20 | CONS ---
Consult Date/Type/Reason Admit Date/Time Jul 05, 2018 at 12:27 Initial Consult Date 07/05/18 Requesting Provider: FERNANDA JARRETT Date/Time of Note DATE: 07/09/18 TIME: 11:19 Subjective NO acute events - pt comfortable - no CP noted - con't anti-Bx. ROS: No fever, no chills, no nausea, no vomiting, no diarrhea/constipation No recent weight changes No chest pain, no PND, no orthopnea + hip pain No dizziness, blurred vision No thirst, no heat or cold intolerance Objective Vitals Vital Signs Date Temp Pulse Resp B/P (MAP) Pulse Ox O2 O2 Flow FiO2 Time Delivery Rate 07/09/18 97.7 59 20 166/79 97 07:41 (108) 07/06/18 Room Air 13:54 Intake and Output 07/08/18 07/08/18 07/09/18 1515:00 23:00 07:00 IntakeIntake Total 550 ml 1480 ml 1110 ml OutputOutput Total 250 ml 30 ml 20 ml BalanceBalance 300 ml 1450 ml 1090 ml Exam General: WN/WD/NAD, AOx 3 Pashto HEENT: Unicetric/atraumatic/EOMI (follow commands) NECK: JVD elevated, no thyromegaly Lymph: no lymphadenopathy HEART: regular with no S3, II/ systolic murmur at apex LUNGS: Coarse sounds ABD: soft, NT, ND, +BS : Intact Neuro: non focal SKIN: chronic changes - drains EXT: trace edema Results/Medications Result Diagram: 07/09/18 0500 07/09/18 0500 Results 24 hrs Laboratory Tests Test 07/09/18 05:00 White Blood Count 4.1 L Red Blood Count 3.68 L Hemoglobin 11.9 L Hematocrit 35.3 L Mean Corpuscular Volume 95.9 Mean Corpuscular Hemoglobin 32.3 Mean Corpuscular Hemoglobin Concent 33.7 Red Cell Distribution Width 19.5 H Platelet Count 95 #L Mean Platelet Volume 11.4 H Immature Granulocytes % 0.200 Neutrophils % 64.8 Lymphocytes % 22.3 Monocytes % 8.3 Eosinophils % 3.7 Basophils % 0.7 Nucleated Red Blood Cells % 0.0 Immature Granulocytes # 0.010 Neutrophils # 2.6 Lymphocytes # 0.9 Monocytes # 0.3 Eosinophils # 0.2 Basophils # 0.0 Nucleated Red Blood Cells # 0.0 Sodium Level 140 Potassium Level 4.1 Chloride Level 111 H Carbon Dioxide Level 20 L Anion Gap 9 Blood Urea Nitrogen 9 Creatinine 0.49 Est Glomerular Filtrat Rate mL/min > 60 Glucose Level 91 Calcium Level 8.2 L Home Meds Reported Medications Ondansetron Hcl* (Zofran*) 8 Mg Tablet, 8 MG PO Q12 PRN for NAUSEA AND OR VOMITING, TAB 05/30/18 Capecitabine* (Xeloda*) 500 Mg Tablet, 1000 MG PO QPM, TBS 05/30/18 Capecitabine* (Xeloda*) 500 Mg Tablet, 1500 MG PO QAM, TAB 05/30/18 Metoclopramide* (Reglan*) 10 Mg Tablet, 10 MG PO BID WITH MEALS PRN for NAUSEA AND/OR VOMITING, TAB 05/30/18 Discontinued Reported Medications Acetaminophen-Codeine* (Acetaminophen-Cod #2*) 300-15 Mg Tab, 1 TAB PO Q6 PRN for PAIN, #30 TAB 05/30/18 Medications Current Medications Vancomycin HCl (Vanco Iv Per Pharmacy) VANCOMYCIN PER PHARMACY PER PROTOCOL XX ; Start 07/05/18 at 18:00 Potassium Chloride/Dextrose/ Sod Cl 1,000 ml @ 70 mls/hr [id number] IV Last administered on 07/08/18at 05:07; Admin Dose 70 MLS/HR; Start 07/05/18 at 18:00 Vancomycin/Sodium Chloride 250 ml @ 62.5 mls/hr Q12H IVPB Last administered on 07/09/18at 07:07; Admin Dose 62.5 MLS/HR; Start 07/06/18 at 06:00 Ceftriaxone Sodium 50 ml @ 100 mls/hr Q24H IVPB Last administered on 07/09/18at 08:59; Admin Dose 100 MLS/HR; Start 07/06/18 at 09:00 Metronidazole 100 ml @ 100 mls/hr Q8 IVPB Last administered on 07/09/18at 06:07; Admin Dose 100 MLS/HR; Start 07/05/18 at 22:30 Diphenhydramine HCl (Benadryl) 25 mg Q6H PRN IV ALLERGIC REACTION; Start 07/06/18 at 14:00 Hydromorphone HCl (Dilaudid) 1 mg Q4H PRN IV SEVERE PAIN LEVEL 7-10 Last administered on 07/09/18 04:08; Admin Dose 1 MG; Start 07/06/18 at 17:00 Benazepril HCl (Lotensin) 10 mg BID PO Last administered on 07/09/18at 08:59; Admin Dose 10 MG; Start 07/06/18 at 21:00 Fluconazole 100 ml @ 100 mls/hr Q24H IVPB Last administered on 07/09/18at 00:41; Admin Dose 100 MLS/HR; Start 07/07/18 at 19:30 Diphenhydramine HCl (Benadryl) 25 mg Q12H PO Last administered on 07/09/18at 06:37; Admin Dose 25 MG; Start 07/08/18 at 05:30 Sodium Chloride 250 ml @ 250 mls/hr Q12H IVPB Last administered on 07/09/18 04:57; Admin Dose 250 MLS/HR; Start 07/09/18 at 05:00 Assessment/Plan Hospital Course (Demo Recall) 1. Preoperative evaluation prior to possible abdominal surgery for intraabdominal fistula, carcinomatosis and possible associated abscess fo rmation.-neg trop x 3. Echo 07/06 with EF 55-60/MR - stable now 2. Hypertension-continue to be mildly elevated - will add Rx now 3. 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 Cox follows. 4. 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 5. Anemia, leukopenia, thrombocytopenia/pancytopenia. on meds and anti-Bx. 6. Dyslpidemia-low HDL 21 LDL 35 JOAN RICE MD Jul 09, 2018 11:20
--- NOTE | 2018-07-09 13:10 | CONS ---
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 albicans so far - s/p placement of an external drainage catheter in RLQ 07/06/2018 - displacement of small bowel to L side due to fluid collection on R side of the abdomen, without e/o obstruction on SBFT on 07/07/2018 - large abdominal and pelvic midline anterior incisional related hernia, a loop of bowel which extends into the right lower quadrant portion of the hernia demonstrates focal dilatation with marked wall thickening and edema worrisome for focal strangulation of this loop of small bowel without evidence of obstruction on CT on 07/05/2018 - h/o mucinous adenocarcinoma, moderately-well differentiated, involving the cecum, ileocecal valve and adjacent ascending colon - h/o extended R hemicolectomy on 06/26/2016 - h/o infection of the abdominal wound due to E. 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 IV fluconazole (07/07/2018-) - will adjust the antibiotics further based on the final culture results - await wound care consult for application of an ostomy bag over the fistula opening Consultation Date/Type/Reason Admit Date/Time Jul 05, 2018 at 12:27 Initial Consult Date 07/05/18 Requesting Provider: FERNANDA JARRETT Date/Time of Note DATE: 07/09/18 TIME: 13:06 24 HR Interval Summary Free Text/Dictation she has no major complaints.Hx limited by language. Exam/Review of Systems Exam Vitals Vital Signs Date Temp Pulse Resp B/P (MAP) Pulse Ox O2 O2 Flow FiO2 Time Delivery Rate 07/09/18 97.7 59 20 166/79 97 07:41 (108) 07/06/18 Room Air 13:54 Intake and Output 07/08/18 07/08/18 07/09/18 1515:00 23:00 07:00 IntakeIntake Total 550 ml 1480 ml 1110 ml OutputOutput Total 250 ml 30 ml 20 ml BalanceBalance 300 ml 1450 ml 1090 ml Constitutional: alert, oriented, well developed Psych: no complaints, nl mood/affect Head: normocephalic, atraumatic Eyes: nl conjunctiva, EOMI, nl lids, nl sclera, PERRL Respiratory: clear to auscultation, normal air movement Cardiovascular: regular rate and rhythm, nl pulses Gastrointestinal: soft, nl liver, spleen, non-tender Neurological: DIE FORGER II-XII intact, nl mental status, nl speech, nl strength Results Result Diagram: 07/09/18 0500 07/09/18 0500 Results 24hrs Laboratory Tests Test 07/09/18 05:00 White Blood Count 4.1 L Red Blood Count 3.68 L Hemoglobin 11.9 L Hematocrit 35.3 L Mean Corpuscular Volume 95.9 Mean Corpuscular Hemoglobin 32.3 Mean Corpuscular Hemoglobin Concent 33.7 Red Cell Distribution Width 19.5 H Platelet Count 95 #L Mean Platelet Volume 11.4 H Immature Granulocytes % 0.200 Neutrophils % 64.8 Lymphocytes % 22.3 Monocytes % 8.3 Eosinophils % 3.7 Basophils % 0.7 Nucleated Red Blood Cells % 0.0 Immature Granulocytes # 0.010 Neutrophils # 2.6 Lymphocytes # 0.9 Monocytes # 0.3 Eosinophils # 0.2 Basophils # 0.0 Nucleated Red Blood Cells # 0.0 Sodium Level 140 Potassium Level 4.1 Chloride Level 111 H Carbon Dioxide Level 20 L Anion Gap 9 Blood Urea Nitrogen 9 Creatinine 0.49 Est Glomerular Filtrat Rate mL/min > 60 Glucose Level 91 Calcium Level 8.2 L Medications Medication Current Medications Vancomycin HCl (Vanco Iv Per Pharmacy) VANCOMYCIN PER PHARMACY PER PROTOCOL XX ; Start 07/05/18 at 18:00 Potassium Chloride/Dextrose/ Sod Cl 1,000 ml @ 70 mls/hr [id number] IV Last administered on 07/08/18 05:07; Admin Dose 70 MLS/HR; Start 07/05/18 at 18:00 Vancomycin/Sodium Chloride 250 ml @ 62.5 mls/hr Q12H IVPB Last administered on 07/09/18 07:07; Admin Dose 62.5 MLS/HR; Start 07/06/18 at 06:00 Ceftriaxone Sodium 50 ml @ 100 mls/hr Q24H IVPB Last administered on 07/09/18 08:59; Admin Dose 100 MLS/HR; Start 07/06/18 at 09:00 Metronidazole 100 ml @ 100 mls/hr Q8 IVPB Last administered on 07/09/18 06:07; Admin Dose 100 MLS/HR; Start 07/05/18 at 22:30 Diphenhydramine HCl (Benadryl) 25 mg Q6H PRN IV ALLERGIC REACTION; Start 07/06/18 at 14:00 Hydromorphone HCl (Dilaudid) 1 mg Q4H PRN IV SEVERE PAIN LEVEL 7-10 Last administered on 07/09/18 04:08; Admin Dose 1 MG; Start 07/06/18 at 17:00 Benazepril HCl (Lotensin) 10 mg BID PO Last administered on 07/09/18 08:59; Admin Dose 10 MG; Start 07/06/18 at 21:00 Fluconazole 100 ml @ 100 mls/hr Q24H IVPB Last administered on 07/09/18 00:41; Admin Dose 100 MLS/HR; Start 07/07/18 at 19:30 Diphenhydramine HCl (Benadryl) 25 mg Q12H PO Last administered on 07/09/18 06:37; Admin Dose 25 MG; Start 07/08/18 at 05:30 Sodium Chloride 250 ml @ 250 mls/hr Q12H IVPB Last administered on 07/09/18 04:57; Admin Dose 250 MLS/HR; Start 07/09/18 at 05:00 Nifedipine (Procardia Xl) 30 mg BID PO ; Start 07/09/18 at 21:00 ROSALIE ELLIOTT MD Jul 09, 2018 13:10
--- NOTE | 2018-07-09 13:27 | CONS ---
Consult Date/Type/Reason Admit Date/Time Jul 05, 2018 at 12:27 Initial Consult Date 07/05/18 Requesting Provider: FERNANDA JARRETT Date/Time of Note DATE: 07/09/18 TIME: 13:25 Subjective better no fever no pain no bleeding still abd wall fistula wound >> dressing Objective Vitals Vital Signs Date Temp Pulse Resp B/P (MAP) Pulse Ox O2 O2 Flow FiO2 Time Delivery Rate 07/09/18 97.7 59 20 166/79 97 07:41 (108) 07/06/18 Room Air 13:54 Intake and Output 07/08/18 07/08/18 07/09/18 1515:00 23:00 07:00 IntakeIntake Total 550 ml 1480 ml 1110 ml OutputOutput Total 250 ml 30 ml 20 ml BalanceBalance 300 ml 1450 ml 1090 ml Exam S1S2 Clear lungs abd fistula/wound >> dressing Results/Medications Result Diagram: 07/09/18 0500 07/09/18 0500 Results 24 hrs Laboratory Tests Test 07/09/18 05:00 White Blood Count 4.1 L Red Blood Count 3.68 L Hemoglobin 11.9 L Hematocrit 35.3 L Mean Corpuscular Volume 95.9 Mean Corpuscular Hemoglobin 32.3 Mean Corpuscular Hemoglobin Concent 33.7 Red Cell Distribution Width 19.5 H Platelet Count 95 #L Mean Platelet Volume 11.4 H Immature Granulocytes % 0.200 Neutrophils % 64.8 Lymphocytes % 22.3 Monocytes % 8.3 Eosinophils % 3.7 Basophils % 0.7 Nucleated Red Blood Cells % 0.0 Immature Granulocytes # 0.010 Neutrophils # 2.6 Lymphocytes # 0.9 Monocytes # 0.3 Eosinophils # 0.2 Basophils # 0.0 Nucleated Red Blood Cells # 0.0 Sodium Level 140 Potassium Level 4.1 Chloride Level 111 H Carbon Dioxide Level 20 L Anion Gap 9 Blood Urea Nitrogen 9 Creatinine 0.49 Est Glomerular Filtrat Rate mL/min > 60 Glucose Level 91 Calcium Level 8.2 L Home Meds Reported Medications Ondansetron Hcl* (Zofran*) 8 Mg Tablet, 8 MG PO Q12 PRN for NAUSEA AND OR VOMITING, TAB 05/30/18 Capecitabine* (Xeloda*) 500 Mg Tablet, 1000 MG PO QPM, TBS 05/30/18 Capecitabine* (Xeloda*) 500 Mg Tablet, 1500 MG PO QAM, TAB 05/30/18 Metoclopramide* (Reglan*) 10 Mg Tablet, 10 MG PO BID WITH MEALS PRN for NAUSEA AND/OR VOMITING, TAB 05/30/18 Discontinued Reported Medications Acetaminophen-Codeine* (Acetaminophen-Cod #2*) 300-15 Mg Tab, 1 TAB PO Q6 PRN for PAIN, #30 TAB 05/30/18 Medications Current Medications Vancomycin HCl (Vanco Iv Per Pharmacy) VANCOMYCIN PER PHARMACY PER PROTOCOL XX ; Start 07/05/18 at 18:00 Potassium Chloride/Dextrose/ Sod Cl 1,000 ml @ 70 mls/hr [id number] IV Last administered on 07/08/18at 05:07; Admin Dose 70 MLS/HR; Start 07/05/18 at 18:00 Vancomycin/Sodium Chloride 250 ml @ 62.5 mls/hr Q12H IVPB Last administered on 07/09/18at 07:07; Admin Dose 62.5 MLS/HR; Start 07/06/18 at 06:00 Metronidazole 100 ml @ 100 mls/hr Q8 IVPB Last administered on 07/09/18at 06:07; Admin Dose 100 MLS/HR; Start 07/05/18 at 22:30 Diphenhydramine HCl (Benadryl) 25 mg Q6H PRN IV ALLERGIC REACTION; Start 07/06/18 at 14:00 Hydromorphone HCl (Dilaudid) 1 mg Q4H PRN IV SEVERE PAIN LEVEL 7-10 Last administered on 07/09/18at 04:08; Admin Dose 1 MG; Start 07/06/18 at 17:00 Benazepril HCl (Lotensin) 10 mg BID PO Last administered on 07/09/18at 08:59; Admin Dose 10 MG; Start 07/06/18 at 21:00 Fluconazole 100 ml @ 100 mls/hr Q24H IVPB Last administered on 07/09/18at 00:41; Admin Dose 100 MLS/HR; Start 07/07/18 at 19:30 Diphenhydramine HCl (Benadryl) 25 mg Q12H PO Last administered on 07/09/18at 06:37; Admin Dose 25 MG; Start 07/08/18 at 05:30 Sodium Chloride 250 ml @ 250 mls/hr Q12H IVPB Last administered on 07/09/18at 04:57; Admin Dose 250 MLS/HR; Start 07/09/18 at 05:00 Nifedipine (Procardia Xl) 30 mg BID PO ; Start 07/09/18 at 21:00 Assessment/Plan Assessment/Plan (Daily) 1. A 67-year-old female with a chronic alcoholic liver disease, cirrhosis, history of hypertension and x1. 2. 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 3. Has been on Xeloda, oxaliplatin and base chemotherapy. 4. Now with abdominal wall fistula abscesses. 5. IV antibiotics and surgical care. 6. Wound dressing per protocol. Per surgery, per wound care. 7. No active chemotherapy at this time until the sepsis infection, abscesses all are drained and cleared out. 8. Keep hemoglobin above 9, hematocrit above 27. 9. Keep platelets above 20,000. 10. Pain medications, IV hydration, electrolytes. 11.Keep Hb > 8.5 platelets > 55,000 12. Mild TCP from infection and ABX KARON SCHNEIDER Jul 09, 2018 13:27
[2018-07-09 14:14] VITALS: BP 150/78; PULSE 58; RESP 18
--- NOTE | 2018-07-09 17:18 | PN ---
DATE: 07/09/2018 SUBJECTIVE: No specific complaint. No new event. OBJECTIVE: GENERAL: Awake, alert, oriented. VITAL SIGNS: Temperature maximum today 97.7, heart rate 58, respiration 18, blood pressure 160/78, saturation 98% room air. HEART: Regular. LUNGS: Clear. ABDOMEN: Soft, distended. EXTREMITIES: Legs have no calf tenderness. LABORATORY DATA: WBC 4100 with 64% neutrophils, hemoglobin 11.9, hematocrit 35.3, platelet count is 95,000. Chemistry: Sodium, potassium are normal. BUN and creatinine are normal. INPUT AND OUTPUT: There is an ileostomy bag over the lower abdominal wound - fistula some yellowish mildly brownish liquid has been draining, but since the bag has not been properly mounted, there has been some leakage and I cannot exactly say how much has been draining. The pigtail drain is in place which was placed by radiologist on Sunday that means 3 days ago. The amount of drainage today has been only 10 mL. (Apparently, the gelatinous material which is very thick where the tip of the catheter is placed cannot be drained through this drainage catheter). ASSESSMENT AND PLAN: This is a 67-year-old female with recurrence of the cancer of the colon which was first diagnosed and operated in 05/2016 with extended right hemicolectomy. 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 (Comment: The biopsy shows aboundant mucin with rare tumor cells which is compatible with mucinous adenocarcinoma). 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 Rios and Dr. Schneider, the chemotherapy for this patient and they all agreed that this patient needs special kind of surgery and intraoperative HOT chemotherapy that cannot be provided in this hospital and the patient should be transferred or should be dealt with in the higher level of care probably [facility] or [facility] or [facility]. I discussed the matter with counseling case manager to see if we can find a way to transfer the patient to those hospitals for the kind of treatment which was mentioned namely extensive cytoreductive and debulking procedure followed by intra operative hot chemotherapy intraoperatively intraperitoneally. 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 Otherwise, we cannot address this fistula alone because this bowel loop appears to be situated in the center of the pathology and the center of the pseudomyxoma material. We will continue to follow and awaiting for word from the counseling case manager, hoping that we can find a way to transfer the patient to a higher level of care. Dictated By: GLO OSBORN MD PS/NTS Conf#: [id number] DID#: [id number] CC: ADELAIDE FERREIRA MD; KARON SCHNEIDER;*EndCC* MTDD
--- NOTE | 2018-07-09 17:57 | PN ---
Date/Time of Note Date/Time of Note DATE: 07/09/18 TIME: 17:54 Assessment/Plan VTE Prophylaxis Risk score (from Ns)>0 risk: 5 SCD applied (from Ns): Yes Pharmacological prophylaxis: NA/contraindicated Pharm contraindication: thrombocytopenia Lines/Catheters [facility] Type [facility]): Peripheral IV Urinary Cath still in place: No Assessment/Plan Hospital Course Patient remains hemodynamically stable, afebrile, continue current wound care per wound consult recommendation. Case management for arrangement for transfer to tertiary facility for tumor debulking surgery. Assessment/Plan -Entero-cutaneous fistula -Intra-abdominal fluid collection, s/p placement of an external drainage catheter in RLQ 07/06/2018 -Recurrent colon cancer with pelvic carcinomatosis with ascites. Dr. Castillo is following in oncology consultation -Intra-abdominal infection, continue antibiotics per ID. Dr. Lara is following in infection disease consultation. 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 Rios. -Liver cirrhosis -Pancytopenia Further recommendations based on clinical course. Plan of care discussed with Dr. Figueroa. Result Diagram: 07/09/18 0500 07/09/18 0500 Results 24hrs Laboratory Tests Test 07/09/18 05:00 White Blood Count 4.1 L Red Blood Count 3.68 L Hemoglobin 11.9 L Hematocrit 35.3 L Mean Corpuscular Volume 95.9 Mean Corpuscular Hemoglobin 32.3 Mean Corpuscular Hemoglobin Concent 33.7 Red Cell Distribution Width 19.5 H Platelet Count 95 #L Mean Platelet Volume 11.4 H Immature Granulocytes % 0.200 Neutrophils % 64.8 Lymphocytes % 22.3 Monocytes % 8.3 Eosinophils % 3.7 Basophils % 0.7 Nucleated Red Blood Cells % 0.0 Immature Granulocytes # 0.010 Neutrophils # 2.6 Lymphocytes # 0.9 Monocytes # 0.3 Eosinophils # 0.2 Basophils # 0.0 Nucleated Red Blood Cells # 0.0 Sodium Level 140 Potassium Level 4.1 Chloride Level 111 H Carbon Dioxide Level 20 L Anion Gap 9 Blood Urea Nitrogen 9 Creatinine 0.49 Est Glomerular Filtrat Rate mL/min > 60 Glucose Level 91 Calcium Level 8.2 L Exam/Review of Systems Exam Vitals Vital Signs Date Temp Pulse Resp B/P (MAP) Pulse Ox O2 O2 Flow FiO2 Time Delivery Rate 07/09/18 97.7 58 18 150/78 98 14:14 (102) 07/06/18 Room Air 13:54 Intake and Output 07/08/18 07/08/18 07/09/18 1515:00 23:00 07:00 IntakeIntake Total 550 ml 1480 ml 1110 ml OutputOutput Total 250 ml 30 ml 20 ml BalanceBalance 300 ml 1450 ml 1090 ml Exam Constitutional: alert, oriented Respiratory: clear to auscultation Cardiovascular: nl pulses Gastrointestinal: other (Right lower quadrant drain, lower midline abdomen enterocutaneous fistula) Extremities: normal pulses Neurological: nl mental status Results Results 24hrs Laboratory Tests Test 07/09/18 05:00 White Blood Count 4.1 L Red Blood Count 3.68 L Hemoglobin 11.9 L Hematocrit 35.3 L Mean Corpuscular Volume 95.9 Mean Corpuscular Hemoglobin 32.3 Mean Corpuscular Hemoglobin Concent 33.7 Red Cell Distribution Width 19.5 H Platelet Count 95 #L Mean Platelet Volume 11.4 H Immature Granulocytes % 0.200 Neutrophils % 64.8 Lymphocytes % 22.3 Monocytes % 8.3 Eosinophils % 3.7 Basophils % 0.7 Nucleated Red Blood Cells % 0.0 Immature Granulocytes # 0.010 Neutrophils # 2.6 Lymphocytes # 0.9 Monocytes # 0.3 Eosinophils # 0.2 Basophils # 0.0 Nucleated Red Blood Cells # 0.0 Sodium Level 140 Potassium Level 4.1 Chloride Level 111 H Carbon Dioxide Level 20 L Anion Gap 9 Blood Urea Nitrogen 9 Creatinine 0.49 Est Glomerular Filtrat Rate mL/min > 60 Glucose Level 91 Calcium Level 8.2 L Medications Medication Current Medications Vancomycin HCl (Vanco Iv Per Pharmacy) VANCOMYCIN PER PHARMACY PER PROTOCOL XX ; Start 07/05/18 at 18:00 Potassium Chloride/Dextrose/ Sod Cl 1,000 ml @ 70 mls/hr [id number] IV Last administered on 07/09/18at 14:32; Admin Dose 70 MLS/HR; Start 07/05/18 at 18:00 Vancomycin/Sodium Chloride 250 ml @ 62.5 mls/hr Q12H IVPB Last administered on 07/09/18at 07:07; Admin Dose 62.5 MLS/HR; Start 07/06/18 at 06:00 Metronidazole 100 ml @ 100 mls/hr Q8 IVPB Last administered on 07/09/18 14:32; Admin Dose 100 MLS/HR; Start 07/05/18 at 22:30 Diphenhydramine HCl (Benadryl) 25 mg Q6H PRN IV ALLERGIC REACTION; Start 07/06/18 at 14:00 Hydromorphone HCl (Dilaudid) 1 mg Q4H PRN IV SEVERE PAIN LEVEL 7-10 Last administered on 07/09/18at 04:08; Admin Dose 1 MG; Start 07/06/18 at 17:00 Benazepril HCl (Lotensin) 10 mg BID PO Last administered on 07/09/18 08:59; Admin Dose 10 MG; Start 07/06/18 at 21:00 Fluconazole 100 ml @ 100 mls/hr Q24H IVPB Last administered on 07/09/18 00:41; Admin Dose 100 MLS/HR; Start 07/07/18 at 19:30 Diphenhydramine HCl (Benadryl) 25 mg Q12H PO Last administered on 07/09/18 06:37; Admin Dose 25 MG; Start 07/08/18 at 05:30 Sodium Chloride 250 ml @ 250 mls/hr Q12H IVPB Last administered on 07/09/18 17:30; Admin Dose 250 MLS/HR; Start 07/09/18 at 05:00 Nifedipine (Procardia Xl) 30 mg BID PO ; Start 07/09/18 at 21:00 YOON TAVERAS Jul 09, 2018 17:57
[2018-07-09 19:41] VITALS: BP 143/76; PULSE 64; RESP 18
[2018-07-09] MEDS: NIFEdipine (XL) 30 MG TAB PO SCH (20:25)
[2018-07-10 01:04] VITALS: BP 101/59; PULSE 71; RESP 18
[2018-07-10] MEDS: DIPHENHYDRAMINE 25 MG CAP PO SCH ×2 (04:32→17:25)
[2018-07-10] MEDS: SOD CHLORIDE 0.9% 250 ML IVPB SCH ×2 (04:34→16:54)
[2018-07-10] MEDS: metroNIDAZOLE 500 MG/NS (PMX) 100 ML IVPB SCH ×3 (05:30→22:57)
[2018-07-10] MEDS: VANCOMYCIN 750 MG (PMX) 250 ML IVPB SCH ×2 (06:33→17:56)
[2018-07-10 07:56] VITALS: BP 104/59; PULSE 58; RESP 18
[2018-07-10] MEDS: BENAZEPRIL 10 MG TAB PO SCH ×2 (09:00→21:00)
[2018-07-10] MEDS: NIFEdipine (XL) 30 MG TAB PO SCH (09:50)
[2018-07-10] MEDS: HYDROmorphONE 1 MG/ML SYG IV PRN (09:58)
--- NOTE | 2018-07-10 10:19 | CONS ---
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 albicans so far - s/p placement of an external drainage catheter in RLQ 07/06/2018 - displacement of small bowel to L side due to fluid collection on R side of the abdomen, without e/o obstruction on SBFT on 07/07/2018 - large abdominal and pelvic midline anterior incisional related hernia, a loop of bowel which extends into the right lower quadrant portion of the hernia demonstrates focal dilatation with marked wall thickening and edema worrisome for focal strangulation of this loop of small bowel without evidence of obstruction on CT on 07/05/2018 - h/o mucinous adenocarcinoma, moderately-well differentiated, involving the cecum, ileocecal valve and adjacent ascending colon - h/o extended R hemicolectomy on 06/26/2016 - h/o infection of the abdominal wound due to E. coli in 2017 - h/o drainage of abscess and wound VAC placement in 2017 - liver cirrhosis with moderate to prominent loculated ascites, hepatitis panel on 07/06/2018 was negative - prominent splenomegaly - marked upper abdominal varices including varices at the GE junction - cholelithiasis # other issues - pancytopenia - macerated skin of the abdomen due to the draining enterocutaneous fistulra - red man syndrome due to vancomycin - allergy to PCN (throat swelling), and tetracycline Recommendations: - pending: culture of fluid draining from the enterocutaneous fistula (07/05/2018), aerobic and anaerobic cultures and cytology of fluid in the external drainage bag - continue IV vanc and metronidazole (07/05/2018-) - for red man syndrome: premedicate each infusion of IV vancomycin with PO benadryl and NS 250 mL bolus - cont. IV fluconazole (07/07/2018-) - will adjust the antibiotics further based on the final culture results - await wound care consult for application of an ostomy bag over the fistula opening Plan was d/w patient, family at bedside, and with Dr. Lyons. Thank you Consultation Date/Type/Reason Admit Date/Time Jul 05, 2018 at 12:27 Initial Consult Date 07/05/18 Type of Consult ID Requesting Provider: FERNANDA JARRETT Date/Time of Note DATE: 07/10/18 TIME: 10:17 24 HR Interval Summary Free Text/Dictation Patient has remained afebrile with no acute issues reported by nursing. Detailed Summary Eyes: no complaints ENT: no complaints Respiratory: no complaints Cardiovascular: no complaints Gastrointestinal: pain (reports pain max 8/10 without pain meds, after pain meds 0/10 - currently 0/10 ), diarrhea; No constipation, No decreased appetite, No nausea, No vomiting Genitourinary: no complaints Musculoskeletal: no complaints Skin: other (drainage from midabdominal fistula site. Large amt of drainage from R external drainage catheter.) Neurologic: no complaints Psychological: no complaints, nl mood/affect Exam/Review of Systems Exam Vitals Vital Signs Date Temp Pulse Resp B/P (MAP) Pulse Ox O2 O2 Flow FiO2 Time Delivery Rate 07/10/18 97.4 58 18 104/59 97 07:56 (74) 07/06/18 Room Air 13:54 Intake and Output 07/09/18 07/09/18 07/10/18 1515:00 23:00 07:00 IntakeIntake Total 1870 ml 1540 ml 1280 ml OutputOutput Total 10 ml 25 ml BalanceBalance 1860 ml 1515 ml 1280 ml Allergies Coded Allergies Penicillins (Verified Allergy, Unknown, 07/05/18) acetaminophen (Verified Allergy, Unknown, 07/05/18) tetracycline (Verified Allergy, Unknown, VERTIGO, N&V, 07/05/18) . Constitutional: alert, oriented, well developed, other (slovak speaking) Psych: no complaints, nl mood/affect Head: normocephalic, atraumatic Eyes: nl conjunctiva, nl lids, nl sclera ENMT: nl external ears & nose, nl nasal mucosa & septum, mucosa pink and moist (no thrush noted) Neck: supple, non-tender Respiratory: clear to auscultation, normal air movement; No labored breathing, No wheezing Cardiovascular: regular rate and rhythm, nl pulses Gastrointestinal: soft, bowel sounds, surgical scars, other (midabdominal wound with yellow/green fluid noted. R abdominal external drainage catheter draining yellow fluid.) Genitourinary - Female: other (no f/c) Musculoskeletal: nl extremities to inspection Extremities: normal pulses; No edema Neurological: MOLD MECHANIC II-XII intact, nl mental status, nl speech, nl strength Skin: nl turgor; No rash or lesions Results Result Diagram: 07/09/18 0500 07/09/18 0500 Medications Medication Current Medications Vancomycin HCl (Vanco Iv Per Pharmacy) VANCOMYCIN PER PHARMACY PER PROTOCOL XX ; Start 07/05/18 at 18:00 Potassium Chloride/Dextrose/ Sod Cl 1,000 ml @ 70 mls/hr [id number] IV Last administered on 07/09/18 14:32; Admin Dose 70 MLS/HR; Start 07/05/18 at 18:00 Vancomycin/Sodium Chloride 250 ml @ 62.5 mls/hr Q12H IVPB Last administered on 07/10/18 06:33; Admin Dose 62.5 MLS/HR; Start 07/06/18 at 06:00 Metronidazole 100 ml @ 100 mls/hr Q8 IVPB Last administered on 07/10/18 05:30; Admin Dose 100 MLS/HR; Start 07/05/18 at 22:30 Diphenhydramine HCl (Benadryl) 25 mg Q6H PRN IV ALLERGIC REACTION; Start 07/06/18 at 14:00 Hydromorphone HCl (Dilaudid) 1 mg Q4H PRN IV SEVERE PAIN LEVEL 7-10 Last administered on 07/10/18 09:58; Admin Dose 1 MG; Start 07/06/18 at 17:00 Benazepril HCl (Lotensin) 10 mg BID PO Last administered on 07/09/18 20:25; Admin Dose 10 MG; Start 07/06/18 at 21:00 Fluconazole 100 ml @ 100 mls/hr Q24H IVPB Last administered on 07/09/18 20:24; Admin Dose 100 MLS/HR; Start 07/07/18 at 19:30 Diphenhydramine HCl (Benadryl) 25 mg Q12H PO Last administered on 07/10/18 04:32; Admin Dose 25 MG; Start 07/08/18 at 05:30 Sodium Chloride 250 ml @ 250 mls/hr Q12H IVPB Last administered on 07/10/18 04:34; Admin Dose 250 MLS/HR; Start 07/09/18 at 05:00 Nifedipine (Procardia Xl) 30 mg BID PO Last administered on 07/10/18 09:50; Admin Dose 30 MG; Start 07/09/18 at 21:00 ALEXIA PAGE NP Jul 10, 2018 10:19
[2018-07-10] MEDS: D5-0.2 NACL + KCL 20 MEQ 1,000 ML IV SCH (12:24)
[2018-07-10 14:20] VITALS: BP 118/62; PULSE 62; RESP 17
--- NOTE | 2018-07-10 16:34 | PN ---
Date/Time of Note Date/Time of Note DATE: 07/10/18 TIME: 16:31 Assessment/Plan VTE Prophylaxis [place] [facility] risk: 5 SCD applied ([place] [facility] Yes Pharmacological prophylaxis: NA/contraindicated Pharm contraindication: surgical contra Lines/Catheters IV Catheter Type (from [facility]): Peripheral IV Urinary Cath still in place: No Assessment/Plan Hospital Course Patient is awake alert and oriented x4, patient remains hemodynamically stable, afebrile continued on antibiotics for intra-abdominal infection. Diet progressed to mechanical soft. Assessment/Plan -Entero-cutaneous fistula -Intra-abdominal fluid collection, s/p placement of an external drainage catheter in RLQ 07/06/2018 -Recurrent colon cancer with pelvic carcinomatosis with ascites. Dr. Castillo is following in oncology consultation -Intra-abdominal infection, continue antibiotics per ID. Dr. Lara is following in infection disease consultation. 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 Rios. -Liver cirrhosis -Pancytopenia Further recommendations based on clinical course. Plan of care discussed with Dr. Figueroa. Result Diagram: 07/09/18 0500 07/09/18 0500 Exam/Review of Systems Exam Vitals Vital Signs Date Temp Pulse Resp B/P (MAP) Pulse Ox O2 O2 Flow FiO2 Time Delivery Rate 07/10/18 97.6 62 17 118/62 96 14:20 (80) 07/06/18 Room Air 13:54 Intake and Output 07/09/18 07/09/18 07/10/18 1515:00 23:00 07:00 IntakeIntake Total 1870 ml 1540 ml 1280 ml OutputOutput Total 10 ml 25 ml BalanceBalance 1860 ml 1515 ml 1280 ml Exam Constitutional: alert, oriented Respiratory: clear to auscultation Cardiovascular: nl pulses Gastrointestinal: other (Right lower quadrant drain, lower midline abdomen enterocutaneous fistula) Extremities: normal pulses Neurological: nl mental status Medications Medication Current Medications Vancomycin HCl (Vanco Iv Per Pharmacy) VANCOMYCIN PER PHARMACY PER PROTOCOL XX ; Start 07/05/18 at 18:00 Potassium Chloride/Dextrose/ Sod Cl 1,000 ml @ 70 mls/hr [id number] IV Last administered on 07/09/18 14:32; Admin Dose 70 MLS/HR; Start 07/05/18 at 18:00 Vancomycin/Sodium Chloride 250 ml @ 62.5 mls/hr Q12H IVPB Last administered on 07/10/18 06:33; Admin Dose 62.5 MLS/HR; Start 07/06/18 at 06:00 Metronidazole 100 ml @ 100 mls/hr Q8 IVPB Last administered on 07/10/18 14:58; Admin Dose 100 MLS/HR; Start 07/05/18 at 22:30 Diphenhydramine HCl (Benadryl) 25 mg Q6H PRN IV ALLERGIC REACTION; Start 07/06/18 at 14:00 Hydromorphone HCl (Dilaudid) 1 mg Q4H PRN IV SEVERE PAIN LEVEL 7-10 Last administered on 07/10/18 09:58; Admin Dose 1 MG; Start 07/06/18 at 17:00 Benazepril HCl (Lotensin) 10 mg BID PO Last administered on 07/09/18 20:25; Admin Dose 10 MG; Start 07/06/18 at 21:00 Fluconazole 100 ml @ 100 mls/hr Q24H IVPB Last administered on 07/09/18 20:24; Admin Dose 100 MLS/HR; Start 07/07/18 at 19:30 Diphenhydramine HCl (Benadryl) 25 mg Q12H PO Last administered on 07/10/18 04: 32; Admin Dose 25 MG; Start 07/08/18 at 05:30 Sodium Chloride 250 ml @ 250 mls/hr Q12H IVPB Last administered on 07/10/18 04:34; Admin Dose 250 MLS/HR; Start 07/09/18 at 05:00 Nifedipine (Procardia Xl) 30 mg BID PO Last administered on 07/10/18 09:50; Admin Dose 30 MG; Start 07/09/18 at 21:00 YOON TAVERAS Jul 10, 2018 16:34
--- NOTE | 2018-07-10 19:13 | PN ---
DATE: 07/10/2018 SUBJECTIVE: No new complaint, no new event. OBJECTIVE: GENERAL: Awake, alert, oriented. VITAL SIGNS: Temperature maximum 98.3, heart rate 71, respiration 18, blood pressure 104/59, saturation 97% room air. LABORATORY DATA: There is no lab result available today. HEART: Regular. LUNGS: Clear. ABDOMEN: The patient has not been happy with the placement of ileostomy bag around the drainage site on the lower abdominal wall. So she has removed it and the nurses have been changing the dressing over there p.r.n. According to the records and the nurse, there is minimal drainage now comparing to the first admission date, and there applying medications for protection of the skin per recommendation of the ostomy nurse. Also, there is an [place] bag, which is connected to pigtail drainage which was placed in the lower part of the abdominal cavity to drain the tissue-fluid collection which was called fluid collection by the radiologist, but after they put a #10 Italian pigtail, apparently it did not drain that much and per report, it was very thick and sticky material. 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 EXTREMITIES: Lower extremities no pitting edema. PLAN: I reviewed old admissions on this patient as many material and radiology x-rays and CT scans and pathology to teach report which is available. 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 I discussed this matter with Dr. Rios and Dr. Falcon. They agreed that if possible, we will transfer the patient to surgery center that does perform this kind of procedure if they accept it, and we explained to the patient that we cannot do the surgery here and we are planning to transfer her to another center. She objected and she does not agree. She stated that she does want an operation at all, but she wants chemotherapy, so we interviewed and visited this patient today again along with Madelineflorentino Davies, the case coordinator who also speaks English, and she explained to her in full detail and that is what she said. She does not want surgery and if we do not, or somebody does not give her chemotherapy here in this hospital, she is going to go to her PCP and ask him or her to introduce her to another chemotherapist to treat her with chemotherapy. Therefore, I explained everything to Ms. Madeline Davies, and she is going to call and talk to Dr. Falcon herself and find out that exactly what is Dr. Falcon planning to do, if he is planning to do chemotherapy or he does not want to do it, and if Dr. Falcon tells her that he is not going to do chemotherapy, then she is going to talk to the patient and offer her 2 choices, either accept our efforts to find a place for her and transfer her over there for surgery and chemotherapy at the same time, or she can go to her primary care and whatever she wants to do is up to her. So I will continue to follow the patient as long as she is in the hospital here. We are going to advance her diet today. Dictated By: GLO OSBORN MD PS/NTS Conf#: [id number] DID#: [id number] BENJAMIN
--- NOTE | 2018-07-10 19:23 | CONS ---
Assessment/Plan Assessment/Plan Hospital Course (Demo Recall) IMPRESSION: 1. Preoperative evaluation prior to possible abdominal surgery for intraabdominal fistula, carcinomatosis and possible associated abscess formation.-neg trop x 3. Echo 07/06 with EF 55-60/MR 2. Hypertension-continue to be mildly elevated 3. 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 4. 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 5. Anemia, leukopenia, thrombocytopenia/pancytopenia. 6. Dyslpidemia-low HDL 21 LDL 35 Recc: -On med-surg -Now started on procardia in addition to benazepril with holding of Benazepril. Will reduce dose of procardia and follow closely -Follow drain output -ongoing surgical and hem-onc eval with discussion between surgeon and oncologi st ongoing -Continue abx's and f/u cx data Consultation Date/Type/Reason Admit Date/Time Jul 05, 2018 at 12:27 Initial Consult Date 07/05/18 Type of Consult Cardiology Reason for Consultation HTN Requesting Provider: FERNANDA JARRETT Date/Time of Note DATE: 07/10/18 TIME: 19:18 Exam/Review of Systems Vital Signs Vitals Vital Signs Date Temp Pulse Resp B/P (MAP) Pulse Ox O2 O2 Flow FiO2 Time Delivery Rate 07/10/18 97.6 62 17 118/62 96 14:20 (80) 07/06/18 Room Air 13:54 Intake and Output 07/09/18 07/09/18 07/10/18 1515:00 23:00 07:00 IntakeIntake Total 1870 ml 1540 ml 1280 ml OutputOutput Total 10 ml 25 ml BalanceBalance 1860 ml 1515 ml 1280 ml Exam Exam Review of Systems: CONSTITUTIONAL: No fevers, chills. PULMONARY: No sob CARDIOVASCULAR: No chest pain/palpitations GASTROINTESTINAL: c/o abd pain GENITOURINARY: No hematuria/dysuria. MUSCULOSKELETAL: No myagias/arthalgias. PSYCHIATRIC: The patient denies depression. NEUROLOGIC: No weakness Constitutional: alert, oriented Psych: no complaints Head: normocephalic ENMT: mucosa pink and moist Neck: supple, jvd (9 cm water) Respiratory: diminished breath sounds Cardiovascular: regular rate and rhythm Gastrointestinal: soft, non-tender, other (solostomy bag and urostomy in place) Musculoskeletal: muscle weakness (mild generalized) Extremities: edema (none) Neurological: other (No focal deficits) Labs Result Diagram: 07/09/18 0500 07/09/18 0500 Medications Medications Current Medications Vancomycin HCl (Vanco Iv Per Pharmacy) VANCOMYCIN PER PHARMACY PER PROTOCOL XX ; Start 07/05/18 at 18:00 Potassium Chloride/Dextrose/ Sod Cl 1,000 ml @ 70 mls/hr [id number] IV Last administered on 07/09/18 14:32; Admin Dose 70 MLS/HR; Start 07/05/18 at 18:00 Vancomycin/Sodium Chloride 250 ml @ 62.5 mls/hr Q12H IVPB Last administered on 07/10/18 17:56; Admin Dose 62.5 MLS/HR; Start 07/06/18 at 06:00 Metronidazole 100 ml @ 100 mls/hr Q8 IVPB Last administered on 07/10/18 14:58; Admin Dose 100 MLS/HR; Start 07/05/18 at 22:30 Diphenhydramine HCl (Benadryl) 25 mg Q6H PRN IV ALLERGIC REACTION; Start 07/06/18 at 14:00 Hydromorphone HCl (Dilaudid) 1 mg Q4H PRN IV SEVERE PAIN LEVEL 7-10 Last administered on 07/10/18 09:58; Admin Dose 1 MG; Start 07/06/18 at 17:00 Benazepril HCl (Lotensin) 10 mg BID PO Last administered on 07/09/18 20:25; Admin Dose 10 MG; Start 07/06/18 at 21:00 Fluconazole 100 ml @ 100 mls/hr Q24H IVPB Last administered on 07/09/18 20:24; Admin Dose 100 MLS/HR; Start 07/07/18 at 19:30 Diphenhydramine HCl (Benadryl) 25 mg Q12H PO Last administered on 07/10/18 17:25; Admin Dose 25 MG; Start 07/08/18 at 05:30 Sodium Chloride 250 ml @ 250 mls/hr Q12H IVPB Last administered on 07/10/18 16:54; Admin Dose 250 MLS/HR; Start 07/09/18 at 05:00 Nifedipine (Procardia Xl) 30 mg BID PO Last administered on 07/10/18at 09:50; Admin Dose 30 MG; Start 07/09/18 at 21:00 BIJAN DWYER Jul 10, 2018 19:23
[2018-07-10] MEDS: FLUCONAZOLE 200 MG (PMX) 100 ML IVPB SCH ×3 (19:30→21:53)
[2018-07-10 20:26] VITALS: BP 96/55; PULSE 75; RESP 18
[2018-07-11 01:33] VITALS: BP 102/61; PULSE 74; RESP 18
[2018-07-11] MEDS: D5-0.2 NACL + KCL 20 MEQ 1,000 ML IV SCH ×2 (03:38→17:00)
[2018-07-11] MEDS: SOD CHLORIDE 0.9% 250 ML IVPB SCH ×2 (04:31→18:08)
[2018-07-11] MEDS: metroNIDAZOLE 500 MG/NS (PMX) 100 ML IVPB SCH ×3 (05:31→22:00)
[2018-07-11] MEDS: DIPHENHYDRAMINE 25 MG CAP PO SCH ×2 (06:00→18:08)
[2018-07-11] MEDS: VANCOMYCIN 750 MG (PMX) 250 ML IVPB SCH ×2 (06:33→18:56)
[2018-07-11 07:47] VITALS: BP 108/65; PULSE 70; RESP 17
[2018-07-11] MEDS: BENAZEPRIL 10 MG TAB PO SCH ×2 (08:22→21:19)
[2018-07-11] MEDS: NIFEdipine (XL) 30 MG TAB PO SCH (08:22)
--- NOTE | 2018-07-11 13:06 | RADRPT ---
Vent Rate: 58 bpm RR Interval: 0 msec [place] Interval: 138 msec QRS Duration: 94 msec QT Interval: 458 msec QTC Interval: 449 msec P-R-T [place]: 66 - 10 - 15 degrees Sinus bradycardia Otherwise normal ECG Electronically Signed By: Jerrell Godwin
--- NOTE | 2018-07-11 13:38 | CONS ---
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 albicans so far - s/p placement of an external drainage catheter in RLQ 07/06/2018 - displacement of small bowel to L side due to fluid collection on R side of the abdomen, without e/o obstruction on SBFT on 07/07/2018 - large abdominal and pelvic midline anterior incisional related hernia, a loop of bowel which extends into the right lower quadrant portion of the hernia demonstrates focal dilatation with marked wall thickening and edema worrisome for focal strangulation of this loop of small bowel without evidence of obstruction on CT on 07/05/2018 - h/o mucinous adenocarcinoma, moderately-well differentiated, involving the cecum, ileocecal valve and adjacent ascending colon - h/o extended R hemicolectomy on 06/26/2016 - h/o infection of the abdominal wound due to E. 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 An oral suppressive regimen may need to be considered. This will obviously be complicated by her apparent allergic issues as well. - continue IV vanc and metronidazole (07/05/2018-) - for red man syndrome: premedicate each infusion of IV vancomycin with PO benadryl and NS 250 mL bolus - cont. IV fluconazole (07/07/2018-) - monitor crcl closely Consultation Date/Type/Reason Admit Date/Time Jul 05, 2018 at 12:27 Initial Consult Date 07/05/18 Requesting Provider: FERNANDA JARRETT Date/Time of Note DATE: 07/11/18 TIME: 13:32 Exam/Review of Systems Exam Vitals Vital Signs Date Temp Pulse Resp B/P (MAP) Pulse Ox O2 O2 Flow FiO2 Time Delivery Rate 07/11/18 98.5 70 17 108/65 98 07:47 (79) Intake and Output 07/10/18 07/10/18 07/11/18 1515:00 23:00 07:00 IntakeIntake Total 1290 ml 1723 ml 1400 ml OutputOutput Total 70 ml 35 ml 860 ml BalanceBalance 1220 ml 1688 ml 540 ml Constitutional: alert, oriented, well developed Psych: no complaints, nl mood/affect Head: normocephalic, atraumatic Eyes: nl conjunctiva, EOMI, nl lids, nl sclera, PERRL Neck: supple, non-tender Respiratory: clear to auscultation, normal air movement Gastrointestinal: soft, other (drainage with bandage over it. lessening per patient. ) Neurological: COMMERCIAL DECORATOR II-XII intact Results Result Diagram: 07/11/18 0504 07/11/18 0503 Results 24hrs Laboratory Tests Test 07/11/18 05:03 07/11/18 05:04 Prothrombin Time 19.0 H Prothrombin Time Ratio 1.5 INR International Normalized Ratio 1.58 Activated Partial Thromboplast Time 34.2 Sodium Level 137 Potassium Level 3.6 Chloride Level 111 H Carbon Dioxide Level 21 Anion Gap 5 Blood Urea Nitrogen 4 L Creatinine 0.43 L Est Glomerular Filtrat Rate mL/min > 60 Glucose Level 110 Calcium Level 8.0 L White Blood Count 5.9 # Red Blood Count 3.85 L Hemoglobin 12.2 Hematocrit 36.2 L Mean Corpuscular Volume 94.0 Mean Corpuscular Hemoglobin 31.7 Mean Corpuscular Hemoglobin Concent 33.7 Red Cell Distribution Width 19.7 H Platelet Count 122 #L Mean Platelet Volume 10.4 Immature Granulocytes % 0.300 Neutrophils % 70.1 Lymphocytes % 19.1 Monocytes % 7.2 Eosinophils % 2.6 Basophils % 0.7 Nucleated Red Blood Cells % 0.0 Immature Granulocytes # 0.020 Neutrophils # 4.1 Lymphocytes # 1.1 Monocytes # 0.4 Eosinophils # 0.2 Basophils # 0.0 Nucleated Red Blood Cells # 0.0 Medications Medication Current Medications Vancomycin HCl (Vanco Iv Per Pharmacy) VANCOMYCIN PER PHARMACY PER PROTOCOL XX ; Start 07/05/18 at 18:00 Potassium Chloride/Dextrose/ Sod Cl 1,000 ml @ 70 mls/hr [id number] IV Last administered on 07/11/18 03:38; Admin Dose 70 MLS/HR; Start 07/05/18 at 18:00 Vancomycin/Sodium Chloride 250 ml @ 62.5 mls/hr Q12H IVPB Last administered on 07/11/18 06:33; Admin Dose 62.5 MLS/HR; Start 07/06/18 at 06:00 Metronidazole 100 ml @ 100 mls/hr Q8 IVPB Last administered on 07/11/18 05:31; Admin Dose 100 MLS/HR; Start 07/05/18 at 22:30 Diphenhydramine HCl (Benadryl) 25 mg Q6H PRN IV ALLERGIC REACTION; Start 07/06/18 at 14:00 Hydromorphone HCl (Dilaudid) 1 mg Q4H PRN IV SEVERE PAIN LEVEL 7-10 Last administered on 07/10/18 09:58; Admin Dose 1 MG; Start 07/06/18 at 17:00 Benazepril HCl (Lotensin) 10 mg BID PO Last administered on 07/09/18at 20:25; Admin Dose 10 MG; Start 07/06/18 at 21:00 Diphenhydramine HCl (Benadryl) 25 mg Q12H PO Last administered on 07/11/18at 06:00; Admin Dose 25 MG; Start 07/08/18 at 05:30 Sodium Chloride 250 ml @ 250 mls/hr Q12H IVPB Last administered on 07/11/18 04:31; Admin Dose 250 MLS/HR; Start 07/09/18 at 05:00 Nifedipine (Procardia Xl) 30 mg DAILY PO ; Start 07/11/18 at 09:00 Fluconazole 100 ml @ 100 mls/hr Q24H IVPB ; Start 07/10/18 at 21:30 ROSALIE ELLIOTT MD Jul 11, 2018 13:38
[2018-07-11 14:00] VITALS: BP 118/76; PULSE 76; RESP 18
--- NOTE | 2018-07-11 18:40 | PN ---
Date/Time of Note Date/Time of Note DATE: 07/11/18 TIME: 18:32 Assessment/Plan VTE Prophylaxis Risk score (from Ns)>0 risk: 5 SCD applied (from Ns): Yes Pharmacological prophylaxis: NA/contraindicated Pharm contraindication: thrombocytopenia Lines/Catheters IV Catheter Type (from [facility]): Peripheral IV Urinary Cath still in place: No Assessment/Plan Hospital Course Patient tolerates soft diet without any nausea and vomiting, no output from the stoma. Patient uses facial makeup with bright pink and red colors it looks like facial flushing. Plan of care discussed with Dr. Cox, this portion at this point patient do not want to be transferred to tertiary care center for surgery, however patient wants to continue to proceed with chemotherapy for cancer. Assessment/Plan -Entero-cutaneous fistula -Intra-abdominal fluid collection, s/p placement of an external drainage catheter in RLQ 07/06/2018 -Recurrent colon cancer with pelvic carcinomatosis with ascites. Dr. Castillo is following in oncology consultation -Intra-abdominal infection, continue antibiotics per ID. Dr. Lara is following in infection disease consultation. -History of mucinous adenocarcinoma of the cecum, ileocecal valve and adjacent ascending colon, status post right hemicolectomy on 06/26/[address] Rios. -Liver cirrhosis -Pancytopenia Further recommendations based on clinical course. Plan of care discussed with Dr. Figueroa. Result Diagram: 07/11/18 0504 07/11/18 0503 Results 24hrs Laboratory Tests Test 07/11/18 05:03 07/11/18 05:04 Prothrombin Time 19.0 H Prothrombin Time Ratio 1.5 INR International Normalized Ratio 1.58 Activated Partial Thromboplast Time 34.2 Sodium Level 137 Potassium Level 3.6 Chloride Level 111 H Carbon Dioxide Level 21 Anion Gap 5 Blood Urea Nitrogen 4 L Creatinine 0.43 L Est Glomerular Filtrat Rate mL/min > 60 Glucose Level 110 Calcium Level 8.0 L White Blood Count 5.9 # Red Blood Count 3.85 L Hemoglobin 12.2 Hematocrit 36.2 L Mean Corpuscular Volume 94.0 Mean Corpuscular Hemoglobin 31.7 Mean Corpuscular Hemoglobin Concent 33.7 Red Cell Distribution Width 19.7 H Platelet Count 122 #L Mean Platelet Volume 10.4 Immature Granulocytes % 0.300 Neutrophils % 70.1 Lymphocytes % 19.1 Monocytes % 7.2 Eosinophils % 2.6 Basophils % 0.7 Nucleated Red Blood Cells % 0.0 Immature Granulocytes # 0.020 Neutrophils # 4.1 Lymphocytes # 1.1 Monocytes # 0.4 Eosinophils # 0.2 Basophils # 0.0 Nucleated Red Blood Cells # 0.0 Exam/Review of Systems Exam Vitals Vital Signs Date Temp Pulse Resp B/P (MAP) Pulse Ox O2 O2 Flow FiO2 Time Delivery Rate 07/11/18 98.6 76 18 118/76 96 Room Air 14:00 (90) Intake and Output 07/10/18 07/10/18 07/11/18 1515:00 23:00 07:00 IntakeIntake Total 1290 ml 1723 ml 1400 ml OutputOutput Total 70 ml 35 ml 860 ml BalanceBalance 1220 ml 1688 ml 540 ml Exam Constitutional: alert, oriented Respiratory: clear to auscultation Cardiovascular: nl pulses Gastrointestinal: other (Right lower quadrant drain, lower midline abdomen enterocutaneous fistula) Extremities: normal pulses Neurological: nl mental status Results Results 24hrs Laboratory Tests Test 07/11/18 05:03 07/11/18 05:04 Prothrombin Time 19.0 H Prothrombin Time Ratio 1.5 INR International Normalized Ratio 1.58 Activated Partial Thromboplast Time 34.2 Sodium Level 137 Potassium Level 3.6 Chloride Level 111 H Carbon Dioxide Level 21 Anion Gap 5 Blood Urea Nitrogen 4 L Creatinine 0.43 L Est Glomerular Filtrat Rate mL/min > 60 Glucose Level 110 Calcium Level 8.0 L White Blood Count 5.9 # Red Blood Count 3.85 L Hemoglobin 12.2 Hematocrit 36.2 L Mean Corpuscular Volume 94.0 Mean Corpuscular Hemoglobin 31.7 Mean Corpuscular Hemoglobin Concent 33.7 Red Cell Distribution Width 19.7 H Platelet Count 122 #L Mean Platelet Volume 10.4 Immature Granulocytes % 0.300 Neutrophils % 70.1 Lymphocytes % 19.1 Monocytes % 7.2 Eosinophils % 2.6 Basophils % 0.7 Nucleated Red Blood Cells % 0.0 Immature Granulocytes # 0.020 Neutrophils # 4.1 Lymphocytes # 1.1 Monocytes # 0.4 Eosinophils # 0.2 Basophils # 0.0 Nucleated Red Blood Cells # 0.0 Medications Medication Current Medications Vancomycin HCl (Vanco Iv Per Pharmacy) VANCOMYCIN PER PHARMACY PER PROTOCOL XX ; Start 07/05/18 at 18:00 Potassium Chloride/Dextrose/ Sod Cl 1,000 ml @ 70 mls/hr [id number] IV Last administered on 07/11/18 03:38; Admin Dose 70 MLS/HR; Start 07/05/18 at 18:00 Vancomycin/Sodium Chloride 250 ml @ 62.5 mls/hr Q12H IVPB Last administered on 07/11/18 06:33; Admin Dose 62.5 MLS/HR; Start 07/06/18 at 06:00 Metronidazole 100 ml @ 100 mls/hr Q8 IVPB Last administered on 07/11/18 14:55; Admin Dose 100 MLS/HR; Start 07/05/18 at 22:30 Diphenhydramine HCl (Benadryl) 25 mg Q6H PRN IV ALLERGIC REACTION; Start 07/06/18 at 14:00 Hydromorphone HCl (Dilaudid) 1 mg Q4H PRN IV SEVERE PAIN LEVEL 7-10 Last administered on 07/10/18 09:58; Admin Dose 1 MG; Start 07/06/18 at 17:00 Benazepril HCl (Lotensin) 10 mg BID PO Last administered on 07/09/18 20:25; Admin Dose 10 MG; Start 07/06/18 at 21:00 Diphenhydramine HCl (Benadryl) 25 mg Q12H PO Last administered on 07/11/18 18:08; Admin Dose 25 MG; Start 07/08/18 at 05:30 Sodium Chloride 250 ml @ 250 mls/hr Q12H IVPB Last administered on 07/11/18 18:08; Admin Dose 250 MLS/HR; Start 07/09/18 at 05:00 Nifedipine (Procardia Xl) 30 mg DAILY PO ; Start 07/11/18 at 09:00 Fluconazole 100 ml @ 100 mls/hr Q24H IVPB ; Start 07/10/18 at 21:30 Miscellaneous Information (*Rx Drug Level Order Reminder*) VANCO TROUGH @ 1,700 1700 ONCE XX ; Start 07/12/18 at 17:00; Stop 07/12/18 at 17:01 YOON TAVERAS Jul 11, 2018 18:40
--- NOTE | 2018-07-11 19:06 | PN ---
DATE: 07/11/2018 SUBJECTIVE: No new complaint. OBJECTIVE: GENERAL: Awake, alert, oriented x3. VITAL SIGNS: Temperature maximum 98.6, heart rate 76, respiration 18, blood pressure 118/76, saturat ion 96% on room air. GENERAL: The patient is alert, awake, oriented, in no acute distress. HEART: Regular. LUNGS: Clear. ABDOMEN: The same as before relatively soft. Distorted scar and the lower part of this midline scar , there is an open wound which we are not sure where is the depth of it, but apparently on admission was draining bowel contents, but now has decreased a lot, so the assumption was that this was enteroc utaneous fistula that appears is getting close gradually. The patient is on antibiotic per infectiou s disease. The pigtail drain which is in the tumor - mucin mass has been draining a little bit of fl uid which is light yellow, not turbid and is clear as well. LABORATORY DATA: WBC 5900 with 70% segmented, which is normal differential, hemoglobin 12.2, hematoc rit 36.2. Chemistry: Sodium, potassium are normal. BUN 4, creatinine 0.43. INPUT AND OUTPUT: The drainage from intraabdominal fistula or enterocutaneous fistula has been very minimal, maybe less than 1 mL. The accordion drain in the right upper abdominal wall in past 24 hour s has been documented that has drained 115 mL. The fluid is light yellow clear. ASSESSMENT AND PLAN: As was mentioned in followup note yesterday, we discussed this matter with the patient in front of Kendra, caser and I also informed the caser Kendra about surgical team that it is Dr. Rios and myself's decision that since all the criteria and physical exam and ra diology and pathology is in favor of diagnosis of pseudomyxoma peritonei; therefore, we recommended t he patient be transferred to higher level of care where they do a special operation and special kind of chemotherapy with this kind of pathology, but the patient denies and does not accept absolutely to be transferred to any other place or hospital and actually rejects any kind of surgery and she just wants chemotherapy, so I asked Kendra yesterday to get a hold of Dr. Schneider, oncologist who has been involved in treatment of this patient with chemotherapy before. Dr. Schneider has told Kendra that patient is not willing and does not want to be transferred anywhere to get any other treatment especially the surgery for part of it. Therefore, he will get chemotherapy and is not refusing to gi ve chemotherapy, but the first of all, the fistula should be completely closed and of course, it is n ot completely closed yet. Therefore, we are going to continue the patient on current regimen with an tibiotic and regular diet and observation, hoping that the fistula would close soon. As soon as the fissure was closed, we can inform Dr. Schneider to come in front and start giving chemotherapy as toño laguerre wishes, but of course me as a general surgeon involved with the surgical part of this patient, I do not agree with this kind of only chemotherapy and I think the patient should receive cytoreductive s urgery plus intraoperative intraabdominal heated chemotherapy that only can be given in the special p laces as we mentioned before. In any case, we will continue to observe the patient and check for thad sure of the wound. Dictated By: GLO OSBORN MD PS/NTS Conf#: [id number] DID#: [id number] CC: ADELAIDE FERREIRA MD; KARON SCHNEIDER;*EndCC*
[2018-07-11 20:17] VITALS: BP 122/65; PULSE 80; RESP 18
--- NOTE | 2018-07-11 20:18 | CONS ---
Assessment/Plan Assessment/Plan Hospital Course (Demo Recall) IMPRESSION: 1. Preoperative evaluation prior to possible abdominal surgery for intraabdominal fistula, carcinomatosis and possible associated abscess formation.-neg trop x 3. Echo 07/06 with EF 55-60/MR 2. Hypertension-borderline low at times 3. 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 4. 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 5. Anemia, leukopenia, thrombocytopenia/pancytopenia. 6. Dyslpidemia-low HDL 21 LDL 35 Recc: -On med-surg -Now holding of both ACEI and CCB. Will follow and if continues to be held will d/c CCB -Follow drain output -ongoing surgical and hem-onc eval with discussion between surgeon and oncologist ongoing -Continue abx's and f/u cx data Consultation Date/Type/Reason Admit Date/Time Jul 05, 2018 at 12:27 Initial Consult Date 07/05/18 Type of Consult Cardiology Reason for Consultation Preop/HTN Requesting Provider: FERNANDA JARRETT Date/Time of Note DATE: 07/11/18 TIME: 20:15 Exam/Review of Systems Vital Signs Vitals Vital Signs Date Temp Pulse Resp B/P (MAP) Pulse Ox O2 O2 Flow FiO2 Time Delivery Rate 07/11/18 98.6 76 18 118/76 96 Room Air 14:00 (90) Intake and Output 07/10/18 07/10/18 07/11/18 1515:00 23:00 07:00 IntakeIntake Total 1290 ml 1723 ml 1400 ml OutputOutput Total 70 ml 35 ml 860 ml BalanceBalance 1220 ml 1688 ml 540 ml Exam Exam Review of Systems: CONSTITUTIONAL: No fevers, chills. PULMONARY: No sob CARDIOVASCULAR: No chest pain/palpitations GASTROINTESTINAL: mild abd pain GENITOURINARY: No hematuria/dysuria. MUSCULOSKELETAL: No myagias/arthalgias. PSYCHIATRIC: The patient denies depression. NEUROLOGIC: No weakness Constitutional: alert Psych: no complaints Head: normocephalic ENMT: mucosa pink and moist Neck: supple, jvd (9 cm water) Respiratory: diminished breath sounds (at bases/B) Cardiovascular: regular rate and rhythm Gastrointestinal: soft, non-tender, surgical scars, other (drain inplace/ostomy bag) Musculoskeletal: muscle weakness (mild generalized) Extremities: edema (none) Labs Result Diagram: 07/11/18 0504 07/11/18 0503 Results 24hrs Laboratory Tests Test 07/11/18 05:03 07/11/18 05:04 Prothrombin Time 19.0 H Prothrombin Time Ratio 1.5 INR International Normalized Ratio 1.58 Activated Partial Thromboplast Time 34.2 Sodium Level 137 Potassium Level 3.6 Chloride Level 111 H Carbon Dioxide Level 21 Anion Gap 5 Blood Urea Nitrogen 4 L Creatinine 0.43 L Est Glomerular Filtrat Rate mL/min > 60 Glucose Level 110 Calcium Level 8.0 L White Blood Count 5.9 # Red Blood Count 3.85 L Hemoglobin 12.2 Hematocrit 36.2 L Mean Corpuscular Volume 94.0 Mean Corpuscular Hemoglobin 31.7 Mean Corpuscular Hemoglobin Concent 33.7 Red Cell Distribution Width 19.7 H Platelet Count 122 #L Mean Platelet Volume 10.4 Immature Granulocytes % 0.300 Neutrophils % 70.1 Lymphocytes % 19.1 Monocytes % 7.2 Eosinophils % 2.6 Basophils % 0.7 Nucleated Red Blood Cells % 0.0 Immature Granulocytes # 0.020 Neutrophils # 4.1 Lymphocytes # 1.1 Monocytes # 0.4 Eosinophils # 0.2 Basophils # 0.0 Nucleated Red Blood Cells # 0.0 Medications Medications Current Medications Vancomycin HCl (Vanco Iv Per Pharmacy) VANCOMYCIN PER PHARMACY PER PROTOCOL XX ; Start 07/05/18 at 18:00 Potassium Chloride/Dextrose/ Sod Cl 1,000 ml @ 70 mls/hr [id number] IV Last administered on 07/11/18at 03:38; Admin Dose 70 MLS/HR; Start 07/05/18 at 18:00 Vancomycin/Sodium Chloride 250 ml @ 62.5 mls/hr Q12H IVPB Last administered on 07/11/18at 18:56; Admin Dose 62.5 MLS/HR; Start 07/06/18 at 06:00 Metronidazole 100 ml @ 100 mls/hr Q8 IVPB Last administered on 07/11/18at 14:55; Admin Dose 100 MLS/HR; Start 07/05/18 at 22:30 Diphenhydramine HCl (Benadryl) 25 mg Q6H PRN IV ALLERGIC REACTION; Start 07/06/18 at 14:00 Hydromorphone HCl (Dilaudid) 1 mg Q4H PRN IV SEVERE PAIN LEVEL 7-10 Last administered on 07/10/18at 09:58; Admin Dose 1 MG; Start 07/06/18 at 17:00 Benazepril HCl (Lotensin) 10 mg BID PO Last administered on 07/09/18 20:25; Admin Dose 10 MG; Start 07/06/18 at 21:00 Diphenhydramine HCl (Benadryl) 25 mg Q12H PO Last administered on 07/11/18at 18:08; Admin Dose 25 MG; Start 07/08/18 at 05:30 Sodium Chloride 250 ml @ 250 mls/hr Q12H IVPB Last administered on 07/11/18 18:08; Admin Dose 250 MLS/HR; Start 07/09/18 at 05:00 Nifedipine (Procardia Xl) 30 mg DAILY PO ; Start 07/11/18 at 09:00 Fluconazole 100 ml @ 100 mls/hr Q24H IVPB ; Start 07/10/18 at 21:30 Miscellaneous Information (*Rx Drug Level Order Reminder*) VANCO TROUGH @ 1,700 1700 ONCE XX ; Start 07/12/18 at 17:00; Stop 07/12/18 at 17:01 BIJAN DWYER Jul 11, 2018 20:18
[2018-07-11] MEDS: FLUCONAZOLE 200 MG (PMX) 100 ML IVPB SCH ×2 (21:30→23:01)
[2018-07-12] MEDS: metroNIDAZOLE 500 MG/NS (PMX) 100 ML IVPB SCH ×4 (00:01→23:37)
[2018-07-12 02:35] VITALS: BP 116/66; PULSE 76; RESP 18
[2018-07-12] MEDS: SOD CHLORIDE 0.9% 250 ML IVPB SCH ×2 (04:14→16:51)
[2018-07-12] MEDS: HYDROmorphONE 1 MG/ML SYG IV PRN (05:27)
[2018-07-12] MEDS: DIPHENHYDRAMINE 25 MG CAP PO SCH ×2 (06:01→17:58)
[2018-07-12] MEDS: VANCOMYCIN 750 MG (PMX) 250 ML IVPB SCH ×2 (06:41→18:28)
[2018-07-12] MEDS: D5-0.2 NACL + KCL 20 MEQ 1,000 ML IV SCH ×2 (07:18→18:30)
[2018-07-12 08:27] VITALS: BP 131/69; PULSE 68; RESP 18
[2018-07-12] MEDS: BENAZEPRIL 10 MG TAB PO SCH ×2 (08:53→21:00)
[2018-07-12] MEDS: NIFEdipine (XL) 30 MG TAB PO SCH (08:56)
--- NOTE | 2018-07-12 12:27 | CONS ---
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 albicans, and rare S. 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 An oral suppressive regimen may need to be considered. This will obviously be complicated by patient's allergies. - continue IV vancomycin and metronidazole (07/05/2018-) - for red man syndrome: premedicate each infusion of IV vancomycin with PO Benadryl and NS 250 mL bolus - continue IV fluconazole (07/07/2018-) - monitor CrCl closely Management d/w patient, CHASITY Nielson, and with Dr. Lyons. Consultation Date/Type/Reason Admit Date/Time Jul 05, 2018 at 12:27 Initial Consult Date 07/05/18 Type of Consult Infectious Disease Requesting Provider: FERNANDA JARRETT Date/Time of Note DATE: 07/12/18 TIME: 12:23 24 HR Interval Summary Free Text/Dictation Afebrile. No acute changes per d/w nursing. Reports abdominal pain is tolerable after taking pain medication. Did not sleep well last night d/t noise level per pt. Denies SOB, n/v/d, dysuria. Pt is asking for wound dressing to be changed. Exam/Review of Systems Exam Vitals Vital Signs Date Temp Pulse Resp B/P (MAP) Pulse Ox O2 O2 Flow FiO2 Time Delivery Rate 07/12/18 98.0 68 18 131/69 98 Room Air 08:27 (89) Intake and Output 07/11/18 07/11/18 07/12/18 1515:00 23:00 07:00 IntakeIntake Total 720 ml 870 ml 1375 ml OutputOutput Total 200 ml 0 ml 1180 ml BalanceBalance 520 ml 870 ml 195 ml Exam Constitutional: alert, oriented, well developed Psych: no complaints, nl mood/affect Head: normocephalic, atraumatic Eyes: nl conjunctiva, nl lids, nl sclera ENMT: nl external ears & nose, nl nasal mucosa & septum, mucosa pink and moist (no thrush noted) Neck: supple, non-tender Respiratory: clear to auscultation, normal air movement; No labored breathing, No wheezing Cardiovascular: regular rate and rhythm, nl pulses Gastrointestinal: soft, bowel sounds (normoactive), surgical scars, other (lower abdominal wound with yellowish green drainage on dressing. R abdominal external drainage catheter with trivial light clear yellow drainage) Genitourinary - Female: other (no F/c) Musculoskeletal: nl extremities to inspection Extremities: normal pulses; No edema Neurological: MAPPING TECHNICIAN II-XII intact, nl mental status, nl speech (Tajik speaking only), nl strength Skin: nl turgor; No rash or lesions Results Result Diagram: 07/12/1843307/12/18 0434 Results 24hrs Laboratory Tests Test 07/12/18 04:34 White Blood Count 4.8 Red Blood Count 3.71 L Hemoglobin 11.9 L Hematocrit 36.5 L Mean Corpuscular Volume 98.4 Mean Corpuscular Hemoglobin 32.1 Mean Corpuscular Hemoglobin Concent 32.6 Red Cell Distribution Width 19.9 H Platelet Count 116 L Mean Platelet Volume 10.4 Immature Granulocytes % 0.400 Neutrophils % 66.1 Lymphocytes % 22.4 Monocytes % 8.2 Eosinophils % 2.5 Basophils % 0.4 Nucleated Red Blood Cells % 0.0 Immature Granulocytes # 0.020 Neutrophils # 3.2 Lymphocytes # 1.1 Monocytes # 0.4 Eosinophils # 0.1 Basophils # 0.0 Nucleated Red Blood Cells # 0.0 Sodium Level 140 Potassium Level 4.0 Chloride Level 112 H Carbon Dioxide Level 21 Anion Gap 7 Blood Urea Nitrogen 6 L Creatinine 0.44 Est Glomerular Filtrat Rate mL/min > 60 Glucose Level 97 Calcium Level 8.1 L Medications Medication Current Medications Vancomycin HCl (Vanco Iv Per Pharmacy) VANCOMYCIN PER PHARMACY PER PROTOCOL XX ; Start 07/05/18 at 18:00 Potassium Chloride/Dextrose/ Sod Cl 1,000 ml @ 70 mls/hr [id number] IV Last administered on 07/11/18at 03:38; Admin Dose 70 MLS/HR; Start 07/05/18 at 18:00 Vancomycin/Sodium Chloride 250 ml @ 62.5 mls/hr Q12H IVPB Last administered on 07/12/18at 06:41; Admin Dose 62.5 MLS/HR; Start 07/06/18 at 06:00 Metronidazole 100 ml @ 100 mls/hr Q8 IVPB Last administered on 07/12/18at 05:33; Admin Dose 100 MLS/HR; Start 07/05/18 at 22:30 Diphenhydramine HCl (Benadryl) 25 mg Q6H PRN IV ALLERGIC REACTION; Start 07/06/18 at 14:00 Hydromorphone HCl (Dilaudid) 1 mg Q4H PRN IV SEVERE PAIN LEVEL 7-10 Last administered on 07/12/18at 05:27; Admin Dose 1 MG; Start 07/06/18 at 17:00 Benazepril HCl (Lotensin) 10 mg BID PO Last administered on 07/12/18at 08:53; Admin Dose 10 MG; Start 07/06/18 at 21:00 Diphenhydramine HCl (Benadryl) 25 mg Q12H PO Last administered on 07/12/18at 06:01; Admin Dose 25 MG; Start 07/08/18 at 05:30 Sodium Chloride 250 ml @ 250 mls/hr Q12H IVPB Last administered on 07/12/18at 04:14; Admin Dose 250 MLS/HR; Start 07/09/18 at 05:00 Nifedipine (Procardia Xl) 30 mg DAILY PO Last administered on 07/12/18at 08:56; Admin Dose 30 MG; Start 07/11/18 at 09:00 Fluconazole 100 ml @ 100 mls/hr Q24H IVPB Last administered on 07/11/18at 23 :01; Admin Dose 100 MLS/HR; Start 07/10/18 at 21:30 Miscellaneous Information (*Rx Drug Level Order Reminder*) VANCO TROUGH @ 1,700 1700 ONCE XX ; Start 07/12/18 at 17:00; Stop 07/12/18 at 17:01 DANIELLE BOLAND NP Jul 12, 2018 12:27
--- NOTE | 2018-07-12 13:49 | PN ---
Date/Time of Note Date/Time of Note DATE: 07/12/18 TIME: 13:48 Assessment/Plan VTE Prophylaxis Risk score (from Ns)>0 risk: 3 SCD applied (from [facility]): Yes SCD contraindicated: other Pharmacological prophylaxis: other Pharm contraindication: other Lines/Catheters IV Catheter Type (from [facility]): Peripheral IV Urinary Cath still in place: No Assessment/Plan Assessment/Plan -Entero-cutaneous fistula -Intra-abdominal fluid collection, s/p placement of an external drainage catheter in RLQ 07/06/2018 -Recurrent colon cancer with pelvic carcinomatosis with ascites. Dr. Castillo is following in oncology consultation -Intra-abdominal infection, continue antibiotics per ID. Dr. Lara is following in infection disease consultation. -History of mucinous adenocarcinoma of the cecum, ileocecal valve and adjacent ascending colon, status post right hemicolectomy on 06/26/[address] Rios. -Liver cirrhosis -Pancytopenia Further recommendations based on clinical course. Plan of care discussed with Dr. Figueroa. Result Diagram: 07/12/18 0434 07/12/18 0434 Results 24hrs Laboratory Tests Test 07/12/18 04:34 White Blood Count 4.8 Red Blood Count 3.71 L Hemoglobin 11.9 L Hematocrit 36.5 L Mean Corpuscular Volume 98.4 Mean Corpuscular Hemoglobin 32.1 Mean Corpuscular Hemoglobin Concent 32.6 Red Cell Distribution Width 19.9 H Platelet Count 116 L Mean Platelet Volume 10.4 Immature Granulocytes % 0.400 Neutrophils % 66.1 Lymphocytes % 22.4 Monocytes % 8.2 Eosinophils % 2.5 Basophils % 0.4 Nucleated Red Blood Cells % 0.0 Immature Granulocytes # 0.020 Neutrophils # 3.2 Lymphocytes # 1.1 Monocytes # 0.4 Eosinophils # 0.1 Basophils # 0.0 Nucleated Red Blood Cells # 0.0 Sodium Level 140 Potassium Level 4.0 Chloride Level 112 H Carbon Dioxide Level 21 Anion Gap 7 Blood Urea Nitrogen 6 L Creatinine 0.44 Est Glomerular Filtrat Rate mL/min > 60 Glucose Level 97 Calcium Level 8.1 L Subjective 24 Hr Interval Summary Free Text/Dictation nad -feels better -abdominal pain is better- effective pain control afebrile no new issues reported last night dw staff Eyes: no complaints ENT: no complaints Respiratory: no complaints Cardiovascular: no complaints Gastrointestinal: pain Genitourinary: no complaints Musculoskeletal: no complaints Skin: no complaints Neurologic: no complaints Endocrine: no complaints Psychological: nl mood/affect Immunologic: no complaints Exam/Review of Systems Exam Vitals Vital Signs Date Temp Pulse Resp B/P (MAP) Pulse Ox O2 O2 Flow FiO2 Time Delivery Rate 07/12/18 98.0 68 18 131/69 98 Room Air 08:27 (89) Intake and Output 07/11/18 07/11/18 07/12/18 1515:00 23:00 07:00 IntakeIntake Total 720 ml 870 ml 1375 ml OutputOutput Total 200 ml 0 ml 1180 ml BalanceBalance 520 ml 870 ml 195 ml Constitutional: alert, well developed Psych: nl mood/affect Head: atraumatic Eyes: nl lids, nl sclera ENMT: nl external ears & nose Neck: non-tender Respiratory: clear to auscultation Cardiovascular: nl pulses Gastrointestinal: soft, other (abdominal fistula) Musculoskeletal: nl extremities to inspection Neurological: nl mental status, nl speech Skin: nl turgor Lymph: nontender Results Results 24hrs Laboratory Tests Test 07/12/18 04:34 White Blood Count 4.8 Red Blood Count 3.71 L Hemoglobin 11.9 L Hematocrit 36.5 L Mean Corpuscular Volume 98.4 Mean Corpuscular Hemoglobin 32.1 Mean Corpuscular Hemoglobin Concent 32.6 Red Cell Distribution Width 19.9 H Platelet Count 116 L Mean Platelet Volume 10.4 Immature Granulocytes % 0.400 Neutrophils % 66.1 Lymphocytes % 22.4 Monocytes % 8.2 Eosinophils % 2.5 Basophils % 0.4 Nucleated Red Blood Cells % 0.0 Immature Granulocytes # 0.020 Neutrophils # 3.2 Lymphocytes # 1.1 Monocytes # 0.4 Eosinophils # 0.1 Basophils # 0.0 Nucleated Red Blood Cells # 0.0 Sodium Level 140 Potassium Level 4.0 Chloride Level 112 H Carbon Dioxide Level 21 Anion Gap 7 Blood Urea Nitrogen 6 L Creatinine 0.44 Est Glomerular Filtrat Rate mL/min > 60 Glucose Level 97 Calcium Level 8.1 L Medications Medication Current Medications Vancomycin HCl (Vanco Iv Per Pharmacy) VANCOMYCIN PER PHARMACY PER PROTOCOL XX ; Start 07/05/18 at 18:00 Potassium Chloride/Dextrose/ Sod Cl 1,000 ml @ 70 mls/hr [id number] IV Last administered on 07/11/18 03:38; Admin Dose 70 MLS/HR; Start 07/05/18 at 18:00 Vancomycin/Sodium Chloride 250 ml @ 62.5 mls/hr Q12H IVPB Last administered on 07/12/18 06:41; Admin Dose 62.5 MLS/HR; Start 07/06/18 at 06:00 Metronidazole 100 ml @ 100 mls/hr Q8 IVPB Last administered on 07/12/18 05:33; Admin Dose 100 MLS/HR; Start 07/05/18 at 22:30 Diphenhydramine HCl (Benadryl) 25 mg Q6H PRN IV ALLERGIC REACTION; Start 07/06/18 at 14:00 Hydromorphone HCl (Dilaudid) 1 mg Q4H PRN IV SEVERE PAIN LEVEL 7-10 Last administered on 07/12/18 05:27; Admin Dose 1 MG; Start 07/06/18 at 17:00 Benazepril HCl (Lotensin) 10 mg BID PO Last administered on 07/12/18 08:53; Admin Dose 10 MG; Start 07/06/18 at 21:00 Diphenhydramine HCl (Benadryl) 25 mg Q12H PO Last administered on 07/12/18 06:01; Admin Dose 25 MG; Start 07/08/18 at 05:30 Sodium Chloride 250 ml @ 250 mls/hr Q12H IVPB Last administered on 07/12/18 04:14; Admin Dose 250 MLS/HR; Start 07/09/18 at 05:00 Nifedipine (Procardia Xl) 30 mg DAILY PO Last administered on 07/12/18 08:56; Admin Dose 30 MG; Start 07/11/18 at 09:00 Fluconazole 100 ml @ 100 mls/hr Q24H IVPB Last administered on 07/11/18 23:01; Admin Dose 100 MLS/HR; Start 07/10/18 at 21:30 Miscellaneous Information (*Rx Drug Level Order Reminder*) VANCO TROUGH @ 1,700 1700 ONCE XX ; Start 07/12/18 at 17:00; Stop 07/12/18 at 17:01 FERNANDA JARRETT Jul 12, 2018 13:49
[2018-07-12 14:27] VITALS: BP 134/66; PULSE 71; RESP 18
--- NOTE | 2018-07-12 18:05 | CONS ---
Assessment/Plan Assessment/Plan Hospital Course (Demo Recall) IMPRESSION: 1. Preoperative evaluation prior to possible abdominal surgery for intraabdominal fistula, carcinomatosis and possible associated abscess formation.-neg trop x 3. Echo 07/06 with EF 55-60/MR 2. Hypertension-borderline low at times 3. 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 4. 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 5. Anemia, leukopenia, thrombocytopenia/pancytopenia. 6. Dyslpidemia-low HDL 21 LDL 35 Recc: -On med-surg -Tolerating ACEI/CCB today -Follow drain output -ongoing surgical and hem-onc eval with discussion between surgeon and oncologist ongoing -Continue abx's and f/u cx data Consultation Date/Type/Reason Admit Date/Time Jul 05, 2018 at 12:27 Initial Consult Date 07/05/18 Type of Consult Cardiology Reason for Consultation Preop Requesting Provider: FERNANDA JARRETT Date/Time of Note DATE: 07/12/18 TIME: 18:03 Exam/Review of Systems Vital Signs Vitals Vital Signs Date Temp Pulse Resp B/P (MAP) Pulse Ox O2 O2 Flow FiO2 Time Delivery Rate 07/12/18 98.4 71 18 134/66 99 Room Air 14:27 (88) Intake and Output 07/11/18 07/11/18 07/12/18 1515:00 23:00 07:00 IntakeIntake Total 720 ml 870 ml 1375 ml OutputOutput Total 200 ml 0 ml 1180 ml BalanceBalance 520 ml 870 ml 195 ml Exam Exam Review of Systems: CONSTITUTIONAL: No fevers, chills. PULMONARY: No sob CARDIOVASCULAR: No chest pain/palpitations GASTROINTESTINAL: No nausea/vomiting. GENITOURINARY: No hematuria/dysuria. MUSCULOSKELETAL: No myagias/arthalgias. PSYCHIATRIC: The patient denies depression. NEUROLOGIC: No weakness Constitutional: alert, oriented Psych: no complaints Head: normocephalic ENMT: mucosa pink and moist Neck: supple, jvd (9 cm water) Respiratory: clear to auscultation Cardiovascular: regular rate and rhythm Gastrointestinal: soft, non-tender Musculoskeletal: muscle weakness (mild generalized) Extremities: edema (none) Neurological: other (no FOCAL DEFICITS) Labs Result Diagram: 07/12/18 0434 07/12/18 0434 Results 24hrs Laboratory Tests Test 07/12/18 04:34 07/12/18 16:34 White Blood Count 4.8 Red Blood Count 3.71 L Hemoglobin 11.9 L Hematocrit 36.5 L Mean Corpuscular Volume 98.4 Mean Corpuscular Hemoglobin 32.1 Mean Corpuscular Hemoglobin Concent 32.6 Red Cell Distribution Width 19.9 H Platelet Count 116 L Mean Platelet Volume 10.4 Immature Granulocytes % 0.400 Neutrophils % 66.1 Lymphocytes % 22.4 Monocytes % 8.2 Eosinophils % 2.5 Basophils % 0.4 Nucleated Red Blood Cells % 0.0 Immature Granulocytes # 0.020 Neutrophils # 3.2 Lymphocytes # 1.1 Monocytes # 0.4 Eosinophils # 0.1 Basophils # 0.0 Nucleated Red Blood Cells # 0.0 Sodium Level 140 Potassium Level 4.0 Chloride Level 112 H Carbon Dioxide Level 21 Anion Gap 7 Blood Urea Nitrogen 6 L Creatinine 0.44 Est Glomerular Filtrat Rate mL/min > 60 Glucose Level 97 Calcium Level 8.1 L Vancomycin Level Trough 11.2 Medications Medications Current Medications Vancomycin HCl (Vanco Iv Per Pharmacy) VANCOMYCIN PER PHARMACY PER PROTOCOL XX ; Start 07/05/18 at 18:00 Potassium Chloride/Dextrose/ Sod Cl 1,000 ml @ 70 mls/hr [id number] IV Last administered on 07/11/18at 03:38; Admin Dose 70 MLS/HR; Start 07/05/18 at 18:00 Vancomycin/Sodium Chloride 250 ml @ 62.5 mls/hr Q12H IVPB Last administered on 07/12/18at 06:41; Admin Dose 62.5 MLS/HR; Start 07/06/18 at 06:00 Metronidazole 100 ml @ 100 mls/hr Q8 IVPB Last administered on 07/12/18at 14:48; Admin Dose 100 MLS/HR; Start 07/05/18 at 22:30 Diphenhydramine HCl (Benadryl) 25 mg Q6H PRN IV ALLERGIC REACTION; Start 07/06/18 at 14:00 Hydromorphone HCl (Dilaudid) 1 mg Q4H PRN IV SEVERE PAIN LEVEL 7-10 Last administered on 07/12/18at 05:27; Admin Dose 1 MG; Start 07/06/18 at 17:00 Benazepril HCl (Lotensin) 10 mg BID PO Last administered on 07/12/18 08:53; Admin Dose 10 MG; Start 07/06/18 at 21:00 Diphenhydramine HCl (Benadryl) 25 mg Q12H PO Last administered on 07/12/18 17:58; Admin Dose 25 MG; Start 07/08/18 at 05:30 Sodium Chloride 250 ml @ 250 mls/hr Q12H IVPB Last administered on 07/12/18 16:51; Admin Dose 250 MLS/HR; Start 07/09/18 at 05:00 Nifedipine (Procardia Xl) 30 mg DAILY PO Last administered on 07/12/18 08:56; Admin Dose 30 MG; Start 07/11/18 at 09:00 Fluconazole 100 ml @ 100 mls/hr Q24H IVPB Last administered on 07/11/18 23:01; Admin Dose 100 MLS/HR; Start 07/10/18 at 21:30 BIJAN DWYER Jul 12, 2018 18:05
--- NOTE | 2018-07-12 18:21 | PN ---
DATE: 07/12/2018 SUBJECTIVE: No new complaint. No new event. OBJECTIVE: GENERAL: Awake, alert, oriented x3. VITAL SIGNS: Temperature today maximum 98.7, heart rate 76, respirations 18, blood pressure 131/69, saturation 98% room air. HEART: Clinically regular. LUNGS: Clear. ABDOMEN: Soft. LABORATORY DATA: Chemistry: Sodium, potassium, BUN, creatinine within normal limits. Hematology: WBC 4800 with 66% segmented, 11.9 hemoglobin, hematocrit 36.5. Differential within normal limits. I and O's: Urine output 1350 mL. Accordion drain, right upper abdomen, in the past 24 hours per [facility] chart has drained 115 mL of clear yellowish fluid. The intra-abdominal fistula or enterocutaneo us fistula wound, which is being covered with multiple dressings, in the past 24 hours only has made semi-wet half a 4 x 4 sponge. That means the drainage has greatly decreased, and as a result, the ma ceration of the skin around it has gotten much better. There is only minimal erythema or redness of the abdominal skin around the so-called enterocutaneous fistula area. The patient has had bowel move ment which she describes as a normal bowel movement. PLAN: As was mentioned in yesterday's plan, patient again emphasized today that she does not want to go to any other place or any other hospital for any kind of surgery. Only, she wants chemotherapy t o be given by Dr. Falcon at this hospital, and as I mentioned, Dr. Falcon has put forth the c ondition for giving chemotherapy and that is when the fistula drainage stops. Therefore, we are re g to continue giving patient regular diet and continue local treatment of the wound and reevaluate th e wound on Sunday, today is Sunday, and also notify Dr. Falcon to come in himself, take a look an d see if he accepts this minimal drainage from the lower abdominal wound for initiating the chemother apy. 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 Falcon to make a decision what they want to do. I will continu e to follow the patient, and on Sunday or Sunday, we are going to reevaluate the abdominal wound. Dictated By: GLO OSBORN MD PS/NTS Conf#: [id number] DID#: [id number] CC: ADELAIDE FERREIRA MD;*EndCC*
[2018-07-12 19:58] VITALS: BP 122/62; PULSE 79; RESP 17
[2018-07-12] MEDS: FLUCONAZOLE 200 MG (PMX) 100 ML IVPB SCH (22:33)
[2018-07-13 02:00] VITALS: BP 108/69; PULSE 79; RESP 16
[2018-07-13] MEDS: SOD CHLORIDE 0.9% 250 ML IVPB SCH ×2 (04:47→17:19)
[2018-07-13] MEDS: metroNIDAZOLE 500 MG/NS (PMX) 100 ML IVPB SCH ×3 (05:58→22:46)
[2018-07-13] MEDS: DIPHENHYDRAMINE 25 MG CAP PO SCH ×2 (06:23→17:54)
[2018-07-13] MEDS: VANCOMYCIN 750 MG (PMX) 250 ML IVPB SCH ×2 (06:58→18:51)
[2018-07-13 07:55] VITALS: BP 114/72; PULSE 80; RESP 18
[2018-07-13] MEDS: BENAZEPRIL 10 MG TAB PO SCH ×2 (08:56→20:47)
[2018-07-13] MEDS: NIFEdipine (XL) 30 MG TAB PO SCH (08:59)
[2018-07-13] MEDS: D5-0.2 NACL + KCL 20 MEQ 1,000 ML IV SCH (11:54)
--- NOTE | 2018-07-13 13:44 | PN ---
DATE: 07/13/2018 SUBJECTIVE: No specific complaint. Has had 3 bowel movements, relatively soft. No nausea, no vomiting. Urination is okay. OBJECTIVE: GENERAL: Awake, alert, oriented. VITAL SIGNS: Temperature maximum today 98.8, heart rate 79, respirations 16, blood pressure 108/69, saturation 91% on room air. LABORATORY DATA: WBC 4000 with 65% segmented, hemoglobin stable at 12.1, hematocrit 36.4. Chemistry, no chemistry done today. Coagulation on the , PT was 19 and INR was 1.58. PHYSICAL EXAMINATION: GENERAL: Awake, alert, oriented. CARDIOVASCULAR: Regular. LUNGS: Clear. ABDOMEN: The lower part, especially to the left side at scar of incision on the left side is very distended, tympanic, but is not tender. The opening wound on the lower part of the midline scar is having very minimal drainage, is being dressed per recommendation of wound nurse. The pigtail drain which is connected to accordion bag has drained 28 mL in past 24 hours and should remember that part of it is the saline which is used for flushing of the catheter. Therefore, appears that the real drainage is almost 0. PLAN: Continue current care. We will try to get Dr. 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 Dictated By: GLO OSBORN MD PS/NTS Conf#: [id number] DID#: [id number] CC: KARON SCHNEIDER; ADELAIDE FERREIRA MD;*EndCC* MTDD
[2018-07-13 15:25] VITALS: BP 131/65; PULSE 79; RESP 18
[2018-07-13] MEDS: HYDROmorphONE 1 MG/ML SYG IV PRN (15:28)
--- NOTE | 2018-07-13 17:39 | CONS ---
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 Anemia, leukopenia, thrombocytopenia/pancytopenia. Dyslipidemia Continue Procardia and Benazepril Continue antibiotics Continue antifungal Continue flagyl Consultation Date/Type/Reason Admit Date/Time Jul 05, 2018 at 12:27 Type of Consult Cardiology Date/Time of Note DATE: 07/13/18 TIME: 17:32 Past Medical History Home Meds Reported Medications Ondansetron Hcl* (Zofran*) 8 Mg Tablet, 8 MG PO Q12 PRN for NAUSEA AND OR VOM ITING, TAB 05/30/18 Capecitabine* (Xeloda*) 500 Mg Tablet, 1000 MG PO QPM, TBS 05/30/18 Capecitabine* (Xeloda*) 500 Mg Tablet, 1500 MG PO QAM, TAB 05/30/18 Metoclopramide* (Reglan*) 10 Mg Tablet, 10 MG PO BID WITH MEALS PRN for NAUSEA AND/OR VOMITING, TAB 05/30/18 Medications Current Medications Vancomycin HCl (Vanco Iv Per Pharmacy) VANCOMYCIN PER PHARMACY PER PROTOCOL XX ; Start 07/05/18 at 18:00 Potassium Chloride/Dextrose/ Sod Cl 1,000 ml @ 70 mls/hr [id number] IV Last administered on 07/12/18at 18:30; Admin Dose 70 MLS/HR; Start 07/05/18 at 18:00 Vancomycin/Sodium Chloride 250 ml @ 62.5 mls/hr Q12H IVPB Last administered on 07/13/18at 06:58; Admin Dose 62.5 MLS/HR; Start 07/06/18 at 06:00 Metronidazole 100 ml @ 100 mls/hr Q8 IVPB Last administered on 07/13/18at 14:32; Admin Dose 100 MLS/HR; Start 07/05/18 at 22:30 Diphenhydramine HCl (Benadryl) 25 mg Q6H PRN IV ALLERGIC REACTION; Start 07/06/18 at 14:00 Hydromorphone HCl (Dilaudid) 1 mg Q4H PRN IV SEVERE PAIN LEVEL 7-10 Last ad ministered on 07/13/18at 15:28; Admin Dose 1 MG; Start 07/06/18 at 17:00 Benazepril HCl (Lotensin) 10 mg BID PO Last administered on 07/13/18at 08:56; Admin Dose 10 MG; Start 07/06/18 at 21:00 Diphenhydramine HCl (Benadryl) 25 mg Q12H PO Last administered on 07/13/18at 06:23; Admin Dose 25 MG; Start 07/08/18 at 05:30 Sodium Chloride 250 ml @ 250 mls/hr Q12H IVPB Last administered on 07/13/18at 17:19; Admin Dose 250 MLS/HR; Start 07/09/18 at 05:00 Nifedipine (Procardia Xl) 30 mg DAILY PO Last administered on 07/13/18at 08:59; Admin Dose 30 MG; Start 07/11/18 at 09:00 Fluconazole 100 ml @ 100 mls/hr Q24H IVPB Last administered on 07/12/18at 22:33; Admin Dose 100 MLS/HR; Start 07/10/18 at 21:30 Allergies: Coded Allergies: Penicillins (Verified Allergy, Unknown, 07/05/18) acetaminophen (Verified Allergy, Unknown, 07/05/18) tetracycline (Verified Allergy, Unknown, VERTIGO, N&V, 07/05/18) Past Surgical History Past Surgical Hx: other (extended R hemicolectomy) Social History Alcohol Use: none Smoking Status: Current every day smoker Drug Use: none Exam/Review of Systems Vital Signs Vitals Vital Signs Date Temp Pulse Resp B/P (MAP) Pulse Ox O2 O2 Flow FiO2 Time Delivery Rate 07/13/18 98.1 79 18 131/65 98 15:25 (87) 07/12/18 Room Air 14:27 Intake and Output 07/12/18 07/12/18 07/13/18 1515:00 23:00 07:00 IntakeIntake Total 970 ml 1095 ml 830 ml OutputOutput Total 20 ml 8 ml BalanceBalance 970 ml 1075 ml 822 ml Exam Constitutional: alert Head: normocephalic, atraumatic Respiratory: clear to auscultation Cardiovascular: regular rate and rhythm (no m/r/g) Gastrointestinal: soft, nl liver, spleen Extremities: normal pulses Labs Result Diagram: 07/13/18 0424 07/12/18 0434 Results 24hrs Laboratory Tests Test 07/13/18 04:24 White Blood Count 4.0 L Red Blood Count 3.76 L Hemoglobin 12.1 Hematocrit 36.4 L Mean Corpuscular Volume 96.8 Mean Corpuscular Hemoglobin 32.2 Mean Corpuscular Hemoglobin Concent 33.2 Red Cell Distribution Width 19.8 H Platelet Count 105 L Mean Platelet Volume 10.5 H Immature Granulocytes % 0.300 Neutrophils % 65.7 Lymphocytes % 22.4 Monocytes % 8.8 Eosinophils % 2.3 Basophils % 0.5 Nucleated Red Blood Cells % 0.0 Immature Granulocytes # 0.010 Neutrophils # 2.6 Lymphocytes # 0.9 Monocytes # 0.4 Eosinophils # 0.1 Basophils # 0.0 Nucleated Red Blood Cells # 0.0 Medications Medications Current Medications Vancomycin HCl (Vanco Iv Per Pharmacy) VANCOMYCIN PER PHARMACY PER PROTOCOL XX ; Start 07/05/18 at 18:00 Potassium Chloride/Dextrose/ Sod Cl 1,000 ml @ 70 mls/hr [id number] IV Last administered on 07/12/18at 18:30; Admin Dose 70 MLS/HR; Start 07/05/18 at 18:00 Vancomycin/Sodium Chloride 250 ml @ 62.5 mls/hr Q12H IVPB Last administered on 07/13/18at 06:58; Admin Dose 62.5 MLS/HR; Start 07/06/18 at 06:00 Metronidazole 100 ml @ 100 mls/hr Q8 IVPB Last administered on 07/13/18at 14:32; Admin Dose 100 MLS/HR; Start 07/05/18 at 22:30 Diphenhydramine HCl (Benadryl) 25 mg Q6H PRN IV ALLERGIC REACTION; Start 07/06/18 at 14:00 Hydromorphone HCl (Dilaudid) 1 mg Q4H PRN IV SEVERE PAIN LEVEL 7-10 Last administered on 07/13/18at 15:28; Admin Dose 1 MG; Start 07/06/18 at 17:00 Benazepril HCl (Lotensin) 10 mg BID PO Last administered on 07/13/18at 08:56; Admin Dose 10 MG; Start 07/06/18 at 21:00 Diphenhydramine HCl (Benadryl) 25 mg Q12H PO Last administered on 07/13/18at 06:23; Admin Dose 25 MG; Start 07/08/18 at 05:30 Sodium Chloride 250 ml @ 250 mls/hr Q12H IVPB Last administered on 07/13/18at 17:19; Admin Dose 250 MLS/HR; Start 07/09/18 at 05:00 Nifedipine (Procardia Xl) 30 mg DAILY PO Last administered on 07/13/18at 08:59; Admin Dose 30 MG; Start 07/11/18 at 09:00 Fluconazole 100 ml @ 100 mls/hr Q24H IVPB Last administered on 07/12/18at 22:33 ; Admin Dose 100 MLS/HR; Start 07/10/18 at 21:30 CHELSEY LOPEZ M.D. Jul 13, 2018 17:39
--- NOTE | 2018-07-13 19:07 | PN ---
DATE: 07/13/2018 SUBJECTIVE: Follow up on enterocutaneous fistula/intra-abdominal fistula, hypertension. The patient is breathing comfortably at rest. Denies any chest pain. Abdominal pain is also well controlled. No reported fever or chills. No reported nausea. PHYSICAL EXAMINATION: GENERAL: Awake, alert. VITAL SIGNS: Temperature 98.1, pulse 79, respirations 18, blood pressure 131/65, O2 sat 98% on room air. HEENT: No eye discharge or redness. Conjunctivae and lids are normal. Oropharynx clear. NECK: Supple. No thyromegaly. CHEST: Fairly clear. No use of accessory muscles. CARDIOVASCULAR: Regular rate and rhythm. S1, S2 normal, no murmur. ABDOMEN: Soft, nondistended. Small wound in the lower abdomen and drain in place. NEUROLOGIC: The patient is awake, alert, fairly oriented with no gross focal deficit. LABORATORY DATA: WBC 4, hemoglobin 12.1, platelet 105. IMPRESSION: 1. Intra-abdominal/enterocutaneous fistula. Fluid draining polymicrobial organisms including C. alb icans. Continue multiple IV antibiotic and IV fluconazole. 2. Hypertension. Blood pressure well controlled with Procardia and benazepril. Plan of care discus sed with patient's family with help of luggage liner. The patient is tolerating soft diet. The patien t is requesting to go to [facility] for further care once she is stable for discharge to SNF. Dictated By: ADELAIDE VALLES/JAMIE Conf#: [id number] DID#: [id number]
[2018-07-13 19:24] VITALS: BP 120/73; PULSE 80; RESP 18
--- NOTE | 2018-07-13 20:39 | CONS ---
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 albicans, and rare S. 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 An oral suppressive regimen may need to be considered. This will obviously be complicated by patient's allergies. - continue IV vancomycin and metronidazole (07/05/2018-) - for red man syndrome: premedicate each infusion of IV vancomycin with PO Benadryl and NS 250 mL bolus - continue IV fluconazole (07/07/2018-) - monitor CrCl closely Management d/w patient, CHASITY Echols, and with Dr. Lyons. Consultation Date/Type/Reason Admit Date/Time Jul 05, 2018 at 12:27 Initial Consult Date 07/05/18 Type of Consult Infectious Disease Requesting Provider: FERNANDA JARRETT Date/Time of Note DATE: 07/13/18 TIME: 20:39 24 HR Interval Summary Free Text/Dictation No acute issues per d/w nursing. Pt states took pain medication recently and pain is currently tolerable No new complaints. Exam/Review of Systems Exam Vitals Vital Signs Date Temp Pulse Resp B/P (MAP) Pulse Ox O2 O2 Flow FiO2 Time Delivery Rate 07/13/18 98.9 80 18 120/73 96 19:24 (89) 07/12/18 Room Air 14:27 Intake and Output 07/12/18 07/12/18 07/13/18 1515:00 23:00 07:00 IntakeIntake Total 970 ml 1095 ml 830 ml OutputOutput Total 20 ml 8 ml BalanceBalance 970 ml 1075 ml 822 ml Exam Constitutional: alert, oriented, well developed Psych: no complaints, nl mood/affect Head: normocephalic, atraumatic Eyes: nl conjunctiva, nl lids, nl sclera ENMT: nl external ears & nose, nl nasal mucosa & septum, mucosa pink and moist (no thrush noted) Neck: supple, non-tender Respiratory: clear to auscultation, normal air movement; No labored breathing, No wheezing Cardiovascular: regular rate and rhythm, nl pulses Gastrointestinal: soft, bowel sounds (normoactive), surgical scars, other (lower abdominal wound with small greenish drainage on dressing. R abdominal external drainage catheter with trivial light clear yellow drainage) Genitourinary - Female: other (no F/c) Musculoskeletal: nl extremities to inspection Extremities: normal pulses; No edema Neurological: [employer] II-XII intact, nl mental status, nl speech ([place] speaking only), nl strength Skin: nl turgor; No rash or lesions Results Result Diagram: 07/13/18 0424 07/12/18 0434 Results 24hrs Laboratory Tests Test 07/13/18 04:24 White Blood Count 4.0 L Red Blood Count 3.76 L Hemoglobin 12.1 Hematocrit 36.4 L Mean Corpuscular Volume 96.8 Mean Corpuscular Hemoglobin 32.2 Mean Corpuscular Hemoglobin Concent 33.2 Red Cell Distribution Width 19.8 H Platelet Count 105 L Mean Platelet Volume 10.5 H Immature Granulocytes % 0.300 Neutrophils % 65.7 Lymphocytes % 22.4 Monocytes % 8.8 Eosinophils % 2.3 Basophils % 0.5 Nucleated Red Blood Cells % 0.0 Immature Granulocytes # 0.010 Neutrophils # 2.6 Lymphocytes # 0.9 Monocytes # 0.4 Eosinophils # 0.1 Basophils # 0.0 Nucleated Red Blood Cells # 0.0 Medications Medication Current Medications Vancomycin HCl (Vanco Iv Per Pharmacy) VANCOMYCIN PER PHARMACY PER PROTOCOL XX ; Start 07/05/18 at 18:00 Potassium Chloride/Dextrose/ Sod Cl 1,000 ml @ 70 mls/hr [id number] IV Last administered on 07/12/18 18:30; Admin Dose 70 MLS/HR; Start 07/05/18 at 18:00 Vancomycin/Sodium Chloride 250 ml @ 62.5 mls/hr Q12H IVPB Last administered on 07/13/18 18:51; Admin Dose 62.5 MLS/HR; Start 07/06/18 at 06:00 Metronidazole 100 ml @ 100 mls/hr Q8 IVPB Last administered on 07/13/18 14:32; Admin Dose 100 MLS/HR; Start 07/05/18 at 22:30 Diphenhydramine HCl (Benadryl) 25 mg Q6H PRN IV ALLERGIC REACTION; Start 07/06/18 at 14:00 Hydromorphone HCl (Dilaudid) 1 mg Q4H PRN IV SEVERE PAIN LEVEL 7-10 Last administered on 07/13/18 15:28; Admin Dose 1 MG; Start 07/06/18 at 17:00 Benazepril HCl (Lotensin) 10 mg BID PO Last administered on 07/13/18 08:56; Admin Dose 10 MG; Start 07/06/18 at 21:00 Diphenhydramine HCl (Benadryl) 25 mg Q12H PO Last administered on 07/13/18 17:54; Admin Dose 25 MG; Start 07/08/18 at 05:30 Sodium Chloride 250 ml @ 250 mls/hr Q12H IVPB Last administered on 07/13/18 17:19; Admin Dose 250 MLS/HR; Start 07/09/18 at 05:00 Nifedipine (Procardia Xl) 30 mg DAILY PO Last administered on 07/13/18 08:59; Admin Dose 30 MG; Start 07/11/18 at 09:00 Fluconazole 100 ml @ 100 mls/hr Q24H IVPB Last administered on 07/12/18at 22:33; Admin Dose 100 MLS/HR; Start 07/10/18 at 21:30 DANIELLE BOLAND NP Jul 13, 2018 20:39
[2018-07-13] MEDS: FLUCONAZOLE 200 MG (PMX) 100 ML IVPB SCH (21:41)
[2018-07-14 02:00] VITALS: BP 103/60; PULSE 78; RESP 18
[2018-07-14] MEDS: D5-0.2 NACL + KCL 20 MEQ 1,000 ML IV SCH ×2 (02:12→03:48)
[2018-07-14] MEDS: SOD CHLORIDE 0.9% 250 ML IVPB SCH ×2 (05:05→16:25)
[2018-07-14] MEDS: DIPHENHYDRAMINE 25 MG CAP PO SCH ×2 (05:28→17:29)
[2018-07-14] MEDS: metroNIDAZOLE 500 MG/NS (PMX) 100 ML IVPB SCH ×3 (05:48→22:38)
[2018-07-14] MEDS: VANCOMYCIN 750 MG (PMX) 250 ML IVPB SCH ×2 (06:50→18:44)
[2018-07-14 07:30] VITALS: BP 106/69; PULSE 79; RESP 17
[2018-07-14] MEDS: BENAZEPRIL 10 MG TAB PO SCH ×2 (08:40→21:20)
[2018-07-14] MEDS: NIFEdipine (XL) 30 MG TAB PO SCH (08:41)
[2018-07-14 14:37] VITALS: BP 119/68; PULSE 80; RESP 16
--- NOTE | 2018-07-14 14:47 | CONS ---
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 Anemia, leukopenia, thrombocytopenia/pancytopenia. Dyslipidemia Continue Procardia and Benazepril Continue antibiotics Continue antifungal Continue flagyl Consultation Date/Type/Reason Admit Date/Time Jul 05, 2018 at 12:27 Initial Consult Date 07/05/18 Type of Consult Cardiology Requesting Provider: FERNANDA JARRETT Date/Time of Note DATE: 07/14/18 TIME: 14:46 Exam/Review of Systems Vital Signs Vitals Vital Signs Date Temp Pulse Resp B/P (MAP) Pulse Ox O2 O2 Flow FiO2 Time Delivery Rate 07/14/18 98.5 80 16 119/68 97 14:37 (85) 07/12/18 Room Air 14:27 Intake and Output 07/13/18 07/13/18 07/14/18 1515:00 23:00 07:00 IntakeIntake Total 970 ml 1980 ml 1330 ml OutputOutput Total 300 ml 1910 ml 1010 ml BalanceBalance 670 ml 70 ml 320 ml Exam Exam Constitutional: alert Head: normocephalic, atraumatic Respiratory: clear to auscultation Cardiovascular: regular rate and rhythm (no m/r/g) Gastrointestinal: soft, nl liver, spleen Extremities: normal pulses Labs Result Diagram: 07/14/18 0544 07/12/18 0434 Results 24hrs Laboratory Tests Test 07/14/18 05:44 White Blood Count 4.7 L Red Blood Count 3.74 L Hemoglobin 11.9 L Hematocrit 36.1 L Mean Corpuscular Volume 96.5 Mean Corpuscular Hemoglobin 31.8 Mean Corpuscular Hemoglobin Concent 33.0 Red Cell Distribution Width 19.4 H Platelet Count 112 L Mean Platelet Volume 11.2 H Immature Granulocytes % 0.200 Neutrophils % 65.2 Lymphocytes % 21.4 Monocytes % 9.8 Eosinophils % 2.8 Basophils % 0.6 Nucleated Red Blood Cells % 0.0 Immature Granulocytes # 0.010 Neutrophils # 3.1 Lymphocytes # 1.0 Monocytes # 0.5 Eosinophils # 0.1 Basophils # 0.0 Nucleated Red Blood Cells # 0.0 Prothrombin Time 17.7 H Prothrombin Time Ratio 1.4 INR International Normalized Ratio 1.45 Activated Partial Thromboplast Time 34.7 Medications Medications Current Medications Vancomycin HCl (Vanco Iv Per Pharmacy) VANCOMYCIN PER PHARMACY PER PROTOCOL XX ; Start 07/05/18 at 18:00 Potassium Chloride/Dextrose/ Sod Cl 1,000 ml @ 70 mls/hr [id number] IV Last administered on 07/14/18 03:48; Admin Dose 70 MLS/HR; Start 07/05/18 at 18:00 Vancomycin/Sodium Chloride 250 ml @ 62.5 mls/hr Q12H IVPB Last administered on 07/14/18 06:50; Admin Dose 62.5 MLS/HR; Start 07/06/18 at 06:00 Metronidazole 100 ml @ 100 mls/hr Q8 IVPB Last administered on 07/14/18 14:06; Admin Dose 100 MLS/HR; Start 07/05/18 at 22:30 Diphenhydramine HCl (Benadryl) 25 mg Q6H PRN IV ALLERGIC REACTION; Start 07/06/18 at 14:00 Hydromorphone HCl (Dilaudid) 1 mg Q4H PRN IV SEVERE PAIN LEVEL 7-10 Last administered on 07/13/18 15:28; Admin Dose 1 MG; Start 07/06/18 at 17:00 Benazepril HCl (Lotensin) 10 mg BID PO Last administered on 07/13/18at 20:47; Admin Dose 10 MG; Start 07/06/18 at 21:00 Diphenhydramine HCl (Benadryl) 25 mg Q12H PO Last administered on 07/14/18 05:28; Admin Dose 25 MG; Start 07/08/18 at 05:30 Sodium Chloride 250 ml @ 250 mls/hr Q12H IVPB Last administered on 07/14/18 05:05; Admin Dose 250 MLS/HR; Start 07/09/18 at 05:00 Nifedipine (Procardia Xl) 30 mg DAILY PO Last administered on 07/13/18 08:59; Admin Dose 30 MG; Start 07/11/18 at 09:00 Fluconazole 100 ml @ 100 mls/hr Q24H IVPB Last administered on 07/13/18 21:41; Admin Dose 100 MLS/HR; Start 07/10/18 at 21:30 CHELSEY LOPEZ M.D. Jul 14, 2018 14:47
--- NOTE | 2018-07-14 15:56 | PN ---
DATE: 07/14/2018 SUBJECTIVE: No new complaint, no specific events. Basically, we are waiting for the abdominal wound drainage to decrease and hopefully stop and also to find and have Dr. Ferreira and see the patient o n the wound tomorrow hopefully, which is Sunday or Sunday as soon as possible, to make a decision if he is willing and ready to give chemotherapy to this patient as she wishes and also he has stated th at he will give chemotherapy. OBJECTIVE: GENERAL: Awake, alert, oriented, no acute distress. VITAL SIGNS: Temperature maximum today 98.5, heart rate 80, respirations 16, blood pressure 116/68, saturation 97% room air. LABORATORY DATA: WBC 4700 with 65% segmented, hemoglobin 11.9, hematocrit is 36.1. Chemistry: Sodi um and potassium normal. BUN and creatinine normal. This is, of course, around 07/12, we do not hav e a new chemistry today. I and O's occurred during drain in the right side of the abdomen in the pas t 24 hours has drained 28 mL. She has clear yellowish fluid and I think this is the fluid which is b eing returned back after flushing the tubing with normal saline 10 mL q.12h. The abdominal wall woun d possible fistula drainage has decreased a lot and only past 24 hours, the dressing had to be change d once, per recommendation of the wound. The patient states that has had a bowel movement. Tolerati ng regular diet. PLAN: As was we mentioned several times, the surgeons here, they are not willing and actually they c annot do the kind of operation she has needed for this woman, and we have told her and the family joleen t she was having a special place to do cytoreductive surgery and intra-abdominal hot chemotherapy marbin atment to be followed by other chemotherapy in future, but the patient does not agree for any transfe r to a tertiary center and she is waiting for Dr. Falcon to probably start her on chemotherapy. We will continue to follow. Dictated By: GLO OSBORN MD PS/NTS Conf#: [id number] DID#: [id number] CC: ADELAIDE FERREIRA MD;*EndCC*
--- NOTE | 2018-07-14 17:33 | CONS ---
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 albicans, and rare S. 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 coli in 2017 - h/o drainage of abscess and wound VAC placement in 2017 - liver cirrhosis with moderate to prominent loculated ascites, hepatitis panel on 07/06/2018 was negative - prominent splenomegaly - marked upper abdominal varices including varices at the GE junction - cholelithiasis # other issues - pancytopenia - stable - macerated skin of the abdomen due to the draining enterocutaneous fistulra - red man syndrome due to vancomycin - allergy to PCN (throat swelling), and tetracycline Recommendations: - detailed surgical notes reviewed and considerations noted - continue abx, plan for 10-14 days. Consider repeat imaging prior to cessation of antibiotics. - ordered AM lactic acid and procalcitonin - continue IV vancomycin and metronidazole (07/05/2018-) for now - for red man syndrome: premedicate each infusion of IV vancomycin with PO Benadryl and NS 250 mL bolus - continue IV fluconazole (07/07/2018-) - awaiting evaluation from Dr. Falcon for consideration of chemo Management d/w patient, CHASITY Monet, and with Dr. Lyons. Consultation Date/Type/Reason Admit Date/Time Jul 05, 2018 at 12:27 Initial Consult Date 07/05/18 Type of Consult Infectious Disease Requesting Provider: FERNANDA JARRETT Date/Time of Note DATE: 07/14/18 TIME: 17:32 24 HR Interval Summary Free Text/Dictation No acute issues per d/w nursing. Lower abdominal dressing was changed; RLQ T- tube drain is being flushed q12 hours. Pt reports pain is well tolerated with po pain meds. No n/v/d, dysuria. Exam/Review of Systems Exam Vitals Vital Signs Date Temp Pulse Resp B/P (MAP) Pulse Ox O2 O2 Flow FiO2 Time Delivery Rate 07/14/18 98.5 80 16 119/68 97 14:37 (85) 07/12/18 Room Air 14:27 Intake and Output 07/13/18 07/13/18 07/14/18 1515:00 23:00 07:00 IntakeIntake Total 970 ml 1980 ml 1330 ml OutputOutput Total 300 ml 1910 ml 1010 ml BalanceBalance 670 ml 70 ml 320 ml Exam Constitutional: alert, oriented, well developed Psych: no complaints, nl mood/affect (smiling) Head: normocephalic, atraumatic Eyes: nl conjunctiva, nl lids, nl sclera ENMT: nl external ears & nose, nl nasal mucosa & septum, mucosa pink and moist (no thrush noted) Neck: supple, non-tender Respiratory: clear to auscultation, normal air movement; No labored breathing, No wheezing Cardiovascular: regular rate and rhythm, nl pulses Gastrointestinal: soft, bowel sounds (normoactive), surgical scars, other (lower abdominal wound with new dressing c/d/i; R abdominal external drainage ca theter with trivial light clear yellow drainage) Genitourinary - Female: other (no F/c) Musculoskeletal: nl extremities to inspection Extremities: normal pulses; No edema Neurological: DRUM HANDLER II-XII intact, nl mental status, nl speech (Korean speaking only), nl strength Skin: nl turgor; No rash or lesions Results Result Diagram: 07/14/18 0544 07/12/18 0434 Results 24hrs Laboratory Tests Test 07/14/18 05:44 White Blood Count 4.7 L Red Blood Count 3.74 L Hemoglobin 11.9 L Hematocrit 36.1 L Mean Corpuscular Volume 96.5 Mean Corpuscular Hemoglobin 31.8 Mean Corpuscular Hemoglobin Concent 33.0 Red Cell Distribution Width 19.4 H Platelet Count 112 L Mean Platelet Volume 11.2 H Immature Granulocytes % 0.200 Neutrophils % 65.2 Lymphocytes % 21.4 Monocytes % 9.8 Eosinophils % 2.8 Basophils % 0.6 Nucleated Red Blood Cells % 0.0 Immature Granulocytes # 0.010 Neutrophils # 3.1 Lymphocytes # 1.0 Monocytes # 0.5 Eosinophils # 0.1 Basophils # 0.0 Nucleated Red Blood Cells # 0.0 Prothrombin Time 17.7 H Prothrombin Time Ratio 1.4 INR International Normalized Ratio 1.45 Activated Partial Thromboplast Time 34.7 Medications Medication Current Medications Vancomycin HCl (Vanco Iv Per Pharmacy) VANCOMYCIN PER PHARMACY PER PROTOCOL XX ; Start 07/05/18 at 18:00 Potassium Chloride/Dextrose/ Sod Cl 1,000 ml @ 70 mls/hr [id number] IV Last administered on 07/14/18 03:48; Admin Dose 70 MLS/HR; Start 07/05/18 at 18:00 Vancomycin/Sodium Chloride 250 ml @ 62.5 mls/hr Q12H IVPB Last administered on 07/14/18 06:50; Admin Dose 62.5 MLS/HR; Start 07/06/18 at 06:00 Metronidazole 100 ml @ 100 mls/hr Q8 IVPB Last administered on 07/14/18 14:06; Admin Dose 100 MLS/HR; Start 07/05/18 at 22:30 Diphenhydramine HCl (Benadryl) 25 mg Q6H PRN IV ALLERGIC REACTION; Start 07/06/18 at 14:00 Hydromorphone HCl (Dilaudid) 1 mg Q4H PRN IV SEVERE PAIN LEVEL 7-10 Last administered on 07/13/18at 15:28; Admin Dose 1 MG; Start 07/06/18 at 17:00 Benazepril HCl (Lotensin) 10 mg BID PO Last administered on 07/13/18 20:47; Admin Dose 10 MG; Start 07/06/18 at 21:00 Diphenhydramine HCl (Benadryl) 25 mg Q12H PO Last administered on 07/14/18 17:29; Admin Dose 25 MG; Start 07/08/18 at 05:30 Sodium Chloride 250 ml @ 250 mls/hr Q12H IVPB Last administered on 07/14/18at 16:25; Admin Dose 250 MLS/HR; Start 07/09/18 at 05:00 Nifedipine (Procardia Xl) 30 mg DAILY PO Last administered on 07/13/18at 08:59; Admin Dose 30 MG; Start 07/11/18 at 09:00 Fluconazole 100 ml @ 100 mls/hr Q24H IVPB Last administered on 07/13/18at 21:41; Admin Dose 100 MLS/HR; Start 07/10/18 at 21:30 DANIELLE BOLAND NP Jul 14, 2018 17:33
[2018-07-14 19:55] VITALS: BP 122/59; PULSE 80; RESP 18
[2018-07-14] MEDS: FLUCONAZOLE 200 MG (PMX) 100 ML IVPB SCH (21:20)
[2018-07-15 01:36] VITALS: BP 116/59; PULSE 71; RESP 18
[2018-07-15] MEDS: SOD CHLORIDE 0.9% 250 ML IVPB SCH ×2 (04:28→16:15)
[2018-07-15] MEDS: DIPHENHYDRAMINE 25 MG CAP PO SCH ×2 (05:41→17:28)
[2018-07-15] MEDS: metroNIDAZOLE 500 MG/NS (PMX) 100 ML IVPB SCH ×3 (05:41→22:50)
[2018-07-15] MEDS: D5-0.2 NACL + KCL 20 MEQ 1,000 ML IV SCH ×3 (05:51→21:06)
[2018-07-15] MEDS: VANCOMYCIN 750 MG (PMX) 250 ML IVPB SCH ×2 (06:35→17:28)
[2018-07-15 07:29] VITALS: BP 123/73; PULSE 72; RESP 20
[2018-07-15] MEDS: NIFEdipine (XL) 30 MG TAB PO SCH (08:08)
[2018-07-15] MEDS: BENAZEPRIL 10 MG TAB PO SCH ×2 (08:08→20:36)
--- NOTE | 2018-07-15 08:53 | PN ---
DATE: 07/15/2018 SUBJECTIVE/INTERVAL HISTORY: The patient denies any chest pain or shortness of breath, no reported f ever or chills. Abdominal wound drainage decreases, however, continues to persist. PHYSICAL EXAMINATION: GENERAL: The patient is awake, alert. VITAL SIGNS: Temperature 98.1, pulse 79, respirations 17, blood pressure 106/69, O2 saturation 97% r oom air. HEENT: No eye discharge or redness. Conjunctiva is normal. Oropharynx is clear. NECK: No mass. CHEST: Fairly clear. CARDIOVASCULAR: S1, S2 normal. No murmur. ABDOMEN: Soft, nondistended. Wound tenderness is present. EXTREMITIES: No edema. NEUROLOGIC: The patient is awake, alert, fairly oriented with no gross focal deficit. LABORATORY DATA: WBC 4.7, hemoglobin 11.9, platelet 112. BUN 9, creatinine 0.4. IMPRESSION: 1. Enterocutaneous fistula and complicated abdominal infection, polymicrobial growth. Continue anti biotics plan for 10 to 14 days. The patient is currently on vancomycin and Flagyl and IV fluconazole . 2. Colon cancer with pelvic carcinomatosis with ascites. Dr. Belle will give further recomme ndation regarding chemotherapy. 3. Hypertension. Blood pressure well controlled with current regimen. Dictated By: ADELAIDE FERREIRA MD AB/NTS Conf#: [id number] DID#: [id number] CC: KARON SCHNEIDER; ADELAIDE FERREIRA MD;*EndCC*
--- NOTE | 2018-07-15 10:39 | CONS ---
Assessment/Plan Assessment/Plan Hospital Course (Demo Recall) # Recurrent colon cancer 2019 mainly abdominal pelvic carcinomatosis with ascites. -Xelox currently on hold given her sepsis and abdominal wall abscesses #abdominal wall fistula abscesses. -s/p drain in place -continue IV antibiotics and surgical care. -continue Wound dressing per protocol. #Anemia -Hg stable at > 11 Consultation Date/Type/Reason Admit Date/Time Jul 05, 2018 at 12:27 Initial Consult Date 07/05/18 Type of Consult oncology Reason for Consultation recurrent colon cancer Requesting Provider: ADELAIDE FERREIRA MD Date/Time of Note DATE: 07/15/18 TIME: 10:35 24 HR Interval Summary Free Text/Dictation abdominal drain has more out put Exam/Review of Systems Exam Vitals Vital Signs Date Temp Pulse Resp B/P (MAP) Pulse Ox O2 O2 Flow FiO2 Time Delivery Rate 07/15/18 98.2 72 20 123/73 98 07:29 (90) 07/12/18 Room Air 14:27 Intake and Output 07/14/18 07/14/18 07/15/18 1515:00 23:00 07:00 IntakeIntake Total 1730 ml 1580 ml 730 ml OutputOutput Total 1300 ml 610 ml 1075 ml BalanceBalance 430 ml 970 ml -345 ml Constitutional: alert, oriented Psych: no complaints Head: normocephalic Eyes: nl conjunctiva ENMT: nl external ears & nose Neck: supple Respiratory: clear to auscultation Cardiovascular: regular rate and rhythm Gastrointestinal: other (héctor in place) Musculoskeletal: nl extremities to inspection Extremities: normal pulses Results Result Diagram: 07/14/18 0544 07/15/18 0517 Results 24hrs Laboratory Tests Test 07/15/18 05:17 Blood Urea Nitrogen 9 Creatinine 0.41 L Lactic Acid Level 1.3 Medications Medication Current Medications Vancomycin HCl (Vanco Iv Per Pharmacy) VANCOMYCIN PER PHARMACY PER PROTOCOL XX ; Start 07/05/18 at 18:00 Potassium Chloride/Dextrose/ Sod Cl 1,000 ml @ 70 mls/hr [id number] IV Last admi nistered on 07/14/18at 03:48; Admin Dose 70 MLS/HR; Start 07/05/18 at 18:00 Vancomycin/Sodium Chloride 250 ml @ 62.5 mls/hr Q12H IVPB Last administered on 07/15/18 06:35; Admin Dose 62.5 MLS/HR; Start 07/06/18 at 06:00 Metronidazole 100 ml @ 100 mls/hr Q8 IVPB Last administered on 07/15/18 05:41; Admin Dose 100 MLS/HR; Start 07/05/18 at 22:30 Diphenhydramine HCl (Benadryl) 25 mg Q6H PRN IV ALLERGIC REACTION; Start 07/06/18 at 14:00 Hydromorphone HCl (Dilaudid) 1 mg Q4H PRN IV SEVERE PAIN LEVEL 7-10 Last administered on 07/13/18 15:28; Admin Dose 1 MG; Start 07/06/18 at 17:00 Benazepril HCl (Lotensin) 10 mg BID PO Last administered on 07/15/18 08:08; Admin Dose 10 MG; Start 07/06/18 at 21:00 Diphenhydramine HCl (Benadryl) 25 mg Q12H PO Last administered on 07/15/18 05:41; Admin Dose 25 MG; Start 07/08/18 at 05:30 Sodium Chloride 250 ml @ 250 mls/hr Q12H IVPB Last administered on 07/15/18 04:28; Admin Dose 250 MLS/HR; Start 07/09/18 at 05:00 Nifedipine (Procardia Xl) 30 mg DAILY PO Last administered on 07/15/18 08:08; Admin Dose 30 MG; Start 07/11/18 at 09:00 Fluconazole 100 ml @ 100 mls/hr Q24H IVPB Last administered on 07/14/18 21:20; Admin Dose 100 MLS/HR; Start 07/10/18 at 21:30 HARMEET PORTILLO M.D. Jul 15, 2018 10:39
[2018-07-15 14:43] VITALS: BP 118/70; PULSE 76; RESP 20
[2018-07-15] MEDS: IBUPROFEN 400 MG TAB PO PRN (16:13)
--- NOTE | 2018-07-15 16:41 | CONS ---
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 albicans, and rare S. 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 We recommend repeat imaging prior to cessation of antibiotics. - for red man syndrome: premedicate each infusion of IV vancomycin with PO Benadryl and NS 250 mL bolus - continue IV fluconazole (07/07/2018-) - awaiting evaluation from Dr. Falcon for consideration of chemo Management d/w patient, CHASITY Monet, and with Dr. Lyons. Consultation Date/Type/Reason Admit Date/Time Jul 05, 2018 at 12:27 Initial Consult Date 07/05/18 Type of Consult Infectious Disease Requesting Provider: ADELAIDE FERREIRA MD Date/Time of Note DATE: 07/15/18 TIME: 16:40 24 HR Interval Summary Free Text/Dictation Abdominal drain has more output 135 cc/24 hours and more than 500 cc this shift per d/w nursing. Pt states abdominal pain is mild. No n/v/d, dysuria. Exam/Review of Systems Exam Vitals Vital Signs Date Temp Pulse Resp B/P (MAP) Pulse Ox O2 O2 Flow FiO2 Time Delivery Rate 07/15/18 98.3 76 20 118/70 98 14:43 (86) 07/12/18 Room Air 14:27 Intake and Output 07/14/18 07/14/18 07/15/18 1515:00 23:00 07:00 IntakeIntake Total 1730 ml 1580 ml 730 ml OutputOutput Total 1300 ml 610 ml 1075 ml BalanceBalance 430 ml 970 ml -345 ml Exam Constitutional: alert, oriented, well developed Psych: no complaints, nl mood/affect (smiling) Head: normocephalic, atraumatic Eyes: nl conjunctiva, nl lids, nl sclera ENMT: nl external ears & nose, nl nasal mucosa & septum, mucosa pink and moist (no thrush noted) Neck: supple, non-tender Respiratory: clear to auscultation, normal air movement; No labored breathing, No wheezing Cardiovascular: regular rate and rhythm, nl pulses Gastrointestinal: soft, bowel sounds (normoactive), surgical scars, other (lower abdominal wound with new dressing c/d/i; R abdominal external drainage catheter with increased yellow drainage) Genitourinary - Female: other (no F/c) Musculoskeletal: nl extremities to inspection Extremities: normal pulses; No edema Neurological: ANALYST SALES II-XII intact, nl mental status, nl speech (Maldivian speaking only), nl strength Skin: nl turgor; No rash or lesions Results Result Diagram: 07/14/18 0544 07/15/18 0517 Results 24hrs Laboratory Tests Test 07/15/18 05:17 Blood Urea Nitrogen 9 Creatinine 0.41 L Lactic Acid Level 1.3 Medications Medication Current Medications Vancomycin HCl (Vanco Iv Per Pharmacy) VANCOMYCIN PER PHARMACY PER PROTOCOL XX ; Start 07/05/18 at 18:00 Potassium Chloride/Dextrose/ Sod Cl 1,000 ml @ 70 mls/hr [id number] IV Last administered on 07/14/18at 03:48; Admin Dose 70 MLS/HR; Start 07/05/18 at 18:00 Vancomycin/Sodium Chloride 250 ml @ 62.5 mls/hr Q12H IVPB Last administered on 07/15/18 06:35; Admin Dose 62.5 MLS/HR; Start 07/06/18 at 06:00 Metronidazole 100 ml @ 100 mls/hr Q8 IVPB Last administered on 07/15/18 14:11; Admin Dose 100 MLS/HR; Start 07/05/18 at 22:30 Diphenhydramine HCl (Benadryl) 25 mg Q6H PRN IV ALLERGIC REACTION; Start at 14:00 Hydromorphone HCl (Dilaudid) 1 mg Q4H PRN IV SEVERE PAIN LEVEL 7-10 Last administered on 07/13/18 15:28; Admin Dose 1 MG; Start 07/06/18 at 17:00 Benazepril HCl (Lotensin) 10 mg BID PO Last administered on 07/15/18 08:08; Admin Dose 10 MG; Start 07/06/18 at 21:00 Diphenhydramine HCl (Benadryl) 25 mg Q12H PO Last administered on 07/15/18 05:41; Admin Dose 25 MG; Start 07/08/18 at 05:30 Sodium Chloride 250 ml @ 250 mls/hr Q12H IVPB Last administered on 07/15/18 16:15; Admin Dose 250 MLS/HR; Start 07/09/18 at 05:00 Nifedipine (Procardia Xl) 30 mg DAILY PO Last administered on 07/15/18 08:08; Admin Dose 30 MG; Start 07/11/18 at 09:00 Fluconazole 100 ml @ 100 mls/hr Q24H IVPB Last administered on 07/14/18 21:20; Admin Dose 100 MLS/HR; Start 07/10/18 at 21:30 Ibuprofen (Motrin) 400 mg Q6H PRN PO MILD PAIN(1-3) OR TEMP>38C Last administered on 07/15/18 16:13; Admin Dose 400 MG; Start 07/15/18 at 16:00 DANIELLE BOLAND NP Jul 15, 2018 16:41
--- NOTE | 2018-07-15 17:38 | PN ---
Date/Time of Note Date/Time of Note DATE: 07/15/18 TIME: 17:38 Assessment/Plan VTE Prophylaxis Risk score (from [facility])>0 risk: 4 SCD applied (from [facility]): Yes Pharmacological prophylaxis: NA/contraindicated Pharm contraindication: thrombocytopenia Lines/Catheters IV Catheter Type (from [facility]): Peripheral IV Urinary Cath still in place: No Assessment/Plan Hospital Course Patient continued on vancomycin, Flagyl and fluconazole for intra-abdominal infection, enterocutaneous fistula drainage increased to 600 cc per last shift per RN. Patient currently tolerates mechanical soft diet without any nausea vomiting. Patient is awake alert, hemodynamically stable, afebrile. Assessment/Plan -Entero-cutaneous fistula, continue current wound care per surgery and wound care team recommendations. -Intra-abdominal fluid collection, s/p placement of an external drainage catheter in RLQ 07/06/2018. 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 Dr. Castillo is following in oncology consultation. Surgical team recommended transfer to tertiary care facility for cytoreductive surgery, however, patient refused surgery, wants to proceed with chemotherapy. -Intra-abdominal infection, continue antibiotics per ID. Dr. Lara is f ollowing in infection disease consultation. Patient is currently on vancomycin and Flagyl and fluconazole. -History of mucinous adenocarcinoma of the cecum, ileocecal valve and adjacent ascending colon, status post right hemicolectomy on 06/26/[address] Rios. -Liver cirrhosis -Pancytopenia Further recommendations based on clinical course. Plan of care discussed with Dr. Figueroa. Result Diagram: 07/14/18 0544 07/15/18 0517 Results 24hrs Laboratory Tests Test 07/15/18 05:17 Blood Urea Nitrogen 9 Creatinine 0.41 L Lactic Acid Level 1.3 Exam/Review of Systems Exam Vitals Vital Signs Date Temp Pulse Resp B/P (MAP) Pulse Ox O2 O2 Flow FiO2 Time Delivery Rate 07/15/18 98.3 76 20 118/70 98 14:43 (86) 07/12/18 Room Air 14:27 Intake and Output 07/14/18 07/14/18 07/15/18 1515:00 23:00 07:00 IntakeIntake Total 1730 ml 1580 ml 730 ml OutputOutput Total 1300 ml 610 ml 1075 ml BalanceBalance 430 ml 970 ml -345 ml Exam Constitutional: alert, oriented Respiratory: clear to auscultation Cardiovascular: nl pulses Gastrointestinal: other (Right lower quadrant drain, lower midline abdomen enterocutaneous fistula) Extremities: normal pulses Neurological: nl mental status Results Results 24hrs Laboratory Tests Test 07/15/18 05:17 Blood Urea Nitrogen 9 Creatinine 0.41 L Lactic Acid Level 1.3 Medications Medication Current Medications Vancomycin HCl (Vanco Iv Per Pharmacy) VANCOMYCIN PER PHARMACY PER PROTOCOL XX ; Start 07/05/18 at 18:00 Potassium Chloride/Dextrose/ Sod Cl 1,000 ml @ 70 mls/hr [id number] IV Last administered on 07/14/18 03:48; Admin Dose 70 MLS/HR; Start 07/05/18 at 18:00 Vancomycin/Sodium Chloride 250 ml @ 62.5 mls/hr Q12H IVPB Last administered on 07/15/18 17:28; Admin Dose 62.5 MLS/HR; Start 07/06/18 at 06:00 Metronidazole 100 ml @ 100 mls/hr Q8 IVPB Last administered on 07/15/18 14:11; Admin Dose 100 MLS/HR; Start 07/05/18 at 22:30 Diphenhydramine HCl (Benadryl) 25 mg Q6H PRN IV ALLERGIC REACTION; Start 07/06/18 at 14:00 Hydromorphone HCl (Dilaudid) 1 mg Q4H PRN IV SEVERE PAIN LEVEL 7-10 Last administered on 07/13/18 15:28; Admin Dose 1 MG; Start 07/06/18 at 17:00 Benazepril HCl (Lotensin) 10 mg BID PO Last administered on 07/15/18 08:08; Admin Dose 10 MG; Start 07/06/18 at 21:00 Diphenhydramine HCl (Benadryl) 25 mg Q12H PO Last administered on 07/15/18 17:28; Admin Dose 25 MG; Start 07/08/18 at 05:30 Sodium Chloride 250 ml @ 250 mls/hr Q12H IVPB Last administered on 07/15/18 16:15; Admin Dose 250 MLS/HR; Start 07/09/18 at 05:00 Nifedipine (Procardia Xl) 30 mg DAILY PO Last administered on 07/15/18 08:08; Admin Dose 30 MG; Start 07/11/18 at 09:00 Fluconazole 100 ml @ 100 mls/hr Q24H IVPB Last administered on 07/14/18at 21:20; Admin Dose 100 MLS/HR; Start 07/10/18 at 21:30 Ibuprofen (Motrin) 400 mg Q6H PRN PO MILD PAIN(1-3) OR TEMP>38C Last administered on 07/15/18at 16:13; Admin Dose 400 MG; Start 07/15/18 at 16:00 YOON TAVERAS Jul 15, 2018 17:38
--- NOTE | 2018-07-15 18:59 | CONS ---
Assessment/Plan Assessment/Plan Hospital Course (Demo Recall) IMPRESSION: 1. Preoperative evaluation prior to possible abdominal surgery for intraabdominal fistula, carcinomatosis and possible associated abscess formation.-neg trop x 3. Echo 07/06 with EF 55-60/MR 2. Hypertension-borderline low at times 3. 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 4. 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 5. Anemia, leukopenia, thrombocytopenia/pancytopenia. 6. Dyslpidemia-low HDL 21 LDL 35 Recc: -On med-surg -Continue ACEI/CCB with well controlled BP at this time -Follow drain output -ongoing surgical and hem-onc eval with discussion between surgeon and oncologist ongoing -Continue abx's and f/u cx data Consultation Date/Type/Reason Admit Date/Time Jul 05, 2018 at 12:27 Initial Consult Date 07/05/18 Type of Consult Cardiology Reason for Consultation HTN Requesting Provider: ADELAIDE FERREIRA MD Date/Time of Note DATE: 07/15/18 TIME: 18:57 Exam/Review of Systems Vital Signs Vitals Vital Signs Date Temp Pulse Resp B/P (MAP) Pulse Ox O2 O2 Flow FiO2 Time Delivery Rate 07/15/18 98.3 76 20 118/70 98 14:43 (86) 07/12/18 Room Air 14:27 Intake and Output 07/14/18 07/14/18 07/15/18 1515:00 23:00 07:00 IntakeIntake Total 1730 ml 1580 ml 730 ml OutputOutput Total 1300 ml 610 ml 1075 ml BalanceBalance 430 ml 970 ml -345 ml Exam Exam Review of Systems: CONSTITUTIONAL: No fevers, chills. PULMONARY: No sob CARDIOVASCULAR: No chest pain/palpitations GASTROINTESTINAL: mild abd pain GENITOURINARY: No hematuria/dysuria. MUSCULOSKELETAL: No myagias/arthalgias. PSYCHIATRIC: The patient denies depression. NEUROLOGIC: No weakness Constitutional: alert Psych: no complaints Head: normocephalic ENMT: mucosa pink and moist Neck: supple, jvd (9 cm water) Respiratory: diminished breath sounds (at bases/B) Cardiovascular: regular rate and rhythm Gastrointestinal: soft, surgical scars, other (drain in place/ostomy bag) Musculoskeletal: muscle weakness (mild generalized) Extremities: edema (none) Labs Result Diagram: 07/14/18 0544 07/15/18 0517 Results 24hrs Laboratory Tests Test 07/15/18 05:17 Blood Urea Nitrogen 9 Creatinine 0.41 L Lactic Acid Level 1.3 Medications Medications Current Medications Vancomycin HCl (Vanco Iv Per Pharmacy) VANCOMYCIN PER PHARMACY PER PROTOCOL XX ; Start 07/05/18 at 18:00 Potassium Chloride/Dextrose/ Sod Cl 1,000 ml @ 70 mls/hr [id number] IV Last administered on 07/14/18 03:48; Admin Dose 70 MLS/HR; Start 07/05/18 at 18:00 Vancomycin/Sodium Chloride 250 ml @ 62.5 mls/hr Q12H IVPB Last administered on 07/15/18 17:28; Admin Dose 62.5 MLS/HR; Start 07/06/18 at 06:00 Metronidazole 100 ml @ 100 mls/hr Q8 IVPB Last administered on 07/15/18 14:11; Admin Dose 100 MLS/HR; Start 07/05/18 at 22:30 Diphenhydramine HCl (Benadryl) 25 mg Q6H PRN IV ALLERGIC REACTION; Start 07/06 at 14:00 Hydromorphone HCl (Dilaudid) 1 mg Q4H PRN IV SEVERE PAIN LEVEL 7-10 Last administered on 07/13/18 15:28; Admin Dose 1 MG; Start 07/06/18 at 17:00 Benazepril HCl (Lotensin) 10 mg BID PO Last administered on 07/15/18 08:08; Admin Dose 10 MG; Start 07/06/18 at 21:00 Diphenhydramine HCl (Benadryl) 25 mg Q12H PO Last administered on 07/15/18 17:28; Admin Dose 25 MG; Start 07/08/18 at 05:30 Sodium Chloride 250 ml @ 250 mls/hr Q12H IVPB Last administered on 07/15/18 16:15; Admin Dose 250 MLS/HR; Start 07/09/18 at 05:00 Nifedipine (Procardia Xl) 30 mg DAILY PO Last administered on 07/15/18 08:08; Admin Dose 30 MG; Start 07/11/18 at 09:00 Fluconazole 100 ml @ 100 mls/hr Q24H IVPB Last administered on 07/14/18at 21:20; Admin Dose 100 MLS/HR; Start 07/10/18 at 21:30 Ibuprofen (Motrin) 400 mg Q6H PRN PO MILD PAIN(1-3) OR TEMP>38C Last administered on 07/15/18at 16:13; Admin Dose 400 MG; Start 07/15/18 at 16:00 BIJAN DWYER Jul 15, 2018 18:59
[2018-07-15 20:07] VITALS: BP 112/75; PULSE 69; RESP 18
--- NOTE | 2018-07-15 20:09 | PN ---
DATE: 07/15/2018 SUBJECTIVE: No specific complaint. OBJECTIVE: GENERAL: Awake, alert, oriented. VITAL SIGNS: Temperature maximum today 98.3, heart rate 76, respirations 20, blood pressure 118/70, saturation 98% room air. HEART: Regular. LUNGS: Clear. ABDOMEN: Much softer today comparing to yesterday especially the left side which was tense, today is not tense. The patient states that she is having bowel movement and passing gas. LABORATORY DATA: BUN and creatinine are normal today. Lactic acid is 1.3. INPUT AND OUTPUT: Accordion drain in the past 24 hours from yesterday morning to today morning has b een 135 mL, but according to the nurse today morning from 7:00 until 12:00 noon, all of a sudden it d rained about 500 mL of clear yellowish serous fluid (I am not sure what happened and where this was c oming from). The drainage from the lower part of the midline incision which has presented itself as an open wound with possible abscess and possible enterocutaneous fistula has decreased as was mention ed before but altogether in 24 hours was soaking about 1 sponge only. ASSESSMENT AND PLAN: From the oncology group, Dr. Yanira Coto has seen the patient for Dr. Viridiana clayton because he was not available today, but he is coming back tomorrow and we are going to discuss the case with him tomorrow and see what is his plan on, is he planning to proceed with chemotherapy or w hat is the plan from the chemotherapy point of view and as mentioned from surgical point of view, we do not have the possibilities to operate on this patient because she has to have cytoreductive proced ure if she is not going to have any operation. Also from infectious point of view, we are waiting fo r the infectious disease people to make sure when the antibiotic is going to be terminated. We will continue to follow. Dictated By: GLO OSBORN MD PS/NTS Conf#: [id number] DID#: [id number] CC: KARON SCHNEIDER; ADELAIDE FERREIRA MD;*EndCC*
[2018-07-15] MEDS: FLUCONAZOLE 200 MG (PMX) 100 ML IVPB SCH ×2 (20:37→21:49)
[2018-07-16 02:00] VITALS: BP 99/58; PULSE 63; RESP 18
[2018-07-16 02:11] VITALS: BP 106/59; PULSE 65; RESP 18
[2018-07-16] MEDS: SOD CHLORIDE 0.9% 250 ML IVPB SCH ×2 (04:57→17:09)
[2018-07-16] MEDS: DIPHENHYDRAMINE 25 MG CAP PO SCH ×2 (05:44→17:08)
[2018-07-16] MEDS: metroNIDAZOLE 500 MG/NS (PMX) 100 ML IVPB SCH ×3 (06:00→23:42)
[2018-07-16] MEDS: VANCOMYCIN 750 MG (PMX) 250 ML IVPB SCH ×2 (06:17→18:42)
[2018-07-16 07:32] VITALS: BP 107/60; PULSE 75; RESP 20
[2018-07-16] MEDS: NIFEdipine (XL) 30 MG TAB PO SCH (08:55)
[2018-07-16] MEDS: BENAZEPRIL 10 MG TAB PO SCH ×2 (08:55→20:34)
[2018-07-16] MEDS: IBUPROFEN 400 MG TAB PO PRN ×2 (09:01→17:08)
--- NOTE | 2018-07-16 09:49 | CONS ---
Consult Date/Type/Reason Admit Date/Time Jul 05, 2018 at 12:27 Initial Consult Date 07/05/18 Requesting Provider: ADELAIDE FERREIRA MD Date/Time of Note DATE: 07/16/18 TIME: 09:47 Subjective No acute events - pt comfortable - denies CP - in good fluid status - surgical team follows. ROS: No fever, no chills, no nausea, no vomiting, no diarrhea/constipation No recent weight changes No chest pain, no PND, no orthopnea + SOB mild, + abd discomfort No dizziness, blurred vision No thirst, no heat or cold intolerance Objective Vitals Vital Signs Date Temp Pulse Resp B/P (MAP) Pulse Ox O2 O2 Flow FiO2 Time Delivery Rate 07/16/18 98.7 75 20 107/60 99 07:32 (76) 07/12/18 Room Air 14:27 Intake and Output 07/15/18 07/15/18 07/16/18 1515:00 23:00 07:00 IntakeIntake Total 1850 ml 1440.0 ml 350 ml OutputOutput Total 800 ml 600 ml BalanceBalance 1050 ml 840.0 ml 350 ml Exam General: WN/WD/NAD, AOx 2-3 English HEENT: Unicetric/atraumatic/EOMI (follow commands) NECK: JVD elevated, no thyromegaly Lymph: no lymphadenopathy HEART: regular with no S3, II/ systolic murmur at apex, PMI L LUNGS: Coarse sounds ABD: soft, NT, ND, +BS - drains : Intact Neuro: non focal SKIN: chronic changes EXT: trace edema Results/Medications Result Diagram: 07/16/1844607/16/18446 Results 24 hrs Laboratory Tests Test 07/16/18 04:47 White Blood Count 3.2 #L Red Blood Count 3.67 L Hemoglobin 11.8 L Hematocrit 35.6 L Mean Corpuscular Volume 97.0 Mean Corpuscular Hemoglobin 32.2 Mean Corpuscular Hemoglobin Concent 33.1 Red Cell Distribution Width 19.5 H Platelet Count 107 L Mean Platelet Volume 11.9 H Immature Granulocytes % 0.300 Neutrophils % 55.2 Lymphocytes % 29.1 Monocytes % 10.8 Eosinophils % 3.4 Basophils % 1.2 Nucleated Red Blood Cells % 0.0 Immature Granulocytes # 0.010 Neutrophils # 1.8 Lymphocytes # 0.9 Monocytes # 0.4 Eosinophils # 0.1 Basophils # 0.0 Nucleated Red Blood Cells # 0.0 Sodium Level 140 Potassium Level 4.3 Chloride Level 109 Carbon Dioxide Level 25 Anion Gap 6 Blood Urea Nitrogen 12 Creatinine 0.43 L Est Glomerular Filtrat Rate mL/min > 60 Glucose Level 103 Calcium Level 8.7 Total Bilirubin 0.2 Direct Bilirubin 0.00 Indirect Bilirubin 0.2 Aspartate Amino Transf (AST/SGOT) 65 H Alanine Aminotransferase (ALT/SGPT) 18 Alkaline Phosphatase 54 Total Protein 6.3 Albumin 2.8 L Globulin 3.50 H Albumin/Globulin Ratio 0.80 Home Meds Reported Medications Ondansetron Hcl* (Zofran*) 8 Mg Tablet, 8 MG PO Q12 PRN for NAUSEA AND OR VOMITING, TAB 05/30/18 Capecitabine* (Xeloda*) 500 Mg Tablet, 1000 MG PO QPM, TBS 05/30/18 Capecitabine* (Xeloda*) 500 Mg Tablet, 1500 MG PO QAM, TAB 05/30/18 Metoclopramide* (Reglan*) 10 Mg Tablet, 10 MG PO BID WITH MEALS PRN for NAUSEA AND/OR VOMITING, TAB 05/30/18 Medications Current Medications Vancomycin HCl (Vanco Iv Per Pharmacy) VANCOMYCIN PER PHARMACY PER PROTOCOL XX ; Start 07/05/18 at 18:00 Potassium Chloride/Dextrose/ Sod Cl 1,000 ml @ 70 mls/hr [id number] IV Last administered on 07/15/18at 20:37; Admin Dose 70 MLS/HR; Start 07/05/18 at 18:00 Vancomycin/Sodium Chloride 250 ml @ 62.5 mls/hr Q12H IVPB Last administered on 07/16/18at 06:17; Admin Dose 62.5 MLS/HR; Start 07/06/18 at 06:00 Metronidazole 100 ml @ 100 mls/hr Q8 IVPB Last administered on 07/15/18at 22:50; Admin Dose 100 MLS/HR; Start 07/05/18 at 22:30 Diphenhydramine HCl (Benadryl) 25 mg Q6H PRN IV ALLERGIC REACTION; Start 07/06/18 at 14:00 Hydromorphone HCl (Dilaudid) 1 mg Q4H PRN IV SEVERE PAIN LEVEL 7-10 Last administered on 07/13/18 15:28; Admin Dose 1 MG; Start 07/06/18 at 17:00 Benazepril HCl (Lotensin) 10 mg BID PO Last administered on 07/15/18 20:36; Admin Dose 10 MG; Start 07/06/18 at 21:00 Diphenhydramine HCl (Benadryl) 25 mg Q12H PO Last administered on 07/16/18 05:44; Admin Dose 25 MG; Start 07/08/18 at 05:30 Sodium Chloride 250 ml @ 250 mls/hr Q12H IVPB Last administered on 07/16/18 04:57; Admin Dose 250 MLS/HR; Start 07/09/18 at 05:00 Nifedipine (Procardia Xl) 30 mg DAILY PO Last administered on 07/15/18 08:08; Admin Dose 30 MG; Start 07/11/18 at 09:00 Fluconazole 100 ml @ 100 mls/hr Q24H IVPB Last administered on 07/15/18 21:49; Admin Dose 100 MLS/HR; Start 07/10/18 at 21:30 Ibuprofen (Motrin) 400 mg Q6H PRN PO MILD PAIN(1-3) OR TEMP>38C Last administered on 07/16/18 09:01; Admin Dose 400 MG; Start 07/15/18 at 16:00 Assessment/Plan Hospital Course (Demo Recall) 1. Preoperative evaluation prior to possible abdominal surgery for intraabdominal fistula, carcinomatosis and possible associated abscess formation.-neg trop x 3. Echo 07/06 with EF 55-60/MR - stable now - surgical recs noted 2. Hypertension-continue to be mildly elevated - will add Rx now - better Rx now 3. 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 Cox follows. Poor overall prognosis 4. Abdominal wall fistula visualization between cavity and wall with drain in place and associated abscess.Con't anti-bx 5. Anemia, leukopenia, thrombocytopenia/pancytopenia. on meds and anti-Bx. NO fevers now 6. Dyslpidemia-low HDL 21 LDL 35 JOAN RICE MD Jul 16, 2018 09:49
[2018-07-16] MEDS: D5-0.2 NACL + KCL 20 MEQ 1,000 ML IV SCH ×2 (11:24→22:39)
--- NOTE | 2018-07-16 12:02 | CONS ---
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 albicans, and rare S. 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 We recommend repeat imaging prior to cessation of antibiotics. - for red man syndrome: premedicate each infusion of IV vancomycin with PO Benadryl and NS 250 mL bolus - continue IV fluconazole (07/07/2018-) - awaiting evaluation from Dr. Falcon for consideration of chemo Consultation Date/Type/Reason Admit Date/Time Jul 05, 2018 at 12:27 Initial Consult Date 07/05/18 Requesting Provider: ADELAIDE FERREIRA MD Date/Time of Note DATE: 07/16/18 TIME: 11:58 Exam/Review of Systems Exam Vitals Vital Signs Date Temp Pulse Resp B/P (MAP) Pulse Ox O2 O2 Flow FiO2 Time Delivery Rate 07/16/18 98.7 75 20 107/60 99 07:32 (76) 07/12/18 Room Air 14:27 Intake and Output 07/15/18 07/15/18 07/16/18 1515:00 23:00 07:00 IntakeIntake Total 1850 ml 1440.0 ml 350 ml OutputOutput Total 800 ml 600 ml BalanceBalance 1050 ml 840.0 ml 350 ml Results Result Diagram: 07/16/18 0447 07/16/18 0447 Results 24hrs Laboratory Tests Test 07/16/18 04:47 White Blood Count 3.2 #L Red Blood Count 3.67 L Hemoglobin 11.8 L Hematocrit 35.6 L Mean Corpuscular Volume 97.0 Mean Corpuscular Hemoglobin 32.2 Mean Corpuscular Hemoglobin Concent 33.1 Red Cell Distribution Width 19.5 H Platelet Count 107 L Mean Platelet Volume 11.9 H Immature Granulocytes % 0.300 Neutrophils % 55.2 Lymphocytes % 29.1 Monocytes % 10.8 Eosinophils % 3.4 Basophils % 1.2 Nucleated Red Blood Cells % 0.0 Immature Granulocytes # 0.010 Neutrophils # 1.8 Lymphocytes # 0.9 Monocytes # 0.4 Eosinophils # 0.1 Basophils # 0.0 Nucleated Red Blood Cells # 0.0 Sodium Level 140 Potassium Level 4.3 Chloride Level 109 Carbon Dioxide Level 25 Anion Gap 6 Blood Urea Nitrogen 12 Creatinine 0.43 L Est Glomerular Filtrat Rate mL/min > 60 Glucose Level 103 Calcium Level 8.7 Total Bilirubin 0.2 Direct Bilirubin 0.00 Indirect Bilirubin 0.2 Aspartate Amino Transf (AST/SGOT) 65 H Alanine Aminotransferase (ALT/SGPT) 18 Alkaline Phosphatase 54 Total Protein 6.3 Albumin 2.8 L Globulin 3.50 H Albumin/Globulin Ratio 0.80 Medications Medication Current Medications Vancomycin HCl (Vanco Iv Per Pharmacy) VANCOMYCIN PER PHARMACY PER PROTOCOL XX ; Start 07/05/18 at 18:00 Potassium Chloride/Dextrose/ Sod Cl 1,000 ml @ 70 mls/hr [id number] IV Last administered on 07/15/18at 20:37; Admin Dose 70 MLS/HR; Start 07/05/18 at 18:00 Vancomycin/Sodium Chloride 250 ml @ 62.5 mls/hr Q12H IVPB Last administered on 07/16/18 06:17; Admin Dose 62.5 MLS/HR; Start 07/06/18 at 06:00 Metronidazole 100 ml @ 100 mls/hr Q8 IVPB Last administered on 07/15/18 22:50; Admin Dose 100 MLS/HR; Start 07/05/18 at 22:30 Diphenhydramine HCl (Benadryl) 25 mg Q6H PRN IV ALLERGIC REACTION; Start 07/06/18 at 14:00 Hydromorphone HCl (Dilaudid) 1 mg Q4H PRN IV SEVERE PAIN LEVEL 7-10 Last administered on 07/13/18 15:28; Admin Dose 1 MG; Start 07/06/18 at 17:00 Benazepril HCl (Lotensin) 10 mg BID PO Last administered on 07/15/18 20:36; Admin Dose 10 MG; Start 07/06/18 at 21:00 Diphenhydramine HCl (Benadryl) 25 mg Q12H PO Last administered on 07/16/18 05:44; Admin Dose 25 MG; Start 07/08/18 at 05:30 Sodium Chloride 250 ml @ 250 mls/hr Q12H IVPB Last administered on 07/16/18 04:57; Admin Dose 250 MLS/HR; Start 07/09/18 at 05:00 Nifedipine (Procardia Xl) 30 mg DAILY PO Last administered on 07/15/18 08:08; Admin Dose 30 MG; Start 07/11/18 at 09:00 Fluconazole 100 ml @ 100 mls/hr Q24H IVPB Last administered on 07/15/18 21:49; Admin Dose 100 MLS/HR; Start 07/10/18 at 21:30 Ibuprofen (Motrin) 400 mg Q6H PRN PO MILD PAIN(1-3) OR TEMP>38C Last administered on 07/16/18 09:01; Admin Dose 400 MG; Start 07/15/18 at 16:00 ROSALIE ELLIOTT MD Jul 16, 2018 12:02
--- NOTE | 2018-07-16 13:38 | PN ---
Date/Time of Note Date/Time of Note DATE: 07/16/18 TIME: 13:34 Assessment/Plan VTE Prophylaxis Risk score (from [facility])>0 risk: 4 SCD applied (from [facility]): Yes Pharmacological prophylaxis: NA/contraindicated Pharm contraindication: thrombocytopenia Lines/Catheters IV Catheter Type (from [facility]): Peripheral IV Urinary Cath still in place: No Assessment/Plan Hospital Course Patient remains hemodynamically stable, pain is adequately controlled. Fistula drainage is about 20 cc for last 8 hours. Patient tolerates mechanical soft diet. Assessment/Plan -Entero-cutaneous fistula, continue current wound care per surgery and wound care team recommendations. -Intra-abdominal fluid collection, s/p placement of an external drainage catheter in RLQ 07/06/2018. 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 Dr. Castillo is following in oncology consultation. Surgical team recommended transfer to tertiary care facility for cytoreductive surgery, however, patient refused surgery, wants to proceed with chemotherapy. -Intra-abdominal infection, continue antibiotics per ID. Dr. Lyons is following in infection disease consultation. Patient is currently on vancomycin and Flagyl and fluconazole. -History of mucinous adenocarcinoma of the cecum, ileocecal valve and adjacent ascending colon, status post right hemicolectomy on 06/26/[address] Rios. -Liver cirrhosis -Pancytopenia Further recommendations based on clinical course. Plan of care discussed with Dr. Figueroa. Result Diagram: 07/16/18 0447 07/16/187 Results 24hrs Laboratory Tests Test 07/16/18 04:47 White Blood Count 3.2 #L Red Blood Count 3.67 L Hemoglobin 11.8 L Hematocrit 35.6 L Mean Corpuscular Volume 97.0 Mean Corpuscular Hemoglobin 32.2 Mean Corpuscular Hemoglobin Concent 33.1 Red Cell Distribution Width 19.5 H Platelet Count 107 L Mean Platelet Volume 11.9 H Immature Granulocytes % 0.300 Neutrophils % 55.2 Lymphocytes % 29.1 Monocytes % 10.8 Eosinophils % 3.4 Basophils % 1.2 Nucleated Red Blood Cells % 0.0 Immature Granulocytes # 0.010 Neutrophils # 1.8 Lymphocytes # 0.9 Monocytes # 0.4 Eosinophils # 0.1 Basophils # 0.0 Nucleated Red Blood Cells # 0.0 Sodium Level 140 Potassium Level 4.3 Chloride Level 109 Carbon Dioxide Level 25 Anion Gap 6 Blood Urea Nitrogen 12 Creatinine 0.43 L Est Glomerular Filtrat Rate mL/min > 60 Glucose Level 103 Calcium Level 8.7 Total Bilirubin 0.2 Direct Bilirubin 0.00 Indirect Bilirubin 0.2 Aspartate Amino Transf (AST/SGOT) 65 H Alanine Aminotransferase (ALT/SGPT) 18 Alkaline Phosphatase 54 Total Protein 6.3 Albumin 2.8 L Globulin 3.50 H Albumin/Globulin Ratio 0.80 Exam/Review of Systems Exam Vitals Vital Signs Date Temp Pulse Resp B/P (MAP) Pulse Ox O2 O2 Flow FiO2 Time Delivery Rate 07/16/18 98.7 75 20 107/60 99 07:32 (76) 07/12/18 Room Air 14:27 Intake and Output 07/15/18 07/15/18 07/16/18 1515:00 23:00 07:00 IntakeIntake Total 1850 ml 1440.0 ml 350 ml OutputOutput Total 800 ml 600 ml BalanceBalance 1050 ml 840.0 ml 350 ml Exam Constitutional: alert, oriented Respiratory: clear to auscultation Cardiovascular: nl pulses Gastrointestinal: other (Right lower quadrant drain, lower midline abdomen enterocutaneous fistula) Extremities: normal pulses Neurological: nl mental status Results Results 24hrs Laboratory Tests Test 07/16/18 04:47 White Blood Count 3.2 #L Red Blood Count 3.67 L Hemoglobin 11.8 L Hematocrit 35.6 L Mean Corpuscular Volume 97.0 Mean Corpuscular Hemoglobin 32.2 Mean Corpuscular Hemoglobin Concent 33.1 Red Cell Distribution Width 19.5 H Platelet Count 107 L Mean Platelet Volume 11.9 H Immature Granulocytes % 0.300 Neutrophils % 55.2 Lymphocytes % 29.1 Monocytes % 10.8 Eosinophils % 3.4 Basophils % 1.2 Nucleated Red Blood Cells % 0.0 Immature Granulocytes # 0.010 Neutrophils # 1.8 Lymphocytes # 0.9 Monocytes # 0.4 Eosinophils # 0.1 Basophils # 0.0 Nucleated Red Blood Cells # 0.0 Sodium Level 140 Potassium Level 4.3 Chloride Level 109 Carbon Dioxide Level 25 Anion Gap 6 Blood Urea Nitrogen 12 Creatinine 0.43 L Est Glomerular Filtrat Rate mL/min > 60 Glucose Level 103 Calcium Level 8.7 Total Bilirubin 0.2 Direct Bilirubin 0.00 Indirect Bilirubin 0.2 Aspartate Amino Transf (AST/SGOT) 65 H Alanine Aminotransferase (ALT/SGPT) 18 Alkaline Phosphatase 54 Total Protein 6.3 Albumin 2.8 L Globulin 3.50 H Albumin/Globulin Ratio 0.80 Medications Medication Current Medications Vancomycin HCl (Vanco Iv Per Pharmacy) VANCOMYCIN PER PHARMACY PER PROTOCOL XX ; Start 07/05/18 at 18:00 Potassium Chloride/Dextrose/ Sod Cl 1,000 ml @ 70 mls/hr [id number] IV Last administered on 07/15/18 20:37; Admin Dose 70 MLS/HR; Start 07/05/18 at 18:00 Vancomycin/Sodium Chloride 250 ml @ 62.5 mls/hr Q12H IVPB Last administered on 07/16/18 06:17; Admin Dose 62.5 MLS/HR; Start 07/06/18 at 06:00 Metronidazole 100 ml @ 100 mls/hr Q8 IVPB Last administered on 07/15/18 22:50; Admin Dose 100 MLS/HR; Start 07/05/18 at 22:30 Diphenhydramine HCl (Benadryl) 25 mg Q6H PRN IV ALLERGIC REACTION; Start 07/06/18 at 14:00 Hydromorphone HCl (Dilaudid) 1 mg Q4H PRN IV SEVERE PAIN LEVEL 7-10 Last administered on 07/13/18 15:28; Admin Dose 1 MG; Start 07/06/18 at 17:00 Benazepril HCl (Lotensin) 10 mg BID PO Last administered on 07/15/18 20:36; Admin Dose 10 MG; Start 07/06/18 at 21:00 Diphenhydramine HCl (Benadryl) 25 mg Q12H PO Last administered on 07/16/18 05:44; Admin Dose 25 MG; Start 07/08/18 at 05:30 Sodium Chloride 250 ml @ 250 mls/hr Q12H IVPB Last administered on 07/16/18 04:57; Admin Dose 250 MLS/HR; Start 07/09/18 at 05:00 Nifedipine (Procardia Xl) 30 mg DAILY PO Last administered on 07/15/18 08:08; Admin Dose 30 MG; Start 07/11/18 at 09:00 Fluconazole 100 ml @ 100 mls/hr Q24H IVPB Last administered on 07/15/18 21:4 9; Admin Dose 100 MLS/HR; Start 07/10/18 at 21:30 Ibuprofen (Motrin) 400 mg Q6H PRN PO MILD PAIN(1-3) OR TEMP>38C Last administered on 07/16/18at 09:01; Admin Dose 400 MG; Start 07/15/18 at 16:00 YOON TAVERAS Jul 16, 2018 13:38
--- NOTE | 2018-07-16 13:57 | CONS ---
Consult Date/Type/Reason Admit Date/Time Jul 05, 2018 at 12:27 Initial Consult Date 07/05/18 Requesting Provider: ADELAIDE FERREIRA MD Date/Time of Note DATE: 07/16/18 TIME: 13:53 Subjective wound is better no bleeding less pain no SOB tube drain intact draining heavily Objective Vitals Vital Signs Date Temp Pulse Resp B/P (MAP) Pulse Ox O2 O2 Flow FiO2 Time Delivery Rate 07/16/18 98.7 75 20 107/60 99 07:32 (76) 07/12/18 Room Air 14:27 Intake and Output 07/15/18 07/15/18 07/16/18 1515:00 23:00 07:00 IntakeIntake Total 1850 ml 1440.0 ml 350 ml OutputOutput Total 800 ml 600 ml BalanceBalance 1050 ml 840.0 ml 350 ml Exam S1S2 clear lungs abd soft drain intact open wound/healing granulation tissue Results/Medications Result Diagram: 07/16/18 0447 07/16/18 0447 Results 24 hrs Laboratory Tests Test 07/16/18 04:47 White Blood Count 3.2 #L Red Blood Count 3.67 L Hemoglobin 11.8 L Hematocrit 35.6 L Mean Corpuscular Volume 97.0 Mean Corpuscular Hemoglobin 32.2 Mean Corpuscular Hemoglobin Concent 33.1 Red Cell Distribution Width 19.5 H Platelet Count 107 L Mean Platelet Volume 11.9 H Immature Granulocytes % 0.300 Neutrophils % 55.2 Lymphocytes % 29.1 Monocytes % 10.8 Eosinophils % 3.4 Basophils % 1.2 Nucleated Red Blood Cells % 0.0 Immature Granulocytes # 0.010 Neutrophils # 1.8 Lymphocytes # 0.9 Monocytes # 0.4 Eosinophils # 0.1 Basophils # 0.0 Nucleated Red Blood Cells # 0.0 Sodium Level 140 Potassium Level 4.3 Chloride Level 109 Carbon Dioxide Level 25 Anion Gap 6 Blood Urea Nitrogen 12 Creatinine 0.43 L Est Glomerular Filtrat Rate mL/min > 60 Glucose Level 103 Calcium Level 8.7 Total Bilirubin 0.2 Direct Bilirubin 0.00 Indirect Bilirubin 0.2 Aspartate Amino Transf (AST/SGOT) 65 H Alanine Aminotransferase (ALT/SGPT) 18 Alkaline Phosphatase 54 Total Protein 6.3 Albumin 2.8 L Globulin 3.50 H Albumin/Globulin Ratio 0.80 Home Meds Reported Medications Ondansetron Hcl* (Zofran*) 8 Mg Tablet, 8 MG PO Q12 PRN for NAUSEA AND OR VOMITING, TAB 05/30/18 Capecitabine* (Xeloda*) 500 Mg Tablet, 1000 MG PO QPM, TBS 05/30/18 Capecitabine* (Xeloda*) 500 Mg Tablet, 1500 MG PO QAM, TAB 05/30/18 Metoclopramide* (Reglan*) 10 Mg Tablet, 10 MG PO BID WITH MEALS PRN for NAUSEA AND/OR VOMITING, TAB 05/30/18 Medications Current Medications Vancomycin HCl (Vanco Iv Per Pharmacy) VANCOMYCIN PER PHARMACY PER PROTOCOL XX ; Start 07/05/18 at 18:00 Potassium Chloride/Dextrose/ Sod Cl 1,000 ml @ 70 mls/hr [id number] IV Last administered on 07/15/18at 20:37; Admin Dose 70 MLS/HR; Start 07/05/18 at 18:00 Vancomycin/Sodium Chloride 250 ml @ 62.5 mls/hr Q12H IVPB Last administered on 07/16/18at 06:17; Admin Dose 62.5 MLS/HR; Start 07/06/18 at 06:00 Metronidazole 100 ml @ 100 mls/hr Q8 IVPB Last administered on 07/15/18at 22:50; Admin Dose 100 MLS/HR; Start 07/05/18 at 22:30 Diphenhydramine HCl (Benadryl) 25 mg Q6H PRN IV ALLERGIC REACTION; Start 07/06/18 at 14:00 Hydromorphone HCl (Dilaudid) 1 mg Q4H PRN IV SEVERE PAIN LEVEL 7-10 Last administered on 07/13/18at 15:28; Admin Dose 1 MG; Start 07/06/18 at 17:00 Benazepril HCl (Lotensin) 10 mg BID PO Last administered on 07/15/18at 20:36; Admin Dose 10 MG; Start 07/06/18 at 21:00 Diphenhydramine HCl (Benadryl) 25 mg Q12H PO Last administered on 07/16/18at 05:44; Admin Dose 25 MG; Start 07/08/18 at 05:30 Sodium Chloride 250 ml @ 250 mls/hr Q12H IVPB Last administered on 07/16/18at 04:57; Admin Dose 250 MLS/HR; Start 07/09/18 at 05:00 Nifedipine (Procardia Xl) 30 mg DAILY PO Last administered on 07/15/18at 08:08; Admin Dose 30 MG; Start 07/11/18 at 09:00 Fluconazole 100 ml @ 100 mls/hr Q24H IVPB Last administered on 07/15/18at 21:49; Admin Dose 100 MLS/HR; Start 07/10/18 at 21:30 Ibuprofen (Motrin) 400 mg Q6H PRN PO MILD PAIN(1-3) OR TEMP>38C Last administered on 07/16/18at 09:01; Admin Dose 400 MG; Start 07/15/18 at 16:00 Assessment/Plan Hospital Course (Demo Recall) 1. A 67-year-old female with a chronic alcoholic liver disease, cirrhosis, history of hypertension and x1. 2. 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 3. Has been on Xeloda, oxaliplatin and base chemotherapy. 4. Now with abdominal wall fistula abscesses. 5. IV antibiotics and surgical care. 6. Wound dressing per protocol. Per surgery, per wound care. 7. No active chemotherapy at this time until the sepsis infection, abscesses all are drained and cleared out. 8. Keep hemoglobin above 9, hematocrit above 27. 9. Keep platelets above 20,000. 10. Pain medications, IV hydration, electrolytes. 11,Refused [facility] hyperthermic intraperitoneal chemotherapy referral 12.Refused transfer to tertiary center for the abdominal debulking surgery and chemotherapy 13.will wait until gets better then probable systemic chemotherapy which is NOT very effective in mucinous/colloid colon carcinoma KARON SCHNEIDER Jul 16, 2018 13:57
[2018-07-16 14:20] VITALS: BP 109/70; PULSE 69; RESP 20
--- NOTE | 2018-07-16 17:51 | PN ---
DATE: 07/16/2018 SUBJECTIVE: No complaint. No nausea, no vomiting. Minimal abdominal pain. Has had bowel movement. OBJECTIVE: GENERAL: Awake, alert, oriented, in no acute distress. VITAL SIGNS: Temperature maximum today 98.7, heart rate 75, respirations 20, blood pressure 107/60, saturation 99% on room air. SKIN: Still, patient has the pigtail drain in place in the right side of the abdomen and connected t o the accordion bag in drainage. HEART: Regular. LUNGS: Clear. ABDOMEN: Left side of the abdomen which was much softer yesterday. Today, it is a little bit firmer and is distended and is tympanic of course due to the massive mucinous accumulation on the right tanna e of abdomen from peritoneal cavity, the whole bowel has been shifted and moved to the left side. LABORATORY DATA: WBC 3200 with 55% segmented, hemoglobin 11.8, hematocrit 35.6. Chemistry: Sodium, potassium, BUN, creatinine within normal limits. AST is slightly elevated today to 65. Albumin is 2.8 which is low. Total protein is 6.3. Globulin is 3.5, which is elevated. INPUT AND OUTPUT: The amount of drainage from 7:00 a.m. on Sunday to 7:00 a.m. today has been 600 mL in the accordion drain from pigtail but from 7:00 a.m. until now which is 3:00 p.m. in 8 hours is on ly 20 mL and this is serous fluid and clear. It is not purulent (I still do not understand what was the reason that yesterday she drained copious amount of fluid). HOSPITAL COURSE: The patient has had bowel movement. No nausea, no vomiting. The midline abdominal wound which was supposed to be or assumed to be fistula is not draining anymore, any fluid resemblin g the bowel content. Actually in 24 hours, there is minimal drainage, soaked 1 sponge only and the w ound is being taken care of per recommendation of the wound care per protocol. The patient also is o n IV antibiotic. Today, I talked to Dr. Schneider, the chemotherapist and I asked him to see the patient and discuss with the patient if he is planning to do chemotherapy. He texts to me that he is not believing that the chemotherapy is going to work that much and the best treatment for this lady is cytoreductive ope ration with intraperitoneal chemotherapy, but the patient of course does not accept that and does not want to go anywhere. Therefore, Dr. Schneider is planning that probably give her alternative type of chemotherapy whenever the patient is cleared by infectious disease and from internal medicine poin t of view. From surgical point of view, as I mentioned several times and this has been confirmed by Dr. Rios as well, we are not planning to do any surgery on this patient because first of all she diaz s not accept that. Secondly, the cytoreductive procedure is not done by us in this hospital. We artis l continue to follow the patient. Dictated By: GLO OSBORN MD PS/NTS Conf#: [id number] DID#: [id number] CC: ADELAIDE FERREIRA MD; KARON SCHNEIDER;*EndCC*
[2018-07-16 20:31] VITALS: BP 129/60; PULSE 73; RESP 18
[2018-07-16] MEDS: FLUCONAZOLE 200 MG (PMX) 100 ML IVPB SCH (22:39)
[2018-07-17 02:00] VITALS: BP 112/62; PULSE 68; RESP 18
[2018-07-17] MEDS: metroNIDAZOLE 500 MG/NS (PMX) 100 ML IVPB SCH ×2 (05:17→15:47)
[2018-07-17] MEDS: DIPHENHYDRAMINE 25 MG CAP PO SCH ×2 (05:30→17:35)
[2018-07-17] MEDS: SOD CHLORIDE 0.9% 250 ML IVPB SCH ×2 (06:19→17:33)
[2018-07-17] MEDS: VANCOMYCIN 750 MG (PMX) 250 ML IVPB SCH ×2 (07:35→18:21)
[2018-07-17 07:36] VITALS: BP 109/62; PULSE 70; RESP 20
[2018-07-17] MEDS: BENAZEPRIL 10 MG TAB PO SCH ×2 (09:00→21:10)
[2018-07-17] MEDS: NIFEdipine (XL) 30 MG TAB PO SCH (09:00)
--- NOTE | 2018-07-17 11:47 | CONS ---
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 albicans, and rare S. 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 We recommend repeat imaging prior to cessation of antibiotics. - for red man syndrome: premedicate each infusion of IV vancomycin with PO Benadryl and NS 250 mL bolus - continue IV fluconazole (07/07/2018-) Plan was d/w patient and with Dr. Lyons. Thank you Consultation Date/Type/Reason Admit Date/Time Jul 05, 2018 at 12:27 Initial Consult Date 07/05/18 Type of Consult ID Requesting Provider: ADELAIDE FERREIRA MD Date/Time of Note DATE: 07/17/18 TIME: 11:45 24 HR Interval Summary Free Text/Dictation Patient is smiling, denied all ROS in a 10pt review. States the fluid output from mid abdomen and from drain are improved. remains afebrile. No acute issues reported by nursing. Exam/Review of Systems Exam Vitals Vital Signs Date Temp Pulse Resp B/P (MAP) Pulse Ox O2 O2 Flow FiO2 Time Delivery Rate 07/17/18 98.9 70 20 109/62 98 07:36 (78) 07/16/18 Room Air 20:31 Intake and Output 07/16/18 07/16/18 07/17/18 1515:00 23:00 07:00 IntakeIntake Total 1250 ml 1900 ml 637 ml OutputOutput Total 20 ml 1170 ml 710 ml BalanceBalance 1230 ml 730 ml -73 ml Allergies Coded Allergies Penicillins (Verified Allergy, Unknown, 07/05/18) acetaminophen (Verified Allergy, Unknown, 07/05/18) tetracycline (Verified Allergy, Unknown, VERTIGO, N&V, 07/05/18) Constitutional: alert, oriented, well developed Psych: no complaints, nl mood/affect (smiling) Head: normocephalic, atraumatic Eyes: nl conjunctiva, nl lids, nl sclera ENMT: nl external ears & nose, nl nasal mucosa & septum, mucosa pink and moist (no thrush) Neck: supple, non-tender Respiratory: clear to auscultation, normal air movement; No diminished breath sounds, No labored breathing, No wheezing Cardiovascular: regular rate and rhythm, nl pulses Gastrointestinal: soft, non-tender, bowel sounds (normoactive ), surgical scars, other (lower mid abd wound with c/d/i dressing, minimal serous drainage noted on the dressing. R abdominal external drainage catheter with yellow drainage noted. Small amt.) Genitourinary - Female: other (no f/c) Musculoskeletal: nl extremities to inspection Extremities: normal pulses; No edema Neurological: [employer] II-XII intact, nl mental status, nl speech (panamanian speaking), nl strength Skin: nl turgor; No rash or lesions Results Result Diagram: 07/16/187 07/16/18446 Results 24hrs Laboratory Tests Test 07/17/18 05:08 CA 19-9 Antigen 67.8 H CA 125 Antigen 30.4 Medications Medication Current Medications Vancomycin HCl (Vanco Iv Per Pharmacy) VANCOMYCIN PER PHARMACY PER PROTOCOL XX ; Start 07/05/18 at 18:00 Potassium Chloride/Dextrose/ Sod Cl 1,000 ml @ 40 mls/hr Q24H IV Last administered on 07/16/18 22:39; Admin Dose 40 MLS/HR; Start 07/05/18 at 18:00 Vancomycin/Sodium Chloride 250 ml @ 62.5 mls/hr Q12H IVPB Last administered on 07/17/18 07:35; Admin Dose 62.5 MLS/HR; Start 07/06/18 at 06:00 Metronidazole 100 ml @ 100 mls/hr Q8 IVPB Last administered on 07/17/18 05:17; Admin Dose 100 MLS/HR; Start 07/05/18 at 22:30 Diphenhydramine HCl (Benadryl) 25 mg Q6H PRN IV ALLERGIC REACTION Last admini stered on 07/17/18 07:35; Admin Dose 25 MG; Start 07/06/18 at 14:00 Hydromorphone HCl (Dilaudid) 1 mg Q4H PRN IV SEVERE PAIN LEVEL 7-10 Last administered on 07/13/18 15:28; Admin Dose 1 MG; Start 07/06/18 at 17:00 Benazepril HCl (Lotensin) 10 mg BID PO Last administered on 07/16/18 20:34; Admin Dose 10 MG; Start 07/06/18 at 21:00 Diphenhydramine HCl (Benadryl) 25 mg Q12H PO Last administered on 07/16/18 17:08; Admin Dose 25 MG; Start 07/08/18 at 05:30 Sodium Chloride 250 ml @ 250 mls/hr Q12H IVPB Last administered on 07/17/18 06:19; Admin Dose 250 MLS/HR; Start 07/09/18 at 05:00 Nifedipine (Procardia Xl) 30 mg DAILY PO Last administered on 07/15/18 08:08; Admin Dose 30 MG; Start 07/11/18 at 09:00 Fluconazole 100 ml @ 100 mls/hr Q24H IVPB Last administered on 07/16/18 22:39; Admin Dose 100 MLS/HR; Start 07/10/18 at 21:30 Ibuprofen (Motrin) 400 mg Q6H PRN PO MILD PAIN(1-3) OR TEMP>38C Last administered on 07/16/18at 17:08; Admin Dose 400 MG; Start 07/15/18 at 16:00 ALEXIA PAGE NP Jul 17, 2018 11:47
--- NOTE | 2018-07-17 12:48 | CONS ---
Consult Date/Type/Reason Admit Date/Time Jul 05, 2018 at 12:27 Initial Consult Date 07/05/18 Requesting Provider: ADELAIDE FERREIRA MD Date/Time of Note DATE: 07/17/18 TIME: 12:46 Subjective better no pain no fever no bleeding no SOB Objective Vitals Vital Signs Date Temp Pulse Resp B/P (MAP) Pulse Ox O2 O2 Flow FiO2 Time Delivery Rate 07/17/18 98.9 70 20 109/62 98 07:36 (78) 07/16/18 Room Air 20:31 Intake and Output 07/16/18 07/16/18 07/17/18 1515:00 23:00 07:00 IntakeIntake Total 1250 ml 1900 ml 637 ml OutputOutput Total 20 ml 1170 ml 710 ml BalanceBalance 1230 ml 730 ml -73 ml Exam S1S2 CLEAR LUNGS soft abd drain bag intact wound healing Results/Medications Result Diagram: 07/16/18 0447 07/16/18 0447 Results 24 hrs Laboratory Tests Test 07/17/18 05:08 CA 19-9 Antigen 67.8 H CA 125 Antigen 30.4 Home Meds Reported Medications Ondansetron Hcl* (Zofran*) 8 Mg Tablet, 8 MG PO Q12 PRN for NAUSEA AND OR VOMITING, TAB 05/30/18 Capecitabine* (Xeloda*) 500 Mg Tablet, 1000 MG PO QPM, TBS 05/30/18 Capecitabine* (Xeloda*) 500 Mg Tablet, 1500 MG PO QAM, TAB 05/30/18 Metoclopramide* (Reglan*) 10 Mg Tablet, 10 MG PO BID WITH MEALS PRN for NAUSEA AND/OR VOMITING, TAB 05/30/18 Medications Current Medications Vancomycin HCl (Vanco Iv Per Pharmacy) VANCOMYCIN PER PHARMACY PER PROTOCOL XX ; Start 07/05/18 at 18:00 Potassium Chloride/Dextrose/ Sod Cl 1,000 ml @ 40 mls/hr Q24H IV Last administered on 07/16/18at 22:39; Admin Dose 40 MLS/HR; Start 07/05/18 at 18:00 Vancomycin/Sodium Chloride 250 ml @ 62.5 mls/hr Q12H IVPB Last administered on 07/17/18at 07:35; Admin Dose 62.5 MLS/HR; Start 07/06/18 at 06:00 Metronidazole 100 ml @ 100 mls/hr Q8 IVPB Last administered on 07/17/18 05:17; Admin Dose 100 MLS/HR; Start 07/05/18 at 22:30 Diphenhydramine HCl (Benadryl) 25 mg Q6H PRN IV ALLERGIC REACTION Last administered on 07/17/18 07:35; Admin Dose 25 MG; Start 07/06/18 at 14:00 Hydromorphone HCl (Dilaudid) 1 mg Q4H PRN IV SEVERE PAIN LEVEL 7-10 Last administered on 07/13/18 15:28; Admin Dose 1 MG; Start 07/06/18 at 17:00 Benazepril HCl (Lotensin) 10 mg BID PO Last administered on 07/16/18 20:34; Admin Dose 10 MG; Start 07/06/18 at 21:00 Diphenhydramine HCl (Benadryl) 25 mg Q12H PO Last administered on 07/16/18 17:08; Admin Dose 25 MG; Start 07/08/18 at 05:30 Sodium Chloride 250 ml @ 250 mls/hr Q12H IVPB Last administered on 07/17/18 06:19; Admin Dose 250 MLS/HR; Start 07/09/18 at 05:00 Nifedipine (Procardia Xl) 30 mg DAILY PO Last administered on 07/15/18 08:08; Admin Dose 30 MG; Start 07/11/18 at 09:00 Fluconazole 100 ml @ 100 mls/hr Q24H IVPB Last administered on 07/16/18 22:39; Admin Dose 100 MLS/HR; Start 07/10/18 at 21:30 Ibuprofen (Motrin) 400 mg Q6H PRN PO MILD PAIN(1-3) OR TEMP>38C Last administered on 07/16/18 17:08; Admin Dose 400 MG; Start 07/15/18 at 16:00 Assessment/Plan Hospital Course (Demo Recall) 1. A 67-year-old female with a chronic alcoholic liver disease, cirrhosis, history of hypertension and x1. 2. 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 3. Has been on Xeloda, oxaliplatin and base chemotherapy. 4. Now with abdominal wall fistula abscesses. 5. IV antibiotics and surgical care. 6. Wound dressing per protocol. Per surgery, per wound care. 7. No active chemotherapy at this time until the sepsis infection, abscesses all are drained and cleared out. 8. Keep hemoglobin above 9, hematocrit above 27. 9. Keep platelets above 20,000. 10. Pain medications, IV hydration, electrolytes. 11,Refused [facility] hyperthermic intraperitoneal chemotherapy referral 12.Refused transfer to tertiary center for the abdominal debulking surgery and chemotherapy 13.will wait until gets better then probable systemic chemotherapy which is NOT very effective in mucinous/colloid colon carcinoma 14.OK to DC home >> f/up out pt chemo 15. Drain/bag care 16. Abd wound care KARNO SCHNEIDER Jul 17, 2018 12:48
[2018-07-17 13:28] VITALS: BP 137/73; PULSE 75; RESP 20
--- NOTE | 2018-07-17 15:31 | CONS ---
Assessment/Plan Assessment/Plan Hospital Course (Demo Recall) IMPRESSION: 1. Preoperative evaluation prior to possible abdominal surgery for intraabdominal fistula, carcinomatosis and possible associated abscess formation.-neg trop x 3. Echo 07/06 with EF 55-60/MR 2. Hypertension-borderline low at times 3. 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 4. 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 5. Anemia, leukopenia, thrombocytopenia/pancytopenia. 6. Dyslpidemia-low HDL 21 LDL 35 Recc: -On med-surg -Continue ACEI/CCB as tolerated only with possible need to decresase dose -Follow drain output -ongoing surgical and hem-onc eval with discussion between surgeon and oncologist ongoing -Continue abx's and f/u cx data Consultation Date/Type/Reason Admit Date/Time Jul 05, 2018 at 12:27 Initial Consult Date 07/05/18 Type of Consult Cardiology Reason for Consultation HTN Requesting Provider: ADELAIDE FERREIRA MD Date/Time of Note DATE: 07/17/18 TIME: 15:29 Exam/Review of Systems Vital Signs Vitals Vital Signs Date Temp Pulse Resp B/P (MAP) Pulse Ox O2 O2 Flow FiO2 Time Delivery Rate 07/17/18 97.8 75 20 137/73 99 13:28 (94) 07/16/18 Room Air 20:31 Intake and Output 07/16/18 07/16/18 07/17/18 1515:00 23:00 07:00 IntakeIntake Total 1250 ml 1900 ml 637 ml OutputOutput Total 20 ml 1170 ml 710 ml BalanceBalance 1230 ml 730 ml -73 ml Exam Exam Review of Systems: CONSTITUTIONAL: No fevers, chills. PULMONARY: No sob CARDIOVASCULAR: No chest pain/palpitations GASTROINTESTINAL: No nausea/vomiting. GENITOURINARY: No hematuria/dysuria. MUSCULOSKELETAL: No myagias/arthalgias. PSYCHIATRIC: The patient denies depression. NEUROLOGIC: No weakness Constitutional: alert, oriented Psych: no complaints Head: normocephalic ENMT: mucosa pink and moist Neck: supple, jvd (8 cm water) Respiratory: diminished breath sounds (at bases/B) Cardiovascular: regular rate and rhythm Gastrointestinal: soft, non-tender Musculoskeletal: muscle weakness (mild generalized) Extremities: edema (none) Neurological: other (No focal deficits) Labs Result Diagram: 07/16/1844607/16/18446 Results 24hrs Laboratory Tests Test 07/17/18 05:08 CA 19-9 Antigen 67.8 H CA 125 Antigen 30.4 Medications Medications Current Medications Vancomycin HCl (Vanco Iv Per Pharmacy) VANCOMYCIN PER PHARMACY PER PROTOCOL XX ; Start 07/05/18 at 18:00 Potassium Chloride/Dextrose/ Sod Cl 1,000 ml @ 40 mls/hr Q24H IV Last administered on 07/16/18at 22:39; Admin Dose 40 MLS/HR; Start 07/05/18 at 18:00 Vancomycin/Sodium Chloride 250 ml @ 62.5 mls/hr Q12H IVPB Last administered on 07/17/18 07:35; Admin Dose 62.5 MLS/HR; Start 07/06/18 at 06:00 Metronidazole 100 ml @ 100 mls/hr Q8 IVPB Last administered on 07/17/18at 0 5:17; Admin Dose 100 MLS/HR; Start 07/05/18 at 22:30 Diphenhydramine HCl (Benadryl) 25 mg Q6H PRN IV ALLERGIC REACTION Last administered on 07/17/18at 07:35; Admin Dose 25 MG; Start 07/06/18 at 14:00 Hydromorphone HCl (Dilaudid) 1 mg Q4H PRN IV SEVERE PAIN LEVEL 7-10 Last administered on 07/13/18at 15:28; Admin Dose 1 MG; Start 07/06/18 at 17:00 Benazepril HCl (Lotensin) 10 mg BID PO Last administered on 07/16/18at 20:34; Admin Dose 10 MG; Start 07/06/18 at 21:00 Diphenhydramine HCl (Benadryl) 25 mg Q12H PO Last administered on 07/16/18at 17:08; Admin Dose 25 MG; Start 07/08/18 at 05:30 Sodium Chloride 250 ml @ 250 mls/hr Q12H IVPB Last administered on 07/17/18 06:19; Admin Dose 250 MLS/HR; Start 07/09/18 at 05:00 Nifedipine (Procardia Xl) 30 mg DAILY PO Last administered on 4/15/19at 08:08; Admin Dose 30 MG; Start 07/11/18 at 09:00 Fluconazole 100 ml @ 100 mls/hr Q24H IVPB Last administered on 07/16/18at 22:39; Admin Dose 100 MLS/HR; Start 07/10/18 at 21:30 Ibuprofen (Motrin) 400 mg Q6H PRN PO MILD PAIN(1-3) OR TEMP>38C Last administered on 07/16/18at 17:08; Admin Dose 400 MG; Start 07/15/18 at 16:00 Miscellaneous Information (*Rx Drug Level Order Reminder*) VANCOMYCIN TROUGH AT 1700 1700 XX ; Start 07/17/18 at 17:00; Stop 07/17/18 at 17:01 BIJAN DWYER Jul 17, 2018 15:31
--- NOTE | 2018-07-17 15:45 | PN ---
Date/Time of Note Date/Time of Note DATE: 07/17/18 TIME: 15:43 Assessment/Plan VTE Prophylaxis Risk score (from Ns)>0 risk: 5 SCD applied (from Ns): Yes Pharmacological prophylaxis: LMWH Lines/Catheters IV Catheter Type (from Nrs): Peripheral IV Urinary Cath still in place: No Assessment/Plan Hospital Course Patient remains hemodynamically stable, pain is adequately controlled. Patient no drainage from the fistula, and minimal drainage from accordion drain. Patient tolerates mechanical soft diet well. We will discussed with Dr. Lyons regarding the duration and consideration of antibiotics to arrange for antibiotics and wound care prior to discharge. Assessment/Plan -Entero-cutaneous fistula, continue current wound care per surgery and wound care team recommendations. -Intra-abdominal fluid collection, s/p placement of an external drainage cathete r in RLQ 07/06/2018. 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 Dr. Castillo is following in oncology consultation. Surgical team recommended transfer to tertiary care facility for cytoreductive surgery, however, patient refused surgery, wants to proceed with chemotherapy. -Intra-abdominal infection, continue antibiotics per ID. Dr. Lyons is following in infection disease consultation. Patient is currently on vancomycin and Flagyl and fluconazole. -History of mucinous adenocarcinoma of the cecum, ileocecal valve and adjacent ascending colon, status post right hemicolectomy on 06/26/[address] Rios. -Liver cirrhosis -Pancytopenia Further recommendations based on clinical course. Plan of care discussed with Dr. Figueroa. Result Diagram: 07/16/18 0447 07/16/18 0447 Results 24hrs Laboratory Tests Test 07/17/18 05:08 CA 19-9 Antigen 67.8 H CA 125 Antigen 30.4 Exam/Review of Systems Exam Vitals Vital Signs Date Temp Pulse Resp B/P (MAP) Pulse Ox O2 O2 Flow FiO2 Time Delivery Rate 07/17/18 97.8 75 20 137/73 99 13:28 (94) 07/16/18 Room Air 20:31 Intake and Output 07/16/18 07/16/18 07/17/18 1515:00 23:00 07:00 IntakeIntake Total 1250 ml 1900 ml 637 ml OutputOutput Total 20 ml 1170 ml 710 ml BalanceBalance 1230 ml 730 ml -73 ml Exam Constitutional: alert, oriented Respiratory: clear to auscultation Cardiovascular: nl pulses Gastrointestinal: other (Right lower quadrant drain, lower midline abdomen enterocutaneous fistula) Extremities: normal pulses Neurological: nl mental status Results Results 24hrs Laboratory Tests Test 07/17/18 05:08 CA 19-9 Antigen 67.8 H CA 125 Antigen 30.4 Medications Medication Current Medications Vancomycin HCl (Vanco Iv Per Pharmacy) VANCOMYCIN PER PHARMACY PER PROTOCOL XX ; Start 07/05/18 at 18:00 Potassium Chloride/Dextrose/ Sod Cl 1,000 ml @ 40 mls/hr Q24H IV Last administered on 07/16/18 22:39; Admin Dose 40 MLS/HR; Start 07/05/18 at 18:00 Vancomycin/Sodium Chloride 250 ml @ 62.5 mls/hr Q12H IVPB Last administered on 07/17/18 07:35; Admin Dose 62.5 MLS/HR; Start 07/06/18 at 06:00 Metronidazole 100 ml @ 100 mls/hr Q8 IVPB Last administered on 07/17/18 05:17; Admin Dose 100 MLS/HR; Start 07/05/18 at 22:30 Diphenhydramine HCl (Benadryl) 25 mg Q6H PRN IV ALLERGIC REACTION Last administered on 07/17/18 07:35; Admin Dose 25 MG; Start 07/06/18 at 14:00 Hydromorphone HCl (Dilaudid) 1 mg Q4H PRN IV SEVERE PAIN LEVEL 7-10 Last administered on 07/13/18 15:28; Admin Dose 1 MG; Start 07/06/18 at 17:00 Benazepril HCl (Lotensin) 10 mg BID PO Last administered on 07/16/18 20:34; Admin Dose 10 MG; Start 07/06/18 at 21:00 Diphenhydramine HCl (Benadryl) 25 mg Q12H PO Last administered on 07/16/18 17:08; Admin Dose 25 MG; Start 07/08/18 at 05:30 Sodium Chloride 250 ml @ 250 mls/hr Q12H IVPB Last administered on 07/17/18 06:19; Admin Dose 250 MLS/HR; Start 07/09/18 at 05:00 Nifedipine (Procardia Xl) 30 mg DAILY PO Last administered on 07/15/18at 08:08; Admin Dose 30 MG; Start 07/11/18 at 09:00 Fluconazole 100 ml @ 100 mls/hr Q24H IVPB Last administered on 07/16/18at 22:39; Admin Dose 100 MLS/HR; Start 07/10/18 at 21:30 Ibuprofen (Motrin) 400 mg Q6H PRN PO MILD PAIN(1-3) OR TEMP>38C Last administered on 07/16/18at 17:08; Admin Dose 400 MG; Start 07/15/18 at 16:00 Miscellaneous Information (*Rx Drug Level Order Reminder*) VANCOMYCIN TROUGH AT 1700 1700 XX ; Start 07/17/18 at 17:00; Stop 07/17/18 at 17:01 YOON TAVERAS Jul 17, 2018 15:45
[2018-07-17] MEDS: IBUPROFEN 400 MG TAB PO PRN (15:54)
--- NOTE | 2018-07-17 19:02 | PN ---
DATE: 07/17/2018 SUBJECTIVE: No new complaint. Tolerating diet. No nausea. No vomiting. Having bowel movement. Mild abdominal pain. No fever. OBJECTIVE: GENERAL: Awake, alert, oriented. VITAL SIGNS: Temperature T-max 98.9 today, heart rate 70, respirations 20, blood pressure is 137/73, saturation 98% on room air. HEART: Regular. LUNGS: Clear. ABDOMEN: Distended and tympanic on the left side. The right side is dull on percussion. The midline incision as was mentioned and the lower part of the incision is gradually granulating. No evidence of fistula at this time. The patient still is on antibiotics. LABORATORY DATA: The CA 19-9 antigen was done today, is 67.8 which is increased. Normal is up to 37. CA-125 antigen is 30, which is normal range. Also CEA which was done previously was 18.7, which is elevated. Normal is up to 5. INPUT AND OUTPUT: Drainage from the pigtail catheter accumulated in the accordion drain right side of the abdomen in past 24 hours has been 50 mL, serous fluid, clear, not turbid. Urine output was 900 mL from 7:00 a.m. today until now which is 3:00. Drainage from the abdominal wound has been very minimal and the wound is granulating gradually and the drainage in 24 hours only soaked maybe 1/4 of a sponge. The wound is being treated per protocol with SilvaSorb gel packed with sponge and covered with alginate. ASSESSMENT AND PLAN: 1. This is a 67-year-old female status post extended right hemicolectomy, which was done 2 years ago for mucinous adenocarcinoma of the cecum. 2. The patient is status post liver cirrhosis and hypertension. 3. The patient has presented with abdominal pain and drainage from the wound in the midline of the abdomen which was assumed to be either abscess or enterocutaneous fistula. 4. Biopsy on 04/30/2018 from mass on the right side of the abdomen has revealed abundance of mucin with mucinous adenocarcinoma cells. At this time, the patient is stable. 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 Dr. Schneider, the oncologist is following the patient. Antibiotic has been started by infectious disease and they are going to adjust it. From surgical point of view, the patient can be discharged because we are not planning for any surgery for this patient. From oncology point of view, Dr. Schneider as per the note today that the patient can be discharged to follow him in his office and therefore, the patient is going to be discharged by internal medicine, Dr. Ferreira's service and probably, she is going to get antibiotic by mouth at home. Also, the patient should be arranged to receive home healthcare for abdominal wound care per protocol as was mentioned with dressing change once a day with covering the wound with SilvaSorb gel and pack with sponge and cover with alginate and cover with a sponge and tape. Dictated By: GLO OSBORN MD PS/NTS Conf#: [id number] DID#: [id number] CC: KARON SCHNEIDER; ADELAIDE FERREIRA MD;*EndCC* MTDD
[2018-07-17 19:39] VITALS: BP 133/75; PULSE 67; RESP 19
[2018-07-17] MEDS: FLUCONAZOLE 200 MG (PMX) 100 ML IVPB SCH ×2 (21:09→23:00)
[2018-07-18] MEDS: metroNIDAZOLE 500 MG/NS (PMX) 100 ML IVPB SCH ×4 (00:08→22:26)
[2018-07-18] MEDS: D5-0.2 NACL + KCL 20 MEQ 1,000 ML IV SCH (00:08)
[2018-07-18 01:54] VITALS: BP 129/63; PULSE 63; RESP 18
[2018-07-18] MEDS: SOD CHLORIDE 0.9% 250 ML IVPB SCH ×2 (05:37→16:48)
[2018-07-18] MEDS: DIPHENHYDRAMINE 25 MG CAP PO SCH ×2 (05:37→18:09)
[2018-07-18] MEDS: VANCOMYCIN 750 MG (PMX) 250 ML IVPB SCH ×2 (06:37→18:09)
[2018-07-18 07:40] VITALS: BP 120/72; PULSE 69; RESP 18
[2018-07-18] MEDS: BENAZEPRIL 10 MG TAB PO SCH ×2 (08:18→20:14)
[2018-07-18] MEDS: NIFEdipine (XL) 30 MG TAB PO SCH (08:19)
[2018-07-18] MEDS ORDERED: SOD CHLORIDE 0.9% 100 ML ONE (09:55)
[2018-07-18] MEDS ORDERED: IOHEXOL 300MG/ML 150 ML BTL ONE (09:55)
--- NOTE | 2018-07-18 11:25 | CONS ---
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 albicans, and rare S. 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 coli in 2017 - h/o drainage of abscess and wound VAC placement in 2017 - liver cirrhosis with moderate to prominent loculated ascites, hepatitis panel on 07/06/2018 was negative - prominent splenomegaly - marked upper abdominal varices including varices at the GE junction - cholelithiasis # other issues - pancytopenia - stable - macerated skin of the abdomen due to the draining enterocutaneous fistulra - red man syndrome due to vancomycin - allergy to PCN (throat swelling), and tetracycline Recommendations: - await CT scan today; potentially may be discharged without further abx - Given her pcn allergy it will not be possible to create an oral regiment to cover all organisms; a consideration of po Keflex/Flucon could be considered. Avoidance of Linezolid likely best given thrombocytopenia - continue IV vancomycin and metronidazole (07/05/2018-) for now; plan for ~14 days through tmrw for now - for red man syndrome: premedicate each infusion of IV vancomycin with PO Benadryl and NS 250 mL bolus - continue IV fluconazole (07/07/2018-) for 14 days as well. Consultation Date/Type/Reason Admit Date/Time Jul 05, 2018 at 12:27 Initial Consult Date 07/05/18 Requesting Provider: ADELAIDE FERREIRA MD Date/Time of Note DATE: 07/18/18 TIME: 11:18 prolonged service time 1 hr 24 HR Interval Summary Free Text/Dictation patient upset. wants to leave Exam/Review of Systems Exam Vitals Vital Signs Date Temp Pulse Resp B/P (MAP) Pulse Ox O2 O2 Flow FiO2 Time Delivery Rate 07/18/18 97.7 69 18 120/72 97 07:40 (88) 07/16/18 Room Air 20:31 Intake and Output 07/17/18 07/17/18 07/18/18 1515:00 23:00 07:00 IntakeIntake Total 1573 ml 1560 ml 1550 ml OutputOutput Total 1400 ml 430 ml 60 ml BalanceBalance 173 ml 1130 ml 1490 ml Constitutional: alert, oriented, well developed Head: normocephalic, atraumatic Eyes: nl conjunctiva, EOMI, nl lids, nl sclera, PERRL Respiratory: clear to auscultation, normal air movement Cardiovascular: regular rate and rhythm, nl pulses Gastrointestinal: soft, nl liver, spleen, non-tender Results Result Diagram: 07/16/18 0447 07/16/18 0447 Results 24hrs Laboratory Tests Test 07/17/18 16:55 Vancomycin Level Trough 11.5 Medications Medication Current Medications Vancomycin HCl (Vanco Iv Per Pharmacy) VANCOMYCIN PER PHARMACY PER PROTOCOL XX ; Start 07/05/18 at 18:00 Potassium Chloride/Dextrose/ Sod Cl 1,000 ml @ 40 mls/hr Q24H IV Last administered on 07/18/18at 00:08; Admin Dose 40 MLS/HR; Start 07/05/18 at 18:00 Vancomycin/Sodium Chloride 250 ml @ 62.5 mls/hr Q12H IVPB Last administered on 07/18/18at 06:37; Admin Dose 62.5 MLS/HR; Start 07/06/18 at 06:00 Metronidazole 100 ml @ 100 mls/hr Q8 IVPB Last administered on 07/18/18at 04:29; Admin Dose 100 MLS/HR; Start 07/05/18 at 22:30 Diphenhydramine HCl (Benadryl) 25 mg Q6H PRN IV ALLERGIC REACTION Last administered on 07/17/18at 07:35; Admin Dose 25 MG; Start 07/06/18 at 14:00 Hydromorphone HCl (Dilaudid) 1 mg Q4H PRN IV SEVERE PAIN LEVEL 7-10 Last administered on 07/13/18 15:28; Admin Dose 1 MG; Start 07/06/18 at 17:00 Benazepril HCl (Lotensin) 10 mg BID PO Last administered on 07/18/18 08:18; Admin Dose 10 MG; Start 07/06/18 at 21:00 Diphenhydramine HCl (Benadryl) 25 mg Q12H PO Last administered on 07/18/18 05:37; Admin Dose 25 MG; Start 07/08/18 at 05:30 Sodium Chloride 250 ml @ 250 mls/hr Q12H IVPB Last administered on 07/18/18 05:37; Admin Dose 250 MLS/HR; Start 07/09/18 at 05:00 Nifedipine (Procardia Xl) 30 mg DAILY PO Last administered on 07/18/18 08:19; Admin Dose 30 MG; Start 07/11/18 at 09:00 Fluconazole 100 ml @ 100 mls/hr Q24H IVPB Last administered on 07/17/18at 23:00; Admin Dose 100 MLS/HR; Start 07/10/18 at 21:30 Ibuprofen (Motrin) 400 mg Q6H PRN PO MILD PAIN(1-3) OR TEMP>38C Last administered on 07/17/18 15:54; Admin Dose 400 MG; Start 07/15/18 at 16:00 ROSALIE ELLIOTT MD Jul 18, 2018 11:25
--- NOTE | 2018-07-18 12:40 | CONS ---
Assessment/Plan Assessment/Plan Hospital Course (Demo Recall) # Recurrent colon cancer 2019 mainly abdominal pelvic carcinomatosis with ascites. -Xelox currently on hold given her sepsis and abdominal wall abscesses #abdominal wall fistula abscesses. -s/p drain in place -small bowel follow through did not show obvious perforation or leak -continue IV antibiotics and surgical care. pt to be discharged with IV antibiotics -continue Wound dressing per protocol. -f/u CT A/P today #Anemia -Hg stable at > 11 Consultation Date/Type/Reason Admit Date/Time Jul 05, 2018 at 12:27 Initial Consult Date 07/05/18 Type of Consult oncology Reason for Consultation metastatic colon cancer Requesting Provider: ADELAIDE FERREIRA MD Date/Time of Note DATE: 07/18/18 TIME: 12:38 24 HR Interval Summary Free Text/Dictation pt still with drainage from catheter Exam/Review of Systems Exam Vitals Vital Signs Date Temp Pulse Resp B/P (MAP) Pulse Ox O2 O2 Flow FiO2 Time Delivery Rate 07/18/18 97.7 69 18 120/72 97 07:40 (88) 07/16/18 Room Air 20:31 Intake and Output 07/17/18 07/17/18 07/18/18 1515:00 23:00 07:00 IntakeIntake Total 1573 ml 1560 ml 1550 ml OutputOutput Total 1400 ml 430 ml 60 ml BalanceBalance 173 ml 1130 ml 1490 ml Constitutional: alert, oriented Psych: no complaints Head: normocephalic Eyes: nl conjunctiva ENMT: nl external ears & nose Neck: supple Respiratory: clear to auscultation Cardiovascular: regular rate and rhythm Gastrointestinal: soft, other (drain in place) Musculoskeletal: nl extremities to inspection Results Result Diagram: 07/16/187 07/16/18446 Results 24hrs Laboratory Tests Test 07/17/18 16:55 Vancomycin Level Trough 11.5 Medications Medication Current Medications Vancomycin HCl (Vanco Iv Per Pharmacy) VANCOMYCIN PER PHARMACY PER PROTOCOL XX ; Start 07/05/18 at 18:00 Potassium Chloride/Dextrose/ Sod Cl 1,000 ml @ 40 mls/hr Q24H IV Last administered on 07/18/18at 00:08; Admin Dose 40 MLS/HR; Start 07/05/18 at 18:00 Vancomycin/Sodium Chloride 250 ml @ 62.5 mls/hr Q12H IVPB Last administered on 07/18/18 06:37; Admin Dose 62.5 MLS/HR; Start 07/06/18 at 06:00 Metronidazole 100 ml @ 100 mls/hr Q8 IVPB Last administered on 07/18/18 04:29; Admin Dose 100 MLS/HR; Start 07/05/18 at 22:30 Diphenhydramine HCl (Benadryl) 25 mg Q6H PRN IV ALLERGIC REACTION Last administered on 07/17/18 07:35; Admin Dose 25 MG; Start 07/06/18 at 14:00 Hydromorphone HCl (Dilaudid) 1 mg Q4H PRN IV SEVERE PAIN LEVEL 7-10 Last administered on 07/13/18 15:28; Admin Dose 1 MG; Start 07/06/18 at 17:00 Benazepril HCl (Lotensin) 10 mg BID PO Last administered on 07/18/18 08:18; Admin Dose 10 MG; Start 07/06/18 at 21:00 Diphenhydramine HCl (Benadryl) 25 mg Q12H PO Last administered on 07/18/18 05:37; Admin Dose 25 MG; Start 07/08/18 at 05:30 Sodium Chloride 250 ml @ 250 mls/hr Q12H IVPB Last administered on 07/18/18 05:37; Admin Dose 250 MLS/HR; Start 07/09/18 at 05:00 Nifedipine (Procardia Xl) 30 mg DAILY PO Last administered on 07/18/18 08:19; Admin Dose 30 MG; Start 07/11/18 at 09:00 Fluconazole 100 ml @ 100 mls/hr Q24H IVPB Last administered on 07/17/18 23:00; Admin Dose 100 MLS/HR; Start 07/10/18 at 21:30 Ibuprofen (Motrin) 400 mg Q6H PRN PO MILD PAIN(1-3) OR TEMP>38C Last administered on 07/17/18 15:54; Admin Dose 400 MG; Start 07/15/18 at 16:00 HARMEET PORTILLO M.D. Jul 18, 2018 12:40
--- NOTE | 2018-07-18 13:34 | PN ---
Date/Time of Note Date/Time of Note DATE: 07/18/18 TIME: 13:30 Assessment/Plan VTE Prophylaxis Risk score (from Ns)>0 risk: 5 [place] [facility] [place] Pharmacological prophylaxis: NA/contraindicated Pharm contraindication: thrombocytopenia Lines/Catheters IV Catheter Type (from [facility]): Peripheral IV Urinary Cath still in place: No Assessment/Plan Hospital Course Patient is status post CT scan of the abdomen and pelvis results are not available. Patient remains hemodynamically stable tolerates diet well. The case management to arrange for home health for wound care. Will await for final recommendations for antibiotics or possible cessation of antibiotic therapy depending on the results of the CT scan. Assessment/Plan -Entero-cutaneous fistula, continue current wound care per surgery and wound care team recommendations. -Intra-abdominal fluid collection, s/p placement of an external drainage catheter in RLQ 07/06/2018. 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 Dr. Castillo is following in oncology consultation. Surgical team recommended transfer to tertiary care facility for cytoreductive surgery, however, patient refused surgery, wants to proceed with chemotherapy. -Intra-abdominal infection, continue antibiotics per ID. Dr. Lyons is following in infection disease consultation. Patient is currently on vancomycin and Flagyl and fluconazole. -History of mucinous adenocarcinoma of the cecum, ileocecal valve and adjacent ascending colon, status post right hemicolectomy on 06/26/[address] Rios. -Liver cirrhosis -Pancytopenia Further recommendations based on clinical course. Plan of care discussed with Dr. Figueroa. Result Diagram: 07/16/18 0447 07/16/18 0447 Results 24hrs Laboratory Tests Test 07/17/18 16:55 Vancomycin Level Trough 11.5 Exam/Review of Systems Exam Vitals Vital Signs Date Temp Pulse Resp B/P (MAP) Pulse Ox O2 O2 Flow FiO2 Time Delivery Rate 07/18/18 97.7 69 18 120/72 97 07:40 (88) 07/16/18 Room Air 20:31 Intake and Output 07/17/18 07/17/18 07/18/18 1515:00 23:00 07:00 IntakeIntake Total 1573 ml 1560 ml 1550 ml OutputOutput Total 1400 ml 430 ml 60 ml BalanceBalance 173 ml 1130 ml 1490 ml Exam Constitutional: alert, oriented Respiratory: clear to auscultation Cardiovascular: nl pulses Gastrointestinal: other (Right lower quadrant drain, lower midline abdomen enterocutaneous fistula) Extremities: normal pulses Neurological: nl mental status Results Results 24hrs Laboratory Tests Test 07/17/18 16:55 Vancomycin Level Trough 11.5 Medications Medication Current Medications Vancomycin HCl (Vanco Iv Per Pharmacy) VANCOMYCIN PER PHARMACY PER PROTOCOL XX ; Start 07/05/18 at 18:00 Potassium Chloride/Dextrose/ Sod Cl 1,000 ml @ 40 mls/hr Q24H IV Last administered on 07/18/18at 00:08; Admin Dose 40 MLS/HR; Start 07/05/18 at 18:00 Vancomycin/Sodium Chloride 250 ml @ 62.5 mls/hr Q12H IVPB Last administered on 07/18/18at 06:37; Admin Dose 62.5 MLS/HR; Start 07/06/18 at 06:00 Metronidazole 100 ml @ 100 mls/hr Q8 IVPB Last administered on 07/18/18at 04:29; Admin Dose 100 MLS/HR; Start 07/05/18 at 22:30 Diphenhydramine HCl (Benadryl) 25 mg Q6H PRN IV ALLERGIC REACTION Last administered on 07/17/18 07:35; Admin Dose 25 MG; Start 07/06/18 at 14:00 Hydromorphone HCl (Dilaudid) 1 mg Q4H PRN IV SEVERE PAIN LEVEL 7-10 Last administered on 07/13/18at 15:28; Admin Dose 1 MG; Start 07/06/18 at 17:00 Benazepril HCl (Lotensin) 10 mg BID PO Last administered on 07/18/18at 08:18; Admin Dose 10 MG; Start 07/06/18 at 21:00 Diphenhydramine HCl (Benadryl) 25 mg Q12H PO Last administered on 07/18/18 05:37; Admin Dose 25 MG; Start 07/08/18 at 05:30 Sodium Chloride 250 ml @ 250 mls/hr Q12H IVPB Last administered on 07/18/18 05:37; Admin Dose 250 MLS/HR; Start 07/09/18 at 05:00 Nifedipine (Procardia Xl) 30 mg DAILY PO Last administered on 07/18/18 08:19; Admin Dose 30 MG; Start 07/11/18 at 09:00 Fluconazole 100 ml @ 100 mls/hr Q24H IVPB Last administered on 07/17/18at 23:00; Admin Dose 100 MLS/HR; Start 07/10/18 at 21:30 Ibuprofen (Motrin) 400 mg Q6H PRN PO MILD PAIN(1-3) OR TEMP>38C Last administered on 07/17/18at 15:54; Admin Dose 400 MG; Start 07/15/18 at 16:00 YOON TAVERAS Jul 18, 2018 13:34
[2018-07-18 14:16] VITALS: BP 132/75; PULSE 71; RESP 18
--- NOTE | 2018-07-18 16:45 | CONS ---
Assessment/Plan Assessment/Plan Hospital Course (Demo Recall) ct scan reviewed; continued fluid collection It remains unclear if this is all abscess or due to abundance of mucin production by adenocarcinoma cells (pseudomyxoma peritonei) or a combination of both. There is not a safe oral outpatient regiment patient could take for a prolonged period, although one could consider LInezolid/Flagyl/Flucon if very close outpatient f/u is ensured. She would need at least weekly cbc to monitor plts. PCN desensitization could be considered in order to allow for Augmentin admin but one would wonder how closely and safely this could be continually monitored as an outpatient. A less than standard of care abx regimen would be Keflex/flagyl/fluc if patient adamant to leave. Consider bioethics evaluation given complexity of situation and surrounding issues. Consultation Date/Type/Reason Admit Date/Time Jul 05, 2018 at 12:27 Initial Consult Date 07/05/18 Requesting Provider: ADELAIDE FERREIRA MD Date/Time of Note DATE: 07/18/18 TIME: 16:37 Exam/Review of Systems Exam Vitals Vital Signs Date Temp Pulse Resp B/P (MAP) Pulse Ox O2 O2 Flow FiO2 Time Delivery Rate 07/18/18 98.2 71 18 132/75 99 Room Air 14:16 (94) Intake and Output 07/17/18 07/17/18 07/18/18 1515:00 23:00 07:00 IntakeIntake Total 1573 ml 1560 ml 1550 ml OutputOutput Total 1400 ml 430 ml 60 ml BalanceBalance 173 ml 1130 ml 1490 ml Results Result Diagram: 07/16/18 0447 07/16/18 0447 Results 24hrs Laboratory Tests Test 07/17/18 16:55 Vancomycin Level Trough 11.5 Medications Medication Current Medications Vancomycin HCl (Vanco Iv Per Pharmacy) VANCOMYCIN PER PHARMACY PER PROTOCOL XX ; Start 07/05/18 at 18:00 Potassium Chloride/Dextrose/ Sod Cl 1,000 ml @ 40 mls/hr Q24H IV Last administered on 07/18/18at 00:08; Admin Dose 40 MLS/HR; Start 07/05/18 at 18:00 Vancomycin/Sodium Chloride 250 ml @ 62.5 mls/hr Q12H IVPB Last administered on 07/18/18at 06:37; Admin Dose 62.5 MLS/HR; Start 07/06/18 at 06:00 Metronidazole 100 ml @ 100 mls/hr Q8 IVPB Last administered on 07/18/18 13:38; Admin Dose 100 MLS/HR; Start 07/05/18 at 22:30 Diphenhydramine HCl (Benadryl) 25 mg Q6H PRN IV ALLERGIC REACTION Last administered on 07/17/18 07:35; Admin Dose 25 MG; Start 07/06/18 at 14:00 Hydromorphone HCl (Dilaudid) 1 mg Q4H PRN IV SEVERE PAIN LEVEL 7-10 Last administered on 07/13/18 15:28; Admin Dose 1 MG; Start 07/06/18 at 17:00 Benazepril HCl (Lotensin) 10 mg BID PO Last administered on 07/18/18 08:18; Admin Dose 10 MG; Start 07/06/18 at 21:00 Diphenhydramine HCl (Benadryl) 25 mg Q12H PO Last administered on 07/18/18 05:37; Admin Dose 25 MG; Start 07/08/18 at 05:30 Sodium Chloride 250 ml @ 250 mls/hr Q12H IVPB Last administered on 07/18/18 05:37; Admin Dose 250 MLS/HR; Start 07/09/18 at 05:00 Nifedipine (Procardia Xl) 30 mg DAILY PO Last administered on 07/18/18 08:19; Admin Dose 30 MG; Start 07/11/18 at 09:00 Fluconazole 100 ml @ 100 mls/hr Q24H IVPB Last administered on 07/17/18 23:00; Admin Dose 100 MLS/HR; Start 07/10/18 at 21:30 Ibuprofen (Motrin) 400 mg Q6H PRN PO MILD PAIN(1-3) OR TEMP>38C Last administered on 07/17/18 15:54; Admin Dose 400 MG; Start 07/15/18 at 16:00 ROSALIE ELLIOTT MD Jul 18, 2018 16:45
[2018-07-18] MEDS: IBUPROFEN 400 MG TAB PO PRN (16:48)
--- NOTE | 2018-07-18 16:54 | PN ---
DATE: 07/18/2018 SUBJECTIVE: No new event. No new complaint. Anxious to go home. OBJECTIVE: GENERAL: Awake, alert, oriented x3. VITAL SIGNS: Temperature maximum 98.2, heart rate 80, blood pressure 132/75, saturation 99% on room air. HEART: Regular. LUNGS: Clear. ABDOMEN: Distended, tympanic on the left side (as we have seen and they have reported on the CT scan , the huge mass on the right side of the peritoneal cavity has pushed the bowel loops beyond the midl ine to the left side and that is why this patient on the left side appears distended due to the bowel loops and gas in the colon and small bowel loops). The patient has had bowel movement without any p roblem. LABORATORY DATA: No labs today. 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 Now that the secretions have much decreased and if there was an y fistula it appears that now is closed and if there was an abscess also, it has drained itself. The re is slight amount of infection down there, but I do not think there is any more enterocutaneous fis aneudy or any hidden abscess. Therefore to my opinion, local care probably would suffice for this woun d, but of course, the final decision depends on the recommendation of infectious disease java developer consultant. 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 Also, the patient has rejected this idea and did not accept that; therefore, she is going to be discharged as soon as cleared by infectious disease an d home health care arrangement was made and then she is supposed to call and see Dr. Schneider, onco logist/legal compliance officer and see if he is going to be planning to give her some kind of chemotherapy. Onc e more, it should be mentioned that the patient absolutely refuses any surgical intervention in abdom en or transfer to higher level of care, but insists that either Dr. Schneider give her chemotherapy or she is going to go to her primary and ask him or her to refer the patient to another chemotherapis t. Dictated By: GLO OSBORN MD PS/NTS Conf#: [id number] DID#: [id number] CC: KARON SCHNEIDER; ADELAIDE FERREIRA MD;*[facility]*
--- NOTE | 2018-07-18 17:32 | CONS ---
Assessment/Plan Assessment/Plan Hospital Course (Demo Recall) IMPRESSION: 1. Preoperative evaluation prior to possible abdominal surgery for intraabdominal fistula, carcinomatosis and possible associated abscess formation.-neg trop x 3. Echo 07/06 with EF 55-60/MR 2. Hypertension-borderline low at times 3. 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 4. 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 5. Anemia, leukopenia, thrombocytopenia/pancytopenia. 6. Dyslpidemia-low HDL 21 LDL 35 Recc: -On med-surg -Continue ACEI/CCB with well controlled BP -Follow drain output -improved fistula drainage. Possible d/c soon with further outpatient eval and treatment -Continue abx's and f/u cx data Consultation Date/Type/Reason Admit Date/Time Jul 05, 2018 at 12:27 Initial Consult Date 07/05/18 Type of Consult Cardiology Reason for Consultation HTN Requesting Provider: ADELAIDE FERREIRA MD Date/Time of Note DATE: 07/18/18 TIME: 17:28 Exam/Review of Systems Vital Signs Vitals Vital Signs Date Temp Pulse Resp B/P (MAP) Pulse Ox O2 O2 Flow FiO2 Time Delivery Rate 07/18/18 98.2 71 18 132/75 99 Room Air 14:16 (94) Intake and Output 07/17/18 07/17/18 07/18/18 1515:00 23:00 07:00 IntakeIntake Total 1573 ml 1560 ml 1550 ml OutputOutput Total 1400 ml 430 ml 60 ml BalanceBalance 173 ml 1130 ml 1490 ml Exam Exam Review of Systems: CONSTITUTIONAL: No fevers, chills. PULMONARY: No sob CARDIOVASCULAR: No chest pain/palpitations GASTROINTESTINAL: No nausea/vomiting. GENITOURINARY: No hematuria/dysuria. MUSCULOSKELETAL: No myagias/arthalgias. PSYCHIATRIC: The patient denies depression. NEUROLOGIC: No weakness Constitutional: alert, oriented Psych: no complaints Head: normocephalic ENMT: mucosa pink and moist Neck: supple, jvd (8 cm water) Respiratory: diminished breath sounds (at bases/B) Cardiovascular: regular rate and rhythm Gastrointestinal: soft, non-tender, other (well healing) Musculoskeletal: muscle weakness (mild generalized) Extremities: edema (none) Neurological: other (no focal deficits) Labs Result Diagram: 07/16/187 07/16/18446 Medications Medications Current Medications Vancomycin HCl (Vanco Iv Per Pharmacy) VANCOMYCIN PER PHARMACY PER PROTOCOL XX ; Start 07/05/18 at 18:00 Potassium Chloride/Dextrose/ Sod Cl 1,000 ml @ 40 mls/hr Q24H IV Last administered on 07/18/18at 00:08; Admin Dose 40 MLS/HR; Start 07/05/18 at 18:00 Vancomycin/Sodium Chloride 250 ml @ 62.5 mls/hr Q12H IVPB Last administered on 07/18/18 06:37; Admin Dose 62.5 MLS/HR; Start 07/06/18 at 06:00 Metronidazole 100 ml @ 100 mls/hr Q8 IVPB Last administered on 07/18/18at 13:38; Admin Dose 100 MLS/HR; Start 07/05/18 at 22:30 Diphenhydramine HCl (Benadryl) 25 mg Q6H PRN IV ALLERGIC REACTION Last administered on 07/17/18at 07:35; Admin Dose 25 MG; Start 07/06/18 at 14:00 Hydromorphone HCl (Dilaudid) 1 mg Q4H PRN IV SEVERE PAIN LEVEL 7-10 Last administered on 07/13/18 15:28; Admin Dose 1 MG; Start 07/06/18 at 17:00 Benazepril HCl (Lotensin) 10 mg BID PO Last administered on 07/18/18 08:18; Admin Dose 10 MG; Start 07/06/18 at 21:00 Diphenhydramine HCl (Benadryl) 25 mg Q12H PO Last administered on 07/18/18 05:37; Admin Dose 25 MG; Start 07/08/18 at 05:30 Sodium Chloride 250 ml @ 250 mls/hr Q12H IVPB Last administered on 07/18/18 16:48; Admin Dose 250 MLS/HR; Start 07/09/18 at 05:00 Nifedipine (Procardia Xl) 30 mg DAILY PO Last administered on 07/18/18 08:19; Admin Dose 30 MG; Start 07/11/18 at 09:00 Fluconazole 100 ml @ 100 mls/hr Q24H IVPB Last administered on 4/17/19at 23:00; Admin Dose 100 MLS/HR; Start 07/10/18 at 21:30 Ibuprofen (Motrin) 400 mg Q6H PRN PO MILD PAIN(1-3) OR TEMP>38C Last administered on 07/18/18at 16:48; Admin Dose 400 MG; Start 07/15/18 at 16:00 BIJAN DWYER Jul 18, 2018 17:32
[2018-07-18 20:00] VITALS: BP 129/70; PULSE 75; RESP 18
[2018-07-18] MEDS: FLUCONAZOLE 200 MG (PMX) 100 ML IVPB SCH (20:14)
[2018-07-19 02:00] VITALS: BP 118/60; PULSE 70; RESP 18
[2018-07-19] MEDS: SOD CHLORIDE 0.9% 250 ML IVPB SCH ×2 (04:48→16:32)
[2018-07-19] MEDS: metroNIDAZOLE 500 MG/NS (PMX) 100 ML IVPB SCH ×3 (05:21→22:44)
[2018-07-19] MEDS: DIPHENHYDRAMINE 25 MG CAP PO SCH ×2 (05:21→17:28)
[2018-07-19] MEDS: VANCOMYCIN 750 MG (PMX) 250 ML IVPB SCH ×2 (06:06→18:24)
[2018-07-19 07:42] VITALS: BP 111/66; PULSE 65; RESP 18
[2018-07-19] MEDS: D5-0.2 NACL + KCL 20 MEQ 1,000 ML IV SCH (08:15)
[2018-07-19] MEDS: BENAZEPRIL 10 MG TAB PO SCH ×2 (08:15→20:14)
[2018-07-19] MEDS: NIFEdipine (XL) 30 MG TAB PO SCH (08:16)
--- NOTE | 2018-07-19 10:43 | PN ---
Date/Time of Note Date/Time of Note DATE: 07/19/18 TIME: 10:42 Assessment/Plan VTE Prophylaxis Risk score (from Ns)>0 risk: 5 SCD applied (from [facility] [place]): Yes Pharmacological prophylaxis: NA/contraindicated Pharm contraindication: thrombocytopenia Lines/Catheters IV Catheter Type (from [facility]): Peripheral IV Urinary Cath still in place: No Assessment/Plan Hospital Course Patient is awake alert and oriented, remains afebrile, tolerates diet well. Patient is asking to be discharged and go home, cleared by general surgery and oncology. Patient can be discharged home if cleared by ID. D/W [facility] Mace for Dr Lyons. Plan of care discussed with João, Case management, wound care by home health is arranged. Assessment/Plan -Entero-cutaneous fistula, continue current wound care per surgery and wound care team recommendations. -Intra-abdominal fluid collection, s/p placement of an external drainage catheter in RLQ 07/06/2018. 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 Dr. Castillo is following in oncology consultation. Surgical team recommended transfer to tertiary care facility for cytoreductive surgery, however, patient refused surgery, wants to proceed with chemotherapy. -Intra-abdominal infection, continue antibiotics per ID. Dr. Lyons is following in infection disease consultation. Patient is currently on vancomycin and Flagyl and fluconazole. -History of mucinous adenocarcinoma of the cecum, ileocecal valve and adjacent ascending colon, status post right hemicolectomy on 06/26/[address] Rios. -Liver cirrhosis -Pancytopenia Further recommendations based on clinical course. Plan of care discussed with Dr. Figueroa. Result Diagram: 07/19/18 0558 07/19/18 0558 Results 24hrs Laboratory Tests Test 07/19/18 05:58 White Blood Count 3.4 L Red Blood Count 3.84 L Hemoglobin 12.4 Hematocrit 37.5 Mean Corpuscular Volume 97.7 Mean Corpuscular Hemoglobin 32.3 Mean Corpuscular Hemoglobin Concent 33.1 Red Cell Distribution Width 18.9 H Platelet Count 105 L Mean Platelet Volume 10.9 H Immature Granulocytes % 0.300 Neutrophils % 47.3 Lymphocytes % 33.6 Monocytes % 12.3 H Eosinophils % 4.7 Basophils % 1.8 Nucleated Red Blood Cells % 0.0 Immature Granulocytes # 0.010 Neutrophils # 1.6 Lymphocytes # 1.2 Monocytes # 0.4 Eosinophils # 0.2 Basophils # 0.1 Nucleated Red Blood Cells # 0.0 Sodium Level 140 Potassium Level 4.0 Chloride Level 106 Carbon Dioxide Level 24 Anion Gap 10 Blood Urea Nitrogen 15 Creatinine 0.47 Est Glomerular Filtrat Rate mL/min > 60 Glucose Level 112 Calcium Level 8.6 Exam/Review of Systems Exam Vitals Vital Signs Date Temp Pulse Resp B/P (MAP) Pulse Ox O2 O2 Flow FiO2 Time Delivery Rate 07/19/18 97.8 65 18 111/66 99 Room Air 07:42 (81) Intake and Output 07/18/18 07/18/18 07/19/18 1515:00 23:00 07:00 IntakeIntake Total 520 ml 1010 ml 920 ml OutputOutput Total 600 ml 100 ml 33 ml BalanceBalance -80 ml 910 ml 887 ml Exam Constitutional: alert, oriented Respiratory: clear to auscultation Cardiovascular: nl pulses Gastrointestinal: other (Right lower quadrant drain, lower midline abdomen enterocutaneous fistula) Extremities: normal pulses Neurological: nl mental status Results Results 24hrs Laboratory Tests Test 07/19/18 05:58 White Blood Count 3.4 L Red Blood Count 3.84 L Hemoglobin 12.4 Hematocrit 37.5 Mean Corpuscular Volume 97.7 Mean Corpuscular Hemoglobin 32.3 Mean Corpuscular Hemoglobin Concent 33.1 Red Cell Distribution Width 18.9 H Platelet Count 105 L Mean Platelet Volume 10.9 H Immature Granulocytes % 0.300 Neutrophils % 47.3 Lymphocytes % 33.6 Monocytes % 12.3 H Eosinophils % 4.7 Basophils % 1.8 Nucleated Red Blood Cells % 0.0 Immature Granulocytes # 0.010 Neutrophils # 1.6 Lymphocytes # 1.2 Monocytes # 0.4 Eosinophils # 0.2 Basophils # 0.1 Nucleated Red Blood Cells # 0.0 Sodium Level 140 Potassium Level 4.0 Chloride Level 106 Carbon Dioxide Level 24 Anion Gap 10 Blood Urea Nitrogen 15 Creatinine 0.47 Est Glomerular Filtrat Rate mL/min > 60 Glucose Level 112 Calcium Level 8.6 Medications Medication Current Medications Vancomycin HCl (Vanco Iv Per Pharmacy) VANCOMYCIN PER PHARMACY PER PROTOCOL XX ; Start 07/05/18 at 18:00 Potassium Chloride/Dextrose/ Sod Cl 1,000 ml @ 40 mls/hr Q24H IV Last administered on 07/18/18 00:08; Admin Dose 40 MLS/HR; Start 07/05/18 at 18:00 Vancomycin/Sodium Chloride 250 ml @ 62.5 mls/hr Q12H IVPB Last administered on 07/19/18 06:06; Admin Dose 62.5 MLS/HR; Start 07/06/18 at 06:00 Metronidazole 100 ml @ 100 mls/hr Q8 IVPB Last administered on 07/19/18 05:21; Admin Dose 100 MLS/HR; Start 07/05/18 at 22:30 Diphenhydramine HCl (Benadryl) 25 mg Q6H PRN IV ALLERGIC REACTION Last administered on 07/17/18 07:35; Admin Dose 25 MG; Start 07/06/18 at 14:00 Hydromorphone HCl (Dilaudid) 1 mg Q4H PRN IV SEVERE PAIN LEVEL 7-10 Last administered on 07/13/18 15:28; Admin Dose 1 MG; Start 07/06/18 at 17:00 Benazepril HCl (Lotensin) 10 mg BID PO Last administered on 07/19/18 08:15; Admin Dose 10 MG; Start 07/06/18 at 21:00 Diphenhydramine HCl (Benadryl) 25 mg Q12H PO Last administered on 07/19/18 05:21; Admin Dose 25 MG; Start 07/08/18 at 05:30 Sodium Chloride 250 ml @ 250 mls/hr Q12H IVPB Last administered on 07/19/18 04:48; Admin Dose 250 MLS/HR; Start 07/09/18 at 05:00 Nifedipine (Procardia Xl) 30 mg DAILY PO Last administered on 07/19/18 08:16; Admin Dose 30 MG; Start 07/11/18 at 09:00 Fluconazole 100 ml @ 100 mls/hr Q24H IVPB Last administered on 07/18/18 20:14; Admin Dose 100 MLS/HR; Start 07/10/18 at 21:30 Ibuprofen (Motrin) 400 mg Q6H PRN PO MILD PAIN(1-3) OR TEMP>38C Last administered on 07/18/18 16:48; Admin Dose 400 MG; Start 07/15/18 at 16:00 YOON TAVERAS Jul 19, 2018 10:43
--- NOTE | 2018-07-19 14:10 | PN ---
DATE: 07/19/2018 SUBJECTIVE: No new complaint. The patient is awaiting discharge from the hospital to go home. OBJECTIVE: GENERAL: Awake, alert, oriented x3. VITAL SIGNS: Temperature maximum 98 today, heart rate 70, respiration 18, blood pressure 118/60, sat uration 98% room air. HEART: Regular. LUNGS: Clear. ABDOMEN: Distended on left side and right side. The left side is distended and is tympanic. The ri ght side is distended and is dull. LABORATORY DATA: WBC 3400 with 47% segmented, hemoglobin 12.4, hematocrit 37.5. Chemistry: Sodium, potassium, BUN, creatinine within normal limits. INPUT AND OUTPUT: Pigtail drain is in the peritoneal cavity on the right side connected to the accor doreen drain bag and there is serous looking light yellow clear fluid accumulated. The amount of drain age in past 24 hours has been 133 mL. The wound on the abdominal wall location lower corner of the m idline incision is the same minimal granulation tissue formation and erythema around the skin due to leakage of some fluid which appeared on admission to be bowel (small bowel) content which has caused irritation of the skin. Now it is cleared because that kind of drainage has stopped. At that time, the impression was that there is enterocutaneous fistula and if really there was, it has healed by no w. HOSPITAL COURSE: There has been mention of abscess. I am not sure where this abscess has been or lo cated. We did not prove that there is intra-abdominal abscess and when the radiologist drained the c ollection which they assumed to be fluid collection, actually it did not drain anything for several d ays and in the past few days, it has been draining more and this is as mentioned clear serous light y ellow color fluid. I think this is ascites due to the patient's cirrhosis of the liver and this is d ifferent from that huge mass that we see on the CT scan in her belly and we as the surgical team clem eved that that is mucinous fluid or material collection which could not be drained by a pigtail drain . I reviewed Dr. Lyons's last note from yesterday. He is questioning that appropriate antibiotic f or patient to receive for the abscess when she goes home. My question is that I am not sure what kin d of abscess they want to treat or we are treating because of we have not proved that there is any ab scess anywhere. Though there was drainage from the lower part of the midline incision and that could have been leakage from the bowel due to spontaneous enterocutaneous fistula formation but now it has sealed and to me appears that the local care of the wound with SilvaSorb probably would suffice for control of any infection of this open wound. In any case, the patient is awaiting discharge pending solving the problem of home health arrangement and also possible p.o. antibiotic to take home and lat er on the patient is supposed to follow up with Dr. Schneider for possible chemotherapy. The patien t is in hospital. We will continue to follow, but from surgical point of view, she can be discharged . Dictated By: GLO OSBORN MD PS/NTS Conf#: [id number] DID#: [id number] CC: KARON SCHNEIDER; ADELAIDE FERREIRA MD;*EndCC*
[2018-07-19 14:37] VITALS: BP 112/76; PULSE 72; RESP 16
[2018-07-19] MEDS ORDERED: NIFE30TA2 PO (15:22)
[2018-07-19] MEDS ORDERED: IBUP-1541 PO (15:22)
--- NOTE | 2018-07-19 15:53 | CONS ---
[facility] HCIS Consult Follow-up Patient Name: Fatuma Saldana Unit Number: [id number] Date of : 1950 Patient Status: Admitted Inpatient Attending Doctor: Adelaide Ferreira MD Edit: PRITI SILVERMAN M.D. on 07/22/18 @ 04:49 Herrera: I discussed the management with [employer]ING IN [employer] FEEDER and agree Assessment/Plan Assessment/Plan Hospital Course (Demo Recall) # GI - entero-cutaneous fistula and complicated intra-abdominal infection, culture of the draining fluid is growing enterococci, C. albicans, and rare S. aureus - s/p placement of an external drainage catheter in RLQ 07/06/2018 - displacement of small bowel to L side due to fluid collection on R side of the abdomen, without e/o obstruction on SBFT on 07/07/2018 - large abdominal and pelvic midline anterior incisional related hernia, a loop of bowel which extends into the right lower quadrant portion of the hernia demonstrates focal dilatation with marked wall thickening and edema worrisome for focal strangulation of this loop of small bowel without evidence of obstruction on CT on 07/05/2018 - Repeat CT abd pelvis imaging showed Placement of drainage catheter in the large complex multiloculated and lobulated right abdominal fluid collection without significant change in size., Thick wall collection with air fluid level in the right lower abdominal wall with additional adjacent loculated fluid collection also unchanged in size and appearance. There is question of connec tion between these 2 fluid collections through a track to the skin surface. 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 Lyons's previous note for detailed explanation - However, patient is not a good candidate for linezolid d/t thrombocytopenia, or for Keflex d/t her PCN allergy. - We recommend that if patient's discharged transition to PO suppressive therapy with: 1. Clindamycin PO to cover for S. Aureus and enterococci, and 2. Flucon PO to cover for patti. We recommend initial 7day course with patient to follow up with her PCP and surgical orderly within the week. In addition we recommend that patient will f/u with an ID specialist who is contracted to see her. Further antibiotic course would be based upon patient's clinical progression as an outpatient. - continue IV vancomycin and metronidazole (07/05/2018-) for now; - for red man syndrome: premedicate each infusion of IV vancomycin with PO Benadryl and NS 250 mL bolus - continue IV fluconazole (07/07/2018-) for 14 days as well. Plan was d/w Dr. Silverman and with [employer] IN [employer] FEEDER Nava. Thank you Consultation Date/Type/Reason Admit Date/Time Jul 05, 2018 at 12:27 Initial Consult Date 07/05/18 Type of Consult ID Requesting Provider: ADELAIDE FERREIRA MD Date/Time of Note DATE: 07/19/18 TIME: 15:45 24 HR Interval Summary Free Text/Dictation Patient reported h/a 10/09. Reported abd pain 07/10. Denied all other ROS on a 10pt review. Remains afebrile. Exam/Review of Systems Exam Vitals Vital Signs Date Temp Pulse Resp B/P (MAP) Pulse Ox O2 O2 Flow FiO2 Time Delivery Rate 07/19/18 98.0 72 16 112/76 100 Room Air 14:37 (88) Intake and Output 07/18/18 07/18/18 07/19/18 1515:00 23:00 07:00 IntakeIntake Total 520 ml 1260 ml 1170 ml OutputOutput Total 600 ml 100 ml 33 ml BalanceBalance -80 ml 1160 ml 1137 ml Allergies Coded Allergies Penicillins (Verified Allergy, Unknown, 07/05/18) acetaminophen (Verified Allergy, Unknown, 07/05/18) tetracycline (Verified Allergy, Unknown, VERTIGO, N&V, 07/05/18) . Exam Constitutional: alert, oriented, well developed Psych: no complaints, nl mood/affect (smiling) Head: normocephalic, atraumatic Eyes: nl conjunctiva, nl lids, nl sclera ENMT: nl external ears & nose, nl nasal mucosa & septum, mucosa pink and moist (no thrush) Neck: supple, non-tender Respiratory: clear to auscultation, normal air movement; No diminished breath sounds, No labored breathing, No wheezing Cardiovascular: regular rate and rhythm, nl pulses Gastrointestinal: soft, non-tender, bowel sounds (normoactive), surgical scars, other (lower mid abd wound with serous/brown drainage noted on the dressing. R abdominal external drainage catheter with yellow drainage noted.) Genitourinary - Female: other (no f/c) Musculoskeletal: nl extremities to inspection Extremities: normal pulses; No edema Neurological: JEWELRY SALES II-XII intact, nl mental status, nl speech (palestinian speaking), nl strength Skin: nl turgor; No rash or lesions Results Result Diagram: 07/19/18 0558 07/19/18 0558 Results 24hrs Laboratory Tests Test 07/19/18 05:58 White Blood Count 3.4 L Red Blood Count 3.84 L Hemoglobin 12.4 Hematocrit 37.5 Mean Corpuscular Volume 97.7 Mean Corpuscular Hemoglobin 32.3 Mean Corpuscular Hemoglobin Concent 33.1 Red Cell Distribution Width 18.9 H Platelet Count 105 L Mean Platelet Volume 10.9 H Immature Granulocytes % 0.300 Neutrophils % 47.3 Lymphocytes % 33.6 Monocytes % 12.3 H Eosinophils % 4.7 Basophils % 1.8 Nucleated Red Blood Cells % 0.0 Immature Granulocytes # 0.010 Neutrophils # 1.6 Lymphocytes # 1.2 Monocytes # 0.4 Eosinophils # 0.2 Basophils # 0.1 Nucleated Red Blood Cells # 0.0 Sodium Level 140 Potassium Level 4.0 Chloride Level 106 Carbon Dioxide Level 24 Anion Gap 10 Blood Urea Nitrogen 15 Creatinine 0.47 Est Glomerular Filtrat Rate mL/min > 60 Glucose Level 112 Calcium Level 8.[address] Abd/Pelvis 07/18/18 IMPRESSION: 1. Placement of drainage catheter in the large complex multiloculated and lo bulated right abdominal fluid collection without significant change in size. 2. Thick wall collection with air fluid level in the right lower abdominal wall with additional adjacent loculated fluid collection also unchanged in size and appearance. There is question of connection between these 2 fluid collections through a track to the skin surface. 3. Cirrhotic morphology of the liver with evidence of portal hypertension including splenomegaly and upper abdominal varices. 4. Cholelithiasis. 5. New mild right-sided hydronephrosis. 6. Status post right colonic resection with ileocolic anastomosis. Medications Medication Current Medications Vancomycin HCl (Vanco Iv Per Pharmacy) VANCOMYCIN PER PHARMACY PER PROTOCOL XX ; Start 07/05/18 at 18:00 Potassium Chloride/Dextrose/ Sod Cl 1,000 ml @ 40 mls/hr Q24H IV Last administered on 07/18/18at 00:08; Admin Dose 40 MLS/HR; Start 07/05/18 at 18:00 Vancomycin/Sodium Chloride 250 ml @ 62.5 mls/hr Q12H IVPB Last administered on 07/19/18at 06:06; Admin Dose 62.5 MLS/HR; Start 07/06/18 at 06:00 Metronidazole 100 ml @ 100 mls/hr Q8 IVPB Last administered on 07/19/18at 14:15; Admin Dose 100 MLS/HR; Start 07/05/18 at 22:30 Diphenhydramine HCl (Benadryl) 25 mg Q6H PRN IV ALLERGIC REACTION Last administered on 07/17/18at 07:35; Admin Dose 25 MG; Start 07/06/18 at 14:00 Hydromorphone HCl (Dilaudid) 1 mg Q4H PRN IV SEVERE PAIN LEVEL 7-10 Last administered on 07/13/18at 15:28; Admin Dose 1 MG; Start 07/06/18 at 17:00 Benazepril HCl (Lotensin) 10 mg BID PO Last administered on 07/19/18at 08:15; Admin Dose 10 MG; Start 07/06/18 at 21:00 Diphenhydramine HCl (Benadryl) 25 mg Q12H PO Last administered on 07/19/18 05:21; Admin Dose 25 MG; Start 07/08/18 at 05:30 Sodium Chloride 250 ml @ 250 mls/hr Q12H IVPB Last administered on 07/19/18at 04:48; Admin Dose 250 MLS/HR; Start 07/09/18 at 05:00 Nifedipine (Procardia Xl) 30 mg DAILY PO Last administered on 07/19/18 08:16; Admin Dose 30 MG; Start 07/11/18 at 09:00 Fluconazole 100 ml @ 100 mls/hr Q24H IVPB Last administered on 07/18/18at 2 0:14; Admin Dose 100 MLS/HR; Start 07/10/18 at 21:30 Ibuprofen (Motrin) 400 mg Q6H PRN PO MILD PAIN(1-3) OR TEMP>38C Last administered on 07/18/18 16:48; Admin Dose 400 MG; Start 07/15/18 at 16:00 ALEXIA PAGE NP Jul 19, 2018 15:53
--- NOTE | 2018-07-19 16:28 | CONS ---
Assessment/Plan Assessment/Plan Hospital Course (Demo Recall) IMPRESSION: 1. Preoperative evaluation prior to possible abdominal surgery for intraabdominal fistula, carcinomatosis and possible associated abscess formation.-neg trop x 3. Echo 07/06 with EF 55-60/MR 2. Hypertension-borderline low at times 3. 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 4. 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 5. Anemia, leukopenia, thrombocytopenia/pancytopenia. 6. Dyslpidemia-low HDL 21 LDL 35 Recc: -On med-surg -Continue ACEI/CCB with well controlled BP -improved fistula drainage but with ongoing fluid collection by abd CT 07/18 -Continue abx's and f/u cx data -Ongoing ID eval and treatment Consultation Date/Type/Reason Admit Date/Time Jul 05, 2018 at 12:27 Initial Consult Date 07/05/18 Type of Consult Cardiology Reason for Consultation HTN Requesting Provider: ADELAIDE FERREIRA MD Date/Time of Note DATE: 07/19/18 TIME: 16:25 Exam/Review of Systems Vital Signs Vitals Vital Signs Date Temp Pulse Resp B/P (MAP) Pulse Ox O2 O2 Flow FiO2 Time Delivery Rate 07/19/18 98.0 72 16 112/76 100 Room Air 14:37 (88) Intake and Output 07/18/18 07/18/18 07/19/18 1515:00 23:00 07:00 IntakeIntake Total 520 ml 1260 ml 1170 ml OutputOutput Total 600 ml 130 ml 33 ml BalanceBalance -80 ml 1130 ml 1137 ml Exam Exam Review of Systems: CONSTITUTIONAL: No fevers, chills. PULMONARY: No sob CARDIOVASCULAR: No chest pain/palpitations GASTROINTESTINAL: No nausea/vomiting. GENITOURINARY: No hematuria/dysuria. MUSCULOSKELETAL: No myagias/arthalgias. PSYCHIATRIC: The patient denies depression. NEUROLOGIC: No weakness Constitutional: alert Psych: no complaints Head: normocephalic ENMT: mucosa pink and moist Neck: supple, jvd Respiratory: diminished breath sounds (at bases/B) Cardiovascular: regular rate and rhythm Gastrointestinal: soft, tender (mild to palpation) Musculoskeletal: muscle tone (normal) Extremities: edema (none) Neurological: other (No focal deficits) Labs Result Diagram: 07/19/18 0558 07/19/18 0558 Results 24hrs Laboratory Tests Test 07/19/18 05:58 White Blood Count 3.4 L Red Blood Count 3.84 L Hemoglobin 12.4 Hematocrit 37.5 Mean Corpuscular Volume 97.7 Mean Corpuscular Hemoglobin 32.3 Mean Corpuscular Hemoglobin Concent 33.1 Red Cell Distribution Width 18.9 H Platelet Count 105 L Mean Platelet Volume 10.9 H Immature Granulocytes % 0.300 Neutrophils % 47.3 Lymphocytes % 33.6 Monocytes % 12.3 H Eosinophils % 4.7 Basophils % 1.8 Nucleated Red Blood Cells % 0.0 Immature Granulocytes # 0.010 Neutrophils # 1.6 Lymphocytes # 1.2 Monocytes # 0.4 Eosinophils # 0.2 Basophils # 0.1 Nucleated Red Blood Cells # 0.0 Sodium Level 140 Potassium Level 4.0 Chloride Level 106 Carbon Dioxide Level 24 Anion Gap 10 Blood Urea Nitrogen 15 Creatinine 0.47 Est Glomerular Filtrat Rate mL/min > 60 Glucose Level 112 Calcium Level 8.6 Medications Medications Current Medications Vancomycin HCl (Vanco Iv Per Pharmacy) VANCOMYCIN PER PHARMACY PER PROTOCOL XX ; Start 07/05/18 at 18:00 Potassium Chloride/Dextrose/ Sod Cl 1,000 ml @ 40 mls/hr Q24H IV Last administered on 07/18/18at 00:08; Admin Dose 40 MLS/HR; Start 07/05/18 at 18:00 Vancomycin/Sodium Chloride 250 ml @ 62.5 mls/hr Q12H IVPB Last administered on 07/19/18at 06:06; Admin Dose 62.5 MLS/HR; Start 07/06/18 at 06:00 Metronidazole 100 ml @ 100 mls/hr Q8 IVPB Last administered on 07/19/18at 14:15; Admin Dose 100 MLS/HR; Start 07/05/18 at 22:30 Diphenhydramine HCl (Benadryl) 25 mg Q6H PRN IV ALLERGIC REACTION Last administered on 07/17/18at 07:35; Admin Dose 25 MG; Start 07/06/18 at 14:00 Hydromorphone HCl (Dilaudid) 1 mg Q4H PRN IV SEVERE PAIN LEVEL 7-10 Last administered on 07/13/18at 15:28; Admin Dose 1 MG; Start 07/06/18 at 17:00 Benazepril HCl (Lotensin) 10 mg BID PO Last administered on 07/19/18 08:15; Admin Dose 10 MG; Start 07/06/18 at 21:00 Diphenhydramine HCl (Benadryl) 25 mg Q12H PO Last administered on 07/19/18 05:21; Admin Dose 25 MG; Start 07/08/18 at 05:30 Sodium Chloride 250 ml @ 250 mls/hr Q12H IVPB Last administered on 07/19/18 04:48; Admin Dose 250 MLS/HR; Start 07/09/18 at 05:00 Nifedipine (Procardia Xl) 30 mg DAILY PO Last administered on 07/19/18 08:16; Admin Dose 30 MG; Start 07/11/18 at 09:00 Fluconazole 100 ml @ 100 mls/hr Q24H IVPB Last administered on 07/18/18 20:1 4; Admin Dose 100 MLS/HR; Start 07/10/18 at 21:30 Ibuprofen (Motrin) 400 mg Q6H PRN PO MILD PAIN(1-3) OR TEMP>38C Last administered on 07/18/18 16:48; Admin Dose 400 MG; Start 07/15/18 at 16:00 BIJAN DWYER Jul 19, 2018 16:28
[2018-07-19] MEDS: IBUPROFEN 400 MG TAB PO PRN (16:32)
[2018-07-19 19:27] VITALS: BP 114/63; PULSE 75; RESP 16
[2018-07-19] MEDS: FLUCONAZOLE 200 MG (PMX) 100 ML IVPB SCH (21:14)
[2018-07-20] MEDS: D5-0.2 NACL + KCL 20 MEQ 1,000 ML IV SCH ×2 (01:56→08:15)
[2018-07-20 02:15] VITALS: BP 97/54; PULSE 68; RESP 18
[2018-07-20] MEDS: SOD CHLORIDE 0.9% 250 ML IVPB SCH (04:54)
[2018-07-20] MEDS: DIPHENHYDRAMINE 25 MG CAP PO SCH ×2 (05:39→17:30)
[2018-07-20] MEDS: metroNIDAZOLE 500 MG/NS (PMX) 100 ML IVPB SCH ×2 (05:39→14:19)
[2018-07-20] MEDS: VANCOMYCIN 750 MG (PMX) 250 ML IVPB SCH ×2 (06:37→18:00)
[2018-07-20 07:23] VITALS: BP 113/62; PULSE 72; RESP 17
[2018-07-20] MEDS: NIFEdipine (XL) 30 MG TAB PO SCH (10:08)
[2018-07-20] MEDS: BENAZEPRIL 10 MG TAB PO SCH (10:09)
--- NOTE | 2018-07-20 12:26 | CONS ---
Assessment/Plan Assessment/Plan Assessment/Plan (Daily) # Recurrent colon cancer 2019 mainly abdominal pelvic carcinomatosis with ascites. -Xelox currently on hold given her sepsis and abdominal wall abscesses #abdominal wall fistula abscesses. -s/p drain in place -small bowel follow through did not show obvious perforation or leak -continue IV antibiotics and surgical care. pt to be discharged with IV antibiotics -continue Wound dressing per protocol. -f/u CT A/P today #Anemia- Hgb 12. 4 today -Hg stable at > 11 Patit seen in collabptation with dr Coto Consultation Date/Type/Reason Admit Date/Time Jul 05, 2018 at 12:27 Initial Consult Date 07/05/18 Type of Consult Hematology/Oncology Reason for Consultation Recurrent colon cancer Requesting Provider: ADELAIDE FERREIRA MD Date/Time of Note DATE: 07/20/18 TIME: 12:25 24 HR Interval Summary Free Text/Dictation stable feels better denies any abdominal pain/discharge/fever/nausea/vomitting dw staff- no new events reported last night Constitutional: improved Detailed Summary Eyes: no complaints ENT: no complaints Respiratory: no complaints Gastrointestinal: no complaints (woung is healing. no discharge) Genitourinary: no complaints Musculoskeletal: no complaints Skin: no complaints Neurologic: no complaints Endocrine: no complaints Lymphatic: no complaints Psychological: nl mood/affect Immunologic: no complaints Exam/Review of Systems Exam Vitals Vital Signs Date Temp Pulse Resp B/P (MAP) Pulse Ox O2 O2 Flow FiO2 Time Delivery Rate 07/20/18 98.1 72 17 113/62 98 Room Air 07:23 (79) Intake and Output 07/19/18 07/19/18 07/20/18 1515:00 23:00 07:00 IntakeIntake Total 730 ml 810 ml 800 ml OutputOutput Total 60 ml 60 ml BalanceBalance 730 ml 750 ml 740 ml Constitutional: alert, well developed Psych: nl mood/affect Head: normocephalic Eyes: nl lids, nl sclera ENMT: nl external ears & nose Neck: non-tender Respiratory: clear to auscultation Cardiovascular: nl pulses, other (s1s2) Gastrointestinal: soft, non-tender, other (abdomina; fistula- healing; no discharge noted) Musculoskeletal: nl extremities to inspection Extremities: normal pulses Neurological: nl speech Skin: other Results Result Diagram: 07/19/1858 07/19/18557 Medications Medication Current Medications Vancomycin HCl (Vanco Iv Per Pharmacy) VANCOMYCIN PER PHARMACY PER PROTOCOL XX ; Start 07/05/18 at 18:00 Potassium Chloride/Dextrose/ Sod Cl 1,000 ml @ 40 mls/hr Q24H IV Last admi nistered on 07/20/18 01:56; Admin Dose 40 MLS/HR; Start 07/05/18 at 18:00 Vancomycin/Sodium Chloride 250 ml @ 62.5 mls/hr Q12H IVPB Last administered on 07/20/18 06:37; Admin Dose 62.5 MLS/HR; Start 07/06/18 at 06:00 Metronidazole 100 ml @ 100 mls/hr Q8 IVPB Last administered on 07/20/18 05:39; Admin Dose 100 MLS/HR; Start 07/05/18 at 22:30 Diphenhydramine HCl (Benadryl) 25 mg Q6H PRN IV ALLERGIC REACTION Last administered on 07/17/18 07:35; Admin Dose 25 MG; Start 07/06/18 at 14:00 Hydromorphone HCl (Dilaudid) 1 mg Q4H PRN IV SEVERE PAIN LEVEL 7-10 Last administered on 07/13/18 15:28; Admin Dose 1 MG; Start 07/06/18 at 17:00 Benazepril HCl (Lotensin) 10 mg BID PO Last administered on 07/20/18 10:09; Admin Dose 10 MG; Start 07/06/18 at 21:00 Diphenhydramine HCl (Benadryl) 25 mg Q12H PO Last administered on 07/20/18 05:39; Admin Dose 25 MG; Start 07/08/18 at 05:30 Sodium Chloride 250 ml @ 250 mls/hr Q12H IVPB Last administered on 07/20/18 04:54; Admin Dose 250 MLS/HR; Start 07/09/18 at 05:00 Nifedipine (Procardia Xl) 30 mg DAILY PO Last administered on 07/20/18 10:08; Admin Dose 30 MG; Start 07/11/18 at 09:00 Fluconazole 100 ml @ 100 mls/hr Q24H IVPB Last administered on 07/19/18 21:14; Admin Dose 100 MLS/HR; Start 07/10/18 at 21:30 Ibuprofen (Motrin) 400 mg Q6H PRN PO MILD PAIN(1-3) OR TEMP>38C Last administered on 07/19/18at 16:32; Admin Dose 400 MG; Start 07/15/18 at 16:00 FERNANDA JARRETT Jul 20, 2018 12:26
--- NOTE | 2018-07-20 13:38 | PN ---
Date/Time of Note Date/Time of Note DATE: 07/20/18 TIME: 13:37 Assessment/Plan VTE Prophylaxis Risk score (from Ns)>0 risk: 3 SCD applied (from Ns): Yes Pharmacological prophylaxis: LMWH Lines/Catheters IV Catheter Type (from [facility]): Peripheral IV Urinary Cath still in place: No Assessment/Plan Hospital Course -Entero-cutaneous fistula, continue current wound care per surgery and wound care team recommendations. -Intra-abdominal fluid collection, s/p placement of an external drainage catheter in RLQ 07/06/2018. 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 Dr. Castillo is following in oncology consultation. Surgical team recommended transfer to tertiary care facility for cytoreductive surgery, however, patient refused surgery, wants to proceed with chemotherapy. -Intra-abdominal infection, continue antibiotics per ID. Dr. Lyons is following in infection disease consultation. Patient is currently on vancomycin and Flagyl and fluconazole. -History of mucinous adenocarcinoma of the cecum, ileocecal valve and adjacent ascending colon, status post right hemicolectomy on 06/26/[address] Rios. -Liver cirrhosis -Pancytopenia Result Diagram: 07/19/18 0558 07/19/18 0558 Subjective 24 Hr Interval Summary Free Text/Dictation Patient is not in room so unable to interview Exam/Review of Systems Exam Vitals Vital Signs Date Temp Pulse Resp B/P (MAP) Pulse Ox O2 O2 Flow FiO2 Time Delivery Rate 07/20/18 98.1 72 17 113/62 98 Room Air 07:23 (79) Intake and Output 07/19/18 07/19/18 07/20/18 1414:59 22:59 06:59 IntakeIntake Total 980 ml 810 ml 800 ml OutputOutput Total 60 ml 60 ml BalanceBalance 980 ml 750 ml 740 ml Exam Unable to examine as patient is not in room Medications Medication Current Medications Vancomycin HCl (Vanco Iv Per Pharmacy) VANCOMYCIN PER PHARMACY PER PROTOCOL XX ; Start 07/05/18 at 18:00 Potassium Chloride/Dextrose/ Sod Cl 1,000 ml @ 40 mls/hr Q24H IV Last administered on 07/20/18at 01:56; Admin Dose 40 MLS/HR; Start 07/05/18 at 18:00 Vancomycin/Sodium Chloride 250 ml @ 62.5 mls/hr Q12H IVPB Last administered on 07/20/18 06:37; Admin Dose 62.5 MLS/HR; Start 07/06/18 at 06:00 Metronidazole 100 ml @ 100 mls/hr Q8 IVPB Last administered on 07/20/18 05:39; Admin Dose 100 MLS/HR; Start 07/05/18 at 22:30 Diphenhydramine HCl (Benadryl) 25 mg Q6H PRN IV ALLERGIC REACTION Last administered on 07/17/18 07:35; Admin Dose 25 MG; Start 07/06/18 at 14:00 Hydromorphone HCl (Dilaudid) 1 mg Q4H PRN IV SEVERE PAIN LEVEL 7-10 Last administered on 07/13/18 15:28; Admin Dose 1 MG; Start 07/06/18 at 17:00 Benazepril HCl (Lotensin) 10 mg BID PO Last administered on 07/20/18 10:09; Admin Dose 10 MG; Start 07/06/18 at 21:00 Diphenhydramine HCl (Benadryl) 25 mg Q12H PO Last administered on 07/20/18 05:39; Admin Dose 25 MG; Start 07/08/18 at 05:30 Sodium Chloride 250 ml @ 250 mls/hr Q12H IVPB Last administered on 07/20/18 04:54; Admin Dose 250 MLS/HR; Start 07/09/18 at 05:00 Nifedipine (Procardia Xl) 30 mg DAILY PO Last administered on 07/20/18 10:08; Admin Dose 30 MG; Start 07/11/18 at 09:00 Fluconazole 100 ml @ 100 mls/hr Q24H IVPB Last administered on 07/19/18 21:14; Admin Dose 100 MLS/HR; Start 07/10/18 at 21:30 Ibuprofen (Motrin) 400 mg Q6H PRN PO MILD PAIN(1-3) OR TEMP>38C Last administered on 07/19/18 16:32; Admin Dose 400 MG; Start 07/15/18 at 16:00 MARIAN WALKER Jul 20, 2018 13:37
[2018-07-20 13:55] VITALS: BP 115/61; PULSE 75; RESP 18
[2018-07-20 14:01] VITALS: BP 100/56; PULSE 95; RESP 17
--- NOTE | 2018-07-20 15:39 | CONS ---
Consult Date/Type/Reason Admit Date/Time Jul 05, 2018 at 12:27 Initial Consult Date 07/05/18 Requesting Provider: ADELAIDE FERREIRA MD Date/Time of Note DATE: 07/20/18 TIME: 15:38 Subjective NO acute events - pt comfortable - no CP now - clear drainage noted. ROS: No fever, no chills, no nausea, no vomiting, no diarrhea/constipation No recent weight changes No chest pain, no PND, no orthopnea - improved, mild abd pain No dizziness, blurred vision No thirst, no heat or cold intolerance Objective Vitals Vital Signs Date Temp Pulse Resp B/P (MAP) Pulse Ox O2 O2 Flow FiO2 Time Delivery Rate 07/20/18 98.4 95 17 100/56 98 Room Air 14:01 (71) Intake and Output 07/19/18 07/19/18 07/20/18 1515:00 23:00 07:00 IntakeIntake Total 730 ml 810 ml 800 ml OutputOutput Total 60 ml 60 ml BalanceBalance 730 ml 750 ml 740 ml Exam General: WN/WD/NAD, AOx 3 HEENT: Unicetric/atraumatic/EOMI (follow commands) NECK: JVD elevated, no thyromegaly Lymph: no lymphadenopathy HEART: regular with no S3, II/ systolic murmur at apex LUNGS: Coarse sounds ABD: soft, NT, ND, +BS - drains : Intact Neuro: non focal SKIN: chronic changes EXT: trace edema Results/Medications Result Diagram: 07/19/18 0558 07/19/18 0558 Home Meds Active Scripts Ibuprofen* (Ibuprofen*) 400 Mg Tablet, 400 MG PO Q6H PRN for MILD PAIN(1-3) OR TEMP>38C, #30 TAB Prov:YOON TAVERAS 07/19/18 Nifedipine (Procardia Xl) 30 Mg Tab.er.24, 30 MG PO DAILY for 30 Days, TAB Prov:YOON TAVERAS 07/19/18 Reported Medications Ondansetron Hcl* (Zofran*) 8 Mg Tablet, 8 MG PO Q12 PRN for NAUSEA AND OR VOMITING, TAB 05/30/18 Capecitabine* (Xeloda*) 500 Mg Tablet, 1000 MG PO QPM, TBS 05/30/18 Capecitabine* (Xeloda*) 500 Mg Tablet, 1500 MG PO QAM, TAB 05/30/18 Metoclopramide* (Reglan*) 10 Mg Tablet, 10 MG PO BID WITH MEALS PRN for NAUSEA AND/OR VOMITING, TAB 05/30/18 Medications Current Medications Vancomycin HCl (Vanco Iv Per Pharmacy) VANCOMYCIN PER PHARMACY PER PROTOCOL XX ; Start 07/05/18 at 18:00 Potassium Chloride/Dextrose/ Sod Cl 1,000 ml @ 40 mls/hr Q24H IV Last administered on 07/20/18 01:56; Admin Dose 40 MLS/HR; Start 07/05/18 at 18:00 Vancomycin/Sodium Chloride 250 ml @ 62.5 mls/hr Q12H IVPB Last administered on 07/20/18 06:37; Admin Dose 62.5 MLS/HR; Start 07/06/18 at 06:00 Metronidazole 100 ml @ 100 mls/hr Q8 IVPB Last administered on 07/20/18 14:19; Admin Dose 100 MLS/HR; Start 07/05/18 at 22:30 Diphenhydramine HCl (Benadryl) 25 mg Q6H PRN IV ALLERGIC REACTION Last administered on 07/17/18 07:35; Admin Dose 25 MG; Start 07/06/18 at 14:00 Hydromorphone HCl (Dilaudid) 1 mg Q4H PRN IV SEVERE PAIN LEVEL 7-10 Last administered on 07/13/18 15:28; Admin Dose 1 MG; Start 07/06/18 at 17:00 Benazepril HCl (Lotensin) 10 mg BID PO Last administered on 07/20/18 10:09; Admin Dose 10 MG; Start 07/06/18 at 21:00 Diphenhydramine HCl (Benadryl) 25 mg Q12H PO Last administered on 07/20/18 05:39; Admin Dose 25 MG; Start 07/08/18 at 05:30 Sodium Chloride 250 ml @ 250 mls/hr Q12H IVPB Last administered on 07/20/18 04:54; Admin Dose 250 MLS/HR; Start 07/09/18 at 05:00 Nifedipine (Procardia Xl) 30 mg DAILY PO Last administered on 07/20/18 10:08; Admin Dose 30 MG; Start 07/11/18 at 09:00 Fluconazole 100 ml @ 100 mls/hr Q24H IVPB Last administered on 07/19/18at 21:14; Admin Dose 100 MLS/HR; Start 07/10/18 at 21:30 Ibuprofen (Motrin) 400 mg Q6H PRN PO MILD PAIN(1-3) OR TEMP>38C Last administered on 07/19/18at 16:32; Admin Dose 400 MG; Start 07/15/18 at 16:00 Assessment/Plan Hospital Course (Demo Recall) 1. Preoperative evaluation prior to possible abdominal surgery for intraabdominal fistula, carcinomatosis and possible associated abscess formation.-neg trop x 3. Echo 07/06 with EF 55-60/MR - stable now - surgical recs noted -surgical team follows. 2. Hypertension-continue to be mildly elevated - will add Rx now - better Rx now - well controlled now. 3. 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 Cox follows. Poor overall prognosis 4. Abdominal wall fistula visualization between cavity and wall with drain in place and associated abscess.Con't anti-bx 5. Anemia, leukopenia, thrombocytopenia/pancytopenia. on meds and anti-Bx. NO fevers now - on anti-Bx. 6. Dyslpidemia-low HDL 21 LDL 35 JOAN RICE MD Jul 20, 2018 15:39
--- NOTE | 2018-07-20 15:55 | CONS ---
[facility] HCIS Consult Follow-up Patient Name: Fatuma Saldana Unit Number: [id number] Date of : 1950 Patient Status: Admitted Inpatient Attending Doctor: Efe Ferreira MD Edit: PRITI SILVERMAN M.D. 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 albicans, and rare S. aureus - s/p placement of an external drainage catheter in RLQ 07/06/2018 - displacement of small bowel to L side due to fluid collection on R side of the abdomen, without e/o obstruction on SBFT on 07/07/2018 - large abdominal and pelvic midline anterior incisional related hernia, a loop of bowel which extends into the right lower quadrant portion of the hernia demonstrates focal dilatation with marked wall thickening and edema worrisome for focal strangulation of this loop of small bowel without evidence of obstruction on CT on 07/05/2018 - Repeat CT abd pelvis imaging showed Placement of drainage catheter in the large complex multiloculated and lobulated right abdominal fluid collection without significant change in size., Thick wall collection with air fluid level in the right lower abdominal wall with additional adjacent loculated fluid collection also unchanged in size and appearance. There is question of connec tion between these 2 fluid collections through a track to the skin surface. 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 Lyons's previous note for detailed explanation - However, patient is not a good candidate for linezolid d/t thrombocytopenia, or for Keflex d/t her PCN allergy. - We recommend that when patient's discharged transition to PO suppressive therapy with: 1. Clindamycin 600mg PO tid to cover for S. Aureus and enterococci, and 2. Flucon 200mg PO daily to cover for patti. - We recommend initial 7day course of these two antibiotics with patient to follow up with her PCP and exterior interior specialist within the week. In addition we recommend that patient will f/u with an ID specialist who is contracted to see her. Further antibiotic course would be based upon patient's clinical progression as an outpatient. - Rx was written for both of the above x7d and given to the RN to add to the discharge paperwork - continue IV vancomycin and metronidazole (07/05/2018-) while hospitalized, then stop. - for red man syndrome: premedicate each infusion of IV vancomycin with PO Benadryl and NS 250 mL bolus - continue IV fluconazole (07/07/2018-) while hospitalized, then stop. Plan was d/w CHASITY Gregory, YARIEL Wakefield, and with Dr. Silverman. Thank you Consultation Date/Type/Reason Admit Date/Time Jul 05, 2018 at 12:27 Initial Consult Date 07/05/18 Type of Consult ID Requesting Provider: EFE FERREIRA MD Date/Time of Note DATE: 07/20/18 TIME: 15:49 24 HR Interval Summary Free Text/Dictation Patient will be going home today. I spoke with CHASITY Gregory to clarify and write the discharge prescription. She is in communication with the case hardener. Patient has remained afebrile, is anxious to go home. Detailed Summary Eyes: no complaints ENT: no complaints Respiratory: no complaints Cardiovascular: no complaints Gastrointestinal: other (abdominal tenderness RLQ); No decreased appetite, No diarrhea, No vomiting Genitourinary: no complaints Musculoskeletal: no complaints Skin: no complaints Neurologic: no complaints Endocrine: no complaints Psychological: no complaints, nl mood/affect Immunologic: no complaints Exam/Review of Systems Exam Vitals Vital Signs Date Temp Pulse Resp B/P (MAP) Pulse Ox O2 O2 Flow FiO2 Time Delivery Rate 07/20/18 98.4 95 17 100/56 98 Room Air 14:01 (71) Intake and Output 07/19/18 07/19/18 07/20/18 1515:00 23:00 07:00 IntakeIntake Total 730 ml 810 ml 800 ml OutputOutput Total 60 ml 60 ml BalanceBalance 730 ml 750 ml 740 ml Exam Constitutional: alert, oriented, well developed Psych: no complaints, nl mood/affect (smiling) Head: normocephalic, atraumatic Eyes: nl conjunctiva, nl lids, nl sclera ENMT: nl external ears & nose, nl nasal mucosa & septum, mucosa pink and moist (no thrush) Neck: supple, non-tender Respiratory: clear to auscultation, normal air movement; No diminished breath sounds, No labored breathing, No wheezing Cardiovascular: regular rate and rhythm, nl pulses Gastrointestinal: soft, non-tender, bowel sounds (normoactive), surgical scars, other (lower mid abd wound with serous/brown drainage noted on the dressing. R abdominal external drainage catheter with yellow drainage noted.) Genitourinary - Female: other (no f/c) Musculoskeletal: nl extremities to inspection, other (Gait steady, was ambulating back from the bathroom when I entered the room) Extremities: normal pulses; No edema Neurological: QUANTITATIVE RESEARCHER II-XII intact, nl mental status, nl speech (malawian speaking), nl strength Skin: nl turgor; No rash or lesions Results Result Diagram: 07/19/1855707/19/18557 Medications Medication Current Medications Vancomycin HCl (Vanco Iv Per Pharmacy) VANCOMYCIN PER PHARMACY PER PROTOCOL XX ; Start 07/05/18 at 18:00 Potassium Chloride/Dextrose/ Sod Cl 1,000 ml @ 40 mls/hr Q24H IV Last administered on 07/20/18at 01:56; Admin Dose 40 MLS/HR; Start 07/05/18 at 18:00 Vancomycin/Sodium Chloride 250 ml @ 62.5 mls/hr Q12H IVPB Last administered on 07/20/18 06:37; Admin Dose 62.5 MLS/HR; Start 07/06/18 at 06:00 Metronidazole 100 ml @ 100 mls/hr Q8 IVPB Last administered on 07/20/18 14:19; Admin Dose 100 MLS/HR; Start 07/05/18 at 22:30 Diphenhydramine HCl (Benadryl) 25 mg Q6H PRN IV ALLERGIC REACTION Last admin istered on 07/17/18 07:35; Admin Dose 25 MG; Start 07/06/18 at 14:00 Hydromorphone HCl (Dilaudid) 1 mg Q4H PRN IV SEVERE PAIN LEVEL 7-10 Last administered on 07/13/18 15:28; Admin Dose 1 MG; Start 07/06/18 at 17:00 Benazepril HCl (Lotensin) 10 mg BID PO Last administered on 07/20/18 10:09; Admin Dose 10 MG; Start 07/06/18 at 21:00 Diphenhydramine HCl (Benadryl) 25 mg Q12H PO Last administered on 07/20/18 05:39; Admin Dose 25 MG; Start 07/08/18 at 05:30 Sodium Chloride 250 ml @ 250 mls/hr Q12H IVPB Last administered on 07/20/18 04:54; Admin Dose 250 MLS/HR; Start 07/09/18 at 05:00 Nifedipine (Procardia Xl) 30 mg DAILY PO Last administered on 07/20/18 10:08; Admin Dose 30 MG; Start 07/11/18 at 09:00 Fluconazole 100 ml @ 100 mls/hr Q24H IVPB Last administered on 07/19/18 21:14; Admin Dose 100 MLS/HR; Start 07/10/18 at 21:30 Ibuprofen (Motrin) 400 mg Q6H PRN PO MILD PAIN(1-3) OR TEMP>38C Last administered on 07/19/18 16:32; Admin Dose 400 MG; Start 07/15/18 at 16:00 ALEXIA PAGE NP Jul 20, 2018 15:55
--- NOTE | 2018-07-20 18:49 | PN ---
DATE: 07/20/2018 SUBJECTIVE: No complaint. The patient is anxious to go home. OBJECTIVE: GENERAL: Awake, alert and oriented. VITAL SIGNS: Temperature maximum 98.4, heart rate 95, also -- 75 on 2 occasions, respirations 17, blood pressure 115/61, saturation 97% on room air. HEART: Regular. LUNGS: Clear. ABDOMEN: Wide scars at midline. Left side of the abdomen is distended compared to yesterday is less distended and is much softer. The patient stated that she has had 3 bowel movements today. On the right side of the abdomen, there is a pigtail drain, which is connected to accordion bag. It has drained 120 mL in past 24 hours. It is serous fluid, light yellow, clear. As was mentioned before in the previous days, this appears to be the abdominal fluid, which has accumulated due to cirrhosis of the patient and this is not mucinous fluid, which is assumed to be the large mass in the peritoneal cavity on the right side. LABORATORY DATA: No new lab results today. The fluid from the abdominal cavity through the pigtail drain was sent for culture yesterday. The result is no gross so far. PLAN: The patient is going to be discharged today. The infectious disease has given prescription for clindamycin 600 mg t.i.d. for coverage of Staphylococcus aureus and Enterococci and also fluconazole 200 mg p.o. daily for coverage of Rika and bacteria, which grew from the abdominal wall wound when the patient was admitted. The patient will be discharged home with the pigtail drain and accordion drain. I am not sure when this should be removed because as was mentioned before, I do not think this is draining the mass in the peritoneal cavity, but there was some evidence of ascites in the peritoneal cavity and I think this is due to low albumin and due to cirrhosis and I think as long as the drain is there it is going to drain, so in any case, we instructed the patient to drain the bag every day and record the amount of drainage and then come back to Dr. Rios' office next to bring it with herself and then we will make a decision what to do with this one. Also, patient as planned will call Dr. Falcon and make arrangements for him for possible chemotherapy. Dictated By: GLO WHITNEY/JAMIE Conf#: [id number] [facility]#: [id number] MTDD
== END 2018-07-20 18:54 | disposition home or self-care (01) | DRG 394 ==
LOC: E/R 08:53 → 2NE 12:27
PROVIDERS: ADMIT Internal Medicine; ATTEND Internal Medicine
PROC: 0W9F30Z Drainage of Abdominal Wall with Drainage Device, Percutaneous Approach (ICD-10-PCS; principal; 2018-07-06)
DX: K63.2 Fistula of intestine (principal); C18.9 Malignant neoplasm of colon, unspecified; D61.818 Other pancytopenia; K70.30 Alcoholic cirrhosis of liver without ascites; K43.2 Incisional hernia without obstruction or gangrene; I10 Essential (primary) hypertension; D64.9 Anemia, unspecified; E78.5 Hyperlipidemia, unspecified
CPT/HCPCS: 36415; 74177; 74250; 75989; 76942; 80048; 80053; 80061; 80202; 82378; 82565; 83605; 83690; 84145; 84484; 84520; 85025; 85610; 85730; 86301; 86304; 86704; 86709; 86803; 87070; 87075; 87340; 88104; 88305; 93005; 93306; 96374; 96375; C1729; J0696; J1170; J1200; J2270; J2405; J3370; J3480; J7040; J7050; Q9967

== ENCOUNTER 2018-11-14 10:41 | Inpatient (IN) | payer MEDICARE, OTHER ==
[~2018-11-14] VITALS: Ht 152.4 cm; Wt 70.5 kg
[~2018-11-14 10:41] MED LIST changes: +FAMO20TA18 PO; +HYDR-4012 PO; +IBUP-1541 PO; +MEGE20TA6 PO; +NIFE30TA2 PO; +ONDA4TAB13 PO; +TRAM50TA2 PO; -TYL2 PO; +ZOLP5TAB7 PO
[2018-11-14] MEDS ORDERED: SOD CHLORIDE 0.9% 1,000 ML IV STA (11:40)
[2018-11-14] MEDS ORDERED: morphine 4 MG/ML VIAL IV STA (11:40)
[2018-11-14] MEDS ORDERED: ONDANSETRON 4 MG INJ IV STA (11:40)
[2018-11-14] MEDS ORDERED: IOHEXOL 300MG/ML 150 ML BTL ONE (13:49)
[2018-11-14] MEDS ORDERED: SOD CHLORIDE 0.9% 100 ML ONE (13:49)
[2018-11-14] MEDS ORDERED: CIPROFLOXACIN 400MG/D5W 200 ML IVPB ONE (15:30)
[2018-11-14] MEDS ORDERED: metroNIDAZOLE 500 MG/NS (PMX) 100 ML IVPB ONE (15:30)
[2018-11-14] MEDS ORDERED: ONDANSETRON 4 MG INJ IV PRN (16:00)
[2018-11-14] MEDS: VANCOMYCIN 1 GM (PMX) 250 ML IVPB ONE ×2 (17:44→18:46)
[2018-11-14 19:44] VITALS: Ht 152.4 cm; Wt 70.5 kg
[2018-11-14 20:00] VITALS: BP 133/75; PULSE 97; RESP 18
[2018-11-14] MEDS: FAMOTIDINE 20 MG INJ IV SCH (20:23)
[2018-11-14] MEDS: D5W-0.45 NACL + KCL 20 MEQ 1,000 ML IV SCH (20:25)
[2018-11-14] MEDS: morphine 2 MG INJ IV PRN (22:51)
[2018-11-14] MEDS ORDERED: VANCOMYCIN IV PER PHARMACY XX SCH (23:00)
[2018-11-15] MEDS: metroNIDAZOLE 500 MG/NS (PMX) 100 ML IVPB SCH ×4 (00:37→17:28)
[2018-11-15] MEDS: IBUPROFEN 600 MG TAB PO PRN (00:43)
[2018-11-15 02:00] VITALS: BP 101/57; PULSE 62; RESP 18
[2018-11-15] MEDS: D5W-0.45 NACL + KCL 20 MEQ 1,000 ML IV SCH ×2 (05:13→11:54)
[2018-11-15] MEDS: morphine 2 MG INJ IV PRN ×2 (06:03→16:00)
[2018-11-15 08:00] VITALS: BP 104/69; PULSE 69; RESP 19
[2018-11-15 14:00] VITALS: BP 106/53; PULSE 65; RESP 18
[2018-11-15] MEDS ORDERED: VANCOMYCIN 1 GM 250 ML IVPB SCH (19:00)
[2018-11-15] MEDS: ONDANSETRON 4 MG INJ IV PRN (20:02)
[2018-11-15 20:15] VITALS: BP 108/58; PULSE 76; RESP 18
[2018-11-15] MEDS: FAMOTIDINE 20 MG INJ IV SCH (21:15)
[2018-11-16] MEDS: metroNIDAZOLE 500 MG/NS (PMX) 100 ML IVPB SCH ×6 (00:01→23:52)
[2018-11-16 02:05] VITALS: BP 131/62; PULSE 74; RESP 18
[2018-11-16] MEDS: ONDANSETRON 4 MG INJ IV PRN ×3 (05:42→20:13)
[2018-11-16] MEDS: morphine 2 MG INJ IV PRN ×3 (05:42→18:02)
[2018-11-16] MEDS: D5W-0.45 NACL + KCL 20 MEQ 1,000 ML IV SCH ×2 (06:13→13:17)
[2018-11-16 08:00] VITALS: BP 106/65; PULSE 69; RESP 18
[2018-11-16] MEDS: IBUPROFEN 600 MG TAB PO PRN (08:10)
[2018-11-16 14:00] VITALS: BP 107/55; PULSE 77; RESP 18
[2018-11-16] MEDS ORDERED: VANCOMYCIN 750 MG (PMX) 250 ML IVPB SCH (16:00)
[2018-11-16 19:49] VITALS: BP 134/70; PULSE 70; RESP 16
[2018-11-16] MEDS: FAMOTIDINE 20 MG TAB PO SCH (20:14)
[2018-11-17 02:16] VITALS: BP 119/60; PULSE 73; RESP 16
[2018-11-17] MEDS: ERTAPENEM SODIUM 1 GM in SOD CHLORIDE 0.9% 100 ML IVPB SCH (02:40)
[2018-11-17] MEDS: FLUCONAZOLE 200 MG (PMX) 100 ML IVPB SCH (03:42)
[2018-11-17 08:00] VITALS: BP 110/60; PULSE 71; RESP 19
[2018-11-17] MEDS: morphine 2 MG INJ IV PRN (10:34)
[2018-11-17] MEDS: D5W-0.45 NACL + KCL 20 MEQ 1,000 ML IV SCH (10:35)
[2018-11-17] MEDS: ONDANSETRON 4 MG INJ IV PRN (10:39)
[2018-11-17 14:00] VITALS: BP 111/63; PULSE 83; RESP 16
[2018-11-17 19:43] VITALS: BP 132/66; PULSE 83; RESP 16
[2018-11-17] MEDS: FAMOTIDINE 20 MG TAB PO SCH (21:06)
[2018-11-18] MEDS: ERTAPENEM SODIUM 1 GM in SOD CHLORIDE 0.9% 100 ML IVPB SCH (03:20)
[2018-11-18] MEDS: FLUCONAZOLE 200 MG (PMX) 100 ML IVPB SCH (04:10)
[2018-11-18 08:00] VITALS: BP 128/60; PULSE 74; RESP 16
[2018-11-18 14:00] VITALS: BP 137/92; PULSE 77; RESP 19
[2018-11-18] MEDS: morphine 2 MG INJ IV PRN (15:42)
[2018-11-18] MEDS: ONDANSETRON 4 MG INJ IV PRN (15:50)
[2018-11-18 20:00] VITALS: BP 150/66; PULSE 83; RESP 18
[2018-11-18] MEDS: FAMOTIDINE 20 MG TAB PO SCH (22:11)
[2018-11-19 02:00] VITALS: BP 127/64; PULSE 78; RESP 18
[2018-11-19] MEDS: ERTAPENEM SODIUM 1 GM in SOD CHLORIDE 0.9% 100 ML IVPB SCH (02:40)
[2018-11-19] MEDS: FLUCONAZOLE 200 MG (PMX) 100 ML IVPB SCH (03:48)
[2018-11-19] MEDS: IBUPROFEN 600 MG TAB PO PRN (03:54)
[2018-11-19 08:31] VITALS: BP 113/67; PULSE 64; RESP 16
[2018-11-19] MEDS: morphine 2 MG INJ IV PRN ×2 (11:05→16:42)
[2018-11-19 14:16] VITALS: BP 108/66; PULSE 66; RESP 18
[2018-11-19] MEDS ORDERED: POTASSIUM CHLORIDE 20 MEQ POWDER FOR ORAL SOLN PO ONE (15:30)
[2018-11-19] MEDS ORDERED: VANCOMYCIN IV PER PHARMACY XX SCH (17:30)
[2018-11-19 20:22] VITALS: BP 152/65; PULSE 76; RESP 18
[2018-11-19] MEDS: FAMOTIDINE 20 MG TAB PO SCH (20:28)
[2018-11-19] MEDS ORDERED: VANCOMYCIN 1 GM 250 ML IVPB SCH (20:30)
[2018-11-20 01:57] VITALS: BP 127/56; PULSE 72; RESP 20
[2018-11-20] MEDS: ERTAPENEM SODIUM 1 GM in SOD CHLORIDE 0.9% 100 ML IVPB SCH (02:15)
[2018-11-20] MEDS: FLUCONAZOLE 200 MG (PMX) 100 ML IVPB SCH (02:57)
[2018-11-20 08:00] VITALS: BP 128/61; PULSE 71; RESP 24
[2018-11-20] MEDS: morphine 2 MG INJ IV PRN ×2 (09:33→13:54)
[2018-11-20] MEDS ORDERED: VANCOMYCIN 750 MG (PMX) 250 ML IVPB SCH (10:00)
[2018-11-20 14:00] VITALS: BP 136/63; PULSE 72; RESP 24
[2018-11-20] MEDS: DAPTOMYCIN 280 MG in SOD CHLORIDE 0.9% 100 ML IVPB SCH (16:29)
[2018-11-20] MEDS: ONDANSETRON 4 MG INJ IV PRN (18:21)
[2018-11-20 19:25] VITALS: BP 140/72; PULSE 74; RESP 18
[2018-11-20] MEDS: FAMOTIDINE 20 MG TAB PO SCH (21:00)
[2018-11-21 02:15] VITALS: BP 120/63; PULSE 76; RESP 18
[2018-11-21] MEDS: ERTAPENEM SODIUM 1 GM in SOD CHLORIDE 0.9% 100 ML IVPB SCH (02:20)
[2018-11-21] MEDS: ONDANSETRON 4 MG INJ IV PRN (02:57)
[2018-11-21] MEDS: FLUCONAZOLE 200 MG (PMX) 100 ML IVPB SCH (02:58)
[2018-11-21 08:00] VITALS: BP 127/66; PULSE 69; RESP 16
[2018-11-21] MEDS: traMADol 50 MG TAB PO PRN (13:00)
[2018-11-21 14:00] VITALS: BP 131/69; PULSE 75; RESP 17
[2018-11-21] MEDS: DAPTOMYCIN 280 MG in SOD CHLORIDE 0.9% 100 ML IVPB SCH (14:17)
[2018-11-21] MEDS ORDERED: POTASSIUM CHLORIDE 20 MEQ POWDER FOR ORAL SOLN PO ONE (17:00)
[2018-11-21 20:00] VITALS: BP 136/65; PULSE 84; RESP 18
[2018-11-21] MEDS: FAMOTIDINE 20 MG TAB PO SCH (22:34)
[2018-11-22 02:00] VITALS: BP 122/56; PULSE 77; RESP 17
[2018-11-22] MEDS: ERTAPENEM SODIUM 1 GM in SOD CHLORIDE 0.9% 100 ML IVPB SCH (02:57)
[2018-11-22] MEDS: FLUCONAZOLE 200 MG (PMX) 100 ML IVPB SCH ×2 (02:57→14:10)
[2018-11-22 07:28] VITALS: BP 112/63; PULSE 74; RESP 19
[2018-11-22] MEDS ORDERED: POTASSIUM CHLORIDE (SR) 20 MEQ TAB PO STA (11:51)
[2018-11-22] MEDS: traMADol 50 MG TAB PO PRN (14:26)
[2018-11-22 14:28] VITALS: BP 121/63; PULSE 76; RESP 18
[2018-11-22] MEDS: DAPTOMYCIN 280 MG in SOD CHLORIDE 0.9% 100 ML IVPB SCH (14:32)
[2018-11-22 20:00] VITALS: BP 140/64; PULSE 73; RESP 18
[2018-11-22] MEDS: FAMOTIDINE 20 MG TAB PO SCH (21:04)
[2018-11-23] MEDS: FLUCONAZOLE 200 MG (PMX) 100 ML IVPB SCH (01:56)
[2018-11-23 02:00] VITALS: BP 119/58; PULSE 71; RESP 17
[2018-11-23] MEDS: ERTAPENEM SODIUM 1 GM in SOD CHLORIDE 0.9% 100 ML IVPB SCH (03:37)
[2018-11-23 07:30] VITALS: BP 124/66; PULSE 87; RESP 16
[2018-11-23 14:12] VITALS: BP 115/63; PULSE 75; RESP 18
[2018-11-23] MEDS: DAPTOMYCIN 280 MG in SOD CHLORIDE 0.9% 100 ML IVPB SCH (15:51)
[2018-11-23] MEDS ORDERED: POLYETHYLENE GLYCOL 17 GM PACKET PO PRN (17:00)
[2018-11-23 20:40] VITALS: BP 119/58; PULSE 77; RESP 20
[2018-11-23] MEDS: FAMOTIDINE 20 MG TAB PO SCH (20:41)
[2018-11-23] MEDS: traMADol 50 MG TAB PO PRN (20:42)
[2018-11-24 01:47] VITALS: BP 110/64; PULSE 80; RESP 18
[2018-11-24] MEDS: ERTAPENEM SODIUM 1 GM in SOD CHLORIDE 0.9% 100 ML IVPB SCH (02:02)
[2018-11-24] MEDS: FLUCONAZOLE 200 MG (PMX) 100 ML IVPB SCH (02:37)
[2018-11-24 08:29] VITALS: BP 133/69; PULSE 77; RESP 20
[2018-11-24] MEDS: DAPTOMYCIN 280 MG in SOD CHLORIDE 0.9% 100 ML IVPB SCH (13:36)
[2018-11-24 14:55] VITALS: BP 109/67; PULSE 76; RESP 18
[2018-11-24] MEDS: FAMOTIDINE 20 MG TAB PO SCH (20:07)
[2018-11-24] MEDS: ONDANSETRON 4 MG INJ IV PRN (20:07)
[2018-11-24] MEDS: traMADol 50 MG TAB PO PRN (20:08)
[2018-11-24 20:16] VITALS: BP 102/63; PULSE 71; RESP 18
[2018-11-24] MEDS ORDERED: FLUCONAZOLE 200 MG (PMX) 100 ML IVPB SCH (23:30)
[2018-11-25 02:05] VITALS: BP 112/60; PULSE 70; RESP 18
[2018-11-25] MEDS: ERTAPENEM SODIUM 1 GM in SOD CHLORIDE 0.9% 100 ML IVPB SCH (02:09)
[2018-11-25] MEDS: FLUCONAZOLE 200 MG (PMX) 100 ML IVPB SCH (03:17)
[2018-11-25 08:00] VITALS: BP 139/56; PULSE 77; RESP 17
[2018-11-25 13:45] VITALS: BP 116/66; PULSE 63; RESP 14
[2018-11-25] MEDS: DAPTOMYCIN 280 MG in SOD CHLORIDE 0.9% 100 ML IVPB SCH (14:07)
[2018-11-25] MEDS: FAMOTIDINE 20 MG TAB PO SCH (19:57)
[2018-11-25] MEDS: traMADol 50 MG TAB PO PRN (19:57)
[2018-11-25 20:00] VITALS: BP 116/65; PULSE 76; RESP 18
[2018-11-26 02:00] VITALS: BP 118/54; PULSE 74; RESP 18
[2018-11-26] MEDS: FLUCONAZOLE 200 MG (PMX) 100 ML IVPB SCH (02:07)
[2018-11-26] MEDS: ERTAPENEM SODIUM 1 GM in SOD CHLORIDE 0.9% 100 ML IVPB SCH (02:37)
[2018-11-26 07:15] VITALS: BP 124/61; PULSE 79; RESP 18
[2018-11-26] MEDS: ONDANSETRON 4 MG INJ IV PRN (11:07)
[2018-11-26 14:11] VITALS: BP 126/84; PULSE 75; RESP 16
[2018-11-26] MEDS: DAPTOMYCIN 280 MG in SOD CHLORIDE 0.9% 100 ML IVPB SCH (14:28)
[2018-11-26] MEDS ORDERED: HEPARIN (100 UNITS/ML) 5 ML SYG CATHETER ONE (15:00)
== END 2018-11-26 16:26 | disposition home health service (06) | DRG 371 ==
LOC: E/R 10:41 → PP2 15:54
PROVIDERS: ADMIT Internal Medicine; ATTEND Internal Medicine
DX: K65.1 Peritoneal abscess (principal); D61.810 Antineoplastic chemotherapy induced pancytopenia; C78.6 Secondary malignant neoplasm of retroperitoneum and peritoneum; C18.7 Malignant neoplasm of sigmoid colon; R18.0 Malignant ascites; K63.2 Fistula of intestine; T81.31XA Disruption of external operation (surgical) wound, not elsewhere classified, initial encounter; L03.311 Cellulitis of abdominal wall; C79.2 Secondary malignant neoplasm of skin; B96.20 Unspecified Escherichia coli [E. coli] as the cause of diseases classified elsewhere; B95.2 Enterococcus as the cause of diseases classified elsewhere; Z16.21 Resistance to vancomycin; Z16.12 Extended spectrum beta lactamase (ESBL) resistance; E87.6 Hypokalemia; I10 Essential (primary) hypertension; K74.60 Unspecified cirrhosis of liver; K80.20 Calculus of gallbladder without cholecystitis without obstruction; Z90.49 Acquired absence of other specified parts of digestive tract
CPT/HCPCS: 36415; 74177; 80048; 80053; 81001; 82550; 83690; 83735; 85025; 85610; 85730; 87070; 87086; 96374; 96375; J0744; J1335; J1642; J2270; J2405; J3370; J3480; J7030; Q9967